=== PATIENT | female | born 1960 | race Caucasian/White ===

== ENCOUNTER 2021-08-23 08:47 | Outpatient (CLI) | payer MEDICARE, MEDICAID, SELFPAY | END 2021-08-23 08:48 | disposition home or self-care (01) | LOC: INJ CL 08:49 | PROVIDERS: PCP Physician Assistant Medical; Visit Provider Family Medicine | DX: M54.16 Radiculopathy, lumbar region (principal); M51.36 Other intervertebral disc degeneration, lumbar region | CPT/HCPCS: 64483; J1100; Q9966 ==

== ENCOUNTER 2021-09-23 10:53 | Emergency (ER) | payer MEDICARE, MEDICAID, SELFPAY ==
[2021-09-23 11:16] VITALS: BP 150/84; PULSE 85; RESP 16; TEMP 35.8; O2SAT 97; BMI 33.7
--- NOTE | 2021-09-23 11:55 | ED_ITS ---
HPI - General Adult General Date Seen: 09/23/21 Chief complaint: Back Injury/Pain Stated complaint: Back pain Time Seen by Provider: 09/23/21 11:55 Source: patient and RN notes reviewed Mode of arrival: ambulatory Limitations: no limitations History of Present Illness HPI narrative: Patient is a 61-year-old female coming in with left abdominal pain that probably started about 2 days ago. Yesterday it started to get worse. She has only noticed diminished appetite but isn't hungry. No nausea or vomiting. Has not had a bowel movement for a couple days but that is not necessarily abnormal, denies diarrhea or constipation. Has had no fevers chills. It is in the left upper lateral side and radiates around the abdomen radiates into the back does seem to go down the left side as well. She has a history of chronic back pain but this is different. Denies any urinary symptoms. She has had a prior tubal ligation bed it is not endorse any other surgeries. She had a Vicodin that she takes for chronic back pain at home earlier. Press seen on her abdomen really bothers her. She states she did not sleep well because of it last night. 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 No cough or cold symptoms. She can feel deep breathing into this left side. Related Data Home Medications Medication Instructions Recorded Confirmed acetaminophen 325 mg tablet 650 mg PO Q6H PRN pain 09/23/21 09/23/21 albuterol sulfate 90 mcg/actuation 1 puff inhalation Q8H PRN 09/23/21 09/23/21 aerosol inhaler amlodipine 5 mg tablet 5 mg PO DAILY 09/23/21 09/23/21 ammonium lactate 12 % lotion 1 applic topical BID 09/23/21 09/23/21 aspirin 81 mg tablet,delayed 81 mg PO DAILY 09/23/21 09/23/21 release atorvastatin 20 mg tablet 20 mg PO .bedtime 09/23/21 09/23/21 benzonatate 100 mg capsule 100 mg PO Q6H PRN 09/23/21 09/23/21 blood sugar diagnostic (Accu-Chek 09/23/21 09/23/21 Guide test strips) blood-glucose meter (Accu-Chek 09/23/21 09/23/21 Guide Me Glucose Meter) brexpiprazole 0.5 mg tablet mg 09/23/21 (Rexulti) brexpiprazole 1 mg tablet (Rexulti) mg 09/23/21 bupropion HCl 300 mg 24 hr tablet, 300 mg PO DAILY 09/23/21 09/23/21 extended release cholecalciferol (vitamin D3) 125 09/23/21 mcg (5,000 unit) capsule cyclobenzaprine 5 mg tablet mg 09/23/21 diclofenac sodium 1 % topical gel topical 09/23/21 docusate sodium 100 mg capsule mg PO 09/23/21 dulaglutide 0.75 mg/0.5 mL mg subcut 09/23/21 subcutaneous pen injector (Trulicity) dulaglutide 1.5 mg/0.5 mL mg subcut 09/23/21 subcutaneous pen injector (Trulicity) dulaglutide 3 mg/0.5 mL mg subcut 09/23/21 subcutaneous pen injector (Trulicity) empagliflozin 10 mg tablet mg 09/23/21 (Jardiance) fluocinolone 0.01 % topical topical 09/23/21 solution gabapentin 100 mg capsule 100 mg PO Q8H 09/23/21 09/23/21 hydrocodone 5 mg-acetaminophen 325 tab 09/23/21 mg tablet hydrocortisone 1 % topical cream applic 09/23/21 hydroxyzine HCl 25 mg tablet mg 09/23/21 hydroxyzine pamoate 25 mg capsule mg 09/23/21 ibuprofen 600 mg tablet mg 09/23/21 incontinence pad, liner, disp 09/23/21 09/23/21 (Poise Pads) lancets (Accu-Chek Softclix 09/23/21 09/23/21 Lancets) lorazepam 1 mg tablet mg 09/23/21 metformin 1,000 mg tablet 1,000 mg PO .q12 09/23/21 09/23/21 metformin 500 mg tablet mg 09/23/21 methylprednisolone 4 mg tablets in mg 09/23/21 a dose pack multivitamin with folic acid 400 tab PO 09/23/21 mcg tablet (Tab-A-Mars) nicotine (polacrilex) 2 mg buccal mg 09/23/21 mini lozenge nicotine 21 mg/24 hr daily 09/23/21 transdermal patch omeprazole 40 mg capsule,delayed 40 mg PO DAILY 09/23/21 09/23/21 release propranolol 60 mg capsule,24 60 mg PO Q24H 09/23/21 09/23/21 hr,extended release risankizumab-rzaa 150 mg/mL mg subcut 09/23/21 subcutaneous pen injector (Skyrizi) ropinirole 0.25 mg tablet 0.5 mg PO .bedtime 09/23/21 09/23/21 ropinirole 0.5 mg tablet mg 09/23/21 sertraline 100 mg tablet 100 mg PO Q24H 09/23/21 09/23/21 trazodone 50 mg tablet 50 mg PO .bedtime PRN 09/23/21 09/23/21 triamcinolone acetonide 0.1 % topical 09/23/21 lotion varenicline 0.5 mg tablet 1 mg PO BID 09/23/21 09/23/21 Allergies Allergy/AdvReac Type Severity Reaction Status Date / Time lithium Allergy Mild Unknown Verified 09/23/21 14:35 Review of Systems Status of ROS: Reports: 10 or more systems reviewed and unremarkable except as noted in History and below [facility] Social History Smoking Status: Current every day smoker What tobacco products do you use: cigarettes Do you use any of these nicotine containing products: None Second hand tobacco smoke exposure: No How often do you have a drink containing alcohol: monthly or less AUDIT-C Alcohol total score: 1 Non-prescribed substance use: denies use Exam Const: Vital Signs, click to edit/add: Vital Signs - 24 hr 09/23/21 11:16 09/23/21 13:50 09/23/21 14:00 Temperature 96.5 F L Pulse Rate [Right Pulse Oximeter] 85 82 85 Respiratory Rate 16 18 18 Blood Pressure [Ri ght Upper Arm] 150/84 H 120/104 H 143/93 H Pulse Oximetry 97 95 94 Oxygen Delivery Me thod Room Air Room Air Room Air 09/23/21 14:30 09/23/21 15:00 Temperature Pulse Rate [Right Pulse Oximeter] 87 86 Respiratory Rate 18 18 Blood Pressure [Ri ght Upper Arm] 149/95 H 154/85 H Pulse Oximetry 95 95 Oxygen Delivery Me thod Room Air Room Air Documenting provider has reviewed patient's vital signs: yes Common normals: no apparent distress, oriented x3, no limitations, healthy appearing, alert and well nourished Nutritional appearance: obese HENMT: Common normals: normocephalic, head/scalp atraumatic, hearing grossly normal bilaterally and EAC's normal Head and scalp: normocephalic and atraumatic External auditory canal: EAC's normal Eye: Common normals: PERRL, EOMs intact bilaterally, conjunctivae normal and no scleral icterus Conjunctiva: conjunctiva(e) normal Pupil: PERRL Neck & C-Spine: Common normals: full ROM, no lymphadenopathy, supple, no meningeal signs, no JVD and thyroid normal Thyroid: thyroid normal Chest: Common normals: inspection of chest normal and palpation of chest normal Resp: Common normals: normal respiratory effort, no retractions, no use of accessory muscles and clear to auscultation bilaterally Auscultation: clear to auscultation bilaterally Cardio: Common normals: no JVD, regular rate, regular rhythm, S1 normal heart sound, S2 normal heart sound, no gallops, no clicks and no murmurs Rate: regular rate Rhythm: regular rhythm Heart sounds: S1 normal and S2 normal GI: Common normals: Normal to inspection, nondistended, normoactive bowel sounds present, soft to palpation, no hepatosplenomegaly and no masses Palpation: soft, tender Details: LLQ and LUQ and no hepatosplenomegaly Neuro: Common normals: oriented x3 Sensorium/orientation: alert Meningeal signs: no meningeal signs Course Course Hospital Course: Have reviewed with patient that we will start with labs and guide imaging based on that. She may certainly need a abdomen pelvis CT but would like to have a D- dimer back before I decide on what type of imaging I will be ordering. She is currently hemodynamically stable. She did get Toradol for pain management. Reevaluation(s) Reevaluation #1: Have reviewed with patient her CT result findings and given her copy. It does appear that this could be consistent with constipation. We otherwise do not see any concerning laboratory abnormalities. Patient is going to be discharged to home for outpatient management of constipation. Time: 16:09 Vital Signs Vital signs: Initial Vital Signs Temperature 96.5 F L 09/23/21 11:16 Temperature Source Temporal Artery Scan 09/23/21 11:16 Pulse Rate 85 08//22 11:16 Pulse Rhythm 09/23/21 11:16 Respiratory Rate 16 09/23/21 11:16 Blood Pressure 150/84 H 09/23/21 11:16 Blood Pressure Mean 106 09/23/21 11:16 Blood Pressure Position Sitting 09/23/21 11:16 Pulse Oximetry 97 09/23/21 11:16 Oxygen Delivery Method 09/23/21 11:16 Vital Signs Temperature 96.5 F L 09/23/21 11:16 Pulse Rate 85 09/23/21 11:16 Respiratory Rate 16 09/23/21 11:16 Blood Pressure 150/84 H 09/23/21 11:16 Pulse Oximetry 97 09/23/21 11:16 Oxygen Delivery Method 09/23/21 11:16 Temperature 96.5 F L 09/23/21 11:16 Pulse Rate 86 09/23/21 15:00 Respiratory Rate 18 09/23/21 15:00 Blood Pressure 154/85 H 09/23/21 15:00 Pulse Oximetry 95 09/23/21 15:00 Oxygen Delivery Method 09/23/21 15:00 Medical Decision Making Lab Data Lab results reviewed: Yes I reviewed the patient's lab results Labs: Lab Results 09/23/21 09/23/21 09/23/21 Range/Units 12:15 13:30 13:30 WBC 10.07 (4.50-11.00) K/uL RBC 3.73 L (4.00-5.20) m/uL Hgb 12.2 (12.0-16.0) gm/dL Hct 36.9 (33.0-51.0) % MCV 99 (80-100) fL MCH 33 (26-34) pg MCHC 33 (32-36) gm/dL RDW Coeff of Sylvester 12.7 (11.5-15.5) % Plt Count 256 (140-440) K/uL Neut % (Auto) 66.5 (42.0-72.0) % Lymph % (Auto) 22.7 (20-44) % Parker % (Auto) 6.2 (0.0-11.0) % Eos % (Auto) 3.8 (0.0-7.0) % Baso % (Auto) 0.5 (0.0-3.0) % Neut # (Auto) 6.70 (1.7-7.0) K/uL Lymph # (Auto) 2.29 (0.90-2.90) K/uL Parker # (Auto) 0.60 (0.00-0.90) K/UL Eos # (Auto) 0.38 (0.00-0.50) K/uL Baso # (Auto) 0.05 (0.00-0.30) K/uL Abs Immat Gran (auto) 0.03 (0.00-0.30) K/uL D-Dimer Quant (PE/DVT) 0.81 H (0.00-0.50) ug/ml Sodium (135-149) mmol/L Potassium (3.6-5.1) mmol/L Chloride (96-114) mmol/L Carbon Dioxide (20-32) mmol/L BUN (7-30) mg/dL Creatinine (0.5-1.5) mg/dL Estimated Creat Clear Estimated GFR ml/min Glucose (60-115) mg/dL Lactate (0.5-1.9) mmol/L Calcium (8.4-10.6) mg/dL Total Bilirubin (0.1-1.5) mg/dL AST (12-35) U/L ALT (4-35) U/L Alkaline Phosphatase (40-150) U/L Troponin I (0.01-0.04) ng/mL C-Reactive Protein (0.5-1.0) mg/dL Total Protein (6.0-8.3) g/dL Albumin (3.3-5.0) g/dL Lipase (23-300) U/L Urine Color Yellow (Yellow) Urine Appearance Clear (Clear) Urine pH 7.0 (5.0-8.5) Ur Specific [place] 1.010 (1.000-1.030) Urine Protein Negative (Negative) Urine Glucose (UA) Negative (Negative) Urine Ketones Negative (Negative) Urine Blood Negative (Negative) Urine Nitrite Negative (Negative) Urine Bilirubin Negative (Negative) Urine Urobilinogen 0.2 (0.2-1.0) Ur Leukocyte Esterase Negative (Negative) Urine RBC 0-2 (0-2) Urine WBC 0-2 (0-5) Ur Squamous Epith Cells Few (None-Few) Urine Bacteria Moderate A (None) 09/23/21 09/23/21 Range/Units 13:30 13:30 WBC (4.50-11.00) K/uL RBC (4.00-5.20) m/uL Hgb (12.0-16.0) gm/dL Hct (33.0-51.0) % MCV (80-100) fL MCH (26-34) pg MCHC (32-36) gm/dL RDW Coeff of Sylvester (11.5-15.5) % Plt Count (140-440) K/uL Neut % (Auto) (42.0-72.0) % Lymph % (Auto) (20-44) % Parker % (Auto) (0.0-11.0) % Eos % (Auto) (0.0-7.0) % Baso % (Auto) (0.0-3.0) % Neut # (Auto) (1.7-7.0) K/uL Lymph # (Auto) (0.90-2.90) K/uL Parker # (Auto) (0.00-0.90) K/UL Eos # (Auto) (0.00-0.50) K/uL Baso # (Auto) (0.00-0.30) K/uL Abs Immat Gran (auto) (0.00-0.30) K/uL D-Dimer Quant (PE/DVT) (0.00-0.50) ug/ml Sodium 136 (135-149) mmol/L Potassium 4.2 (3.6-5.1) mmol/L Chloride 105 (96-114) mmol/L Carbon Dioxide 23 (20-32) mmol/L BUN 14 (7-30) mg/dL Creatinine 0.9 (0.5-1.5) mg/dL Estimated Creat Clear 47.63 Estimated GFR 72 ml/min Glucose 120 H (60-115) mg/dL Lactate 1.1 (0.5-1.9) mmol/L Calcium 9.2 (8.4-10.6) mg/dL Total Bilirubin 0.2 (0.1-1.5) mg/dL AST 27 (12-35) U/L ALT 23 (4-35) U/L Alkaline Phosphatase 127 (40-150) U/L Troponin I < 0.01 L (0.01-0.04) ng/mL C-Reactive Protein < 0.5 L (0.5-1.0) mg/dL Total Protein 7.2 (6.0-8.3) g/dL Albumin 4.1 (3.3-5.0) g/dL Lipase 86 (23-300) U/L Urine Color (Yellow) Urine Appearance (Clear) Urine pH (5.0-8.5) Ur Specific [place] (1.000-1.030) Urine Protein (Negative) Urine Glucose (UA) (Negative) Urine Ketones (Negative) Urine Blood (Negative) Urine Nitrite (Negative) Urine Bilirubin (Negative) Urine Urobilinogen (0.2-1.0) Ur Leukocyte Esterase (Negative) Urine RBC (0-2) Urine WBC (0-5) Ur Squamous Epith Cells (None-Few) Urine Bacteria (None) Imaging Data CT Chest/Ab/Pelvis: Attestation: I have reviewed the pertinent imaging results. Radiologist's impression: Patient: FRANSISCO LUIS Facility:?[facility] Patient ID:?[id number] Site Patient ID:?[id number]. Site :?[id number] Study:?CT Chest/Abd/Pelvis W/ 95CC ISOVUE-370 PE PROTOCOL-09/23/2021 2:48:28 PM Ordering Physician:Shoshana Haines Final Report: INDICATION: Abdominal pain, left upper quadrant pain, left-sided chest pain, elevated D- dimer TECHNIQUE: CT chest, abdomen and pelvis acquired with IV contrast. 95 cc Isovue 370 COMPARISON: None FINDINGS: Chest: Cardiovascular structures: Heart size is normal. Thoracic aorta and main pulmonary artery are normal in caliber. Mediastinum and patrica: No mass or adenopathy. Lungs: Clear. Pleura and pericardium: No effusions. Chest wall and axilla: No mass or adenopathy. Bones: Degenerative changes thoracic spine. Abdomen and Pelvis: Liver: Unremarkable. Spleen: Unremarkable. Pancreas: Unremarkable. Gallbladder and bile ducts: Unremarkable. Kidneys: Bilateral renal cysts. Adrenal glands: Unremarkable. GI tract: The stomach retention appear appendix Vascular structures: Unremarkable. Lymph nodes: Unremarkable. Miscellaneous: Unremarkable. No free air or significant free fluid. Pelvic Organs: Unremarkable. Bones: Unremarkable for age. IMPRESSION: No evidence for pulmonary embolus. Normal appearance of the thoracic aorta. Diffuse colonic fecal retention. Dictated by Chavo Clements MD @ 09/23/2021 3:31:43 PM Please note that all CT scans at this facility use dose modulation, iterative reconstruction, and/or weight-based dosing when appropriate to reduce radiation dose to as low as reasonably achievable. Dictated by: Chavo Clements MD @ 09/23/2021 15:31:54 (Electronic Signature) Critical Care Time Critical Care Time Critical Care Time: No Discharge Plan Discharge Clinical Impression: Constipation Condition: Stable Instructions: Constipation (DC), High Fiber Diet (ED) Additional Instructions: Drink adequate fluid, try to increase fiber in your diet. Can take senna 1-2 pills once or twice a day for the next 2-3 days to try to help clean out your bowels. Daily can take MiraLax 17 g, this can be used as a daily additive 2 year regimen to help keep bowels from developing constipation. That any time he start developing diarrhea, can back off the dosing of the MiraLax. Activity Level: Activity as Tolerated Prescriptions: No Action acetaminophen 325 mg tablet 650 mg PO Q6H PRN (Reason: pain) metformin 500 mg tablet atorvastatin 20 mg tablet 20 mg PO .bedtime ammonium lactate 12 % lotion 1 applic TOPICAL BID (DME) blood-glucose meter [Accu-Chek Guide Me Glucose Mtr] [facility] [place] Label Comments: TEST THREE TIMES DAILY trazodone 50 mg tablet 50 mg PO .bedtime PRN hydrocodone-acetaminophen 5-325 mg tablet propranolol 60 mg capsule,extended release 24 hr 60 mg PO Q24H sertraline 100 mg tablet 100 mg PO Q24H (DME) Accu-Chek Guide test strips Strip MISCELLANEOUS Label Comments: TEST THREE TIMES DAILY amlodipine 5 mg tablet 5 mg PO DAILY omeprazole 40 mg capsule,delayed release(DR/EC) 40 mg PO DAILY aspirin 81 mg tablet,delayed release (DR/EC) 81 mg PO DAILY (DME) lancets [Accu-Chek Softclix Lancets] [facility] [place] Label Comments: TEST THREE TIMES DAILY ropinirole 0.25 mg tablet 0.5 mg PO .bedtime benzonatate 100 mg capsule 100 mg PO Q6H PRN hydrocortisone 1 % cream metformin 1,000 mg tablet 1,000 mg PO .q12 ropinirole 0.5 mg tablet nicotine 21 mg/24 hr patch 24 hour docusate sodium 100 mg capsule PO hydroxyzine HCl 25 mg tablet gabapentin 100 mg capsule 100 mg PO Q8H fluocinolone 0.01 % solution TOPICAL lorazepam 1 mg tablet triamcinolone acetonide 0.1 % lotion TOPICAL ibuprofen 600 mg tablet methylprednisolone 4 mg tablets,dose pack albuterol sulfate 90 mcg/actuation HFA aerosol inhaler 1 puff INHALATION Q8H PRN cholecalciferol (vitamin D3) 125 mcg (5,000 unit) capsule hydroxyzine pamoate 25 mg capsule cyclobenzaprine 5 mg tablet bupropion HCl 300 mg tablet extended release 24 hr 300 mg PO DAILY (DME) Poise Pads Pad MISCELLANEOUS varenicline 0.5 mg tablet 1 mg PO BID diclofenac sodium 1 % gel TOPICAL multivitamin with folic acid [Tab-A-Mars] 400 mcg tablet PO Jardiance 10 mg tablet Trulicity 0.75 mg/0.5 mL pen injector SUBCUT Trulicity 1.5 mg/0.5 mL pen injector SUBCUT Rexulti 0.5 mg tablet Rexulti 1 mg tablet nicotine (polacrilex) 2 mg mini lozenge Trulicity 3 mg/0.5 mL pen injector SUBCUT Skyrizi 150 mg/mL pen injector SUBCUT Follow Up/Referrals: Adriane Woods PA-C [Referring] - Stand Alone Forms: [facility] Info Instructions
[2021-09-23 12:37] LABS: Appearance Urine Clear (Clear); Bilirubin Urine Negative (Negative); Blood Urine Negative (Negative); Color Urine Yellow (Yellow); Glucose Urine Negative (Negative); Ketones Urine Negative (Negative); Leukocyte Esterase Urine Negative (Negative); Nitrite Urine Negative (Negative); Protein Urine Negative (Negative); Urobilinogen Urine 0.2 (0.2-1.0)
[2021-09-23 12:48] LABS: RBC Urine 0-2 (0-2); WBC Urine 0-2 (0-5)
[2021-09-23 12:49] LABS: Bacteria Urine Moderate; Squamous Epithelial Cell Urine Few (None-Few)
--- NOTE | 2021-09-23 13:10 | ED.NURSE ---
Multiple attempts for IV access by April gallardo, RN, and CHELY Watts. AGRISCIENCE TEACHER in room attempting IV.
[2021-09-23 13:38] LABS: Lactate* 1.1 mmol/L (0.5-1.9)
[2021-09-23 13:40] LABS: Basophils Absolute Auto 0.05 K/uL (0.00-0.30); Basophils Percent Auto 0.5 % (0.0-3.0); Eosinophils Absolute Auto 0.38 K/uL (0.00-0.50); Eosinophils Percent Auto 3.8 % (0.0-7.0); Hematocrit 36.9 % (33.0-51.0); Hemoglobin* 12.2 gm/dL (12.0-16.0); Immature Granulocytes Abs Auto 0.03 K/uL (0.00-0.30); Lymphocytes Absolute Auto 2.29 K/uL (0.90-2.90); Lymphocytes Percent Auto 22.7 % (20-44); Mean Corpuscular HGB Conc 33 gm/dL (32-36); Mean Corpuscular Hemoglobin 33 pg (26-34); Mean Corpuscular Volume 99 fL (80-100); Monocytes Percent Auto 6.2 % (0.0-11.0); Neutrophils Percent Auto 66.5 % (42.0-72.0); Platelet Count* 256 K/uL (140-440); RDW Coefficient of Variation % 12.7 % (11.5-15.5); Red Blood Count 3.73 m/uL (4.00-5.20); White Blood Count* 10.07 K/uL (4.50-11.00)
[2021-09-23 13:41] LABS: Slide Review Reflex No
[2021-09-23] MEDS: KETOROLAC 15 MG/ML inj IVP (13:45)
[2021-09-23 13:50] VITALS: BP 120/104; PULSE 82; RESP 18; O2SAT 95
[2021-09-23 14:00] VITALS: BP 143/93; PULSE 85; RESP 18; O2SAT 94
[2021-09-23 14:04] LABS: Albumin* 4.1 g/dL (3.3-5.0); Chloride* 105 mmol/L (96-114); Sodium* 136 mmol/L (135-149)
[2021-09-23 14:05] LABS: Potassium* 4.2 mmol/L (3.6-5.1)
[2021-09-23 14:06] LABS: Creatinine* 0.9 mg/dL (0.5-1.5); Est. Creatinine Clearance* 47.63; Estimated Glomerular Filt Rate 72 ml/min
[2021-09-23 14:07] LABS: Alanine Aminotransferase* 23 U/L (4-35); Alkaline Phosphatase* 127 U/L (40-150); Aspartate Amino Transferase* 27 U/L (12-35); Bilirubin Total* 0.2 mg/dL (0.1-1.5); Blood Urea Nitrogen* 14 mg/dL (7-30); Carbon Dioxide* 23 mmol/L (20-32); Glucose* 120 mg/dL (60-115); Lipase* 86 U/L (23-300); Total Protein* 7.2 g/dL (6.0-8.3)
[2021-09-23 14:08] LABS: Calcium* 9.2 mg/dL (8.4-10.6)
[2021-09-23 14:09] LABS: D Dimer Quantitative* 0.81 ug/ml (0.00-0.50)
[2021-09-23 14:19] LABS: C Reactive Protein* < 0.5 mg/dL (0.5-1.0); Troponin I* < 0.01 ng/mL (0.01-0.04)
--- NOTE | 2021-09-23 14:21 | CRLHL7_ITS ---
For Patients: As a result of the Century Cures Act, medical imaging exams and procedure reports are released immediately into your electronic medical record. You may view this report before your referring provider. If you have questions, please contact your health care provider. INDICATION: Abdominal pain, left upper quadrant pain, left-sided chest pain, elevated D-dimer TECHNIQUE: CT chest, abdomen and pelvis acquired with IV contrast. 95 cc Isovue 370 COMPARISON: None FINDINGS: Chest: Cardiovascular structures: Heart size is normal. Thoracic aorta and main pulmonary artery are normal in caliber. Mediastinum and patrica: No mass or adenopathy. Lungs: Clear. Pleura and pericardium: No effusions. Chest wall and axilla: No mass or adenopathy. Bones: Degenerative changes thoracic spine. Abdomen and Pelvis: Liver: Unremarkable. Spleen: Unremarkable. Pancreas: Unremarkable. Gallbladder and bile ducts: Unremarkable. Kidneys: Bilateral renal cysts. Adrenal glands: Unremarkable. GI tract: The stomach retention appear appendix Vascular structures: Unremarkable. Lymph nodes: Unremarkable. Miscellaneous: Unremarkable. No free air or significant free fluid. Pelvic Organs: Unremarkable. Bones: Unremarkable for age. IMPRESSION: No evidence for pulmonary embolus. Normal appearance of the thoracic aorta. Diffuse colonic fecal retention. Dictated by Chavo Clements MD @ 09/23/2021 3:31:43 PM Please note that all CT scans at this facility use dose modulation, iterative reconstruction, and/or weight-based dosing when appropriate to reduce radiation dose to as low as reasonably achievable. Dictated by: Chavo Clements MD @ 09/23/2021 15:31:54 (Electronically Signed)
[2021-09-23 14:30] VITALS: BP 149/95; PULSE 87; RESP 18; O2SAT 95
[2021-09-23 15:00] VITALS: BP 154/85; PULSE 86; RESP 18; O2SAT 95
--- NOTE | 2021-09-23 15:16 | ED.NURSE ---
notified of positive suicide screening.
--- NOTE | 2021-09-23 16:33 | ED.NURSE ---
Call to CHELY Roper at [facility]. Report given and pt sent with extra copies of d/c packet, written physician's orders form, and imaging results for facility RN. Per facility, shuttle will be here in five minutes to pharmacy picking tech patient.
== END 2021-09-23 16:30 | disposition home or self-care (01) ==
PROVIDERS: Emergency Provider Family Medicine; PCP Family Medicine
DX: K59.00 Constipation, unspecified (principal)
CPT/HCPCS: 36415; 71260; 74177; 80053; 81001; 83605; 83690; 84484; 85025; 85379; 86140; 87086; 87186; 96374; 99284; J1885; Q9967

== ENCOUNTER 2021-11-08 12:44 | Outpatient (CLI) | payer MEDICARE, MEDICAID, SELFPAY | END 2021-11-08 12:45 | disposition home or self-care (01) | LOC: INJ CL 12:46 | PROVIDERS: PCP Family Medicine; Visit Provider Family Medicine | DX: M54.16 Radiculopathy, lumbar region (principal); M51.36 Other intervertebral disc degeneration, lumbar region | CPT/HCPCS: 64483; J1100; Q9966 ==

== ENCOUNTER 2022-03-10 07:12 | Day surgery (SDC) | payer MEDICARE, MEDICAID, SELFPAY ==
[2022-03-10] VITALS (9 sets, daily range): BP systolic 120–158; BP diastolic 72–91; PULSE 79–87; RESP 16–18; TEMP 36.6; O2SAT 95–99; BMI 35.4
[2022-03-10] MEDS: SODIUM CHLORIDE 0.9 % (FLUSH) 10 ML SYRINGE IVF (08:11)
[2022-03-10] MEDS: CEFAZOLIN 2 GM INJ IVP (08:12)
[2022-03-10] MEDS: BUPIVACAINE 0.5% 30 ML 5 ML INJECTION (08:18)
[2022-03-10] MEDS: lidocaine HCL 2 % MULTIDOSE 20 ML VIAL 7 ML INJECTION (08:18)
--- NOTE | 2022-03-10 08:24 | SUR.OPER ---
PATIENT QUESTIONS ANSWERED SATISFACTORILY PREOPERATIVELY. PATIENT BROUGHT TO OR #3 PER WHEELCHAIR.? Patient positioned supine on OR #3 bed.? The perioperative?team supported left arm on arm boards. Final approval of positioning by surgeon.?P PRIOR TO LOCAL INJECTION, TIME OUT PREFORMED AT 08:18.
--- NOTE | 2022-03-10 08:39 | P.ORPRC_ITS ---
Procedure Note Date of procedure: 03/10/22 Procedure: Preop diagnosis: Right upper extremity carpal tunnel syndrome Postop diagnosis: Right upper extremity carpal tunnel syndrome Procedure: Right upper extremity carpal tunnel release Anesthesia: Local Surgeon: Elias Patel MD laboratory assistant: JUSTIN Avelar EBL: 5 mL Complications: None Specimens: None Drains: None Indications: The patient has a history of right upper extremity carpal tunnel syndrome symptoms. Despite appropriate nonoperative management consisting of nighttime bracing and occupational therapy they continue to have symptoms. Operative intervention was recommended. The risks, benefits alternatives and expected outcomes were discussed in detail. These included but were not limited to: Infection, bleeding, injury to blood vessel or nerve, venous thromboembolism. All questions were answered to their satisfaction. The patient was placed supine on the operating room table. Local anesthesia was established with 0.5% Marcaine without epinephrine and 2% lidocaine without epinephrine. The hand was prepped and draped in usual sterile fashion. The limb was elevated the forearm pneumatic tourniquet was inflated to 250 mm of mercury. A longitudinal incision was made centered over the radial border of the ring finger at the base of the palm. Subcutaneous dissection was sharply taken through the palmar fascia and the palmaris brevis to the transverse carpal ligament. The ligament was divided in line with the incision. Proximal and distal dissection was carried with tenotomy and Metzenbaum scissors for a wide decompression of the carpal tunnel. The tourniquet was released , bleeding was controlled with direct pressure. The wound was closed with a 3-0 nylon. A bulky dry dressing was applied, sponge and needle counts were correct x 2. The patient tolerated the procedure well, there were no apparent complications. They were sent to same day surgery in satisfactory condition. Plan: Use of the hand as tolerates. Discontinue the intraoperative dressing on postoperative day 3 and may get the wound wet as tolerates. Follow up in the office in 2 weeks for a wound check and suture removal.
[2022-03-10] MEDS: ETHYL CHLORIDE 1 APPLICATION 1 APPLIC TOPICAL (08:48)
== END 2022-03-10 09:21 | disposition home or self-care (01) ==
PROVIDERS: PCP Family Medicine; Visit Provider Orthopaedic Surgery
PROC: (CPT 64721; principal; 2022-03-10 08:15)
DX: G56.01 Carpal tunnel syndrome, right upper limb (principal)
CPT/HCPCS: 64721; J0690; J3490

== ENCOUNTER 2022-07-04 13:45 | Outpatient (RCR) | payer MEDICARE, MEDICAID, SELFPAY ==
--- NOTE | 2022-03-29 12:23 | OT.OPOE ---
OT Outpatient Ortho Eval OT Outpatient Ortho Eval Start: 03/29/22 11:39 Freq: Status: Active Protocol: Document 03/29/22 11:44 LCN (Rec: 03/29/22 12:16 LCN [id number]) E-signed By Christy Grewal, OTR/L, CLT OT OP Ortho Eval Details Type Type Eval Complexity Low Insurance Information Insurance Information [employer] Outpatient History/Precautions Current Condition/Medical Diagnosis Referring Provider Lalo Cole Treatment Diagnosis R wrist stiffness S/P R Carpal Tunnel release, L carpal tunnel syndrome Date of Onset 03/10/22 Other Precautions metformin for DM. Has had cardiac bypass per [place], HTN. Has rheumatoid arthritis. Medical Conditions DM,Depression,Heart Condition, HTN,Respiratory,Arthritis, Osteoporosis Other Conditions Carpal tunnel release with Dr. Patel 03/10/22 and 03/22/22 sutures out good incision healing, minimal edema. EMG 1228/22 with no median nn latency/severe CTS in R UE and L .10 in LUE, moderate to severe CTS. Medical/Functional History Medical History Reviewed Yes Prior Level of Function/Mobility Pt has lost her and son within the last year, 6 months apart. Attends grief support group. 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 Has been doing acupuncture, PT/[facility] at [facility] , massage to help. Has a TENS unit but not strong enough to feel it at highest intensity. 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 Hobbies enjoys beads, crafting, known for beautiful penmanship Fitness Has been trying walk more. Goal is 2 miles. Oriented Mental Status Comments Depression, grief group helpful. Ortho Subjective Subjective Subjective Angeles Guerrier is a disabled yet active 61 year old female with a complex medical history . She is healing well from her R carpal tunnel release w Dr. Patel 03/10/22 with goals to increase safe R hand use and could use strategies to support having ongoing L carpal tunnel syndrome ( waiting to see if she wants surgery on this side). Pain Assessment Pain Present Pain Present Pain Reported Location L carpal tunnel Description Pressure,Dull, Achy,Throbbing, Heaviness Intensity 3 R carpal tunnel Description Pressure,Dull, Achy,Throbbing, Heaviness Intensity 2 Goniometric Comments Goniometric Comments Goniometric Comments R WR EX to 80 pulling at incision, mild. WR FL to [address] and UD stiff at end range. TIght to close fist, make hook shape. per edema pocketing in digit shafts. Hard to hold a pen, fasten bra , open bottles. Incision is well healed full granulation and flat margins. Thicker with some fibrous changes at radial margin and radial wrist crease. Mild induration at incision site itself, softens with gentle scar massage, well tolerated. Loves the feeling a gentle compression glove, issued today. OT Objective Data Hand Hand Dominance Right Upper Extremity Special Tests Upper Extremity Special Tests Comments Comments Adis's test to be applied at next visit, limited per pt's schedule to 45 min today. OT Problems Problems Problems Decreased Strength,Decreased Range of Motion,Decreased Fine Motor Other Problems Writing,Opening Containers, Dressing Assessment Assessment Assessment Angeles Guerrier is recovering well from her CTR with Dr. Patel on 03/10/22. She will benefit from skilled OT to address residual stiffness/weakness and needing guide to support safe return to higher level activities and support post op healing. Will also benefit from trial of conservative approach to manage mod to severe CTS of L hand also. In 8 weeks, pt will demonstrate:? 1) Decreased pn to <2/10 80% of the time with sustained gripping, carrying groceries, reading books and weeding. 2) I HEP for stretching, gradual strengthening and self mgmt strategies. 3) improved L assembly room supervisor strength to 15# and pinch to 10# with L thumb pain < 1/10. 4)??Pt to be fit with functional bracing (for CMC, wrist,) and use adaptive strategies to protect joint integrity to support less pain with ADL. Occupational Therapy Treatment Plan - OP Potential Rehabilitation Potential Excellent Set Goals Goals Set with Patient Yes Goals Goals In 8 weeks, pt will demonstrate:? 1) Decreased pn to <2/10 80% of the time with sustained gripping, carrying groceries, cooking and beading. 2) I HEP for stretching, gradual strengthening and self mgmt strategies. 3) improved B assembly room supervisor strength to 40# and pinch to 12# with B hand/wrist pain < 1/10. 4)??Pt to use adaptive strategies to protect joint integrity to support less pain with ADL. Target Date 06/25/22 Progress set Treatment Plan Treatment Plan Evaluation,Edema Control, Iontophoresis,Joint Mobilization,Manual Therapy, Splinting,Ultrasound, Therapeutic Exercise,Self-Care /Home Management,Education Expected Frequency 1-2x Week Expected Duration 6-8 Weeks Expected Duration Comments Starting w 6-8 weeks, 90 day cert period stated to support extending therapy for L hand CTS if more intervention is needed. Certification Certification I Certify That: Therapy Services Provided, Therapy Plan Established, Therapy Plan Reviewed Recertification Information Recertification Information Initial Certification Date 03/29/22 Recertification Due Date 06/27/22 Provider Signature Shows Agreement With POC & Medical Necessity Physician Comment/Change Comment or Changes Physician NPI Number #
--- NOTE | 2022-06-27 12:41 | OT.OPODN ---
OT Outpatient Ortho Daily Note OT Outpatient Ortho Daily Note Start: 03/29/22 11:39 Freq: Status: Active Protocol: Document 06/27/22 12:11 LCN (Rec: 06/27/22 12:39 LCN [id number]) E-signed By Christy Grewal, OTR/L, CLT Type of Note Type of Note Type of Note Daily Note Visit Number 6 Insurance Information Insurance Information [employer] Insurance Information Comments Medicaid Outpatient History/Precautions Current Condition/Medical Diagnosis Referring Provider Lalo Cole Treatment Diagnosis R wrist stiffness S/P R Carpal Tunnel release, L carpal tunnel syndrome Date of Onset 03/10/22 Other Precautions metformin for DM. Has had cardiac bypass per [place], HTN. Has rheumatoid arthritis. Medical Conditions DM,Depression,Heart Condition, HTN,Respiratory,Arthritis, Osteoporosis Other Conditions Carpal tunnel release with Dr. Patel 03/10/22 and 03/22/22 sutures out good incision healing, minimal edema. EMG 1228/22 with no median nn latency/severe CTS in R UE and L .10 in LUE, moderate to severe CTS. Medical/Functional History Medical History Reviewed Yes Prior Level of Function/Mobility Pt has lost her and son within the last year, 6 months apart. Attends grief support group. 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 Has been doing acupuncture, PT[facility] at [facility], massage to help. Has a TENS unit but not strong enough to feel it at highest intensity. 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 Hobbies enjoys beads, crafting, known for beautiful penmanship Fitness Has been trying walk more. Goal is 2 miles. Oriented Mental Status Comments Depression, grief group helpful. Ortho Subjective Subjective Subjective Pt still having finger tip paresthesia for IF/MF tips, RF /SF fine. Having a hard time managing seed for her garden and fastening earrings/jewelry clasps. Hoping to get blood glucose sensor system going, feet are more numb. (waiting to see if she wants surgery on the L side). Pain Assessment Pain Present Pain Present Pain Reported Location L carpal tunnel Description Pressure,Dull, Achy,Heaviness Intensity 0 R carpal tunnel Description Pressure,Dull, Achy,Throbbing, Heaviness Intensity 3 OT OP Daily Ortho Note/Assessment Self-Care/Home Management Self-Care/Home Management Comments . Therapeutic Activity Therapeutic Activity Minutes (minutes) 35 Therapeutic Activity Comments Completed progress towards goals with objective data. Pt with continued paresthesia in finger tips, b dexterity is slower. Good strength return for spiral weaver and pinch for R hand. Pt instructed in home program using a tall small mouthed bottle and beans /beads/toothpicks) to work on in-hand transition from palm to finger tip, and objection rotation while ulnar digits stabilize. Also poking, platting beads/ pinching closed and retrieving from putty mass to build sensory awareness. Shown how to use towel and index finer raking to finger thumb tip w visual feedback to increase sensory input and FMC skills. Ultrasound Ultrasound Frequency & Mode 1 MHz Pulsed Goniometric Comments Goniometric Comments Goniometric Comments 06/27/22-- Improved spiral weaver to 50 # R and 45# L. Barrios p[inch to 19# R, 18# L. 3 pt is 10# R ( pulls up into R pec/levtor, uses shoulder hiking to generate her power). Protective sensation in tact for all fingers, palm R side, sensing 3.61 [place] Noemi fiber ( diminished light touch level at finger tips of IF/MF ). 9 hole peg is 26.6 R and 26.4 sec L ( WFL is < 25 sec; pt very used to having good FMC with beading, so she can notice this deficit). 04/17/22-- Gauge And Weigh Machine Operator is 38# R and 42# L. barrios pinch is 14 # R and 18# L. 3 pt is 7# ( pn at R MP, 04/21) and 15#L. 04/05/22-- Kepangi retropulsion to 3 of 4, tight at TH adductors. Mild pn with scrub test. 04/03/22-- Durkan's test x 60 sec (-) for both hands. Gauge And Weigh Machine Operator is 25# R ( w pt estimating gentle < 50% pressure), 45# L. Barrios pinch is 12# R and 17# L. 3 pt pinch is 3# ( limited by TH CMC OA changes and nail bed shapes, really long finger nails) . WR EX to 72 B and WR FL to 80 B. Kepangi 09/21 Opposition R. 03/29/22--R WR EX to 80 pulling at incision, mild. WR FL to [address] and UD stiff at end range. TIght to close fist, make hook shape. per edema pocketing in digit shafts. Hard to hold a pen, fasten bra, open bottles. Incision is well healed full granulation and flat margins. Thicker with some fibrous changes at radial margin and radial wrist crease. Mild induration at incision site itself, softens with gentle scar massage, well tolerated. Loves the feeling a gentle compression glove, issued today. OT Objective Data Hand Hand Dominance Right Upper Extremity Special Tests Wrist Durkan's Test Negative Left,Negative Right Upper Extremity Special Tests Comments Comments 06/26/22-- Carpal compression, Compression/Durkan's test x 60 sec (-) for both hands. Constant tingling in L hand, all finger tips. No dropping items, good strength OT Problems Problems Problems Decreased Strength,Decreased Range of Motion,Decreased Fine Motor Other Problems Writing,Opening Containers, Dressing Patient Potential Excellent Assessment Assessment Assessment Good return of spiral weaver and pinch strength for R aside. Still having some paresthesia in R and IF/MF finger tips ( also with more neuropathy sx in B feet). Working on progressing fine motor coordination and preparing pt for L side CTR surgery, should she choose to schedule. Angeles Guerrier is recovering well from her CTR with Dr. Patel on 03/10/22. She will benefit from skilled OT to address residual stiffness/weakness and needing guide to support safe return to higher level activities and support post op healing. Will also benefit from trial of conservative approach to manage mod to severe CTS of L hand also. Occupational Therapy Treatment Plan - OP Potential Rehabilitation Potential Excellent Set Goals Goals Set with Patient Yes Goals Goals In 8 weeks, pt will demonstrate:? 1) Decreased pn to <2/10 80% of the time with sustained gripping, carrying groceries, cooking and beading. 2) I HEP for stretching, gradual strengthening and self mgmt strategies. 3) improved B spiral weaver strength to 40# and pinch to 12# with B hand/wrist pain < 1/10. 4)??Pt to use adaptive strategies to protect joint integrity to support less pain with ADL. Target Date 06/25/22 Progress set Treatment Plan Treatment Plan Evaluation,Edema Control, Iontophoresis,Joint Mobilization,Manual Therapy, Splinting,Ultrasound, Therapeutic Exercise,Self-Care /Home Management,Education Expected Frequency 1-2x Week Expected Duration 6-8 Weeks Expected Duration Comments Starting w 6-8 weeks, 90 day cert period stated to support extending therapy for L hand CTS if more intervention is needed. Comment Summary Check Durkan's B, add HEP for L CTS. Issued foam/pens fo . Add getnle putty HEP. Check numbness R edema girth R hand. OT Treatment Minutes Treatment Minutes Untimed Treatment Minutes 0 Timed Treatment Minutes 35 Total Treatment Minutes 35 Occupational Therapy Billing Units Billing Units Self Care/Home Management 0 Therapeutic Activities 2 Therapeutic Exercise 0 Certification Certification I Certify That: Therapy Services Provided, Therapy Plan Established, Therapy Plan Reviewed Recertification Information Recertification Information Initial Certification Date 03/29/22 Recertification Start Date 06/27/22 Recertification Due Date 09/25/22 Reasons to Continue Skilled Therapy Angeles Guerrier is a disabled yet active 61 year old female with a complex medical history . She is healing well from her R carpal tunnel release w Dr. Patel 03/10/22 with goals to increase safe R hand use and could use strategies to support having ongoing L carpal tunnel syndrome Good return of spiral weaver and pinch strength for R aside. Still having some paresthesia in R and IF/MF finger tips ( also with more neuropathy sx in B feet). Working on progressing fine motor coordination and preparing pt for L side CTR surgery, should she choose to schedule. Rehabilitation Potential good for stated goals, needs some community support ( scheduling [facility] for keeping with therapy visits. Continued Plan of Care and Interventions Progression of fine motor/ sensation strategies for R hand and conservative vs post op care for L hand, add median nerve glides , ROM ex for L side. Provider Signature Shows Agreement With POC & Medical Necessity Physician Comment/Change Comment or Changes Physician NPI Number #
== END 2022-09-27 11:00 | disposition home or self-care (01) ==
PROVIDERS: PCP Physician Assistant Medical; Visit Provider Family Medicine
DX: G56.03 Carpal tunnel syndrome, bilateral upper limbs (principal); M51.26 Other intervertebral disc displacement, lumbar region; M50.20 Other cervical disc displacement, unspecified cervical region; M54.42 Lumbago with sciatica, left side; M25.551 Pain in right hip; M25.552 Pain in left hip; M25.511 Pain in right shoulder; R10.31 Right lower quadrant pain; G89.29 Other chronic pain; M16.11 Unilateral primary osteoarthritis, right hip; Z51.89 Encounter for other specified aftercare
CPT/HCPCS: 97035; 97110; 97112; 97140; 97165; 97530; 97535; X5282

== ENCOUNTER 2022-07-13 06:07 | Day surgery (SDC) | payer MEDICARE, MEDICAID, SELFPAY ==
[2022-07-13] VITALS (12 sets, daily range): BP systolic 116–175; BP diastolic 65–90; PULSE 87–99; RESP 16; TEMP 36.1–36.6; O2SAT 96–99; BMI 35.4
[2022-07-13] MEDS: SODIUM CHLORIDE 0.9 % (FLUSH) 10 ML SYRINGE IVF (06:30)
[2022-07-13] MEDS: LACTATED RINGERS 1000 ML 1,000 ML 35 ML IV (06:30)
[2022-07-13] MEDS: CEFAZOLIN 2 GM INJ IVP (06:30)
--- NOTE | 2022-07-13 07:31 | PM.ORPRC ---
Procedure Note Date of procedure: 07/13/22 Procedure: Preop diagnosis: Left upper extremity carpal tunnel syndrome Postop diagnosis: Left upper extremity carpal tunnel syndrome Procedure: Left upper extremity carpal tunnel release Anesthesia: Local Surgeon: Elias Patel MD historian research assistant: Dontae Marshall PA-C EBL: 5 mL Complications: None Specimens: None Drains: None Indications: The patient has a history of left upper extremity carpal tunnel syndrome symptoms. Despite appropriate nonoperative management consisting of nighttime bracing and occupational therapy they continue to have symptoms. Operative intervention was recommended. The risks, benefits alternatives and expected outcomes were discussed in detail. These included but were not limited to: Infection, bleeding, injury to blood vessel or nerve, venous thromboembolism. All questions were answered to their satisfaction. The patient was placed supine on the operating room table. Local anesthesia was established with 0.5% Marcaine with epinephrine and 2% lidocaine with epinephrine. The hand was prepped and draped in usual sterile fashion. A longitudinal incision was made centered over the radial border of the ring finger at the base of the palm. Subcutaneous dissection was sharply taken through the palmar fascia and the palmaris brevis to the transverse carpal ligament. The ligament was divided in line with the incision. Proximal and distal dissection was carried with tenotomy and Metzenbaum scissors for a wide decompression of the carpal tunnel. The tourniquet was released, bleeding was controlled with direct pressure. The wound was closed with a 3-0 nylon. A bulky dry dressing was applied, sponge and needle counts were correct x 2. The patient tolerated the procedure well, there were no apparent complications. They were sent to same day surgery in satisfactory condition. Plan: Use of the hand as tolerates. Discontinue the intraoperative dressing on postoperative day 3 and may get the wound wet as tolerates. Follow up in the office in 2 weeks for a wound check and suture removal.
[2022-07-13] MEDS: BUPIVACAINE 0.5% 30 ML 12 ML INJECTION (07:33)
== END 2022-07-13 08:36 | disposition home or self-care (01) ==
PROVIDERS: PCP Family Medicine; Visit Provider Orthopaedic Surgery
PROC: (CPT 64721; principal; 2022-07-13 07:15)
DX: G56.02 Carpal tunnel syndrome, left upper limb (principal)
CPT/HCPCS: 64721; 82962; J0690; J3490; J7120

== ENCOUNTER 2022-07-28 06:09 | Emergency (ER) | payer MEDICARE, MEDICAID, SELFPAY ==
[2022-07-28 06:28] VITALS: BP 103/71; PULSE 88; RESP 20; TEMP 36.1; O2SAT 98
[2022-07-28] MEDS: KETOROLAC 30 MG/ML inj IM (07:12)
[2022-07-28] MEDS: predniSONE 10 MG TABLET 50 MG PO (07:12)
[2022-07-28] MEDS: LORazepam 1 MG TABLET PO (07:13)
--- NOTE | 2022-07-28 07:36 | ED_ITS ---
HPI - General Adult General Chief complaint: Back Injury/Pain Stated complaint: Low back and hip pain Time Seen by Provider: 07/28/22 06:17 History of Present Illness HPI narrative: Patient is a 62-year-old female who lives in some type of assisted living facility but she does manage her own medication. Patient has chronic low back pain and sees Dr. Miller and Dr. Strong. In the past cortisone injections have not been beneficial. She has been through physical therapy and does not believe that that works either. She recently asked her PCP to help take her off some of her medication and gabapentin was stopped. I have no idea what dose she was on but she tells me she had no side effects from it. She has ibuprofen, Flexeril, [place] and has tried all three. Her last [place] dose was just over an hour ago. It looks like she gets 120 tablets per month. Did discuss with her t hat we do not manage chronic pain in the emergency department and she tells me that she has a phone call in to Dr. Miller but could not wait for him to respond. She tells me that the pain was too severe for her to sleep. She also tells me that her restless leg syndrome is getting worse. It is possible that gabapentin was helping that as well. She has had no fall or other injury. She did do some gardening yesterday which certainly could have strained the back. She is ambulatory without any difficulty. She did just complete a Medrol Dosepak and says that that usually helps. She thought it was working but now that she has done her pain seems to be getting worse. Related Data Home Medications Medication Instructions Recorded Confirmed albuterol sulfate 90 mcg/actuation 1 puff inhalation Q8H PRN 09/23/21 07/26/22 aerosol inhaler amlodipine 5 mg tablet 5 mg PO DAILY 09/23/21 07/26/22 aspirin 81 mg tablet,delayed 81 mg PO DAILY 09/23/21 07/26/22 release atorvastatin 20 mg tablet 20 mg PO .bedtime 09/23/21 07/26/22 benzonatate 100 mg capsule 100 mg PO Q6H PRN 09/23/21 07/26/22 blood sugar diagnostic (Accu-Chek 09/23/21 03/22/22 Guide test strips) blood-glucose meter (Accu-Chek 09/23/21 03/22/22 Guide Me Glucose Meter) bupropion HCl 300 mg 24 hr tablet, 300 mg PO DAILY 09/23/21 07/26/22 extended release cholecalciferol (vitamin D3) 125 09/23/21 07/26/22 mcg (5,000 unit) capsule diclofenac sodium 1 % topical gel topical 09/23/21 07/26/22 docusate sodium 100 mg capsule mg PO 09/23/21 07/26/22 dulaglutide 0.75 mg/0.5 mL mg subcut 09/23/21 07/26/22 subcutaneous pen injector (Trulicity) dulaglutide 1.5 mg/0.5 mL mg subcut 09/23/21 07/26/22 subcutaneous pen injector (Trulicity) dulaglutide 3 mg/0.5 mL mg subcut 09/23/21 07/26/22 subcutaneous pen injector (Trulicity) fluocinolone 0.01 % topical topical 09/23/21 07/26/22 solution hydrocodone 5 mg-acetaminophen 325 tab 09/23/21 07/26/22 mg tablet hydrocortisone 1 % topical cream applic 09/23/21 07/26/22 hydroxyzine pamoate 25 mg capsule mg 09/23/21 07/26/22 ibuprofen 600 mg tablet mg 09/23/21 07/26/22 incontinence pad, liner, disp 09/23/21 03/22/22 (Poise Pads) lancets (Accu-Chek Softclix 09/23/21 03/22/22 Lancets) metformin 1,000 mg tablet 1,000 mg PO .q12 09/23/21 07/26/22 multivitamin with folic acid 400 tab PO 09/23/21 07/26/22 mcg tablet (Tab-A-Mars) omeprazole 40 mg capsule,delayed 40 mg PO DAILY 09/23/21 07/26/22 release propranolol 60 mg capsule,24 60 mg PO Q24H 09/23/21 07/26/22 hr,extended release risankizumab-rzaa 150 mg/mL mg subcut 09/23/21 07/26/22 subcutaneous pen injector (Bessi) sertraline 100 mg tablet 100 mg PO Q24H 09/23/21 07/26/22 trazodone 50 mg tablet 50 mg PO .bedtime PRN 09/23/21 07/26/22 triamcinolone acetonide 0.1 % topical 09/23/21 07/26/22 lotion cyanocobalamin (vitamin B-12) 1,000 mcg PO DAILY 07/26/22 07/26/22 1,000 mcg tablet cyclobenzaprine 10 mg tablet 10 mg PO 3XD 07/26/22 07/26/22 diphenhydramine HCl 50 mg capsule mg PO 07/26/22 07/26/22 (Banophen) lisinopril 10 mg tablet 10 mg PO DAILY 07/26/22 07/26/22 melatonin 5 mg tablet 5 mg PO QPM 07/26/22 07/26/22 nitroglycerin 0.4 mg sublingual mg sublingual 07/26/22 07/26/22 tablet ropinirole 0.25 mg tablet 0.25 mg PO QPM 07/26/22 07/26/22 varenicline 1 mg tablet mg PO 07/26/22 07/26/22 Previous Rx's Medication Instructions Recorded prednisone 20 mg tablet See Rx Instructions .Route 07/28/22 .COMPLEX #14 tabs Allergies Allergy/AdvReac Type Severity Reaction Status Date / Time lactose Allergy Verified 07/26/22 09:54 Review of Systems Narrative: Review of systems is outlined above otherwise noted to be negative. [facility] Medical History (Updated 07/28/22 @ 06:55 by Chavo Mcqueen MD) RLS (restless legs syndrome) ?G25.81 - Restless legs syndrome (ICD-10) Chronic depression ?F32.A - Depression, unspecified (ICD-10) History of NV (myocardial infarction) ?I25.2 - Old myocardial infarction (ICD-10) Primary hypertension ?I10 - Essential (primary) hypertension (ICD-10) Hyperlipidemia ?E78.5 - Hyperlipidemia, unspecified (ICD-10) Type 2 diabetes mellitus, without long-term current use of insulin ?E11.9 - Type 2 diabetes mellitus without complications (ICD-10) Suicidal intent ?R45.851 - Suicidal ideations (ICD-10) Drug overdose ?T50.901A - Poisoning by unspecified drugs, medicaments and biological substances, accidental (unintentional), initial encounter (ICD-10) Hip pain ?M25.559 - Pain in unspecified hip (ICD-10) Chronic back pain ?M54.9 - Dorsalgia, unspecified (ICD-10) ?G89.29 - Other chronic pain (ICD-10) COPD (chronic obstructive pulmonary disease) ?J44.9 - Chronic obstructive pulmonary disease, unspecified (ICD-10) Osteoporosis ?M81.0 - Age-related osteoporosis without current pathological fracture (ICD- 10) GERD (gastroesophageal reflux disease) ?K21.9 - Gastro-esophageal reflux disease without esophagitis (ICD-10) Rheumatoid arthritis ?M06.9 - Rheumatoid arthritis, unspecified (ICD-10) Surgical History (Updated 07/28/22 @ 06:51 by Chavo Mcqueen MD) Status post carpal tunnel release ?Z98.890 - Other specified postprocedural states (ICD-10) History of carpal tunnel surgery of right wrist (03/10/22) ?Z98.890 - Other specified postprocedural states (ICD-10) Hx of heart bypass surgery ?Z95.1 - Presence of aortocoronary bypass graft (ICD-10) Hx of total knee arthroplasty ?Z96.659 - Presence of unspecified artificial knee joint (ICD-10) Social History (Updated 07/28/22 @ 06:52 by Chavo Mcqueen MD) Narrative: Single, assisted living, smoker, PCP [facility] Smoking Status: Current every day smoker What tobacco products do you use: cigarettes Do you use any of these nicotine containing products: None Second hand tobacco smoke exposure: No How often do you have a drink containing alcohol: monthly or less How often do you have six or more drinks on one occasion: Never AUDIT-C Alcohol total score: 1 Non-prescribed substance use: denies use service: No Exam Narrative: Exam Narrative: Vitals noted. She has muscular tightness and tenderness in the left low back. Straight leg raising is negative. She is very restless in constantly moving her legs but is able to hold still when I asked her two. Reflexes are symmetric at the knees and ankles. Normal sensory exam. Normal strength. Range of motion is limited by tightness. No palpable spasms. Const: Vital Signs, click to edit/add: Vital Signs - 24 hr 07/28/22 06:28 07/28/22 08:01 Temperature 97.0 F L Pulse Rate [Left P ulse Oximeter] 88 78 Respiratory Rate 20 18 Blood Pressure [Ri ght Upper Arm] 103/71 111/78 Pulse Oximetry 98 99 Oxygen Delivery Me thod Room Air Room Air Course Course Hospital Course: Patient was seen and examined. She is given Toradol 30 mg IM and prednisone 50 mg orally. She is also given lorazepam 1 mg orally. Vital Signs Vital signs: Initial Vital Signs Temperature 97.0 F L 07/28/22 06:28 Temperature Source Temporal Artery Scan 07/28/22 06:28 Pulse Rate 88 07/28/22 06:28 Pulse Rhythm Regular 07/28/22 06:28 Respiratory Rate 20 07/28/22 06:28 Blood Pressure 103/71 07/28/22 06:28 Blood Pressure Mean 81 07/28/22 06:28 Blood Pressure Position Sitting 07/28/22 06:28 Pulse Oximetry 98 07/28/22 06:28 Oxygen Delivery Method Room Air 07/28/22 06:28 Vital Signs Temperature 97.0 F L 07/28/22 06:28 Pulse Rate 88 07/28/22 06:28 Respiratory Rate 20 07/28/22 06:28 Blood Pressure 103/71 07/28/22 06:28 Pulse Oximetry 98 07/28/22 06:28 Oxygen Delivery Method Room Air 07/28/22 06:28 Temperature 97.0 F L 07/28/22 06:28 Pulse Rate 78 07/28/22 08:01 Respiratory Rate 18 07/28/22 08:01 Blood Pressure 111/78 07/28/22 08:01 Pulse Oximetry 99 07/28/22 08:01 Oxygen Delivery Method Room Air 07/28/22 08:01 Discharge Plan Discharge Clinical Impression: RLS (restless legs syndrome), Chronic back pain Patient Disposition: Home, Self-Care Condition: Improved Additional Instructions: Prednisone 40 mg daily for four days, 20 mg daily for four days, 10 mg daily for four days then stop. Continue your Tylenol and ibuprofen and Flexeril as always. Use your hydrocodone as prescribed. Refills need to come from Dr. Miller. Contact Dr. Hopson to discuss either restarting your gabapentin or trying Lyrica. These meds may also help your restless legs. Prescriptions: New prednisone 20 mg tablet See Rx Instructions .ROUTE .COMPLEX Qty: 14 0RF Rx Instructions: 40 mg daily for four days, 20 mg daily for four days, 10 mg daily for four days, then stop No Action ropinirole 0.25 mg tablet 0.25 mg PO QPM diphenhydramine HCl [Banophen] 50 mg capsule PO nitroglycerin 0.4 mg tablet, sublingual sublingual cyclobenzaprine 10 mg tablet 10 mg PO 3XD melatonin 5 mg tablet 5 mg PO QPM varenicline 1 mg tablet PO lisinopril 10 mg tablet 10 mg PO DAILY cyanocobalamin (vitamin B-12) 1,000 mcg tablet 1,000 mcg PO DAILY atorvastatin 20 mg tablet 20 mg PO .bedtime (DME) blood-glucose meter [Accu-Chek Guide Me Glucose Mtr] [facility] [place] MISCELLANEOUS Patient Comments: TEST THREE TIMES DAILY trazodone 50 mg tablet 50 mg PO .bedtime PRN hydrocodone-acetaminophen 5-325 mg tablet propranolol 60 mg capsule,extended release 24 hr 60 mg PO Q24H sertraline 100 mg tablet 100 mg PO Q24H (DME) Accu-Chek Guide test strips Strip MISCELLANEOUS Patient Comments: TEST THREE TIMES DAILY amlodipine 5 mg tablet 5 mg PO DAILY omeprazole 40 mg capsule,delayed release(DR/EC) 40 mg PO DAILY aspirin 81 mg tablet,delayed release (DR/EC) 81 mg PO DAILY (DME) lancets [Accu-Chek Softclix Lancets] [facility] [place] MISCELLANEOUS Patient Comments: TEST THREE TIMES DAILY benzonatate 100 mg capsule 100 mg PO Q6H PRN hydrocortisone 1 % cream metformin 1,000 mg tablet 1,000 mg PO .q12 docusate sodium 100 mg capsule PO fluocinolone 0.01 % solution TOPICAL triamcinolone acetonide 0.1 % lotion TOPICAL ibuprofen 600 mg tablet albuterol sulfate 90 mcg/actuation HFA aerosol inhaler 1 puff INHALATION Q8H PRN cholecalciferol (vitamin D3) 125 mcg (5,000 unit) capsule hydroxyzine pamoate 25 mg capsule bupropion HCl 300 mg tablet extended release 24 hr 300 mg PO DAILY (DME) Poise Pads Pad MISCELLANEOUS diclofenac sodium 1 % gel TOPICAL multivitamin with folic acid [Tab-A-Mars] 400 mcg tablet PO Trulicity 0.75 mg/0.5 mL pen injector SUBCUT Trulicity 1.5 mg/0.5 mL pen injector SUBCUT Trulicity 3 mg/0.5 mL pen injector SUBCUT Skyrizi 150 mg/mL pen injector SUBCUT Follow Up/Referrals: Becky Hopson DO [Primary Care Provider] - Stand Alone Forms: [facility] Inst[facility]
[2022-07-28 08:01] VITALS: BP 111/78; PULSE 78; RESP 18; O2SAT 99
== END 2022-07-28 08:04 | disposition home or self-care (01) ==
LOC: ED 07:02
PROVIDERS: Emergency Provider Family Medicine; PCP Family Medicine
DX: M45.9 Ankylosing spondylitis of unspecified sites in spine (principal); G89.29 Other chronic pain; G25.81 Restless legs syndrome
CPT/HCPCS: 96372; 99282; 99284; A9270; J1885; J7512

== ENCOUNTER 2022-11-21 08:50 | Outpatient (CLI) | payer MEDICAID, SELFPAY | END 2022-11-21 08:51 | disposition home or self-care (01) | LOC: NFLDREF 16:24 | PROVIDERS: PCP Family Medicine; Visit Provider Registered Nurse | DX: R30.0 Dysuria (principal); N39.0 Urinary tract infection, site not specified; N30.00 Acute cystitis without hematuria | CPT/HCPCS: 87086; 87186 ==

== ENCOUNTER 2022-12-06 12:09 | Outpatient (CLI) | payer MEDICAID, MEDICARE, SELFPAY | END 2022-12-06 12:10 | disposition home or self-care (01) | LOC: NFLDREF 12-09 20:29 | PROVIDERS: PCP Family Medicine; Referring Provider Family Medicine; Visit Provider Physician Assistant | DX: R10.9 Unspecified abdominal pain (principal); N39.0 Urinary tract infection, site not specified | CPT/HCPCS: 87086 ==

== ENCOUNTER 2023-02-13 23:01 | Outpatient (CLI) | payer MEDICAID, SELFPAY | END 2023-02-13 23:02 | disposition home or self-care (01) | LOC: AMB 02-18 07:11 | PROVIDERS: PCP Family Medicine; Visit Provider Family Medicine | DX: S19.9XXA Unspecified injury of neck, initial encounter (principal); W18.30XA Fall on same level, unspecified, initial encounter; Z91.81 History of falling; Y92.099 Unspecified place in other non-institutional residence as the place of occurrence of the external cause | CPT/HCPCS: A0425; A0429 ==

== ENCOUNTER 2023-02-13 23:20 | Emergency (ER) | payer MEDICAID, MEDICARE, SELFPAY ==
[2023-02-13 23:28] VITALS: BP 154/78; PULSE 89; RESP 18; TEMP 36.8; O2SAT 99; BMI 31.8
--- NOTE | 2023-02-14 00:34 | ED_ITS ---
HPI - Neck Pain/Injury General Time Seen by Provider: 00:35 Date Seen: 02/14/23 Chief Complaint: Neck Injury/Pain Stated Complaint: Neck Pain Time Seen by Provider: 02/14/23 00:19 Source: patient, RN notes reviewed and old records reviewed Mode of arrival: ambulatory Limitations: no limitations History of Present Illness HPI Narrative: 62-year-old female who presents today with concern for falls. She reports frequent falls it is been going on for over 2 years. She is unable to tell me why she falls. She denies tripping, weakness, preceding lightheadedness or dizziness. She denies any new acute injuries from her falls, she does note chronic back pain it is unchanged from usual. She denies head injury or headache. She denies new back pain or neck pain, denies numbness or tingling in the arms or legs, no bowel or bladder incontinence. She says she has been working with her primary care doctor regarding her frequent falls and they are trying to wean her med list. She reports that she came today because my nurse pressured me but is somewhat vague about this. Patient did go to the clinic for this today but had to wait too long and so left. Related Data Home Medications Medication Instructions Recorded Confirmed albuterol sulfate 90 mcg/actuation 1 puff inhalation Q8H PRN 09/23/21 01/08/23 aerosol inhaler amlodipine 5 mg tablet 5 mg PO DAILY 09/23/21 12/06/22 aspirin 81 mg tablet,delayed 81 mg PO DAILY 09/23/21 01/08/23 release atorvastatin 20 mg tablet 20 mg PO .bedtime 09/23/21 12/06/22 benzonatate 100 mg capsule 100 mg PO Q6H PRN 09/23/21 12/06/22 blood sugar diagnostic (Accu-Chek 09/23/21 12/06/22 Guide test strips) blood-glucose meter (Accu-Chek 09/23/21 12/06/22 Guide Me Glucose Meter) bupropion HCl 300 mg 24 hr tablet, 300 mg PO DAILY 09/23/21 01/08/23 extended release cholecalciferol (vitamin D3) 125 09/23/21 01/08/23 mcg (5,000 unit) capsule diclofenac sodium 1 % topical gel topical 09/23/21 01/08/23 docusate sodium 100 mg capsule mg PO 09/23/21 01/08/23 dulaglutide 0.75 mg/0.5 mL mg subcut 09/23/21 01/08/23 subcutaneous pen injector (Trulicity) dulaglutide 1.5 mg/0.5 mL mg subcut 09/23/21 01/08/23 subcutaneous pen injector (Trulicity) dulaglutide 3 mg/0.5 mL mg subcut 09/23/21 01/08/23 subcutaneous pen injector (Trulicity) fluocinolone 0.01 % topical topical 09/23/21 01/08/23 solution hydrocortisone 1 % topical cream applic 09/23/21 01/08/23 hydroxyzine pamoate 25 mg capsule mg 09/23/21 01/08/23 ibuprofen 600 mg tablet mg 09/23/21 01/08/23 incontinence pad, liner, disp 09/23/21 12/06/22 (Poise Pads) lancets (Accu-Chek Softclix 09/23/21 12/06/22 Lancets) metformin 1,000 mg tablet 1,000 mg PO .q12 09/23/21 01/08/23 multivitamin with folic acid 400 tab PO 09/23/21 01/08/23 mcg tablet (Tab-A-Mars) omeprazole 40 mg capsule,delayed 40 mg PO DAILY 09/23/21 01/08/23 release propranolol 60 mg capsule,24 60 mg PO Q24H 09/23/21 01/08/23 hr,extended release risankizumab-rzaa 150 mg/mL mg subcut 09/23/21 01/08/23 subcutaneous pen injector (Telly) sertraline 100 mg tablet 100 mg PO Q24H 09/23/21 01/08/23 trazodone 50 mg tablet 50 mg PO .bedtime PRN 09/23/21 01/08/23 cyanocobalamin (vitamin B-12) 1,000 mcg PO DAILY 07/26/22 01/08/23 1,000 mcg tablet cyclobenzaprine 10 mg tablet 10 mg PO 3XD 07/26/22 01/08/23 diphenhydramine HCl 50 mg capsule mg PO 07/26/22 01/08/23 (Banophen) lisinopril 10 mg tablet 10 mg PO DAILY 07/26/22 01/08/23 melatonin 5 mg tablet 5 mg PO QPM 07/26/22 01/08/23 nitroglycerin 0.4 mg sublingual mg sublingual 07/26/22 01/08/23 tablet ropinirole 0.25 mg tablet 0.25 mg PO QPM 07/26/22 01/08/23 varenicline 1 mg tablet mg PO 07/26/22 01/08/23 Previous Rx's Medication Instructions Recorded prednisone 20 mg tablet See Rx Instructions .Route 07/28/22 .COMPLEX #14 tabs Allergies Allergy/AdvReac Type Severity Reaction Status Date / Time lactose Allergy Verified 02/13/23 23:30 [facility] Medical History RLS (restless legs syndrome) ?G25.81 - Restless legs syndrome (ICD-10) Chronic depression ?F32.A - Depression, unspecified (ICD-10) History of AK (myocardial infarction) ?I25.2 - Old myocardial infarction (ICD-10) Primary hypertension ?I10 - Essential (primary) hypertension (ICD-10) Hyperlipidemia ?E78.5 - Hyperlipidemia, unspecified (ICD-10) Type 2 diabetes mellitus, without long-term current use of insulin ?E11.9 - Type 2 diabetes mellitus without complications (ICD-10) Suicidal intent ?R45.851 - Suicidal ideations (ICD-10) Drug overdose ?T50.901A - Poisoning by unspecified drugs, medicaments and biological substances, accidental (unintentional), initial encounter (ICD-10) Hip pain ?M25.559 - Pain in unspecified hip (ICD-10) Chronic back pain ?M54.9 - Dorsalgia, unspecified (ICD-10) ?G89.29 - Other chronic pain (ICD-10) COPD (chronic obstructive pulmonary disease) ?J44.9 - Chronic obstructive pulmonary disease, unspecified (ICD-10) Osteoporosis ?M81.0 - Age-related osteoporosis without current pathological fracture (ICD- 10) GERD (gastroesophageal reflux disease) ?K21.9 - Gastro-esophageal reflux disease without esophagitis (ICD-10) Rheumatoid arthritis ?M06.9 - Rheumatoid arthritis, unspecified (ICD-10) Surgical History Status post carpal tunnel release (07/13/22) ?Z98.890 - Other specified postprocedural states (ICD-10) History of carpal tunnel surgery of right wrist (03/10/22) ?Z98.890 - Other specified postprocedural states (ICD-10) Hx of heart bypass surgery ?Z95.1 - Presence of aortocoronary bypass graft (ICD-10) Hx of total knee arthroplasty ?Z96.659 - Presence of unspecified artificial knee joint (ICD-10) Social History (Updated 07/28/22 @ 06:52 by Chavo Mcqueen MD) Narrative: Single, assisted living, smoker, PCP [facility] Smoking Status: Current every day smoker What tobacco products do you use: cigarettes Do you use any of these nicotine containing products: None Second hand tobacco smoke exposure: No How often do you have a drink containing alcohol: monthly or less How often do you have six or more drinks on one occasion: Never AUDIT-C Alcohol total score: 1 Non-prescribed substance use: denies use service: No Exam Narrative: Exam Narrative: General: Well-developed and well-nourished, no acute distress Head: Atraumatic and normocephalic Eyes: Pupils are equal reactive, extraocular motions intact, conjunctiva clear ENT: External nose and ears are normal, posterior pharynx without erythema or exudate Neck: No midline cervical tenderness, full spontaneous range of motion the neck, trachea midline, no adenopathy Heart: Regular rate and rhythm no murmurs or thrills Lungs: Clear to auscultation bilaterally without wheezes or crackles Abdomen: Soft, nontender, nondistended with active bowel sounds Musculoskeletal: No tenderness, deformity, or edema Neurologic: Awake, alert, and oriented x3, no gross focal neurologic deficits, cranial nerves intact as tested . Occasionally dozes off during interview. Psych: Mood and affect are appropriate Skin: No rashes Const: Vital Signs, click to edit/add: Vital Signs - 24 hr 02/13/23 23:28 Temperature 98.2 F Pulse Rate [Right Pulse Oximeter] 89 Respiratory Rate 18 Blood Pressure [Le ft Upper Arm] 154/78 H Pulse Oximetry 99 Oxygen Delivery Me thod Room Air Course Course ED Course: Patient seen and examined, prior records are reviewed. Patient presents today with falls, this is been a longstanding problem and she has no new concerns. She denies any recent injury although triage note notes 3-4 weeks neck pain. On my exam, full spontaneous range of motion the neck and no midline tenderness. Patient denies lightheadedness or dizziness, no chest pain or palpitations, no urinary symptoms. She denies lightheadedness or syncope with these episodes. Labs are ordered and anticipate discharge with continued outpatient follow-up. Patient up and walking in the emergency department to the bathroom without difficulty, appears study. Reevaluation(s) Time of Reevaluation #1: 01:46 Reevaluation #1: Labs ordered in individual interpreted by me with negative troponin, urinalysis not consistent with infection, negative urine drug screen, normal venous blood gas, basic panel is reassuring. Vital Signs Vital signs: Initial Vital Signs Temperature 98.2 F 02/13/23 23:28 Temperature Source Temporal Artery Scan 02/13/23 23:28 Pulse Rate 89 02/13/23 23:28 Respiratory Rate 18 02/13/23 23:28 Blood Pressure 154/78 H 02/13/23 23:28 Blood Pressure Mean 103 02/13/23 23:28 Blood Pressure Position Sitting 02/13/23 23:28 Pulse Oximetry 99 02/13/23 23:28 Oxygen Delivery Method Room Air 02/13/23 23:28 Vital Signs Temperature 98.2 F 02/13/23 23:28 Pulse Rate 89 02/13/23 23:28 Respiratory Rate 18 02/13/23 23:28 Blood Pressure 154/78 H 02/13/23 23:28 Pulse Oximetry 99 02/13/23 23:28 Oxygen Delivery Method Room Air 02/13/23 23:28 Temperature 98.2 F 02/13/23 23:28 Pulse Rate 89 02/13/23 23:28 Respiratory Rate 18 02/13/23 23:28 Blood Pressure 154/78 H 02/13/23 23:28 Pulse Oximetry 99 02/13/23 23:28 Oxygen Delivery Method Room Air 02/13/23 23:28 Medications Administered Medications: Generic Name Dose Route Start Last Admin Trade Name Freq PRN Reason Stop Dose Admin Oxycodone HCl 5 mg 02/14/23 01:03 02/14/23 01:11 Oxycodone 5 Mg Tablet PO 02/14/23 01:04 5 mg ONCE ONE Administration MDM - Neck Pain/Injury Lab Data Labs: Lab Results 02/14/23 02/14/23 02/14/23 Range/Units 01:05 01:18 01:20 VBG pH 7.338 (7.32-7.43) VBG pCO2 46 (40-50) mmHG VBG pO2 44.8 (25-47) mmHG VBG HCO3 25 (21-28) mmol/L Sodium 141 (135-149) mmol/L Potassium 3.9 (3.6-5.1) mmol/L Chloride 110 (96-114) mmol/L Carbon Dioxide 22 (20-32) mmol/L Anion Gap 9 (7-15) mEq/L BUN 14 (7-30) mg/dL Creatinine 1.0 (0.5-1.5) mg/dL Estimated Creat Clear 49.08 Estimated GFR 63 ml/min Glucose 133 H (60-115) mg/dL Calcium 9.3 (8.4-10.6) mg/dL Magnesium 1.9 (1.5-2.6) mg/dL Urine Color Yellow (Yellow) Urine Appearance Clear (Clear) Urine pH 6.0 (5.0-8.5) Ur Specific [place] <= 1.005 (1.000-1.030) Urine Protein Negative (Negative) Urine Glucose (UA) Negative (Negative) Urine Ketones Negative (Negative) Urine Blood Negative (Negative) Urine Nitrite Negative (Negative) Urine Bilirubin Negative (Negative) Urine Urobilinogen 0.2 (0.2-1.0) Ur Leukocyte Esterase Negative (Negative) Urine RBC 0-2 (0-2) Urine WBC 0-2 (0-5) Ur Squamous Epith Cells Few (None-Few) Urine Bacteria None (None) Urine Opiates Screen Negative (Negative) Ur Oxycodone Screen Negative (Negative) Urine Methadone Screen Negative (Negative) Ur Propoxyphene Screen Negative (Negative) Ur Barbiturates Screen Negative (Negative) U Tricyclic Antidepress Negative (Negative) Ur Phencyclidine Scrn Negative (Negative) Ur Amphetamines Screen Negative (Negative) U Methamphetamines Scrn Negative (Negative) U Benzodiazepines Scrn Negative (Negative) Urine Cocaine Screen Negative (Negative) U Marijuana (THC) Screen Negative (Negative) Ur Drug Screen Comment See Note POC Troponin I 0.01 (0.01-0.04) ng/ml Discharge Plan Discharge Clinical Impression: Falls frequently, Chronic back pain Patient Disposition: Home, Self-Care Condition: Stable Instructions: Fall Prevention for Older Adults (ED), Chronic Back Pain (DC) Additional Instructions: Follow-up with your primary care provider to further discuss medication adjustments Activity Level: No Restrictions Discharge Diet: Regular Prescriptions: No Action ropinirole 0.25 mg tablet 0.25 mg PO QPM diphenhydramine HCl [Banophen] 50 mg capsule PO nitroglycerin 0.4 mg tablet, sublingual sublingual cyclobenzaprine 10 mg tablet 10 mg PO 3XD melatonin 5 mg tablet 5 mg PO QPM varenicline 1 mg tablet PO lisinopril 10 mg tablet 10 mg PO DAILY cyanocobalamin (vitamin B-12) 1,000 mcg tablet 1,000 mcg PO DAILY prednisone 20 mg tablet See Rx Instructions .ROUTE .COMPLEX Qty: 14 0RF Rx Instructions: 40 mg daily for four days, 20 mg daily for four days, 10 mg daily for four days, then stop atorvastatin 20 mg tablet 20 mg PO .bedtime (DME) blood-glucose meter [Accu-Chek Guide Me Glucose Mtr] [facility] [place] MISCELLANEOUS Patient Comments: TEST THREE TIMES DAILY trazodone 50 mg tablet 50 mg PO .bedtime PRN propranolol 60 mg capsule,extended release 24 hr 60 mg PO Q24H sertraline 100 mg tablet 100 mg PO Q24H (DME) Accu-Chek Guide test strips Strip MISCELLANEOUS Patient Comments: TEST THREE TIMES DAILY amlodipine 5 mg tablet 5 mg PO DAILY omeprazole 40 mg capsule,delayed release(DR/EC) 40 mg PO DAILY aspirin 81 mg tablet,delayed release (DR/EC) 81 mg PO DAILY (DME) lancets [Accu-Chek Softclix Lancets] Mis MISCELLANEOUS Patient Comments: TEST THREE TIMES DAILY benzonatate 100 mg capsule 100 mg PO Q6H PRN hydrocortisone 1 % cream metformin 1,000 mg tablet 1,000 mg PO .q12 docusate sodium 100 mg capsule PO fluocinolone 0.01 % solution TOPICAL ibuprofen 600 mg tablet albuterol sulfate 90 mcg/actuation HFA aerosol inhaler 1 puff INHALATION Q8H PRN cholecalciferol (vitamin D3) 125 mcg (5,000 unit) capsule hydroxyzine pamoate 25 mg capsule bupropion HCl 300 mg tablet extended release 24 hr 300 mg PO DAILY (DME) Poise Pads Pad MISCELLANEOUS diclofenac sodium 1 % gel TOPICAL multivitamin with folic acid [Tab-A-Mars] 400 mcg tablet PO Trulicity 0.75 mg/0.5 mL pen injector SUBCUT Trulicity 1.5 mg/0.5 mL pen injector SUBCUT Trulicity 3 mg/0.5 mL pen injector SUBCUT Skyrizi 150 mg/mL pen injector SUBCUT Follow Up/Referrals: Becky Hopson DO [Primary Care Provider] - Stand Alone Forms: [facility] Info Instructions
[2023-02-14 01:00] VITALS: O2SAT 99
[2023-02-14 01:11] LABS: Appearance Urine Clear (Clear); Bilirubin Urine Negative (Negative); Blood Urine Negative (Negative); Color Urine Yellow (Yellow); Glucose Urine Negative (Negative); Ketones Urine Negative (Negative); Leukocyte Esterase Urine Negative (Negative); Nitrite Urine Negative (Negative); Protein Urine Negative (Negative); Specific Gravity Urine <= 1.005 (1.000-1.030); Urobilinogen Urine 0.2 (0.2-1.0)
[2023-02-14] MEDS: OXYCODONE 5 MG TABLET PO (01:11)
[2023-02-14 01:19] LABS: Amphetamine Screen Urine Negative (Negative); Barbiturate Screen Urine Negative (Negative); Benzodiazepines Screen Urine Negative (Negative); Cannabinoid Screen Urine Negative (Negative); Cocaine Screen Urine Negative (Negative); Methadone Screen Urine Negative (Negative); Methamphetamines Screen Urine Negative (Negative); Opiate Screen Urine Negative (Negative); Oxycodone Screen Urine Negative (Negative); Phencyclidine Screen Urine Negative (Negative); Tricyclic Antidepressant Urine Negative (Negative)
[2023-02-14 01:26] LABS: HCO3 VBG 25 mmol/L (21-28); PCO2 VBG 46 mmHG (40-50); PO2 VBG 44.8 mmHG (25-47); pH VBG 7.338 (7.32-7.43)
[2023-02-14 01:28] LABS: RBC Urine 0-2 (0-2); Squamous Epithelial Cell Urine Few (None-Few); WBC Urine 0-2 (0-5)
[2023-02-14 01:41] LABS: Troponin, Point-of-Care* 0.01 ng/ml (0.01-0.04)
[2023-02-14 01:41] LABS: Chloride* 110 mmol/L (96-114); Potassium* 3.9 mmol/L (3.6-5.1); Sodium* 141 mmol/L (135-149)
[2023-02-14 01:43] LABS: Est. Creatinine Clearance* 49.08; Estimated Glomerular Filt Rate 63 ml/min
[2023-02-14 01:44] LABS: Anion Gap 9 mEq/L (7-15); Blood Urea Nitrogen* 14 mg/dL (7-30); Calcium* 9.3 mg/dL (8.4-10.6); Carbon Dioxide* 22 mmol/L (20-32); Glucose* 133 mg/dL (60-115); Magnesium* 1.9 mg/dL (1.5-2.6)
[2023-02-14 01:56] VITALS: BP 132/70; PULSE 84; RESP 18; TEMP 36.9; O2SAT 99
[2023-02-14 02:15] VITALS: BP 132/70; PULSE 84; RESP 18; TEMP 36.9
== END 2023-02-14 02:15 | disposition home or self-care (01) ==
PROVIDERS: Emergency Provider Family Medicine; PCP Family Medicine
DX: M54.9 Dorsalgia, unspecified (principal)
CPT/HCPCS: 36415; 80048; 80306; 81001; 82803; 83735; 84484; 93005; 94761; 99283; 99284; A9270

== ENCOUNTER 2023-02-18 15:08 | Emergency (ER) | payer MEDICAID, MEDICARE, SELFPAY ==
[2023-02-18 15:18] VITALS: BP 104/62; PULSE 87; RESP 18; TEMP 36.4; O2SAT 98; BMI 31.9
--- NOTE | 2023-02-18 15:42 | CRLHL7_ITS ---
For Patients: As a result of the Century Cures Act, medical imaging exams and procedure reports are released immediately into your electronic medical record. You may view this report before your referring provider. If you have questions, please contact your health care provider. INDICATION: Fall COMPARISON: None. TECHNIQUE: CT of the brain/head without the use of IV contrast. Multiplanar axial, coronal, and sagittal reformats were reconstructed. FINDINGS: Normal marin-white matter differentiation throughout. No intracranial hemorrhage. No mass, mass effect, or midline shift. The ventricles are normal in size and shape. No fracture or focal osseous lesion. The mastoid and middle ears are clear. The paranasal sinuses are clear. Included orbit and globe are normal. IMPRESSION: Normal head CT. Please note that all CT scans at this facility use dose modulation, iterative reconstruction, and/or weight-based dosing when appropriate to reduce radiation dose to as low as reasonably achievable. Dictated by Samantha Hernandez MD @ 02/18/2023 4:45:34 PM (Electronically Signed)
[2023-02-18] MEDS: LORazepam 0.5 MG TABLET PO (16:07)
[2023-02-18 16:10] LABS: Basophils Absolute Auto 0.07 K/uL (0.00-0.30); Basophils Percent Auto 0.7 % (0.0-3.0); Eosinophils Absolute Auto 0.41 K/uL (0.00-0.50); Eosinophils Percent Auto 4.2 % (0.0-7.0); Hematocrit 30.2 % (33.0-51.0); Hemoglobin* 9.9 gm/dL (12.0-16.0); Immature Granulocytes Abs Auto 0.05 K/uL (0.00-0.30); Immature Granulocytes Pct Auto 0.5 %; Lymphocytes Absolute Auto 3.08 K/uL (0.90-2.90); Lymphocytes Percent Auto 31.9 % (20-44); Mean Corpuscular HGB Conc 33 gm/dL (32-36); Mean Corpuscular Hemoglobin 32 pg (26-34); Mean Corpuscular Volume 96 fL (80-100); Monocytes Percent Auto 7.8 % (0.0-11.0); Neutrophils Percent Auto 54.9 % (42.0-72.0); Platelet Count* 310 K/uL (140-440); RDW Coefficient of Variation % 13.3 % (11.5-15.5); Red Blood Count 3.14 m/uL (4.00-5.20); White Blood Count* 9.66 K/uL (4.50-11.00)
[2023-02-18 16:13] LABS: Slide Review Reflex No
[2023-02-18 16:23] LABS: Chloride* 105 mmol/L (96-114); Potassium* 5.1 mmol/L (3.6-5.1); Sodium* 133 mmol/L (135-149)
[2023-02-18 16:26] LABS: Anion Gap 6 mEq/L (7-15); Blood Urea Nitrogen* 21 mg/dL (7-30); Carbon Dioxide* 22 mmol/L (20-32); Creatinine* 1.3 mg/dL (0.5-1.5); Est. Creatinine Clearance* 37.75; Estimated Glomerular Filt Rate 46 ml/min
[2023-02-18 16:27] LABS: Calcium* 8.8 mg/dL (8.4-10.6); Ethanol* < 0.01 % (0.01-0.03); Glucose* 82 mg/dL (60-115)
[2023-02-18 16:29] LABS: Acetaminophen* < 10.0 ug/mL (10.0-30.0); C Reactive Protein* 0.9 mg/dL (0.5-1.0); Salicylate* < 1.0 mg/dL (1.0-10)
[2023-02-18 16:45] VITALS: BP 108/84; BP 113/63; BP 115/64; PULSE 82; PULSE 83; PULSE 87
--- NOTE | 2023-02-18 16:55 | ED.GENADULT ---
HPI - General Adult General Chief complaint: Weakness Stated complaint: Numerous falls in last few days-collapsed Time Seen by Provider: 02/18/23 15:21 Source: patient and RN notes reviewed Mode of arrival: ambulatory Limitations: no limitations History of Present Illness HPI narrative: 62-year-old female, resident of [facility], presents today at the request of the staff work frequent falls. Per staff inpatient, she has been falling daily for about a week. She has not had any serious injuries from these falls. Denies any head injury, new neck pain or altered mental status. Patient was seen for the same concerns on 02/14. Workup at that time included lab work, UA and urine drug screen. Everything was unremarkable. Per patient she has been having frequent falls for years, however have become certainly more frequent in the last couple of weeks. She states that she can not explain why she falls she just feels unsteady on her feet. She states that she has has not been sleeping well secondary to restless leg syndrome that has been poorly managed. She states that she is still waiting for her medications. Past medical history is quite complex and noted in the chart. Med list is quite extensive. She denies fevers or chills. No nausea or vomiting. No focal neurologic deficits. She denies 1 side of the body being weaker than the other: she states that she feels that her right arm is perhaps more painful than the left, but that her left leg bothers her more than the right. She also has chronic neck and shoulder pain that has been bothering her. She states that after her falls became more frequent, her gabapentin was switched to Lyrica. Denies any other new medications which she is aware of, however in sure how much inside she has a 1 she is actually taking. Related Data Home Medications Medication Instructions Recorded Confirmed albuterol sulfate 90 mcg/actuation 1 puff inhalation Q8H PRN 09/23/21 01/08/23 aerosol inhaler amlodipine 5 mg tablet 5 mg PO DAILY 09/23/21 12/06/22 aspirin 81 mg tablet,delayed 81 mg PO DAILY 09/23/21 01/08/23 release atorvastatin 20 mg tablet 20 mg PO .bedtime 09/23/21 12/06/22 benzonatate 100 mg capsule 100 mg PO Q6H PRN 09/23/21 12/06/22 blood sugar diagnostic (Accu-Chek 09/23/21 12/06/22 Guide test strips) blood-glucose meter (Accu-Chek 09/23/21 12/06/22 Guide Me Glucose Meter) bupropion HCl 300 mg 24 hr tablet, 300 mg PO DAILY 09/23/21 01/08/23 extended release cholecalciferol (vitamin D3) 125 09/23/21 01/08/23 mcg (5,000 unit) capsule diclofenac sodium 1 % topical gel topical 09/23/21 01/08/23 docusate sodium 100 mg capsule mg PO 09/23/21 01/08/23 dulaglutide 0.75 mg/0.5 mL mg subcut 09/23/21 01/08/23 subcutaneous pen injector (Trulicity) dulaglutide 1.5 mg/0.5 mL mg subcut 09/23/21 01/08/23 subcutaneous pen injector (Trulicity) dulaglutide 3 mg/0.5 mL mg subcut 09/23/21 01/08/23 subcutaneous pen injector (Trulicity) fluocinolone 0.01 % topical topical 09/23/21 01/08/23 solution hydrocortisone 1 % topical cream applic 09/23/21 01/08/23 hydroxyzine pamoate 25 mg capsule mg 09/23/21 01/08/23 ibuprofen 600 mg tablet mg 09/23/21 01/08/23 incontinence pad, liner, disp 09/23/21 12/06/22 (Poise Pads) lancets (Accu-Chek Softclix 09/23/21 12/06/22 Lancets) metformin 1,000 mg tablet 1,000 mg PO .q12 09/23/21 01/08/23 multivitamin with folic acid 400 tab PO 09/23/21 01/08/23 mcg tablet (Tab-A-Mars) omeprazole 40 mg capsule,delayed 40 mg PO DAILY 09/23/21 01/08/23 release propranolol 60 mg capsule,24 60 mg PO Q24H 09/23/21 01/08/23 hr,extended release risankizumab-rzaa 150 mg/mL mg subcut 09/23/21 01/08/23 subcutaneous pen injector (Telly) sertraline 100 mg tablet 100 mg PO Q24H 09/23/21 01/08/23 trazodone 50 mg tablet 50 mg PO .bedtime PRN 09/23/21 01/08/23 cyanocobalamin (vitamin B-12) 1,000 mcg PO DAILY 07/26/22 01/08/23 1,000 mcg tablet cyclobenzaprine 10 mg tablet 10 mg PO 3XD 07/26/22 01/08/23 diphenhydramine HCl 50 mg capsule mg PO 07/26/22 01/08/23 (Banophen) lisinopril 10 mg tablet 10 mg PO DAILY 07/26/22 01/08/23 melatonin 5 mg tablet 5 mg PO QPM 07/26/22 01/08/23 nitroglycerin 0.4 mg sublingual mg sublingual 07/26/22 01/08/23 tablet ropinirole 0.25 mg tablet 0.25 mg PO QPM 07/26/22 01/08/23 varenicline 1 mg tablet mg PO 07/26/22 01/08/23 Previous Rx's Medication Instructions Recorded prednisone 20 mg tablet See Rx Instructions .Route 07/28/22 .COMPLEX #14 tabs Allergies Allergy/AdvReac Type Severity Reaction Status Date / Time lactose Allergy Verified 02/13/23 23:30 Review of Systems Status of ROS: Reports: 10 or more systems reviewed and unremarkable except as noted in History and below [facility] Medical History RLS (restless legs syndrome) ?G25.81 - Restless legs syndrome (ICD-10) Chronic depression ?F32.A - Depression, unspecified (ICD-10) History of SD (myocardial infarction) ?I25.2 - Old myocardial infarction (ICD-10) Primary hypertension ?I10 - Essential (primary) hypertension (ICD-10) Hyperlipidemia ?E78.5 - Hyperlipidemia, unspecified (ICD-10) Type 2 diabetes mellitus, without long-term current use of insulin ?E11.9 - Type 2 diabetes mellitus without complications (ICD-10) Suicidal intent ?R45.851 - Suicidal ideations (ICD-10) Drug overdose ?T50.901A - Poisoning by unspecified drugs, medicaments and biological substances, accidental (unintentional), initial encounter (ICD-10) Hip pain ?M25.559 - Pain in unspecified hip (ICD-10) Chronic back pain ?M54.9 - Dorsalgia, unspecified (ICD-10) ?G89.29 - Other chronic pain (ICD-10) COPD (chronic obstructive pulmonary disease) ?J44.9 - Chronic obstructive pulmonary disease, unspecified (ICD-10) Osteoporosis ?M81.0 - Age-related osteoporosis without current pathological fracture (ICD-10) GERD (gastroesophageal reflux disease) ?K21.9 - Gastro-esophageal reflux disease without esophagitis (ICD-10) Rheumatoid arthritis ?M06.9 - Rheumatoid arthritis, unspecified (ICD-10) Surgical History Status post carpal tunnel release (07/13/22) ?Z98.890 - Other specified postprocedural states (ICD-10) History of carpal tunnel surgery of right wrist (03/10/22) ?Z98.890 - Other specified postprocedural states (ICD-10) Hx of heart bypass surgery ?Z95.1 - Presence of aortocoronary bypass graft (ICD-10) Hx of total knee arthroplasty ?Z96.659 - Presence of unspecified artificial knee joint (ICD-10) Social History Narrative: Single, assisted living, smoker, PCP Mark [facility] Smoking Status: Current every day smoker What tobacco products do you use: cigarettes Do you use any of these nicotine containing products: None Second hand tobacco smoke exposure: No How often do you have a drink containing alcohol: monthly or less How often do you have six or more drinks on one occasion: Never AUDIT-C Alcohol total score: 1 Non-prescribed substance use: marijuana (any form) service: No Exam Narrative: Exam Narrative: Well-nourished well-developed patient in no acute distress. She is jittery and can not sit still. Tells me that her restless legs are bothering her. Alert and oriented. Answers questions appropriately. Mood and affect are appropriate. Thoughts are goal oriented and rational. No tangential or magical thinking noted. Patient speaks in full sentences without needing to catch her breath. Speech is not slurred or pressured. Voice sounds normal. HEENT: Normocephalic atraumatic. Pupils are equally round reactive to light. Extraocular muscles are intact. Conjunctivae are moist without any icterus noted. Moist mucous membranes. Posterior pharynx is normal. Neck is soft without any lymphadenopathy or thyromegaly. No masses are appreciated. Cardiovascular: Heart is regular rate and rhythm . Lungs: Clear to auscultation bilaterally no wheezes rhonchi or rales are appreciated. Patient takes deep breaths without any discomfort. Abdomen: Soft and nontender nondistended with normal bowel sounds. Extremities: Bilateral lower extremities are without edema. Skin: Well perfused without any obvious rashes. Neurological exam is difficult as patient has multiple joint pains that prevent her from using both upper and lower extremities to their full strength. If she focuses on 1 extremity at a time she does appear to have 5/5 strength. Reflexes are 2+ and symmetric at the knees. Romberg sign is negative. Cranial nerves 3-12 are normal. Uqnpna-[id number]-gvyy is normal. There is no nystagmus either horizontally or vertically. Gait is normal. Patient walks around the room because of her restless legs, she does not like to sit down. She does not appear off balance or weak. She walks back and forth during our entire history and physical and does not need help. Const: Vital Signs, click to edit/add: Vital Signs - 24 hr 02/18/23 15:18 02/18/23 16:45 Temperature 97.6 F Pulse Rate [Pulse Oximeter] 87 Pulse Rate [orthos tatic lying] 83 Pulse Rate [orthos tatic sitting] 87 Pulse Rate [orthos tatic standing] 82 Respiratory Rate 18 Blood Pressure [Ri ght Upper Arm] 104/62 Blood Pressure [or thostatic lying] 113/63 Blood Pressure [or thostatic sitting] 115/64 Blood Pressure [or thostatic standing ] 108/84 Pulse Oximetry 98 Oxygen Delivery Me thod Room Air Course Course ED Course: Because of her chronic neck shoulder pain, we did do an EKG which did not show any acute pathology. Troponin was 0. Head CT was done, this was unremarkable. Lab work showed anemia with a hemoglobin of 9.9. Last hemoglobin I have on file is from 2021, hemoglobin was normal then. Mild hyponatremia. Urine drug screen negative. Did not repeat a UA since that was recently done. Vital Signs Vital signs: Initial Vital Signs Temperature 97.6 F 02/18/23 15:18 Temperature Source Temporal Artery Scan 02/18/23 15:18 Pulse Rate 87 02/18/23 15:18 Pulse Rhythm Regular 02/18/23 15:18 Respiratory Rate 18 02/18/23 15:18 Blood Pressure 104/62 02/18/23 15:18 Blood Pressure Mean 76 02/18/23 15:18 Blood Pressure Position Sitting 02/18/23 15:18 Pulse Oximetry 98 02/18/23 15:18 Oxygen Delivery Method Room Air 02/18/23 15:18 Vital Signs Temperature 97.6 F 02/18/23 15:18 Pulse Rate 87 02/18/23 15:18 Respiratory Rate 18 02/18/23 15:18 Blood Pressure 104/62 02/18/23 15:18 Pulse Oximetry 98 02/18/23 15:18 Oxygen Delivery Method Room Air 02/18/23 15:18 Temperature 97.6 F 02/18/23 15:18 Pulse Rate 83 02/18/23 16:45 Respiratory Rate 18 02/18/23 15:18 Blood Pressure 113/63 02/18/23 16:45 Pulse Oximetry 98 02/18/23 15:18 Oxygen Delivery Method Room Air 02/18/23 15:18 Medications Administered Medications: Discontinued Medications Generic Name Dose Route Start Last Admin Trade Name Freq PRN Reason Stop Dose Admin Lorazepam 0.5 mg 02/18/23 15:49 02/18/23 16:07 Lorazepam 0.5 Mg Tablet PO 02/18/23 15:50 0.5 mg ONCE ONE Administration Medical Decision Making MDM Narrative Medical decision making narrative: 62-year-old female with frequent falls. Etiology unclear at this time. I did speak with staff about her living situation and that perhaps assisted living is no longer adequate for her. Patient at this time does not wish to change her living situation. She is of sound mind to make this decision on her own. Recommend she follow up with primary care for further management. As far as her anemia, she should follow up with her doctor for further management as she did have a drop in her hemoglobin over the last year and half. Medical Records Medical records reviewed: Yes I reviewed the patient's medical records Lab Data Lab results reviewed: Yes I reviewed the patient's lab results Labs: Lab Results 02/18/23 02/18/23 Range/Units 16:00 16:53 WBC 9.66 (4.50-11.00) K/uL RBC 3.14 L (4.00-5.20) m/uL Hgb 9.9 L (12.0-16.0) gm/dL Hct 30.2 L (33.0-51.0) % MCV 96 (80-100) fL MCH 32 (26-34) pg MCHC 33 (32-36) gm/dL RDW Coeff of Sylvester 13.3 (11.5-15.5) % Plt Count 310 (140-440) K/uL Neut % (Auto) 54.9 (42.0-72.0) % Lymph % (Auto) 31.9 (20-44) % Jerome % (Auto) 7.8 (0.0-11.0) % Eos % (Auto) 4.2 (0.0-7.0) % Baso % (Auto) 0.7 (0.0-3.0) % Neut # (Auto) 5.30 (1.7-7.0) K/uL Lymph # (Auto) 3.08 H (0.90-2.90) K/uL Jerome # (Auto) 0.80 (0.00-0.90) K/UL Eos # (Auto) 0.41 (0.00-0.50) K/uL Baso # (Auto) 0.07 (0.00-0.30) K/uL Abs Immat Gran (auto) 0.05 (0.00-0.30) K/uL Imm/Tot Granulo (auto) 0.5 % Sodium 133 L (135-149) mmol/L Potassium 5.1 (3.6-5.1) mmol/L Chloride 105 (96-114) mmol/L Carbon Dioxide 22 (20-32) mmol/L Anion Gap 6 L (7-15) mEq/L BUN 21 (7-30) mg/dL Creatinine 1.3 (0.5-1.5) mg/dL Estimated Creat Clear 37.75 Estimated GFR 46 ml/min Glucose 82 (60-115) mg/dL Calcium 8.8 (8.4-10.6) mg/dL C-Reactive Protein 0.9 (0.5-1.0) mg/dL Salicylates < 1.0 L (1.0-10) mg/dL Urine Opiates Screen Negative (Negative) Ur Oxycodone Screen Negative (Negative) Urine Methadone Screen Negative (Negative) Ur Propoxyphene Screen Negative (Negative) Acetaminophen < 10.0 L (10.0-30.0) ug/mL Ur Barbiturates Screen Negative (Negative) U Tricyclic Antidepress Negative (Negative) Ur Phencyclidine Scrn Negative (Negative) Ur Amphetamines Screen Negative (Negative) U Methamphetamines Scrn Negative (Negative) U Benzodiazepines Scrn Negative (Negative) Urine Cocaine Screen Negative (Negative) U Marijuana (THC) Screen Negative (Negative) Ur Drug Screen Comment See Note Ethyl Alcohol < 0.01 L (0.01-0.03) % Imaging Data CT scan - head: Attestation: I have reviewed the pertinent imaging results. Radiologist's impression: CT of the brain/head without the use of IV contrast. Multiplanar axial, coronal, and sagittal reformats were reconstructed. FINDINGS: Normal marin-white matter differentiation throughout. No intracranial hemorrhage. No mass, mass effect, or midline shift. The ventricles are normal in size and shape. No fracture or focal osseous lesion. The mastoid and middle ears are clear. The paranasal sinuses are clear. Included orbit and globe are normal. IMPRESSION: Normal head CT. ECG Data Attestation: I personally reviewed and interpreted this ECG as follows: Discharge Plan Discharge Clinical Impression: Anemia, Frequent falls Patient Disposition: Home, Self-Care Condition: Stable Additional Instructions: Recommend that you inquire about getting increased assistance in your home. At this time, there is no medical reason for admission to the hospital. I do recommend that you move slowly and that you ask for help when needed. Your hemoglobin was down to 9.9 today. You should follow-up with your primary care provider to discuss reasons for your anemia and if any further management as necessary. Prescriptions: No Action ropinirole 0.25 mg tablet 0.25 mg PO QPM diphenhydramine HCl [Banophen] 50 mg capsule PO nitroglycerin 0.4 mg tablet, sublingual sublingual cyclobenzaprine 10 mg tablet 10 mg PO 3XD melatonin 5 mg tablet 5 mg PO QPM varenicline 1 mg tablet PO lisinopril 10 mg tablet 10 mg PO DAILY cyanocobalamin (vitamin B-12) 1,000 mcg tablet 1,000 mcg PO DAILY prednisone 20 mg tablet See Rx Instructions .ROUTE .COMPLEX Qty: 14 0RF Rx Instructions: 40 mg daily for four days, 20 mg daily for four days, 10 mg daily for four days, then stop atorvastatin 20 mg tablet 20 mg PO .bedtime (DME) blood-glucose meter [Accu-Chek Guide [place] Glucose Mtr[place] [facility] [place] Patient Comments: TEST THREE TIMES DAILY trazodone 50 mg tablet 50 mg PO .bedtime PRN propranolol 60 mg capsule,extended release 24 hr 60 mg PO Q24H sertraline 100 mg tablet 100 mg PO Q24H (DME) Accu-Chek Guide test strips Strip MISCELLANEOUS Patient Comments: TEST THREE TIMES DAILY amlodipine 5 mg tablet 5 mg PO DAILY omeprazole 40 mg capsule,delayed release(DR/EC) 40 mg PO DAILY aspirin 81 mg tablet,delayed release (DR/EC) 81 mg PO DAILY (DME) lancets [Accu-Chek Softclix Lancets[place] [facility] [place] Patient Comments: TEST THREE TIMES DAILY benzonatate 100 mg capsule 100 mg PO Q6H PRN hydrocortisone 1 % cream metformin 1,000 mg tablet 1,000 mg PO .q12 docusate sodium 100 mg capsule PO fluocinolone 0.01 % solution TOPICAL ibuprofen 600 mg tablet albuterol sulfate 90 mcg/actuation HFA aerosol inhaler 1 puff INHALATION Q8H PRN cholecalciferol (vitamin D3) 125 mcg (5,000 unit) capsule hydroxyzine pamoate 25 mg capsule bupropion HCl 300 mg tablet extended release 24 hr 300 mg PO DAILY (DME) Poise Pads Pad MISCELLANEOUS diclofenac sodium 1 % gel TOPICAL multivitamin with folic acid [Tab-A-Mars] 400 mcg tablet PO Trulicity 0.75 mg/0.5 mL pen injector SUBCUT Trulicity 1.5 mg/0.5 mL pen injector SUBCUT Trulicity 3 mg/0.5 mL pen injector SUBCUT Skyrizi 150 mg/mL pen injector SUBCUT Follow Up/Referrals: Becky Hopson DO [Primary Care Provider] - Stand Alone Forms: [facility] Info Instructions
[2023-02-18 17:07] LABS: Cannabinoid Screen Urine Negative (Negative)
[2023-02-18 17:08] LABS: Amphetamine Screen Urine Negative (Negative); Barbiturate Screen Urine Negative (Negative); Benzodiazepines Screen Urine Negative (Negative); Cocaine Screen Urine Negative (Negative); Methadone Screen Urine Negative (Negative); Methamphetamines Screen Urine Negative (Negative); Opiate Screen Urine Negative (Negative); Oxycodone Screen Urine Negative (Negative); Phencyclidine Screen Urine Negative (Negative); Tricyclic Antidepressant Urine Negative (Negative)
--- NOTE | 2023-02-18 17:40 | ED.NURSE ---
Spoke with CHELY Gonsalves. ED findings/discharge instructions provided. Brina verbalizes frustration that there are no findings, notes they can not figure out why patient is falling. Patient is scheduled in clinic next Sunday for a discussion on falls. Brina will send a staff member to provide a ride home for [place].
== END 2023-02-18 18:04 | disposition home or self-care (01) ==
PROVIDERS: Emergency Provider Family Medicine; PCP Family Medicine
DX: D64.9 Anemia, unspecified (principal); Z91.81 History of falling
CPT/HCPCS: 36415; 70450; 80048; 80143; 80179; 80306; 82077; 84484; 85025; 86140; 99283; 99284; A9270

== ENCOUNTER 2023-02-22 20:13 | Outpatient (CLI) | payer MEDICAID, SELFPAY ==
--- NOTE | 2023-04-09 13:25 | ONC.NURNOTE ---
Dx: Obstructive sleep apnea, restless leg syndrome, low iron stores
== END 2023-02-22 20:14 | disposition home or self-care (01) ==
PROVIDERS: PCP Family Medicine; Visit Provider Internal Medicine
DX: G47.33 Obstructive sleep apnea (adult) (pediatric) (principal)
CPT/HCPCS: 95811; A9270

== ENCOUNTER 2023-04-24 09:30 | Outpatient (RCR) | payer MEDICAID, SELFPAY ==
--- NOTE | 2023-04-12 11:05 | URNOTE ---
Request received for authorization for Ferric Carboxymaltose (Injectafter) ([id number]). Prior authorization is not required per [facility] . Joann Gilmore (Ref#[id number]), also no CJ brennan. per [facility] Medical Injectable Drug Authorization List.
[2023-04-17] MEDS: FERRIC CARBOXYMALTOSE 750 MG in 0.9 % SODIUM CHLORIDE 250 ml 250 ML 648 MG IVPB (10:42)
[2023-04-17 11:51] VITALS: BP 101/68; PULSE 68; RESP 16; O2SAT 95
[2023-04-17] MEDS: 0.9 % SODIUM CHLORIDE 250 ml IV (11:51)
[2023-04-17 12:25] VITALS: BP 105/70; PULSE 69; RESP 18; O2SAT 95
--- NOTE | 2023-04-17 12:35 | PC.NURSE ---
Pt's IV infiltrated in right hand while Injectafer was infusing. Infusion was stopped. Area appeared swollen but no discoloration noted. Pt was instructed to monitor IV site and notify if any changes. New IV site was obtained and iron was infused with no other issues. Pt tolerated well.
--- NOTE | 2023-04-18 11:32 | ONC.NURNOTE ---
Patient had infiltration yesterday with her iron infusion. LMOM for patient to call back if any questions or concerns have come up in regard to the area.
[2023-04-24 09:34] VITALS: BP 103/64; PULSE 80; RESP 16; TEMP 35.8; O2SAT 100
[2023-04-24] MEDS: FERRIC CARBOXYMALTOSE 750 MG in 0.9 % SODIUM CHLORIDE 250 ml 250 ML 800 MG IVPB (10:15)
[2023-04-24] MEDS: 0.9 % SODIUM CHLORIDE 250 ml IV (10:17)
[2023-04-24 10:40] VITALS: BP 98/66; PULSE 73; RESP 18; TEMP 35.8; O2SAT 94
[2023-04-24 11:16] VITALS: BP 97/60; PULSE 74; RESP 16; TEMP 36.6; O2SAT 94
== END 2023-10-14 23:59 | disposition home or self-care (01) ==
LOC: CCIC 09:30
PROVIDERS: PCP Family Medicine; Referring Provider Family Medicine; Visit Provider Internal Medicine Hematology & Oncology
DX: G25.81 Restless legs syndrome (principal); R79.0 Abnormal level of blood mineral
CPT/HCPCS: 96365; J1439; J7050

== ENCOUNTER 2023-06-20 22:12 | Outpatient (CLI) | payer OTHER, SELFPAY | END 2023-06-20 22:13 | disposition home or self-care (01) | LOC: AMB 06-21 09:50 | PROVIDERS: PCP Family Medicine; Visit Provider Family Medicine | DX: S19.9XXA Unspecified injury of neck, initial encounter (principal); W01.0XXA Fall on same level from slipping, tripping and stumbling without subsequent striking against object, initial encounter; Y92.007 Garden or yard of unspecified non-institutional (private) residence as the place of occurrence of the external cause | CPT/HCPCS: A0425; A0427 ==

== ENCOUNTER 2023-06-20 22:46 | Emergency (ER) | payer OTHER, SELFPAY ==
[2023-06-20] VITALS (8 sets, daily range): BP systolic 92–94; BP diastolic 55–61; PULSE 76–81; RESP 20; TEMP 36.4; O2SAT 89–98; BMI 32.6
--- NOTE | 2023-06-20 23:08 | ED_ITS ---
HPI - General Adult General Chief complaint: Fall/Minor Trauma Stated complaint: fall Time Seen by Provider: 06/20/23 22:57 History of Present Illness HPI narrative: C/o neck pain, left hip pain, and low back pain. Severe neck pain is the worst. Fell outside and hit head on grass. No LOC. Down at least 20 minutes per patient report. Was able to walk herself back to her apartment. Refused C Collar in ambulance. From [place]. Took her home oxycodone approximately 2200. Neck pain 11/21 w/ movement. 63-year-old woman presenting to the emergency department with complaint of numerous areas of pain following a fall outside in the grass. Does have a history of some chronic pain. Resident of [place]. Was able to walk back to part min after this fall. It seems as though neck pain is the primary complaint of pain. Initially it is a little unclear during my interview whether or not hit her head. She is having some neck pain in particular though. Does have neck pain historically. Clarified than that did seem to strike back left side of her head during this fall in the grass. No loss of consciousness. Underlying history of rheumatoid arthritis and chronic back pains. Did take an oxycodone about an hour prior to this interview. No radicular symptoms. This is described as a trip and fall event. Shortness of breath. No precipitating chest pain. Related Data Home Medications ?Medication ?Instructions ?Recorded ?Confirmed albuterol sulfate 90 mcg/actuation 1 puff inhalation Q8H PRN 09/23/21 04/17/23 aerosol inhaler amlodipine 5 mg tablet 5 mg PO DAILY 09/23/21 04/17/23 aspirin 81 mg tablet,delayed 81 mg PO DAILY 09/23/21 06/20/23 release atorvastatin 20 mg tablet 40 mg PO .bedtime 09/23/21 06/20/23 benzonatate 100 mg capsule 100 mg PO Q6H PRN 09/23/21 04/17/23 blood sugar diagnostic (Accu-Chek 09/23/21 12/06/22 Guide test strips) blood-glucose meter (Accu-Chek 09/23/21 12/06/22 Guide Me Glucose Meter) bupropion HCl 300 mg 24 hr tablet, 300 mg PO DAILY 09/23/21 06/20/23 extended release cholecalciferol (vitamin D3) 125 125 mcg PO DAILY 09/23/21 06/20/23 mcg (5,000 unit) capsule diclofenac sodium 1 % topical gel topical 09/23/21 01/08/23 docusate sodium 100 mg capsule 100 mg PO DAILY 09/23/21 06/20/23 dulaglutide 3 mg/0.5 mL 3 mg subcut .weekly 09/23/21 06/20/23 subcutaneous pen injector (Daniel) fluocinolone 0.01 % topical topical 09/23/21 01/08/23 solution hydrocortisone 1 % topical cream applic 09/23/21 01/08/23 hydroxyzine pamoate 25 mg capsule mg 09/23/21 01/08/23 ibuprofen 600 mg tablet 600 mg 09/23/21 01/08/23 incontinence pad, liner, disp 09/23/21 12/06/22 (Poise Pads) lancets (Accu-Chek Softclix 09/23/21 12/06/22 Lancets) metformin 1,000 mg tablet 1,000 mg PO .q12 09/23/21 06/20/23 multivitamin with folic acid 400 1 tab PO DAILY 09/23/21 06/20/23 mcg tablet (Tab-A-Mars) omeprazole 40 mg capsule,delayed 40 mg PO DAILY 09/23/21 06/20/23 release propranolol 60 mg capsule,24 60 mg PO Q24H 09/23/21 06/20/23 hr,extended release risankizumab-rzaa 150 mg/mL 150 mg subcut .Q 12 weeks 09/23/21 06/20/23 subcutaneous pen injector (Telly) sertraline 100 mg tablet 100 mg PO Q24H 09/23/21 06/20/23 trazodone 50 mg tablet 50 mg PO .bedtime PRN 09/23/21 06/20/23 cyanocobalamin (vitamin B-12) 1,000 mcg PO DAILY 07/26/22 06/20/23 1,000 mcg tablet cyclobenzaprine 10 mg tablet 10 mg PO 3XD 07/26/22 06/20/23 diphenhydramine HCl 50 mg capsule mg PO 07/26/22 01/08/23 (Banophen) lisinopril 10 mg tablet 10 mg PO DAILY 07/26/22 06/20/23 melatonin 5 mg tablet 5 mg PO QPM 07/26/22 06/20/23 nitroglycerin 0.4 mg sublingual mg sublingual 07/26/22 01/08/23 tablet varenicline 1 mg tablet 1 mg PO 07/26/22 01/08/23 fluticasone fur. 100 mcg-umeclid 1 inh inhalation Q24H 06/20/23 06/20/23 62.5 mcg-vilant 25 mcg inhalat.powder (Trelegy Ellipta) lidocaine 4 % topical patch 1 patch topical DAILY 06/20/23 06/20/23 (Aspercreme (lidocaine)) oxycodone 5 mg tablet 5 mg PO 3XD PRN 06/20/23 06/20/23 polyethylene glycol 3350 17 17 g PO DAILY 06/20/23 06/20/23 gram/dose oral powder pregabalin 150 mg capsule 150 mg PO BID 06/20/23 06/20/23 ropinirole 4 mg tablet 4 mg PO QPM 06/20/23 06/20/23 Allergies Allergy/AdvReac Type Severity Reaction Status Date / Time lactose Allergy Verified 06/20/23 22:57 Review of Systems Status of ROS: Reports: 6 or more systems reviewed and unremarkable except as noted in History and below [facility] Medical History RLS (restless legs syndrome) ?G25.81 - Restless legs syndrome (ICD-10) Chronic depression ?F32.A - Depression, unspecified (ICD-10) History of [place] (myocardial infarction) ?I25.2 - Old myocardial infarction (ICD-10) Primary hypertension ?I10 - Essential (primary) hypertension (ICD-10) Hyperlipidemia ?E78.5 - Hyperlipidemia, unspecified (ICD-10) Type 2 diabetes mellitus, without long-term current use of insulin ?E11.9 - Type 2 diabetes mellitus without complications (ICD-10) Suicidal intent ?R45.851 - Suicidal ideations (ICD-10) Drug overdose ?T50.901A - Poisoning by unspecified drugs, medicaments and biological substances, accidental (unintentional), initial encounter (ICD-10) Hip pain ?M25.559 - Pain in unspecified hip (ICD-10) Chronic back pain ?M54.9 - Dorsalgia, unspecified (ICD-10) ?G89.29 - Other chronic pain (ICD-10) COPD (chronic obstructive pulmonary disease) ?J44.9 - Chronic obstructive pulmonary disease, unspecified (ICD-10) Osteoporosis ?M81.0 - Age-related osteoporosis without current pathological fracture (ICD- 10) GERD (gastroesophageal reflux disease) ?K21.9 - Gastro-esophageal reflux disease without esophagitis (ICD-10) Rheumatoid arthritis ?M06.9 - Rheumatoid arthritis, unspecified (ICD-10) Surgical History Status post carpal tunnel release (07/13/22) ?Z98.890 - Other specified postprocedural states (ICD-10) History of carpal tunnel surgery of right wrist (03/10/22) ?Z98.890 - Other specified postprocedural states (ICD-10) Hx of heart bypass surgery ?Z95.1 - Presence of aortocoronary bypass graft (ICD-10) Hx of total knee arthroplasty ?Z96.659 - Presence of unspecified artificial knee joint (ICD-10) Social History Narrative: Single, assisted living, smoker, PCP [facility] Smoking Status: Current every day smoker What tobacco products do you use: cigarettes Do you use any of these nicotine containing products: None Second hand tobacco smoke exposure: No How often do you have a drink containing alcohol: monthly or less How often do you have six or more drinks on one occasion: Never AUDIT-C Alcohol total score: 1 Non-prescribed substance use: marijuana (any form) service: No Exam Narrative: Exam Narrative: Resting comfortably when I enter the room. More animated during interview. Cranial nerves 2-12 are intact. Moving all extremities now without difficulty. Well-perfused peripherally. Extremities without if notable injury mid. No lower extremity edema. Has full strength throughout. No acute abnormality in dentition. Ear canals without fluid. No [place] sign. She is sore with some fullness to palpation in the posterior head. More left-sided. Neck actually relatively supple without midline tenderness. Sore in the bilateral trapezial musculature left more than the right and some in the periscapular musculature. No pain to palpation about the shoulders or clavicles otherwise. No chest wall pain. Back is nontender midline. Flexes and extends hips now without significant difficulty. Const: Vital Signs, click to edit/add: Vital Signs - 24 hr 06/20/23 22:49 Temperature 97.5 F L Pulse Rate [Pulse Oximeter] 78 Respiratory Rate 20 Blood Pressure [Ri ght Upper Arm] 94/61 Pulse Oximetry 98 Oxygen Delivery Me thod Room Air Documenting provider has reviewed patient's vital signs: yes Course Vital Signs Vital signs: Initial Vital Signs Temperature 97.5 F L 06/20/23 22:49 Temperature Source Temporal Artery Scan 06/20/23 22:49 Pulse Rate 78 06/20/23 22:49 Pulse Rhythm Regular 06/20/23 22:49 Pulse Strength 3+ Normal 06/20/23 22:49 Respiratory Rate 20 06/20/23 22:49 Blood Pressure 94/61 06/20/23 22:49 Blood Pressure Mean 72 06/20/23 22:49 Blood Pressure Position Semi-Fowlers 06/20/23 22:49 Pulse Oximetry 98 06/20/23 22:49 Oxygen Delivery Method Room Air 06/20/23 22:49 Vital Signs Temperature 97.5 F L 06/20/23 22:49 Pulse Rate 78 06/20/23 22:49 Respiratory Rate 20 06/20/23 22:49 Blood Pressure 94/61 06/20/23 22:49 Pulse Oximetry 98 06/20/23 22:49 Oxygen Delivery Method Room Air 06/20/23 22:49 Temperature 97.5 F L 06/20/23 22:49 Pulse Rate 77 06/21/23 00:47 Respiratory Rate 16 06/21/23 00:47 Blood Pressure 108/54 L 06/21/23 01:02 Pulse Oximetry 96 06/21/23 00:47 Oxygen Delivery Method Room Air 06/20/23 22:49 Medical Decision Making MDM Narrative Medical decision making narrative: Trip and fall event with history of rheumatoid disease and chronic pain. Primary pain complaint during physical exam and as expressed later is potential head injury. I do not think there is anything that requires imaging elsewhere. Pain complaints are somewhat inconsistent. Does not demonstrate significant areas of discomfort or disability during physical exam. Considering inconsistency than apparent head injury I do not think it unreasonable to scan her head. Does not appear to need further pain medication. She does not feel she wants her neck scanned. Head CT is ordered. Reviewed by me does not appear to show any acute abnormality. Study:?CT-Head w/o-06/20/2023 11:33:10 PM Ordering Physician:?Chavo Umaña Final Report: INDICATION: Fall and hit back of head. COMPARISON: CT head 02/18/2023. TECHNIQUE: CT of the head without IV contrast. Coronal and sagittal reconstructions. FINDINGS: No intracranial hemorrhage, mass effect, or evidence of acute infarct. No midline shift. No abnormal extra-axial fluid collections. Normal caliber ventricular system. Orbits and extraocular muscles are symmetric. Small polyp or mucous retention cyst along the anterior aspect of the left maxillary sinus. The visualized paranasal sinuses and mastoid air cells are otherwise clear. Soft tissues are unremarkable. No acute fracture identified. IMPRESSION: No acute intracranial findings Has been resting, sleeping, during time in the emergency department. Feels well for discharge. See patient discharge plan for further discussion Medical Records Medical records reviewed: Yes I reviewed the patient's medical records Discharge Plan Discharge Clinical Impression: Closed head injury, Neck strain Patient Disposition: Home w/ Parent or Adult Condition: Stable Additional Instructions: Gentle stretching of your neck and upper back over the next few days. See handout for some upper back stretches. I would consider placing an ice pack a couple of times daily over the next few days to the areas that are sore. Prescriptions: No Action diphenhydramine HCl [Banophen] 50 mg capsule PO nitroglycerin 0.4 mg tablet, sublingual sublingual cyclobenzaprine 10 mg tablet 10 mg PO 3XD melatonin 5 mg tablet 5 mg PO QPM varenicline 1 mg tablet 1 mg PO lisinopril 10 mg tablet 10 mg PO DAILY cyanocobalamin (vitamin B-12) 1,000 mcg tablet 1,000 mcg PO DAILY atorvastatin 20 mg tablet 40 mg PO .bedtime (DME) blood-glucose meter [Accu-Chek Guide Me Glucose Mtr] Misc MISCELLANEOUS Patient Comments: TEST THREE TIMES DAILY trazodone 50 mg tablet 50 mg PO .bedtime PRN propranolol 60 mg capsule,extended release 24 hr 60 mg PO Q24H sertraline 100 mg tablet 100 mg PO Q24H (DME) Accu-Chek Guide test strips Strip MISCELLANEOUS Patient Comments: TEST THREE TIMES DAILY amlodipine 5 mg tablet 5 mg PO DAILY omeprazole 40 mg capsule,delayed release(DR/EC) 40 mg PO DAILY aspirin 81 mg tablet,delayed release (DR/EC) 81 mg PO DAILY (DME) lancets [Accu-Chek Softclix Lancets] Misc MISCELLANEOUS Patient Comments: TEST THREE TIMES DAILY benzonatate 100 mg capsule 100 mg PO Q6H PRN hydrocortisone 1 % cream metformin 1,000 mg tablet 1,000 mg PO .q12 docusate sodium 100 mg capsule 100 mg PO DAILY fluocinolone 0.01 % solution TOPICAL ibuprofen 600 mg tablet 600 mg albuterol sulfate 90 mcg/actuation HFA aerosol inhaler 1 puff INHALATION Q8H PRN cholecalciferol (vitamin D3) 125 mcg (5,000 unit) capsule 125 mcg PO DAILY hydroxyzine pamoate 25 mg capsule bupropion HCl 300 mg tablet extended release 24 hr 300 mg PO DAILY (DME) Poise Pads Pad MISCELLANEOUS diclofenac sodium 1 % gel TOPICAL multivitamin with folic acid [Tab-A-Mars] 400 mcg tablet 1 tab PO DAILY Trulicity 3 mg/0.5 mL pen injector 3 mg SUBCUT .weekly Skyrizi 150 mg/mL pen injector 150 mg SUBCUT .Q 12 weeks lidocaine [Aspercreme (lidocaine)] 4 % adhesive patch,medicated 1 patch topical DAILY Rx Instructions: may leave on for up to 12 hrs polyethylene glycol 3350 17 gram/dose powder 17 g PO DAILY ropinirole 4 mg tablet 4 mg PO QPM pregabalin 150 mg capsule 150 mg PO BID Trelegy Ellipta 100-62.5-25 mcg blister with device 1 inh inhalation Q24H oxycodone 5 mg tablet 5 mg PO 3XD PRN Follow Up/Referrals: Becky Hopson DO [Primary Care Provider] - Stand Alone Forms: [facility] Info Instructions
--- NOTE | 2023-06-20 23:18 | CT_ITS ---
Patient: FRANSISCO LUIS Facility:?[facility] Patient ID:?[id number] Site Patient ID:?[id number]. Site :?1960 Study:?CT-Spine Cervical w/o-06/20/2023 11:33:28 PM Ordering Physician:?Chavo Umaña Final Report: INDICATION: Fall and hit back of head. COMPARISON: None. TECHNIQUE: CT of the cervical spine without IV contrast. Coronal and sagittal reconstructions. FINDINGS: No acute fracture or traumatic malalignment of the cervical spine. Mild anterolisthesis of C4 on C5. Mild retrolisthesis of C5 on C6. Reversal of the normal cervical lordosis. Spondylotic changes including endplate spurring, facet arthropathy, and disc space narrowing. Multilevel varying degrees of neural foraminal narrowing and spinal canal stenosis. No prevertebral soft tissue swelling. Visualized intracranial contents are unremarkable. The thyroid gland is normal in appearance. The mastoid air cells are clear. The included lung apices are clear. IMPRESSION: 1. No acute fracture or traumatic malalignment of the cervical spine. 2. Spondylotic changes of the cervical spine as described above. Please note that all CT scans at this facility use dose modulation, iterative reconstruction, and/or weight-based dosing when appropriate to reduce radiation dose to as low as reasonably achievable. Dictated by Anny Lopez MD @ 06/21/2023 12:39:31 AM Signed by:?Anny Lopez MD @06/21/2023 12:39:31 AM (Electronic Signature)
--- NOTE | 2023-06-20 23:18 | CT_ITS ---
Patient: FRANSISCO LUIS Facility:?[facility] Patient ID:?[id number] Site Patient ID:?[id number]. Site :?1960 Study:?CT-Head w/o-06/20/2023 11:33:10 PM Ordering Physician:Zev Umaña Final Report: INDICATION: Fall and hit back of head. COMPARISON: CT head 02/18/2023. TECHNIQUE: CT of the head without IV contrast. Coronal and sagittal reconstructions. FINDINGS: No intracranial hemorrhage, mass effect, or evidence of acute infarct. No midline shift. No abnormal extra-axial fluid collections. Normal caliber ventricular system. Orbits and extraocular muscles are symmetric. Small polyp or mucous retention cyst along the anterior aspect of the left maxillary sinus. The visualized paranasal sinuses and mastoid air cells are otherwise clear. Soft tissues are unremarkable. No acute fracture identified. IMPRESSION: No acute intracranial findings. Please note that all CT scans at this facility use dose modulation, iterative reconstruction, and/or weight-based dosing when appropriate to reduce radiation dose to as low as reasonably achievable. Dictated by Anny Lopez MD @ 06/21/2023 12:32:32 AM Signed by:?Anny Lopez MD @06/21/2023 12:32:32 AM (Electronic Signature)
[2023-06-21] VITALS (9 sets, daily range): BP systolic 102–116; BP diastolic 54–79; PULSE 77–79; RESP 16; O2SAT 82–96
== END 2023-06-21 01:34 | disposition home or self-care (01) ==
PROVIDERS: Emergency Provider Family Medicine; PCP Family Medicine
DX: S16.1XXA Strain of muscle, fascia and tendon at neck level, initial encounter (principal); W19.XXXA Unspecified fall, initial encounter
CPT/HCPCS: 70450; 72125; 99283; 99284

== ENCOUNTER 2023-08-06 20:08 | Outpatient (CLI) | payer OTHER, SELFPAY | END 2023-08-06 20:09 | disposition home or self-care (01) | PROVIDERS: PCP Family Medicine; Visit Provider Internal Medicine | DX: G47.33 Obstructive sleep apnea (adult) (pediatric) (principal) | CPT/HCPCS: 95811; A9270 ==

== ENCOUNTER 2024-01-23 16:25 | Outpatient (CLI) | payer MEDICARE, MEDICAID, SELFPAY ==
[2024-01-23 18:43] LABS: Basophils Percent Auto 0.5 % (0.0-3.0); Eosinophils Percent Auto 2.9 % (0.0-7.0); Hematocrit 39.6 % (33.0-51.0); Immature Granulocytes Pct Auto 0.4 %; Lymphocytes Percent Auto 26.2 % (20-44); Mean Corpuscular HGB Conc 33 gm/dL (32-36); Mean Corpuscular Hemoglobin 33 pg (26-34); Mean Corpuscular Volume 101 fL (80-100); Monocytes Percent Auto 5.3 % (0.0-11.0); Neutrophils Percent Auto 64.7 % (42.0-72.0); Platelet Count* 280 K/uL (140-440); RDW Coefficient of Variation % 13.4 % (11.5-15.5); Red Blood Count 3.93 m/uL (4.00-5.20); Reticulocyte Hemoglobin Equivi 34.1 pg (29.0-35.0); Reticulocyte Percent 2.2 % (0.5-2.0); Reticulocytes Absolute 0.09 # (0.03-0.08)
[2024-01-23 18:44] LABS: Slide Review Reflex No
[2024-01-23 19:06] LABS: Iron* 66 ug/dL (37-170)
[2024-01-23 19:15] LABS: Percent Iron Saturation 24 % (20-50); Total Iron Binding Capacity 276 ug/dL (265-497)
[2024-01-23 20:53] LABS: Vitamin B12* 871 pg/mL (243-894)
[2024-01-25 18:47] LABS: Folate, Serum >22.3 ng/mL (>=5.9)
== END 2024-01-23 16:26 | disposition home or self-care (01) ==
PROVIDERS: PCP Family Medicine; Visit Provider Internal Medicine Hematology & Oncology
DX: D64.9 Anemia, unspecified (principal)
CPT/HCPCS: 82607; 82728; 82746; 83540; 83550; 85025; 85045

== ENCOUNTER 2024-04-07 13:45 | Outpatient (RCR) | payer MEDICARE, SELFPAY | END 2024-07-21 11:52 | disposition home or self-care (01) | PROVIDERS: PCP Family Medicine; Visit Provider Podiatrist | DX: M65.28 Calcific tendinitis, other site (principal); Z51.89 Encounter for other specified aftercare | CPT/HCPCS: 97110; 97140; 97161 ==

== ENCOUNTER 2024-06-16 20:06 | Outpatient (CLI) | payer MEDICARE, SELFPAY | END 2024-06-16 20:07 | disposition home or self-care (01) | LOC: OP CLINIC 20:07 | PROVIDERS: PCP Family Medicine; Visit Provider Internal Medicine Gastroenterology | DX: Z53.9 Procedure and treatment not carried out, unspecified reason (principal) ==

== ENCOUNTER 2024-06-16 20:15 | Outpatient (CLI) | payer MEDICARE, MEDICAID, SELFPAY | END 2024-06-16 20:16 | disposition home or self-care (01) | LOC: SLEEP 06-20 13:09 | PROVIDERS: PCP Family Medicine; Visit Provider Internal Medicine | DX: G47.33 Obstructive sleep apnea (adult) (pediatric) (principal) | CPT/HCPCS: 95811 ==

== ENCOUNTER 2024-07-04 12:23 | Outpatient (CLI) | payer MEDICARE, MEDICAID, SELFPAY ==
--- NOTE | 2024-07-04 13:37 | P.ANES_ITS ---
Anesthesia Charges Start Date/Time Anesthesia Start Date: 07/04/24 Anesthesia Start Time: 13:37 Stop Date/Time Anesthesia Stop Date: 07/04/24 Anesthesia Stop Time: 13:56 Coding CPT Codes CPT Codes: ANES UPR GI NDSC PX NOS - 39308 ([id number]) P4 - PT W/SEV SYS DIS THREAT LIFE, QK - BLANKET CUTTING MACHINE OPERATOR 2-4 CNCRNT ANES PROC, QX - COAL PULVERIZER OPERATOR SVC W/ MD MED DIRECTION
--- NOTE | 2024-07-04 13:37 | W.ANESCHARGE ---
Anesthesia Charges Start Date/Time Anesthesia Start Date: 07/04/24 Anesthesia Start Time: 13:37 Stop Date/Time Anesthesia Stop Date: 07/04/24 Anesthesia Stop Time: 13:56 Coding CPT Codes CPT Codes: ANES UPR GI NDSC PX NOS - 17752 ([id number]) P4 - PT W/SEV SYS DIS THREAT LIFE, QK - DEPUTY CLERK 2-4 CNCRNT ANES PROC, QX - AIRPLANE PATROLLER SVC W/ MD MED DIRECTION
--- NOTE | 2024-07-04 13:59 | P.ANES_ITS ---
Anesthesia Charges Start Date/Time Anesthesia Start Date: 07/04/24 Anesthesia Start Time: 13:37 Stop Date/Time Anesthesia Stop Date: 07/04/24 Anesthesia Stop Time: 13:56 Coding CPT Codes CPT Codes: ANES UPR GI NDSC PX NOS - 66405 ([id number]) P4 - PT W/SEV SYS DIS THREAT LIFE, QK - TRADEMARK ATTORNEY 2-4 CNCRNT ANES PROC, QX - INGOT STRIPPER SVC W/ MD MED DIRECTION
--- NOTE | 2024-07-04 13:59 | W.ANESCHARGE ---
Anesthesia Charges Start Date/Time Anesthesia Start Date: 07/04/24 Anesthesia Start Time: 13:37 Stop Date/Time Anesthesia Stop Date: 07/04/24 Anesthesia Stop Time: 13:56 Coding CPT Codes CPT Codes: ANES UPR GI NDSC PX NOS - 99687 ([id number]) P4 - PT W/SEV SYS DIS THREAT LIFE, QK - TERRITORY SALES MANAGER 2-4 CNCRNT ANES PROC, QX - TOP PRECIPITATOR OPERATOR HELPER SVC W/ MD MED DIRECTION
== END 2024-07-04 12:24 | disposition home or self-care (01) ==
LOC: OP CLINIC 12:24
PROVIDERS: PCP Family Medicine; Visit Provider Internal Medicine Gastroenterology
DX: R13.10 Dysphagia, unspecified (principal)
CPT/HCPCS: 00731; 43239; 88305; J3490

== ENCOUNTER 2024-08-18 07:44 | Day surgery (SDC) | payer MEDICARE, MEDICAID, SELFPAY ==
[2024-08-18] VITALS (17 sets, daily range): BP systolic 103–169; BP diastolic 62–93; PULSE 74–86; RESP 12–18; TEMP 36.1–36.7; O2SAT 92–100; BMI 34.2
[2024-08-18] MEDS: SODIUM CHLORIDE 0.9 % (FLUSH) 10 ML SYRINGE IVF (08:45)
[2024-08-18] MEDS: LACTATED RINGERS 1000 ML 1,000 ML 100 ML IV ×2 (08:45→11:25)
--- NOTE | 2024-08-18 09:10 | SUR.PREOP ---
TIME?OUT:?911 PT/RN/MDA?VERIFICATION?OF?SURGICAL?SITE,?PROCEDURE,?AND?CONSENT OBTAINED?PRIOR?TO?INVASIVE?PROCEDURE.
[2024-08-18] MEDS: MIDAZOLAM HCL 1 MG/ML inj IVP (09:13)
--- NOTE | 2024-08-18 09:27 | P.NB_ITS ---
Nerve Block Nerve Block Time Seen by Provider: 09:15 Date Seen: 08/18/24 Type of block requested by surgeon for post-operative analgesia: popliteal Side: left Time out performed: Yes Verification of patient name: Yes Verification of date of : Yes Site marking: site marked Name of person performing procedure: Surya Continuous monitoring Was continuous monitoring of O2 sat, B/P, awake overnight monitor, recorded every 15 minutes?: Yes Procedure Checklist: sterile prep, needles and gloves Ultrasound guided. Images saved: Yes Medications given in 5ml increments after negative aspiration: Marcaine %: 0.25 mL: 10 Needle gauge: 20 and Exparel mL: 10 Patient tolerated procedure well: Yes Additional comments: Needle noted adjacent to nerve Block Charges Block Charge (with Pro Fee): Sciatic Nerve Use of Ultrasound Machine for Block: Yes- US Guidance/pain block
--- NOTE | 2024-08-18 09:33 | P.ANES_ITS ---
Anesthesia Charges Start Date/Time Anesthesia Start Date: 08/18/24 Anesthesia Start Time: 10:57 Stop Date/Time Anesthesia Stop Date: 08/18/24 Anesthesia Stop Time: 14:50 Coding CPT Codes CPT Codes: ANESTH ACHILLES TENDON SURG - 34562 ([id number]) P3 - PATIENT W/SEVERE SYS DISEASE, QK - SPRING COILER 2-4 CNCRNT ANES PROC, QX - CORDWOOD CUTTER HELPER SVC W/ MD MED DIRECTION
--- NOTE | 2024-08-18 09:33 | W.ANESCHARGE ---
Anesthesia Charges Start Date/Time Anesthesia Start Date: 08/18/24 Anesthesia Start Time: 10:57 Stop Date/Time Anesthesia Stop Date: 08/18/24 Anesthesia Stop Time: 14:50 Coding CPT Codes CPT Codes: ANESTH ACHILLES TENDON SURG - 08516 ([id number]) P3 - PATIENT W/SEVERE SYS DISEASE, QK - DYE HOUSE SUPERVISOR 2-4 CNCRNT ANES PROC, QX - TEXTURING MACHINE FIXER SVC W/ MD MED DIRECTION
--- NOTE | 2024-08-18 14:52 | P.ANES_ITS ---
Anesthesia Charges Start Date/Time Anesthesia Start Date: 08/18/24 Anesthesia Start Time: 10:57 Stop Date/Time Anesthesia Stop Date: 08/18/24 Anesthesia Stop Time: 14:50 Coding CPT Codes CPT Codes: ANESTH ACHILLES TENDON SURG - 96293 ([id number]) P3 - PATIENT W/SEVERE SYS DISEASE, QK - LEGAL SECRETARY 2-4 CNCRNT ANES PROC, QX - TERRAZZO POLISHER SVC W/ MD MED DIRECTION
--- NOTE | 2024-08-18 14:52 | W.ANESCHARGE ---
Anesthesia Charges Start Date/Time Anesthesia Start Date: 08/18/24 Anesthesia Start Time: 10:57 Stop Date/Time Anesthesia Stop Date: 08/18/24 Anesthesia Stop Time: 14:50 Coding CPT Codes CPT Codes: ANESTH ACHILLES TENDON SURG - 89550 ([id number]) P3 - PATIENT W/SEVERE SYS DISEASE, QK - VAULT CASHIER 2-4 CNCRNT ANES PROC, QX - PYTHON ENGINEER SVC W/ MD MED DIRECTION
--- NOTE | 2024-08-18 14:59 | W.PM.PODPROC ---
Date of Procedure: 08/18/24 Surgeon: Joe Jerez DPM Pre-op Diagnosis: 1. Chronic Achilles tendinosis left 2. Achilles tendon tear left Post-op Diagnosis: 1. Chronic Achilles tendinosis left 2. Achilles tendon tear left Type of Procedure: 1. Secondary repair Achilles tendon tear with allograft left 2. FHL transfer left Indications: Patient has had a longstanding Achilles tendinosis and newly diagnosed Achilles tendon rupture left. She is in need of surgical intervention. I reviewed the procedure, recovery expectations and potential complications. These include but are not limited to: Poor wound healing, infection, potentially future surgery, deep venous thrombosis, pulmonary embolism, complex regional pain syndrome and possible . She understands risks written consent was obtained. Site marked. Procedure Description: Patient brought the operating room and placed under general anesthesia while on the operating room cart. She was in rolled into a prone position and padded appropriately. She had a preoperative popliteal block by Anesthesia. She has and prepped and draped in sterile fashion. standard time-out protocol followed. Left limb was exsanguinated and the thigh tourniquet inflated to 250 mm Hg. Linear incisions made over the Achilles tendon starting at the gastroc aponeurosis and extending distally beyond the insertion. Incision was carried down through skin subcutaneous tissues. Paratenon was incised and reflected. The Achilles tendon was significantly thickened and abnormal proximal to its insertion. At the insertion the tendon was incised centrally. Large amount of serous fluid noted. Central portion of the Achilles tendon had completely ruptured and the residual stump was unhealthy. The distal portion of the Achilles tendon was excised and the medial and lateral slips of the tendon were significantly debrided. Healthy tendon was noted 2 cm proximal to the insertion. Following debridement of the tendon blunt dissection was carried down to the flexor hallucis longus muscle belly. The fascia was released and the muscle followed down to the tendon. With the foot plantar flexed and great toe plantar flexed the tendon was caught cut as far distal as possible. Whipstitch with FiberWire was then placed through the tendon. Guide pin was placed from dorsal posterior to plantar anterior through the calcaneus exiting just anterior to the bony spurring plantarly. 5 mm Reamer was then placed over the guide pin and reamed to 30 mm. FiberWire from the FHL tendon was passed through the button. Bone was then passed down the osseous tunnel and flipped so it caught the plantar calcaneus. Then using the suture the FHL tendon was advanced down the osseous tunnel until appropriate tension was noted with the foot in plantar flexion. 4.75 bio tenodesis screw was then inserted. The fiber wire was then sutured into the FHL tendon to reinforce the repair. Using a osteotome a 1 cm by 2.5 cm channel was cut into the posterior calcaneus. It was cut to a depth of approximately 8 mm. The Achilles tendon graft was then tamped into this channel until flush. A small proximal overhang of the calcaneus was left intact so that the graft abutted against it. Two 18 mm x 18 mm desiree were then placed across the graft posterior to anterior. C-arm confirmed excellent position. The Achilles tendon was then further debrided. Small tunnel was made anterior to the Achilles tendon and a small incision made in the proximal Achilles. The graft was passed through this tunnel and out from anterior to posterior. With the foot in plantar flexion the Achilles graft was then sutured proximally into the gastroc aponeurosis with FiberTape. This the medial and lateral slips of healthy Achilles tendon then sutured to the graft with a running locking FiberTape. The central split of the Achilles was repaired with 2-0 Vicryl. Once complete there was appropriate tension on the Achilles tendon complex. When relaxed there was approximately 8? plantar flexion against gravity. Tourniquet was released. Wound was thoroughly irrigated normal sterile saline. All bleeding vessels cauterized. Paratenon and deep fascia repaired with 2-0 Vicryl. Subcutaneous tissues reapproximated with 2-0 Vicryl and 4-0 Monocryl. After at 30 minutes the tourniquet was reinflated and the Skin closed with 3-0 Prolene. Sterile dressing was applied. Tourniquet released. Normal capillary fill time returned all digits. She was placed in a well-padded below-knee plaster splint. She was transferred from OR to PACU vital signs stable and vascular status intact. She will be discharged per same-day surgery protocol. She is given both written and verbal postop instructions. She is nonweightbearing. She is given oxycodone for pain. She will follow up in clinic in 2 days. Anesthesia: GETA and regional Hemostasis: thigh Estimated blood loss (mL): 300 Provider Operated C-arm: C-arm fluoroscopy operated by Joe Jerez DPM for Achilles tendon repair surgery. Fifty-six C-arm spine images were obtained. Fluoroscopy time was00:00:48. 0.553 mGy was total dose. Implants: Arthrex desiree 18 x 18 mm x 2 Specimens: none sent Disposition: PACU
== END 2024-08-18 17:10 | disposition home or self-care (01) ==
PROVIDERS: PCP Family Medicine; Visit Provider Podiatrist
PROC: (CPT 27650; principal; 2024-08-18 10:15)
DX: S86.012A Strain of left Achilles tendon, initial encounter (principal); M76.62 Achilles tendinitis, left leg; G89.18 Other acute postprocedural pain; E11.42 Type 2 diabetes mellitus with diabetic polyneuropathy; I11.0 Hypertensive heart disease with heart failure; I50.9 Heart failure, unspecified; Z79.85 Long-term (current) use of injectable non-insulin antidiabetic drugs; Z79.84 Long term (current) use of oral hypoglycemic drugs; Z79.82 Long term (current) use of aspirin
CPT/HCPCS: 27654; 27691; 01472; 64445; 73650; 76942; 82962; A6206; C1713; J0665; J0666; J0690; J1100; J1885; J2250; J2405; J2704; J3010; J7120; Q4125

== ENCOUNTER 2024-10-03 12:16 | Outpatient (CLI) | payer MEDICARE, MEDICAID, SELFPAY | END 2024-10-03 12:17 | disposition home or self-care (01) | PROVIDERS: PCP Family Medicine; Referring Provider Podiatrist; Visit Provider Nurse Practitioner Family | DX: T81.328A Disruption or dehiscence of closure of other specified internal operation (surgical) wound, initial encounter (principal); E11.42 Type 2 diabetes mellitus with diabetic polyneuropathy; I25.118 Atherosclerotic heart disease of native coronary artery with other forms of angina pectoris; G47.33 Obstructive sleep apnea (adult) (pediatric); Z79.84 Long term (current) use of oral hypoglycemic drugs | CPT/HCPCS: 11042; G0463 ==

== ENCOUNTER 2024-10-16 20:43 | Inpatient (IN) | payer MEDICARE, MEDICAID, SELFPAY ==
--- OUTSIDE RECORDS SUMMARY | 2024-10-16 20:45 | XMS_ITS | Clinical Summary ---
Author Organization [facility] Address [address] , [address] [place] [address] Phone Care Team Providers Care Front Office Administrator Name Role Phone Shani Guzman Conditions or Problems Problem Name Problem Code Onset Date Status Entry Date Provider Comment Standard Description Annotate Peripheral neuropathy [id number] (SNOMED CT) 04/11 Active 04/11 Wilber Browning MD Peripheral nerve disease Carpal tunnel syndrome, bilateral upper limbs [id number] 1 (SNOMED CT) 04/11 Active 04/11 Wilber Browning MD Bilateral carpal tunnel syndrome Medications No information available. Medications Administered No information available. Allergies, Adverse Reactions, Alerts No information available. Results Date Name Value Unit Range Flag Description Internal Other: Authorizatio n - OBS [email or web address] Yes Authoriza tion: Release of Information - Authorize [facility] - Payment and Healthcare Operations ROIAUTHOTHER Yes Authoriz ation: Release of Information - Authorize Others/Insurance - Payment and Healthcare Operations HIECONSENT Yes Consent To Release information to the Health Information Exchange (HIE) [email or web address] Yes Authorizat ion: Authorization for [facility] to leave messages, voicemail, send text messages, send emails AUTHRELHCARE Yes Authoriz ation: Release/Retrieval of Information to/from Healthcare Facilities, Pharmacy Benefit Payers and Providers AUTHPRIVPRAC Yes Authoriz ation: Notice of privacy practices AUTHBENEFIT Yes Authoriza tion: Assignment of Benefits and Payment Agreement Plan of Care No information available. Procedures Code Procedure Name Date Entry Date CPT-02405 Nerve Conduction 13 or more studies 02/08 CPT-99610 EMG with NCS (5+ muscles) - 2 limbs 02/08 Vital Signs No information available. Immunizations No information available. Advance Directives No information available.
--- OUTSIDE RECORDS SUMMARY | 2024-10-16 20:46 | XMS_ITS | Clinical Summary ---
Author Organization [email or web address] [facility] Address [address] [place] [id number] Care Team Providers Care Assistant Corporate Secretary Name Role Phone AltonascencionSir spannairam Joseph DO Primary Care Provider Damaris Summers PharmD Unavailable [phone] Epifanio Tanner Unavailable [facility] Care[facility]adege Unavailable Allergies Active Allergy Reactions Criticality Noted Date Comments Lactose GI Upset Unknown 09/25/2018 Medications blood-glucose meterIndications: Controlled type 2 diabetes mellitus with diabetic polyneuropathy, without long-term current use of insulin (HC) As directed. Dispense meter, test strips, lancets covered by pt ins. E11.65 NIDDM type II, uncontrolled - Test 3 times/day, Reason: High A1C 1 Each 03/13/19 24 Active Incontinence Pad, Liner, Disp padsIndications:M ixed stress and urge urinary incontinence Use the pads 3 times a day as needed. 96 Each 07/24/19 24 Active nitroglycerin (NITROSTAT) 0.4 mg sublingual tabletIndications :Coronary artery disease, unspecified vessel or lesion type, unspecified whether angina present, unspecified whether [place] or transplanted heart Place 1 Tablet (0.4 mg) under the tongue every 5 minutes if needed for Chest Pain. 25 Tablet 6 07/31/19 24 Active melatonin 5 mg tab tabletIndications :Insomnia, idiopathic Take 1 Tablet (5 mg) by mouth at bedtime. 90 Tablet 1 09/21/19 24 Active naloxone (NARCAN) 4 mg/actuation nasal sprayIndications: Musculoskeletal back pain Inhale 1 [place] into affected nostril(s) each time if needed for Patient Diff To Arouse or Resp Rate < 8 / min. Additional doses may be given every 2 to 3 minutes until emergency medical assistance arrives. 2 Each 09/26/19 24 Active durable medical equipment (DME)Indications: Calcific Achilles tendonitis AIR SELECT, STANDARD, SMALL, REF: 01EF-S 1 Each 12/19/19 24 Active blood sugar diagnostic (CREATIV.COMTouch Verio test strips) stripIndications: Type 2 diabetes mellitus, without long-term current use of insulin (HC) USE TO TEST THREE TIMES DAILY 300 Each 3 12/21/19 24 Active lancetsIndication s:Type 2 diabetes mellitus, without long-term current use of insulin (HC) As directed. Test 3 times per day. 100 Each 12 12/21/19 24 Active furosemide 20 mg tabletIndications :Bilateral lower extremity edema,Severe tricuspid regurgitation Take 1 Tablet (20 mg) by mouth two times daily. 180 Tablet 3 04/30/19 25 Active tirzepatide (Mounjaro) 15 mg/0.5 mL penIndications:Ty pe 2 diabetes mellitus with polyneuropathy (HC) Inject 15 mg subcutaneous once weekly. 6 mL 3 09/17/19 25 Active benzonatate 100 mg capsuleIndication s:Acute cough,Viral URI,COPD exacerbation (HC),COPD with chronic bronchitis (HC) Take 1 Capsule (100 mg) by mouth 3 times daily if needed for Cough. 60 Capsule 2 05/22/19 25 Active hydrOXYzine pamoate (VistariL) 25 mg capsuleIndication s:Lumbar disc herniation with radiculopathy Take 1 Capsule (25 mg) by mouth every 8 hours if needed (for possible withdrawal symptoms). 30 Capsule 1 06/12/19 25 Active aspirin 81 mg enteric coated tabletIndications :Coronary artery disease, unspecified vessel or lesion type, unspecified whether angina present, unspecified whether [place] or transplanted heart TAKE ONE TABLET BY MOUTH DAILY 90 Tablet 3 06/17/19 25 Active albuterol HFA 90 mcg/actuation inhalerIndication s:COPD mixed type (HC) Inhale 1-2 Puffs by mouth 4 times daily if needed for Shortness of Breath 1st choice or Wheezing 1st choice. 1 Each 06/18/19 25 Active CPAPIndications:O SA (obstructive sleep apnea) RESMED CPAP (E0601) machine for home use at pressure: 9 cmw, Choice of mask (A7030 or A7034) w/full face cushion (A7031) x1/mo, nasal cushion (A7032) x2/mo, or nasal pillows (A7033) x 2/mo; Length of Need: 99 months; Frequency of use: Daily 1 Each 07/01/19 25 Active rOPINIRole 4 mg tabletIndications :Restless leg syndrome TAKE ONE TABLET BY MOUTH 2-3 HOURS BEFORE BEDTIME 90 Tablet 2 07/17/19 25 Active metFORMIN 1,000 mg tabletIndications :Type 2 diabetes mellitus with hyperglycemia, without long-term current use of insulin (HC) TAKE ONE TABLET BY MOUTH TWICE A DAY WITH MEALS 180 Tablet 2 07/17/19 25 Active pregabalin 150 mg capsuleIndication s:Restless legs syndrome (RLS) Take 1 pill orally at supper time and again before bed 60 Capsule 4 07/16/19 25 Active diclofenac topical 1 % gelIndications:Ac liang pain of right knee Apply 2 g topically to affected area(s) four times daily. 100 g 1 07/24/19 25 Active WalkerIndications :Follow-up examination after orthopedic surgery,Rupture of Achilles tendon, unspecified laterality, initial encounter Walker with no wheels for home use. Length of use 3 months. 1 Each 08/21/19 25 Active sennosides (SENNA) 8.6 mg tabletIndications :constipation Take 8.6 mg by mouth once daily if needed for Constipation. take 2 tabs by mouth daily as needed for constipation Indications: constipation Active TURMERIC ORAL Take 500 mg by mouth once daily. Active traZODone (DESYREL) 50 mg tablet Take 50 mg by mouth at bedtime if needed for Sleep. Take 1-2 tabs by mouth at bedtime as needed for sleep Active pyridoxine HCl (vitamin B6) (VITAMIN B-6 ORAL) Take 1 Tablet by mouth once daily. Take 1 tablet by mouth daily. Active acetaminophen (TYLENOL EXTRA STRGTH) 500 mg tabletIndications :pain Take 500 mg by mouth every 6 hours if needed for Pain. Take 1-2 tabs by mouth every 6 hours as needed for pain Indications: pain 08/13/19 25 Active cyclobenzaprine (FLEXERIL) 10 mg tablet Take 10 mg by mouth once daily. Take 1 tab by mouth daily; may take 1-2 tablets as needed for muscle spasms Active mirtazapine (REMERON) 7.5 mg tabletIndications :Chronic insomnia Take 1 Tablet (7.5 mg) by mouth at bedtime. Take 10 hours before planning on waking up 30 Tablet 3 09/02/19 25 Active oxyCODONE (ROXICODONE) 5 mg immediate release tabletIndications :Lumbar disc herniation with radiculopathy One po bid prn Use dates 09/04-10/03/24 LAST REFILL, CLINIC CLOSING. PLEASE FIND ANOTHER PAIN CLINIC [facility] .Please [place] [facility] [phone] for any further needs (prescriptions/ or other problems) during transitioning to another pain clinic even after [facility] closure 60 Tablet 09/06/19 Active durable medical equipment (DME)Indications: Follow-up examination after orthopedic surgery,Rupture of Achilles tendon, unspecified laterality, initial encounter AIR SELECT STANDARD, MEDIUM, REF: 01EF-M 1 Each 09/10/19 25 Active durable medical equipment (DME)Indications: Follow-up examination after orthopedic surgery,Rupture of Achilles tendon, unspecified laterality, initial encounter ACHILLES WEDGE, REF: [id number] 1 Each 09/10/19 Active WalkerIndications :Follow-up examination after orthopedic surgery,Rupture of Achilles tendon, unspecified laterality, initial encounter Walker with wheels,seat,valderrama d brakes,and basket for home use. 1 Each 09/10/19 25 Active vitamin D3-vitamin K2 (MK4) (K2 + D3) 1,000-100 unit-mcg tab tablet Take 1 Tablet by mouth once daily. Take 1 daily by mouth Active buPROPion (WELLBUTRIN XL) 300 mg Extended-Release tabletIndications :Severe major depression without psychotic features (HC) Take 1 Tablet (300 mg) by mouth once daily. 90 Tablet 2 09/18/19 25 Active atorvastatin (LIPITOR) 40 mg tabletIndications :Hyperlipidemia, unspecified hyperlipidemia type Take 1 Tablet (40 mg) by mouth at bedtime. 90 Tablet 3 09/18/19 25 Active sertraline (ZOLOFT) 100 mg tabletIndications :Severe major depression without psychotic features (HC),Mood disorder Take 2 Tablets (200 mg) by mouth once daily. 180 Tablet 2 09/18/19 25 Active fluticasone fur-umeclidinium- vilanterol (Trelegy Ellipta) 100-62.5-25 mcg inhalerIndication s:COPD with chronic bronchitis (HC) Inhale 1 Puff by mouth once daily. 180 Each 3 09/18/19 25 Active empagliflozin (Jardiance) 10 mg tabletIndications :Type 2 diabetes mellitus with polyneuropathy (HC),Coronary artery disease, unspecified vessel or lesion type, unspecified whether angina present, unspecified whether [place] or transplanted heart Take 1 Tablet (10 mg) by mouth once daily. 90 Tablet 3 09/18/19 25 Active oxyCODONE (ROXICODONE) 5 mg immediate release tabletIndications :Chronic bilateral low back pain with left-sided sciatica Take 1 Tablet (5 mg) by mouth 2 times daily if needed for Pain. 60 Tablet 10/04/19 25 Active Walker - 4 wheelsIndications :Chronic bilateral low back pain with left-sided sciatica,Chronic pain of right hip For home use. Length of need: 99 months 1 Each 10/02/19 25 Active medication order composerIndicatio ns:Follow-up examination after orthopedic surgery,Rupture of Achilles tendon, unspecified laterality, initial encounter,Wound dehiscence, surgical, initial encounter Even up shoe baker pie. Shoe size 9 1 Each 10/02/19 25 Active doxycycline monohydrate 100 mg tabletIndications :skin and skin structure infection Take 1 Tablet (100 mg) by mouth two times daily for 14 days. 28 Tablet 10/16/19 25 025 Active durable medical equipment (DME)Indications: Wound dehiscence, surgical, initial encounter PODOUS BOOT, REGULAR, UNIVERSAL, REF: [id number] 1 Each 10/16/19 25 Active durable medical equipment (DME)Indications: S/P Achilles tendon repair Multipodus boot with a tread for her left foot for pressure relief and improved healing. Size 9. 1 Each 10/16/19 25 Active miscellaneous medical supply miscIndications:S /P Achilles tendon repair,Chronic bilateral low back pain, unspecified whether sciatica present Electric lift chair/recliner 1 Each 10/17/19 25 Active atorvastatin (LIPITOR) 40 mg tabletIndications :Hyperlipidemia, unspecified hyperlipidemia type TAKE ONE TABLET BY MOUTH EVERY EVENING AT BEDTIME 90 Tablet 3 01/21/20 24 025 Discontinu ed(Reorder (E-cancel not sent)) tirzepatide (Mounjaro) 12.5 mg/0.5 mL penIndications:Ty pe 2 diabetes mellitus with polyneuropathy (HC) Inject 12.5 mg subcutaneous once weekly for 28 days. 2 mL 08/20/19 25 025 fluticasone fur-umeclidinium- vilanterol (Trelegy Ellipta) 100-62.5-25 mcg inhalerIndication s:COPD with chronic bronchitis (HC) Inhale 1 Puff by mouth once daily. 180 Each 05/14/19 25 025 Discontinu ed(Reorder (E-cancel not sent)) buPROPion (WELLBUTRIN XL) 300 mg Extended-Release tabletIndications :Severe major depression without psychotic features (HC) TAKE ONE TABLET BY MOUTH DAILY 90 Tablet 09/16/19 25 025 Discontinu ed(Reorder (E-cancel not sent)) sertraline (ZOLOFT) 100 mg tabletIndications :Severe major depression without psychotic features (HC),Mood disorder TAKE TWO TABLETS BY MOUTH DAILY 180 Tablet 09/16/19 25 025 Discontinu ed(Reorder (E-cancel not sent)) Jardiance 10 mg tabletIndications :Type 2 diabetes mellitus with polyneuropathy (HC),Coronary artery disease, unspecified vessel or lesion type, unspecified whether angina present, unspecified whether [place] or transplanted heart TAKE 1 TABLET (10 MG) BY MOUTH ONCE DAILY. 30 Tablet 1 09/16/19 25 025 Discontinu ed(*Medica tion adjustment ) Hospital, Clinic, or Other Facility Administered Medication Ordered Dose Route Frequency Start Date End Date Status cefTRIAXone (ROCEPHIN) Intramuscular injection 1 gIndications:skin and skin structure infection 1 g IM ONE TIME 10/15/2024 10/15/2024 Ended Active Problems Problem Noted Date Diagnosed Date S/P Achilles tendon repair 10/16/2024 Paroxysmal tachycardia 09/17/2024 Severe tricuspid regurgitation 01/14/2024 Neurocognitive deficits 09/24/2023 Restless leg syndrome 07/23/2023 Controlled substance agreement signed 07/05/2023 Overview (07/05/2023): [facility] Marta Bateman CMA 9:12 AM 07/05/23 Paroxysmal SVT (supraventricular tachycardia) Chronic obstructive pulmonar y disease, unspecified COPD type 03/13/2023 JESUSITA 02/22/2023 AHI- 27 03/13/2023 Atherosclerotic heart diseas e of [place] coronary artery with other forms of angina pectoris 01/18/2023 Type 2 diabetes mellitus with polyneuropathy 01/2023 Controlled substance agreement signed 07/03/2022 Overview (07/03/2022): [facility] Marta Bateman CMA 8:37 AM 07/03/22 COPD with chronic bronchitis 04/19/2022 Alcohol use disorder, severe, in sustained remis owen 04/19/2022 Heart failure, unspecified H F chronicity, unspecified heart failure type 03/27/2021 Exertional angina 12/14/2020 Mood disorder 09/25/2018 History of depression 09/25/2018 History of bipolar disorder 09/25/2018 Social anxiety disorder 09/25/2018 History of alcohol abuse 09/25/2018 Hypoglycemia 09/25/2018 Suicidal ideation 09/24/2018 Abnormal kidney function 06/08/2016 Vitamin D deficiency 06/08/2016 Hyperlipidemia 06/08/2016 Chronic GERD 06/08/2016 Overview (08/18/2024): EGD 08/2024 h. pylori Chronic back pain 06/05/2016 Overview (06/05/2016): spinal stenosis Psoriasis 06/05/2016 Hyperlipidemia, unspecified 05/24/2016 Patient nonadherence 02/14/2016 Overview (02/14/2016): She admits to about 5 months of not taking medications after from her . Severe major depression without psychotic featur es 02/03/2016 Overview (03/27/2021): [facility] [place] overdose on tylenol [employer] 01/2016 [facility] 2008-ECT, last ECT was 2011 [facility] Hospitalized 8-9 times Coronary artery disease 02/03/2016 Overview (12/14/2020): - [place] 1993 - CAB x 15 Jan 2014 at [place]: IRVIN - LAD, sequential SVG - PDA - PL; SVG - Intermediate - 11/17/2020 NM Stress Test 1. There is a small area of mild ischemia in the base and mid anterolateral wall. 2. Normal left ventricular ejection fraction of 59 percent. - 12/14/2020 angiogram Hypertension 02/03/2016 Nicotine use disorder 02/03/2016 Alcohol use disorder, mild, in early remission, in controlled environment 02/03/2016 Overview (06/05/2016): In remission Treatment 1998 Bipolar affective disorder, depressed, severe Overview (03/27/2021): [facility] Resolved Problems Problem Noted Date Diagnosed Date Resolved Date Rheumatoid arthritis, involv ing unspecified site, unspecified whether rheumatoid factor present 09/23/2022 10/10/2023 Controlled type 2 diabetes m ellitus without complication, without long-term current use of insulin 06/08/2016 01/18/2023 Uncontrolled type 2 diabetes mellitus without complication, without long-term current use of insulin 06/05/2016 01/18/2023 Overview (06/06/2016): metformin and glimiperide Acute cystitis without hematuria 02/12/2016 05/25/2016 Encounters Date Type Department Care Team Description 10/16/2024 3:30 PM CDT Home Care Visit [facility] [address] [place] [phone] Alka Ross, RN SN - OASIS RECERTIFICATION 10/16/2024 Home Care Visit [facility] [address] [place] [phone] Chavo Roa, PT CARE TRANSITION NOTE 10/16/2024 Home Care Visit [facility] [address] [place] [address] Romana Joel, RN CARE COORDINATION 10/16/2024 Telephone [facility] [address] [place] [address] Becky Hopson Opal, DO Outside Order (Lift chair) 10/16/2024 Telephone [facility] [address] [place] [address] Joe Jerez DPM Questions (Wound Care Concerns) 10/16/2024 Nurse Triage [facility] [address] [place] [phone] Becky Hopson Opal, Concerns 10/15/2024 2:15 PM CDT Office Visit [facility] [address] [place] [address] Joe Jerez DPM Follow Up (Surgical wound dehiscence) 10/15/2024 1:40 PM CDT Ancillary Procedure [facility] [address] [place] [address] Arrived 10/15/2024 9:00 AM CDT Home Care Visit [facility] [address] [place] [address] Rosalva Gu, OT OT - REASSESSMENT 10/15/2024 Home Care Visit [facility] [address] [place] [address] Kristen Olson LISW CONTINUOUS MINER - TELEHEALTH VISIT 10/15/2024 Home Care Visit [facility] [address] [place] [address] Romana Joel, RN CARE COORDINATION 10/15/2024 Home Care Visit [facility] [address] [place] [address] Romana Joel, RN CARE COORDINATION 10/15/2024 Telephone [facility] [address] [place] [address] Kristen Olson LISW Home Care 10/15/2024 Telephone [facility] [address] [place] [address] Alejandro Delatorre MD Appointment Request 10/15/2024 Travel 10/15/2024 Telephone [facility] [address] [place] [address] Becky Hopson, DO Home Care 10/14/2024 Home Care Visit [facility] [address] [place] [phone] Lambert Fabian, SURENDRA PRODUCTION DISPATCHER - HOME VISIT 10/13/2024 10:00 AM CDT Home Care Visit [facility] [address] [place] [phone] Mandy Hills, RN SN - HOME VISIT 10/12/2024 10:30 AM CDT Home Care Visit [facility] [address] [place] [phone] Jessica Vazquez, CHELY SN - PRN HOME VISIT 10/11/2024 Nurse Triage [facility] [address] [place] [address] Becky Hopson, DO Dressing Change (Patient wound on left foot on her heal/Ankle is completely saturated with blood ) 10/10/2024 4:00 PM CDT Home Care Visit [facility] [address] [place] [phone] Chavo Roa, PT PT - HOME VISIT 10/10/2024 1:00 PM CDT Home Care Visit [facility] [address] [place] [phone] Trixie Sommers LPN SENIOR TECHNICAL PROGRAM MANAGER - HOME VISIT 10/10/2024 Home Care Visit [facility] [address] [place] [phone] Kristen Olson LISW CONTINUOUS MINER - TELEHEALTH VISIT 10/09/2024 10:15 AM CDT Home Care Visit [facility] [address] [place] [phone] Lambert Fabian, SURENDRA PRODUCTION DISPATCHER - HOME VISIT 10/09/2024 5:30 AM CDT Home Care Visit [facility] [address] [place] [phone] Chavo Tsang, RN SN - WOUND/OSTOMY CHART CONSULT 10/09/[address] [address] Chavo Tsang, machine operator slitter technician 10/09/2024 Home Care Visit [address] [phone] Loli Gomez RN SN - AFTER HOURS HOME VISIT 10/09/2024 Nurse Triage [address] [address] Becky Hopson Opal, DO Home Care (wound care/dressing change) 10/08/2024 12:00 PM CDT Home Care Visit [facility] [phone] [place] [phone] Lydia Duran COTA OT - HOME VISIT 10/08/2024 10:00 AM CDT Home Care Visit [facility] [id number] [place] [phone] Trixie Sommers LPN LPN - HOME VISIT 10/06/2024 12:00 PM CDT Home Care Visit [address] [phone] Trixie Sommers LPN LPN - HOME VISIT 10/06/2024 Telephone [facility] [address] [place] [address] Alejandro Delatorre MD Concerns (appointment concern) 10/06/2024 Nurse Triage [address] [address] Becky Hopson Opal, DO Dressing Change; Home Care 10/03/2024 3:45 PM CDT Home Care Visit [facility] [address] [place] [address] Chavo Roa, PT PT - HOME VISIT 10/03/2024 Home Care Visit [facility] [address] [place] [address] Kristen Olson LISW CONTINUOUS MINER - CASE COMMUNICATION 10/02/2024 4:00 PM CDT Home Care Visit [facility] [address] [place] [phone] Lydia Duran, CAMPOS OT - HOME VISIT 10/02/2024 11:15 AM CDT Home Care Visit [facility] [address] [place] [phone] Lambert Fabian, PRODUCTION DISPATCHER PRODUCTION DISPATCHER - HOME VISIT 10/02/2024 10:15 AM CDT Home Care Visit [facility] [address] [place] [phone] Kylah Stockton PASTORAL MINISTRIES PROFESSOR - HOME VISIT 10/02/2024 Home Care Visit [facility] [address] [place] [phone] Kristen Olson LISW CONTINUOUS MINER - CASE COMMUNICATION 10/01/2024 2:30 PM CDT Ancillary Procedure [facility] [address] [place] [address] 10/01/2024 2:15 PM CDT Office Visit [facility] [address] [place] [address] Joe Jerez, DPM Post-op (Left achilles, DOS 08/18/24, 6 week post op) 10/01/2024 Travel 09/29/2024 11:15 AM CDT Home Care Visit [facility] [address] [place] [phone] Kylah Stockton PASTORAL MINISTRIES PROFESSOR - HOME VISIT 09/29/2024 10:00 AM CDT Home Care Visit [facility] [address] [place] [phone] Alka Ross, CHELY SN - HOME VISIT 09/29/2024 Home Care Visit [address] [phone] Kristen Olson LISW CARE COORDINATION 09/26/2024 11:00 AM CDT Home Care Visit [address] [phone] Jessica Vazquez RN SN - HOME VISIT 09/25/2024 11:15 AM CDT Home Care Visit [address] [phone] Lambert Fabian, PRODUCTION DISPATCHER PRODUCTION DISPATCHER - INITIAL ASSESSMENT 09/25/2024 10:15 AM CDT Home Care Visit [address] [phone] Kylah Stockton PASTORAL MINISTRIES PROFESSOR - HOME VISIT 09/25/2024 Telephone [facility] [address] [place] [address] eBcky Hopson, DO Questions (F/u walker orders) 09/24/2024 9:00 AM CDT Home Care Visit [address] [phone] Alka Ross, CHELY SN - HOME VISIT 09/23/2024 1:15 PM CDT Office Visit [facility] [address] [place] [address] Joe Jerez, DPM Post-op (Left achilles, DOS 08/18/24, 5 weeks post op, wound dehiscence ) 09/23/2024 Travel 09/22/2024 11:15 AM CDT Home Care Visit [address] [phone] Kylah Stockton PASTORAL MINISTRIES PROFESSOR - HOME VISIT 09/22/2024 10:30 AM CDT Home Care Visit [address] [phone] Alka oRss, CHELY SN - HOME VISIT 09/19/2024 11:00 AM CDT Home Care Visit [facility] [address] [place] [phone] Alka Ross, CHELY SN - HOME VISIT 09/19/2024 Nurse Triage [facility] [address] [place] [address] Becky Hopson DO Post-op Infection 09/19/2024 Nurse Triage [facility] [address] [place] [address] Joe Jerez, DPM Error-please disregard 09/18/2024 2:45 PM CDT Home Care Visit [facility] [phone] [place] [phone] Deirdre Mcmullen, PT PT - HOME VISIT 09/18/2024 11:15 AM CDT Home Care Visit [facility] [phone] [place] [phone] Rosalva Gu, OT OT - REASSESSMENT 09/18/2024 10:15 AM CDT Home Care Visit [address] [phone] Kylah Stockton PASTORAL MINISTRIES PROFESSOR - HOME VISIT 09/17/2024 1:45 PM CDT Office Visit [facility] [address] [place] [address] Becky Hopson, Medicare ANNUAL (subsequent) Visit (64 year old female); Diabetes (3 month check); Pain (Pain management) 09/17/2024 9:00 AM CDT Home Care Visit [facility] [phone] [place] [phone] Alka Ross, CHELY SN - HOME VISIT 09/17/2024 Travel 09/15/2024 12:15 PM CDT Home Care Visit [address] [phone] Yesy Torres CHELY SN - HOME VISIT 09/15/2024 11:15 AM CDT Home Care Visit [facility] [address] [place] [address] Kylah Stockton PASTORAL MINISTRIES PROFESSOR - HOME VISIT 09/15/2024 7:00 AM CDT Home Care Visit [facility] [address] [place] [phone] Beryl Alcantara RN SN - WOUND/OSTOMY CHART CONSULT 09/15/2024 Telephone [facility] [address] [place] [address] Joe Jerez DPM Home Care (Wound Orders) 09/14/2024 Nurse Triage [facility] [address] [place] [address] Shaqra Becky Opal, DO Home Care (Supplies need) 09/13/2024 Nurse Triage [address] [address] Shaqra, Becky Opal, DO Post-op Infection 09/12/2024 10:30 AM CDT Home Care Visit [facility] [address] [place] [phone] Jessica Vazquez RN SN - LONG VISIT (>90 MINUTES) 09/12/2024 Telephone [facility] [address] [place] [address] Joe Jerez DPM Prior Authorization (NURSING SERVICES) 09/12/2024 Refill [facility] [address] [place] [address] Mark Anthony Becky Opal, DO Refill Request (Bupropion, Sertraline, Jardiance) 09/11/2024 3:15 PM CDT Home Care Visit [facility] [address] [place] [address] Lydia Duran COTA OT - HOME VISIT 09/11/2024 10:15 AM CDT Home Care Visit [facility] [address] [place] [phone] Kylah Stockton PASTORAL MINISTRIES PROFESSOR - HOME VISIT 09/11/2024 [facility]phone [facility] [place] [address] [place] [address] Joe Jerez DPM Questions 09/10/2024 3:30 PM CDT Home Care Visit [place] [id number] [place] [phone] Chavo Roa, PT PT - REASSESSMENT 09/10/2024 10:30 AM CDT Home Care Visit [address] [phone] Lambert Fabian, PRODUCTION DISPATCHER PRODUCTION DISPATCHER - [id number] ASSESSMENT 09/09/2024 1:45 PM CDT Office Visit [facility] [address] [place] [address] Joe Jerez DPM Post-op (Left achilles, DOS 08/18/24, 2 week post op) 09/09/2024 Travel 09/08/2024 1:00 PM CDT Home Care Visit [place] [id number] [place] [phone] Alka Ross, CHELY SN - LONG VISIT (>90 MINUTES) 09/08/2024 11:15 AM CDT Home Care Visit [address] [phone] Kylah Stockton PASTORAL MINISTRIES PROFESSOR - HOME VISIT 09/08/2024 Orders Only [facility] [address] [place] [address] Becky Hopson, DO <No scans attached> 09/05/2024 3:30 PM CDT Home Care Visit [place] [id number] [place] [phone] Chavo Roa, PT PT - HOME VISIT 09/05/2024 Travel 09/04/2024 4:00 PM CDT Home Care Visit [place] [address] [place] [phone] Lydia Duran COTA OT - HOME VISIT 09/04/2024 11:00 AM CDT Home Care Visit [facility] [address] [place] [phone] Trixie Sommers LPN SENIOR TECHNICAL PROGRAM MANAGER - HOME VISIT 09/04/2024 10:15 AM CDT Home Care Visit [facility] [address] [place] [phone] Kylah Stockton PASTORAL MINISTRIES PROFESSOR - HOME VISIT 09/03/2024 Refill [facility] [address] [place] [address] Becky Hopson, DO Refill Request (Oxycodone 5 mh) 09/03/2024 Telephone [facility] [address] [place] [address] Joe Jerez DPM Appointment 09/02/2024 12:00 PM CDT Home Care Visit [facility] [address] [place] [phone] Lydia Duran CAMPOS OT - HOME VISIT 09/02/2024 10:00 AM CDT Home Care Visit [facility] [address] [place] [phone] Kristen Olson LISW CONTINUOUS MINER - HOME VISIT 09/01/2024 10:15 AM CDT Home Care Visit [facility] [address] [place] [phone] Kylah Stockton PASTORAL MINISTRIES PROFESSOR - HOME VISIT 09/01/2024 Telephone [facility] [address] [place] [address] Joe Jerez DPM 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) 08/29/2024 3:45 PM CDT Home Care Visit [facility] [address] [place] [phone] Chavo Roa, PT PT - HOME VISIT 08/29/2024 10:30 AM CDT Home Care Visit [facility] [address] [place] [phone] Lydia Duran COTA OT - HOME VISIT 08/28/2024 10:15 AM CDT Home Care Visit [facility] [address] [place] [phone] Kylah Stockton PASTORAL MINISTRIES PROFESSOR - HOME VISIT 08/28/2024 Telephone [facility] [address] [place] [address] Alejandro Delatorre MD 08/26/2024 2:30 PM CDT Home Care Visit [facility] [address] [place] [phone] Kristen Olson LISW CONTINUOUS MINER - INITIAL ASSESSMENT 08/26/2024 1:00 PM CDT Home Care Visit [facility] [address] [place] [phone] Rosalva Gu, OT OT - INITIAL ASSESSMENT 08/26/2024 9:45 AM CDT Home Care Visit [facility] [address] [place] [phone] Chavo Roa, PT PT - HOME VISIT 08/26/2024 Home Care Visit [facility] [address] [place] [phone] Jamilah Prieto, PT CARE COORDINATION 08/26/2024 Orders Only [facility] [address] [place] [address] Mark Anthony Becky Opal, DO <No scans attached> 08/26/2024 Orders Only [facility] On license of [facility] [place] [address] Alka Ross, CHELY <No scans attached> 08/26/2024 Orders Only [facility] [address] [place] [address] Shaqra, Becky Opal, DO <No scans attached> 08/25/2024 9:15 AM CDT Home Care Visit [facility] [address] [place] [phone] Kylah Stockton PASTORAL MINISTRIES PROFESSOR - HOME VISIT 08/24/2024 Telephone [facility] [address] [place] [address] Yesy Torres, machine operator slitter technician (Home Care continuation orders and Med discrepancies) 08/23/2024 9:45 AM CDT Home Care Visit [facility] [address] [place] [phone] Yesy Torres, CHELY SN - INITIAL ASSESSMENT 08/22/2024 9:30 AM CDT Home Care Visit [facility] [address] [place] [phone] Chavo Roa, PT PT - HOME VISIT 08/22/2024 Home Care Visit [facility] [address] [place] [phone] Yesy Torres, CHELY CARE COORDINATION 08/20/2024 2:15 PM CDT Ancillary Procedure [facility] [address] [place] [address] 08/20/2024 2:00 PM CDT Office Visit [facility] [address] [place] [address] Joe Jerez, DPM Post-op (Left achilles, DOS 08/18/24, initial post op) 08/20/2024 9:30 AM CDT Home Care Visit [facility] [address] [place] [phone] Chavo Roa, PT PT - OASIS START OF CARE 08/20/2024 Telephone [facility] [address] [place] [phone] Chavo Roa, PT Home Care 08/20/2024 Plan of Care Documentation [facility] [address] [place] [phone] 08/20/2024 Travel 08/20/2024 Refill [facility] [address] [place] [address] Sir Hopsoni Opal, DO Refill Request (Tirzepatide ) 08/20/2024 Refill [facility] [address] [place] [address] Sir Hopsoni Opla, DO Refill Request (Tirzepatide (Mounjaro) 10 mg/0.5 mL pen) 08/19/[address] [address] Joe Jerez DPM Surgical Followup 08/19/[address] [address] Becky Hopson DO Referral 08/18/2024 8:30 AM CDT Office Visit [facility] at [address] [phone] Joe Jerez DPM Surgery Scheduled 08/18/2024 Orders Only [facility] Scanner 1 scan: (1-Ord) [facility], SECONDARY REPAIR ACHILLES TENDON TEAR W ALLOGRAFT LT, 08/18/2024 08/18/2024 Travel 08/12/2024 2:00 PM CDT Ancillary Procedure [address] [address] 08/12/2024 11:25 AM CDT Office Visit [address] [address] Becky Hopson OpalDO Pre-Op Exam (Achilles Tendon RepairSolitario 08/18/24 [facility] fax [phone].) 08/12/2024 Telephone [facility] [address] [place] [address] Becky Hopson OpalDO Questions (oxyCODONE 5 mg immediate release tablet) 08/12/2024 Travel 08/06/2024 1:30 PM CDT Office Visit [facility] [address] [place] [address] Joe Jerez DPM Follow Up (Follow up - MRI results ) 08/05/2024 4:15 PM CDT Ancillary Procedure [facility] [address] [place] [address] 08/05/2024 Travel 07/31/2024 Travel 07/30/2024 11:30 AM CDT Office Visit [facility] [address] [place] [address] Joe Jerez DPM Follow Up (Left achilles tendinitis ) 07/30/2024 Travel 07/30/2024 Telephone [facility] [address] [place] [address] Joe Jerez DPM Appointment (Left foot) 07/25/2024 Telephone [facility] [address] [place] [address] Becky Hopson, DO Questions (right knee pain) 07/25/2024 Telephone [facility] [address] [place] [address] [address] Epifanio Tanner PA Abstract 07/24/2024 Telephone [facility] [address] [place] [address] David Bianchi MD Questions 07/23/2024 4:00 PM CDT Ancillary Procedure [address] [address] 07/23/2024 3:20 PM CDT Office Visit [facility] [address] [place] [address] Ji Aguilar MD Musculoskeletal Problem (Rt knee pain, no injury, x 1 week) 07/23/2024 10:00 AM CDT Procedure Only [facility] [address] [place] [address] Janna Leonard L Ac Acupuncture (Initial treatment - 2024) 07/23/2024 Orders Only [facility] [address] [place] [address] Cheri Santoyo MD <No scans attached> 07/23/2024 Travel 07/21/2024 Telephone [facility] [address] [place] [address] Cheri Santoyo MD Medication Management (oxyCODONE 5 mg immediate release tablet); patient following up regarding oxy 07/19/2024 Telephone [facility] [address] [place] [address] Becky Hopson, DO Questions (PAIN CONTROL AND DRY MOUTH) 07/16/2024 10:10 AM CDT Office Visit [facility] [address] [place] [address] Becky Hopson, DO Referral (Ortho referral - hip?); Pain (Pain management - discuss medication) 07/16/2024 8:10 AM CDT Procedure Only [facility] [address] [place] [address] Louie Miller MD Procedure (USGI Left hip intra-articular i... 07/16/2024 Telephone [facility] [address] [place] [address] Becky Hopson, DO Medication Management (Pain management) from Last 3 Months Immunizations Immunization Administration Dates Next Due AMB INFLUENZA IIV3 (AGE 65+ YRS) PF (Flu Clinic Only) 11/19/2023 COVID-19 VACCINE SPIKEVAX (M ODERNA 50MCG/0.5ML) 12YO+ PFS 01/14/2024 Hepatitis B (Adult) 06/11/2017,02/26/2001 Hepatitis B, Unspecified 02/26/2001 Influenza Virus, Unspecified 05/27/2020, 11/17/2015,02/10/2014,02/11,11/14/2011,11/08/2010,01/27/2009 ,01/27/2009,01/27/2009,01/26/2009,11/13,01/12/2003,01/01/2002 Influenza, High-dose Inactivated 11/19/2023 Influenza, IIV3 (Age 6-35 mos) 01/27/2009 Influenza, IIV3 (Age >=3 years) 11/14/2011,01/27,01/27/2009 Influenza, IIV4 11/27/2022,,12/17/2020,12/07,12/05/2017,01/14/2014 Pneumococcal Conj 20-valent (Prevnar 20) 11/28/2021 Pneumococcal Poly,23-Valent (Pneumovax) 01/14/2014 RSV, Recombinant ADJ Reconst ituted (Arexvy 120MCG/0.5mL) 01/02/2023 Td (Age >=7 Years) 05/27/2020,06/03/2002 Td, Preservative Free (age >= 7 Years) 3 Tdap 08/12/2014 Tuberculin (PPD) 10/19/2017 Zoster (Shingrix-RZV, recombinant) 01/02/2023, Family History Medical History Relation Name Comments Alcoholism Father Cancer Father pancreatic Cirrhosis Father Liver Depression Father Hypertension Father Alcoholism Mother Cancer-colon Mother Colon polyps Mother Depression Mother Hypertension Mother Stroke Mother Seizures Son Anesthesia Malignant Hyperthermia No Family History Anesthesia Problem No Family History Cancer-breast No Family History Cancer-ovarian No Family History Relation Name Status Comments Brother 1 Brother 2 Alive Brother 3 Alive Brother 4 Alive Father (Age 77) Mother (Age 77) Sister 1 Sister 2 Alive Sister 3 Alive Sister 4 Alive Sister 5 Alive Son Social History Tobacco Use Types Packs/Day Years Used Date Smoking Tobacco: Every Day Cigarettes 0.3 32.6 Started: 05/18/1990; Last attempted to quit: 05/18/2020 Smokeless Tobacco: Never Tobacco Cessation:Ready to Q uit: No; Counseling Given: Yes Comments:3 cigarettes per day Alcohol Use Standard Drinks/Week Comments Yes 0 (1 standard drink = 0.6 oz pur e alcohol) once every 3 months PHQ-2 Answer Date Recorded PHQ-2 TOTAL SCORE 2 06/27/2023 Social Connections Answer Date Recorded Do you often feel lonely or isolated from those around you? 4 11/14/2023 Financial Resource Strain Answer Date R ecorded Difficulty of Paying Living Expenses 2 10/16/2023 Difficulty of Paying Living Expenses 1 10/16/2023 Food Insecurity Answer Date Recorded Do you worry your food will run out before you are able to buy more? 1 11/14/2023 Transportation Needs Answer Date Record ed Does lack of transportation keep you from medica l appointments? 1 11/14/2023 Does lack of transportation keep you from work, meetings or getting things that you need? 2 11/14/2023 Housing Stability Answer Date Recorded What is your housing situation today? 1 11/14/2023 Utilities Answer Date Recorded Do you have trouble paying f or utilities (for example, heat, electricity, water, phone)? 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 Not on file Not on file Obstetrics History Last Filed Vital Signs Vital Sign Reading Time Taken Comments Blood Pressure 108/72 10/16/2024 3:16 PM CDT Pulse 88 10/16/2024 3:16 PM CDT Temperature 37.1 C (98.8 F) 10/16/2024 3:16 PM CDT Respiratory Rate 18 10/16/2024 3:16 PM CDT Oxygen Saturation 95% 10/16/2024 3:16 PM CDT Inhaled Oxygen Concentration - - Weight 83.7 kg (184 lb 9.6 oz) 10/16/2024 3:16 P M CDT Height 157.5 cm (5' 2.01) 09/17/2024 2:04 PM CD T Body Mass Index 33.76 09/17/2024 2:04 PM CDT Plan of Treatment Upcoming Encounters Date Type Department Care Team (Late st Contact Info) Description 10/16/2024 Plan of Care Documentation [facility] [address] [facility] [place] [phone] 10/17/2024 2:30 PM CDT [facility] [facility] [phone] Chavo Roa, PT [address] [place] [address] 10/22/2024 1:30 PM CDT Office Visit [facility] [address] [place] [address] Joe Jerez, DPM [address] [place] [address] 10/23/2024 7:00 AM CDT Home Care Visit [facility] [address] [place] [phone] Chavo Tsang, RN [address] [place] [address] 10/30/2024 1:00 PM CDT Nurse/Clinic Staff Only [facility] [address] [place] [address] 12/01/2024 3:00 PM CDT Office Visit [facility] [address] [place] [address] Aeljandro Delatorre MD [address] [place] [address] 12/18/2024 1:15 PM SHROUDMAN Office Visit [facility] [address] [place] [address] Robert Wilkinson DO [address] [address] 12/19/2024 1:20 PM SHROUDMAN Office Visit [facility] [address] [place] [address] Becky Hopson DO [address] [place] [address] 01/14/2025 2:00 PM SHROUDMAN Ancillary Procedure [facility] [address] [place] [phone] 01/21/2025 2:00 PM SHROUDMAN Office Visit [facility] at [facility] [address] [place] [phone] Sathish Contreras MD [address] [facility] [address] [place], [place] [phone] Health Maintenance Due Date Last Done Comments Hepatitis B series for 19+ ( 3 of 3 - 19+ 3-dose series) 08/06/2017 06/11/2017, 02/26/2001, 02/26/2001 Depression screening for age 12+ 06/28/2024 06/29/2023, 06/28/2023, 06/27/2023, Additional history exists COVID-19 vaccine series ( season) 2024 01/14/2024, 07/21/2021, 01/19/2021, Additional history exists Influenza Vaccine (#1) 2024 , 11/19/2023, 11/27/2022, Additional history exists Low Dose CT (for lung CA) ag e 50-80 07/02/2025 07/02/2024, 04/17/2023, 04/12/2022 BMI (ht and wt on same day) for age 18+ 09/17/2025 09/17/2024, 07/23/2024, 06/30/2024, Additional history exists Medicare Wellness for age 65+ 09/18/2025, 06/27/2023, 09/22/2020 Mammogram for age 45-75 10/15/2025 10/16/19, 07/17/2023, 04/03/2022, Additional history exists Lipids for age 45-75 06/17/2029 06/17/2024, 06/27/2023, 09/21/2022, Additional history exists Tetanus booster 05/27/2030 05/27/2020, 07/0 02/2014, 06/03/2002, Additional history exists Colonoscopy through age 75 05/31/2031 05/30/2021 Hepatitis C screening for ag e 18-79 Completed 08/18/2020 Pneumococcal series for age 50+ Completed , 01/14/2014 RSV vaccine for adults or Completed 01/02/2023 Zoster (shingles) series for age 50+ Completed 01/02/2023, 10/08/2021 DEXA/DXA scan for age 65+ Completed 10/22/2023 Procedures Procedure Name Priority Date/Time Associated Diagnosis Comments AEROBIC BACTERIAL CULTURE, STAIN Routine 10/15/2024 3:00 PM CDT Wound dehiscence, surgical, initial encounter XR MAMMO CASSY BILAT SCREEN Routine 10/15/2024 1:54 PM CDT Visit for screening mammogram XR CALCANEUS 2 VIEWS LEFT Routine 10/01/2024 2:40 PM CDT Follow-up examination after orthopedic surgery Rupture of Achilles tendon, unspecified laterality, initial encounter COMPLIANCE DRUG ANALYSIS Routine 09/17/2024 2:44 PM CDT Controlled substance agreement signed URINE ALBUMIN TO CREATININE RATIO, RANDOM Routine 09/17/2024 2:44 PM CDT Type 2 diabetes mellitus with polyneuropathy (HC) HEMOGLOBIN A1C MONITORING (POCT) Routine 09/17/2024 1:35 PM CDT Type 2 diabetes mellitus with polyneuropathy (HC) XR CALCANEUS 2 VIEWS LEFT Routine 08/20/2024 2:44 PM CDT Follow-up examination after orthopedic surgery SCAN-OPERATIVE/PROC EDURE REPORT 08/18/2024 12:00 AM CDT H PYLORI ANTIGEN,STOOL Routine 08/13/2024 3:39 PM CDT H. pylori infection MR KNEE RIGHT WO Routine 08/12/2024 2:34 PM CDT Acute pain of right knee POTASSIUM Routine 08/12/2024 12:36 PM CDT Pre-op exam CREATININE Routine 08/12/2024 12:36 PM CDT Pre-op exam MR ANKLE LEFT WO Routine 08/05/2024 4:47 PM CDT Calcific Achilles tendonitis Retrocalcaneal bursitis, left XR KNEE 3 VIEWS RIGHT Routine 07/23/2024 4:16 PM CDT Acute pain of right knee BEDSIDE US STUDY ARCHIVE Routine 07/16/2024 10:16 AM CDT Bilateral groin pain Primary osteoarthritis of right hip Primary osteoarthritis of left hip CT CHEST SCREENING LOW DOSE WO CONTRAST Routine 07/02/2024 12:57 PM CDT COPD with chronic bronchitis (HC) Current nicotine use Personal history of nicotine dependence LIPID PANEL W REFLEX MEASURED LDL Routine 06/17/2024 4:13 PM CDT Coronary artery disease involving coronary bypass graft of [place] heart, unspecified whether angina present XR DXA BONE DENSITY 2 SITES AXIAL Routine 10/22/2023 1:51 PM CDT Postmenopausal TN COLONOSCOPY W/BIOPSY SINGLE/MULTIPLE Routine 05/30/2021 12:00 AM CDT Screen for colon cancer Polyp of colon, unspecified part of colon, unspecified type ANTI HCV Routine 08/18/2020 11:10 AM CDT Need for hepatitis C screening test from Last 3 Months or Most Recently Relevant to Health Maintenance Results * XR MAMMO CASSY BILAT SCREEN (10/15/2024 1:54 PM CDT) Anatomical Region Laterality Modality BREASTS, Breast Left, Breast Right Bilateral Mammography Impressions 10/15/2024 3:11 PM CDT There is no radiographic evidence for malignancy. Recommend annual mammograms. MAMMOGRAM ASSESSMENT: ACR 1 Negative PATIENTS: You will also receive a letter with your examination results in an easy to read format. If you have questions about your results, please contact your referring provider. Narrative 10/15/2024 3:11 PM CDT For Patients: As a result of the Cures Act, medical imaging exams and procedure reports are released immediately into your electronic medical record. You may view this report before your referring provider. If you have questions, please contact your health care provider. XR MAMMO CASSY BILAT SCREEN [[id number]] CLINICAL HISTORY: This is an asymptomatic 64 y.o. patient. INDICATION FOR EXAM: Mammogram Screening. TECHNIQUE: CC and MLO views were obtained. This study was evaluated with the assistance of Computer-Aided Detection. Breast Tomosynthesis was used in interpretation. COMPARISON FILM: Yes 07/17/23 [facility] 04/03/22 [facility] FINDINGS: There are scattered areas of fibroglandular density. There are no dominant masses, suspicious micro calcifications or areas of architectural distortion. us Becky Opal Shaqra DO MAMMO Final Result * XR CALCANEUS 2 VIEWS LEFT (10/01/2024 2:40 PM CDT) Only the most recent of2 resultswithin the time period is included. Anatomical Region Laterality Modality CALCANEI, CALCANEUS L Computed R adiography 10/02/2024 10:4 4 AM CDT Impressions 10/02/2024 10:44 AM CDT 1. There is an unremarkable postoperative appearance of the calcaneus. Dictated by Mumtaz Santos MD @ 10/02/2024 10:43:58 AM Dictated by: Mumtaz Santos MD @ 10/02/2024 10:44:18 (Electronically Signed) Narrative 10/02/2024 10:44 AM CDT For Patients: As a result of the Cures Act, medical imaging exams and procedure reports are released immediately into your electronic medical record. You may view this report before your referring provider. If you have questions, please contact your health care provider. INDICATION: Follow-up calcaneus examination after orthopedic surgery, Rupture of Achilles tendon TECHNIQUE: Calcaneus radiograph 2 views left COMPARISON: 08/20/2024 FINDINGS: Bone: There are 2 metallic desiree along the posterior calcaneus. A vertical ghost track is seen in the posterior calcaneus with a metallic suture button along the plantar surface which may be due to prior Achilles tendon translocation and repair. No acute fractures or aggressive bone lesions are identified. There is a small plantar calcaneal spur present. Joint: The ankle mortise and subtalar joints are unremarkable in appearance. No significant ankle effusion is seen. Soft tissue: The soft tissue gas in Kager`s fat pad and along the posterior heel have resolved. No radiopaque foreign bodies are seen. Procedure Note Mumtaz Santos MD - 10/02/2024 For Patients: As a result of the Cures Act, medical imagingexams and procedure reports are released immediately into your electronicmedical record. You may view this report before your referring provider.If you have questions, please contact your health care provider. INDICATION: Follow-up calcaneus examination after orthopedic surgery,Rupture of Achilles tendon TECHNIQUE: Calcaneus radiograph 2 views left COMPARISON: 08/20/2024 FINDINGS: Bone: There are 2 metallic desiree along the posterior calcaneus. Avertical ghost track is seen in the posterior calcaneus with a metallicsuture button along the plantar surface which may be due to prior Achillestendon translocation and repair. No acute fractures or aggressive bonelesions are identified. There is a small plantar calcaneal spur present. Joint: The ankle mortise and subtalar joints are unremarkable inappearance. No significant ankle effusion is seen. Soft tissue: The soft tissue gas in Kager`s fat pad and along theposterior heel have resolved. No radiopaque foreign bodies are seen. IMPRESSION: 1. There is an unremarkable postoperative appearance of the calcaneus. Dictated by Mumtaz Santos MD @ 10/02/2024 10:43:58 AM Dictated by: Mumtaz Santos MD @ 10/02/2024 10:44:18 (Electronically Signed) us Joe Jerez DPM GENERAL IMAGING Final Res ult * (ABNORMAL) COMPLIANCE DRUG ANALYSIS (09/17/2024 2:44 PM CDT) 6-MONOACETYL MORPHINE NEG NEG ng/mL 09/22/2024 12:42 PM CDT [facility] AMPHETAMINE URINE NEG <=500 ng/mL 09/22/2024 12:42 PM [facility] BARBITURATE URINE NEG <=200 ng/mL 09/22/2024 12:42 PM [facility] BENZODIAZEPINE URINE NEG <=100 ng/mL 09/22/2024 12:42 PM [facility] BUPRENORPHRINE URINE NEG <=5 ng/mL 09/12 12:42 PM [facility] COCAINE METAB URINE NEG <=300 ng/mL 09/22/2024 12:42 PM [facility] ETHYLGLUCURONIDE URINE NEG <=250 ng/mL 09/22/2024 12:42 PM [facility] FENTANYL URINE NEG <=5 ng/mL 09/22/2024 12:42 PM [facility] METHADONE URINE NEG <=300 ng/mL 09/22/2024 12:42 PM [facility] OPIATES URINE NEG <=300 ng/mL 09/22/2024 12:42 PM [facility] OXYCODONE URINE POS(A) <=100 ng/mL 09/22/2024 12:42 PM [facility] PROPOXYPHENE URINE NEG <=300 ng/mL 09/22/2024 12:42 PM [facility] THC 50 URINE NEG <=50 ng/mL 09/22/2024 12:42 PM [facility] TRAMADOL NEG <=200 ng/mL 09/22/2024 12:42 PM [facility] PH URINE 5.4 5.0 - 7.0 09/22/2024 12:42 PM [facility] CREAT UR 11(L) >=20 mg/dL 09/22/2024 12:42 PM [facility] MASS SPECTROMETRY URINE See Below 09/22/2024 12:42 PM [facility] Comment:Furosemide, Mirtazap ine, Oxycodone, and Oxycodone metabolite present. Urine URINE SPECIMEN / Unknown Non-Blood / Unknown 09/17/2024 2:44 PM CDT 09/17/2024 3:01 PM CDT [facility] - 09/22/2024 12:42 PM CDT Current Outpatient Medications: acetaminophen (TYLENOL EXTRA STRGTH) 500 mg tablet, Take 500 mg by mouth every 6 hours if needed for Pain. Take 1-2 tabs by mouth every 6 hours as needed for pain Indications: pain albuterol HFA 90 mcg/actuation inhaler, Inhale 1-2 Puffs by mouth 4 times daily if needed for Shortness of Breath 1st choice or Wheezing 1st choice. aspirin 81 mg enteric coated tablet, TAKE ONE TABLET BY MOUTH DAILY atorvastatin (LIPITOR) 40 mg tablet, Take 1 Tablet (40 mg) by mouth at bedtime. benzonatate 100 mg capsule, Take 1 Capsule (100 mg) by mouth 3 times daily if needed for Cough. blood sugar diagnostic (OneTouch Verio test strips) strip, USE TO TEST THREE TIMES DAILY blood-glucose meter, As directed. Dispense meter, test strips, lancets covered by pt ins. E11.65 NIDDM type II, uncontrolled - Test 3 times/day, Reason: High A1C buPROPion (WELLBUTRIN XL) 300 mg Extended-Release tablet, Take 1 Tablet (300 mg) by mouth once daily. CPAP, RESMED CPAP (E0601) machine for home use at pressure: 9 cmw, Choice of mask (A7030 or A7034) w/full face cushion (A7031) x1/mo, nasal cushion (A7032) x2/mo, or nasal pillows (A7033) x 2/mo; Length of Need: 99 months; Frequency of use: Daily cyclobenzaprine (FLEXERIL) 10 mg tablet, Take 10 mg by mouth once daily. Take 1 tab by mouth daily; may take 1-2 tablets as needed for muscle spasms diclofenac topical 1 % gel, Apply 2 g topically to affected area(s) four times daily. durable medical equipment (DME), [employer] SELECT STANDARD, MEDIUM, REF: EF-M durable medical equipment (DME), ACHILLES WEDGE, REF: [phone] durable medical equipment (DME), AIR SELECT, STANDARD, SMALL, REF: -S empagliflozin (Jardiance) 10 mg tablet, Take 1 Tablet (10 mg) by mouth once daily. fluticasone tjo-qqqtfhukisoc-lsebxeemga (Trelegy Ellipta) 100-62.5-25 mcg inhaler, Inhale 1 Puff by mouth once daily. furosemide 20 mg tablet, Take 1 Tablet (20 mg) by mouth two times daily. hydrOXYzine pamoate (VistariL) 25 mg capsule, Take 1 Capsule (25 mg) by mouth every 8 hours if needed (for possible withdrawal symptoms). Incontinence Pad, Liner, Disp pads, Use the pads 3 times a day as needed. lancets, As directed. Test 3 times per day. melatonin 5 mg tab tablet, Take 1 Tablet (5 mg) by mouth at bedtime. metFORMIN 1,000 mg tablet, TAKE ONE TABLET BY MOUTH TWICE A DAY WITH MEALS mirtazapine (REMERON) 7.5 mg tablet, Take 1 Tablet (7.5 mg) by mouth at bedtime. Take 10 hours before planning on waking up naloxone (NARCAN) 4 mg/actuation nasal spray, Inhale 1 [place] into affected nostril(s) each time if needed for Patient Diff To Arouse or Resp Rate < 8 / min. Additional doses may be given every 2 to 3 minutes until emergency medical assistance arrives. nitroglycerin (NITROSTAT) 0.4 mg sublingual tablet, Place 1 Tablet (0.4 mg) under the tongue every 5 minutes if needed for Chest Pain. [START ON 10/03/2024] oxyCODONE (ROXICODONE) 5 mg immediate release tablet, Take 1 Tablet (5 mg) by mouth 2 times daily if needed for Pain. oxyCODONE (ROXICODONE) 5 mg immediate release tablet, One po bid prn Use dates 09/04-10/03/24 LAST REFILL, CLINIC CLOSING. PLEASE FIND ANOTHER PAIN CLINIC [facility] .Please [place] [facility] [phone] for any further needs (prescriptions/ or other problems) during transitioning to another pain clinic even after [facility] [place] pregabalin 150 mg capsule, Take 1 pill orally at supper time and again before bed pyridoxine HCl (vitamin B6) (VITAMIN B-6 ORAL), Take 1 Tablet by mouth once daily. Take 1 tablet by mouth daily. rOPINIRole 4 mg tablet, TAKE ONE TABLET BY MOUTH 2-3 HOURS BEFORE BEDTIME sennosides (SENNA) 8.6 mg tablet, Take 8.6 mg by mouth once daily if needed for Constipation. take 2 tabs by mouth daily as needed for constipation Indications: constipation sertraline (ZOLOFT) 100 mg tablet, Take 2 Tablets (200 mg) by mouth once daily. tirzepatide (Mounjaro) 15 mg/0.5 mL pen, Inject 15 mg subcutaneous once weekly. traZODone (DESYREL) 50 mg tablet, Take 50 mg by mouth at bedtime if needed for Sleep. Take 1-2 tabs by mouth at bedtime as needed for sleep TURMERIC ORAL, Take 500 mg by mouth once daily. vitamin D3-vitamin K2 (MK4) (K2 + D3) 1,000-100 unit-mcg tab tablet, Take 1 Tablet by mouth once daily. Take 1 daily by mouth Walker, Walker with wheels,seat,hand brakes,and basket for home use. Walker, Walker with no wheels for home use. Length of use 3 months. No current facility-administered medications for this visit. As of 09/17/2024 Release to patient->Immediate us Becky Hopson DO URINE Final Result [facility] [address] [facility] [address] [place] [address], * URINE ALBUMIN TO CREATININE RATIO, RANDOM (09/17/2024 2:44 PM CDT) ALB RAND URINE <12.0 mg/L 09/17/2024 11:46 PM CDT [facility] CREATININE,URINE 0.22 g/L 09/18/19 25 11:46 PM CDT [facility] ALBUMIN TO CREATININE RATIO,RAND UR 09/17/2024 11:46 PM CDT [facility] Comment:Urine Albumin below measurement range, unable to calculate. Urine URINE SPECIMEN / Unknown Non-Blood / Unknown 09/17/2024 2:44 PM CDT 09/17/2024 3:01 PM CDT [facility] 09/17/2024 11:46 PM CDT If Albumin to Creatinine Ratio is elevated, consider the following: Elevations seen with incipient nephropathy associated with diabetes mellitus or hypertension. Stress, exercise,hematuria, and urinary tract infection may also produce elevated results. If clinically indicated, confirm with 24 Hour Albumin to Creatinine Ratio. us Becky Opal ShareThisqra DO URINE Final Result Performing Organization Address City/[facility]/ZIP Co de Phone Number [facility] [address] [place] [address], * (ABNORMAL) HEMOGLOBIN A1C MONITORING (POCT) (09/17/2024 1:35 PM CDT) POC HEMOGLOBIN A1C 6.7(H) <6.0 % OF TOTAL HGB [facility] Comment: Any point of care results exhibiting inconsistency with the patient's clinical status should be repeated using a different testing method. Blood BLOOD SPECIMEN / Unknown 09/17/2024 1:35 PM CDT 09/17/2024 1:36 PM CDT us Becky Opal ShareThisqra DO CHEMISTRY Final Result Performing Organization Address [facility] Co de Phone Number [facility] [address] [place] [address], [facility] [address] [place] [address] * SCAN-OPERATIVE/PROCEDURE REPORT (08/18/2024 12:00 AM CDT) us Scanner OTHER Final Result * H PYLORI ANTIGEN,STOOL (08/13/2024 3:39 PM CDT) HELICOBACTER PYLORI AG, EIA, STOOL SEE NOTE [employer] [facility] Comment: HELICOBACTER PYLORI AG, EIA, STOOL Micro Number: [id number] Test Status: Final Specimen Source: Stool/feces Specimen Quality: Adequate H.pylori Ag: Not Detected Antimicrobials, proton pump inhibitors, and bismuth preparations inhibit H. pylori and ingestion up to two weeks prior to testing may cause false negative results. If clinically indicated the test should be repeated on a new specimen obtained two weeks after discontinuing treatment. Reference Range: Not Detected Stool STOOL SPECIMEN / Unknown 08/13/2024 3:39 PM CDT 08/13/2024 3:40 PM CDT David Bianchi MD MICROBIOLOGY Final Res ult [employer] [facility] [address] [place] [address], [facility] [place] [address] [place] [address] * MR KNEE RIGHT WO (08/12/2024 2:34 PM CDT) Anatomical Region Laterality Modality KNEE R Magnetic Resonan ce 08/13/2024 10:5 4 AM CDT Impressions 08/13/2024 10:54 AM CDT 1. Abnormal distal iliotibial band with either traumatic injury with avulsion ossicle or potentially inflammatory arthritis/enthesopathy with related erosion at the anterior lateral tibial insertion. Correlate with history and laboratory findings. 2. Mild osteoarthritis medial and patellofemoral compartments. 3. No internal derangement of menisci or ligaments. Dictated by Louie Diaz MD @ 08/13/2024 10:54:38 AM (Electronically Signed) Narrative 08/13/2024 10:54 AM CDT For Patients: As a result of the Cures Act, medical imaging exams and procedure reports are released immediately into your electronic medical record. You may view this report before your referring provider. If you have questions, please contact your health care provider. EXAM: MRI OF THE RIGHT KNEE, WITHOUT CONTRAST CLINICAL INDICATION: Acute knee pain. Positive Brant`s sign. PRIOR SURGERY: None reported. COMPARISON PLAIN FILMS: 23 July 2024. COMPARISON CROSS-SECTIONAL IMAGING STUDIES: None available at time of interpretation. TECHNICAL: Axial, sagittal and coronal T1, PD, PD FS and T2 FS images. FINDINGS: OSSEOUS STRUCTURES: Dense marrow edema and shallow scalloped cortical defect ossicle at the anterior lateral plateau insertion of the iliotibial band. Patchy fibrillated intermediate signal and low signal thickening of the distal IT band with prominent surrounding subcutaneous edema. Roughly the final 2-1/2 centimeters of the IT band is thickened and broadened. JOINT SPACE AND CAPSULE: Effusion: No significant joint effusion or synovitis. Joint Bodies: None seen. CRUCIATE LIGAMENTS: Anterior Cruciate Ligament: Normal. Posterior Cruciate Ligament: Normal. EXTENSOR MECHANISM: Distal Quadriceps Tendon: Normal. Patellar Tendon: Normal. Medial Patellar Retinaculum and Medial Patellofemoral Ligament: Normal. Lateral Patellar Retinaculum: Intact. Surrounding edema. Normal patellar alignment. No patella argentina. Normal trochlear depth. Normal lateral trochlear inclination. MEDIAL COLLATERAL LIGAMENT AND POSTEROMEDIAL CORNER COMPLEX: Medial Collateral Ligament: Normal. Medial Head of the Gastrocnemius and Semimembranosus Tendons: Normal. LATERAL COLLATERAL LIGAMENT COMPLEX AND POSTEROLATERAL CORNER COMPLEX: Fibular Collateral Ligament: Normal. Distal Biceps Femoris Tendon Complex: Normal. Iliotibial Band: Markedly abnormal as described above. Popliteus Tendon: Normal. Posterolateral Corner Capsule: Normal. MEDIAL COMPARTMENT: Medial Meniscus: Normal size and morphology without tear. Articular Cartilage: Small concave area of grade 3 to grade 4 cartilage loss in the inner posterior condyle with undulating high-grade 2 thinning elsewhere through the compartment. Shallow small focus of cysts and sclerosis under the grade 3/4 defect posterior inner medial condyle. LATERAL COMPARTMENT: Lateral Meniscus: Normal size and morphology without tear. Articular Cartilage: Articular surfaces appear smooth without focal articular cartilage defect or subchondral marrow changes. PATELLOFEMORAL COMPARTMENT: Articular Cartilage: Irregular undulating grade 3 2 pinpoint grade 4 cartilage loss median ridge and medial facet with rare shallow subchondral sclerosis and edema. Mild uniform grade 2 thinning in the inferior trochlea. PERIARTICULAR SOFT TISSUES: Popliteal Cyst: Small mostly decompressed cyst. Periarticular Cysts or Ganglia: None. Bursae: No prepatellar, superficial infrapatellar, deep infrapatellar, pes anserinus or semimembranosus/MCL bursitis. Musculature: No muscle atrophy or muscle edema. Subcutaneous and Soft Tissues: No subcutaneous or soft tissue mass, edema or fluid collection. Neurovascular Structures: Normal. Procedure Note Louie Diaz MD - 08/13/2024 For Patients: As a result of the Century Cures Act, medical imagingexams and procedure reports are released immediately into your electronicmedical record. You may view this report before your referring provider.If you have questions, please contact your health care provider. EXAM: MRI OF THE RIGHT KNEE, WITHOUT CONTRAST CLINICAL INDICATION: Acute knee pain. Positive Brant`s sign. PRIOR SURGERY: None reported. COMPARISON PLAIN FILMS: 23 July 2024. COMPARISON CROSS-SECTIONAL IMAGING STUDIES: None available at time of interpretation. TECHNICAL: Axial, sagittal and coronal T1, PD, PD FS and T2 FS images. FINDINGS: OSSEOUS STRUCTURES: Dense marrow edema and shallow scalloped cortical defect ossicle at theanterior lateral plateau insertion of the iliotibial band. Patchyfibrillated intermediate signal and low signal thickening of the distal ITband with prominent surrounding subcutaneous edema. Roughly the final2-1/2 centimeters of the IT band is thickened and broadened. JOINT SPACE AND CAPSULE: Effusion: No significant joint effusion or synovitis. Joint Bodies: None seen. CRUCIATE LIGAMENTS: Anterior Cruciate Ligament: Normal. Posterior Cruciate Ligament: Normal. EXTENSOR MECHANISM: Distal Quadriceps Tendon: Normal. Patellar Tendon: Normal. Medial Patellar Retinaculum and Medial Patellofemoral Ligament: Normal. Lateral Patellar Retinaculum: Intact. Surrounding edema. Normal patellar alignment. No patella [place]ent[place]. Normal trochlear depth.Normal lateral trochlear inclination. MEDIAL COLLATERAL LIGAMENT AND POSTEROMEDIAL CORNER COMPLEX: Medial Collateral Ligament: Normal. Medial Head of the Gastrocnemius and Semimembranosus Tendons: Normal. LATERAL COLLATERAL LIGAMENT COMPLEX AND POSTEROLATERAL CORNER COMPLEX: Fibular Collateral Ligament: Normal. Distal Biceps Femoris Tendon Complex: Normal. Iliotibial Band: Markedly abnormal as described above. Popliteus Tendon: Normal. Posterolateral Corner Capsule: Normal. MEDIAL COMPARTMENT: Medial Meniscus: Normal size and morphology without tear. Articular Cartilage: Small concave area of grade 3 to grade 4 cartilageloss in the inner posterior condyle with undulating high-grade 2 thinningelsewhere through the compartment. Shallow small focus of cysts andsclerosis under the grade 3/4 defect posterior inner medial condyle. LATERAL COMPARTMENT: Lateral Meniscus: Normal size and morphology without tear. Articular Cartilage: Articular surfaces appear smooth without focalarticular cartilage defect or subchondral marrow changes. PATELLOFEMORAL COMPARTMENT: Articular Cartilage: Irregular undulating grade 3 2 pinpoint grade 4cartilage loss median ridge and medial facet with rare shallow subchondralsclerosis and edema. Mild uniform grade 2 thinning in the inferiortrochlea. PERIARTICULAR SOFT TISSUES: Popliteal Cyst: Small mostly decompressed cyst. Periarticular Cysts or Ganglia: None. Bursae: No prepatellar, superficial infrapatellar, deep infrapatellar, pesanserinus or semimembranosus/MCL bursitis. Musculature: No muscle atrophy or muscle edema. Subcutaneous and Soft Tissues: No subcutaneous or soft tissue mass, edemaor fluid collection. Neurovascular Structures: Normal. IMPRESSION: 1. Abnormal distal iliotibial band with either traumatic injury withavulsion ossicle or potentially inflammatory arthritis/enthesopathy withrelated erosion at the anterior lateral tibial insertion. Correlate withhistory and laboratory findings. 2. Mild osteoarthritis medial and patellofemoral compartments. 3. No internal derangement of menisci or ligaments. Dictated by Louie Diaz MD @ 08/13/2024 10:54:38 AM (Electronically Signed) Ji Aguilar MD MR Final Re sult * POTASSIUM (08/12/2024 12:36 PM CDT) POTASSIUM 4.2 3.5 - 5.3 mmol/L [facility] Blood BLOOD SPECIMEN / Unknown 08/12/2024 12:36 PM CDT 08/12/2024 12:37 PM CDT Becky Hopson DO CHEMISTRY Final Result [facility] [facility] [address] [place] [address], [facility] [place] [address] [place] [address] * (ABNORMAL) CREATININE (08/12/2024 12:36 PM CDT) CREATININE 1.35(H) 0.50 - 1.05 mg/dL [facility] EGFR 43(L) > OR = 60 mL/min/1.73 m2 [facility] Blood BLOOD SPECIMEN / Unknown 08/12/2024 12:36 PM CDT 08/12/2024 12:37 PM CDT Becky Hopson DO CHEMISTRY Final Result [facility] [address] [place] [address], [facility] [address] [place] [address] * MR ANKLE LEFT WO (08/05/2024 4:47 PM CDT) Anatomical Region Laterality Modality ANKLE L Magnetic Resonan ce 08/06/2024 1:16 PM CDT Impressions 08/06/2024 1:16 PM CDT 1. Advanced Achilles tendinopathy with high-grade partial-thickness oblique tear at the distal tendon margin. Reactive edema in the calcaneus. 2. Degenerative changes in the midfoot. 3. Diffuse subcutaneous edema. Dictated by Louie Henriquez MD @ 08/06/2024 1:16:57 PM (Electronically Signed) Narrative 08/06/2024 1:16 PM CDT For Patients: As a result of the Century Cures Act, medical imaging exams and procedure reports are released immediately into your electronic medical record. You may view this report before your referring provider. If you have questions, please contact your health care provider. EXAM: MRI OF THE LEFT ANKLE, WITHOUT CONTRAST CLINICAL INDICATION: Persistent Achilles tendon pain. COMPARISON PLAIN FILMS: 07/13/2021. COMPARISON CROSS-SECTIONAL IMAGING STUDIES: None. TECHNICAL: Axial, sagittal and coronal T1, PD, PD FS and STIR images. FINDINGS: OSSEOUS STRUCTURES: Reactive edema in the calcaneus. No fracture or contusion. JOINT SPACES: The ankle joint space is maintained without joint effusion. No talar dome osteochondral lesion. No joint bodies are identified. The subtalar joints are maintained. The talonavicular and calcaneocuboid joint spaces are maintained. Focal areas of chondromalacia with subchondral cystic change in the navicular medial cuneiform and 1st TMT joints. Full-thickness chondromalacia with subchondral edema, subchondral cystic change and hypertrophic change in the 2nd TMT joint. Full-thickness chondromalacia with subchondral cystic change and subchondral edema in the dorsal aspect of the 3rd TMT joint. LIGAMENTS: Syndesmotic Ligaments: The anterior and posterior syndesmotic ligaments are intact. Lateral Ligaments: The anterior talofibular ligament is intact. The calcaneofibular ligament is intact. The posterior talofibular ligament is intact. Medial Ligaments: The superficial and deep components of the deltoid ligament complex are maintained. Spring Ligaments: The calcaneonavicular spring ligament complex is intact. TENDONS: Flexor Tendons: The posterior tibial, flexor digitorum longus and flexor hallucis longus tendons are intact. Extensor Tendons: The anterior extensor tendons are intact. Achilles Tendon: Thickening and low-level increased signal in the Achilles tendon most prominent distally consistent with advanced tendinopathy. Oblique high- grade partial-thickness tear of the distal Achilles tendon at the Achilles tendon insertion with sparing of the few posterior and medial fibers. The tear measures up to 4.5 cm CC. The tear is lower grade as it extends proximally. Peroneal Tendons: The peroneus longus and brevis tendons are intact. No subluxation of the peroneal tendons. TARSAL TUNNEL: The soft tissues of the tarsal tunnel are normal without mass or fluid collection. No abnormality along the course of the medial or lateral plantar nerves. SINUS TARSI: The structures of the sinus tarsi appear normal. No disruption of the interosseous ligaments or significant effacement of fat. PLANTAR SOFT TISSUES: The plantar fascia is intact. No atrophy or edema of the abductor digiti minimi muscle belly. SOFT TISSUES: Prominent diffuse subcutaneous edema. No hematoma. Procedure Note Louie Henriquez MD - 08/06/2024 For Patients: As a result of the 21st Century Cures Act, medical imagingexams and procedure reports are released immediately into your electronicmedical record. You may view this report before your referring provider.If you have questions, please contact your health care provider. EXAM: MRI OF THE LEFT ANKLE, WITHOUT CONTRAST CLINICAL INDICATION: Persistent Achilles tendon pain. COMPARISON PLAIN FILMS: 07/13/2021. COMPARISON CROSS-SECTIONAL IMAGING STUDIES: None. TECHNICAL: Axial, sagittal and coronal T1, PD, PD FS and STIR images. FINDINGS: OSSEOUS STRUCTURES: Reactive edema in the calcaneus. No fracture or contusion. JOINT SPACES: The ankle joint space is maintained without joint effusion.No talar dome osteochondral lesion. No joint bodies are identified. Thesubtalar joints are maintained. The talonavicular and calcaneocuboid jointspaces are maintained. Focal areas of chondromalacia with subchondralcystic change in the navicular medial cuneiform and 1st TMT joints.Full-thickness chondromalacia with subchondral edema, subchondral cysticchange and hypertrophic change in the 2nd TMT joint. Full-thicknesschondromalacia with subchondral cystic change and subchondral edema in thedorsal aspect of the 3rd TMT joint. LIGAMENTS: Syndesmotic Ligaments: The anterior and posterior syndesmotic ligamentsare intact. Lateral Ligaments: The anterior talofibular ligament is intact. Thecalcaneofibular ligament is intact. The posterior talofibular ligament isintact. Medial Ligaments: The superficial and deep components of the deltoidligament complex are maintained. Spring Ligaments: The calcaneonavicular spring ligament complex is intact. TENDONS: Flexor Tendons: The posterior tibial, flexor digitorum longus and flexorhallucis longus tendons are intact. Extensor Tendons: The anterior extensor tendons are intact. Achilles Tendon: Thickening and low-level increased signal in the Achillestendon most prominent distally consistent with advanced tendinopathy.Oblique high-grade partial-thickness tear of the distal Achilles tendon atthe Achilles tendon insertion with sparing of the few posterior and medialfibers. The tear measures up to 4.5 cm CC. The tear is lower grade as itextends proximally. Peroneal Tendons: The peroneus longus and brevis tendons are intact. Nosubluxation of the peroneal tendons. TARSAL TUNNEL: The soft tissues of the tarsal tunnel are normal without mass or fluidcollection. No abnormality along the course of the medial or lateralplantar nerves. SINUS TARSI: The structures of the sinus tarsi appear normal. No disruption of theinterosseous ligaments or significant effacement of fat. PLANTAR SOFT TISSUES: The plantar fascia is intact. No atrophy or edema of the abductor digitiminimi muscle belly. SOFT TISSUES: Prominent diffuse subcutaneous edema. No hematoma. IMPRESSION: 1. Advanced Achilles tendinopathy with high-grade partial-thicknessoblique tear at the distal tendon margin. Reactive edema in the calcaneus. 2. Degenerative changes in the midfoot. 3. Diffuse subcutaneous edema. Dictated by Louie Henriquez MD @ 08/06/2024 1:16:57 PM (Electronically Signed) us Joe Jerez DPM MR Final Res ult * XR KNEE 3 VIEWS RIGHT (07/23/2024 4:16 PM CDT) Anatomical Region Laterality Modality KNEES, KNEE R Computed Radiogr aphy 07/25/2024 3:57 PM CDT Impressions 07/25/2024 3:57 PM CDT 1. No acute abnormality. 2. Mild patellofemoral joint osteoarthritis. Dictated by Wilber Merino MD @ 07/25/2024 3:57:20 PM (Electronically Signed) Narrative 07/25/2024 3:57 PM CDT For Patients: As a result of the Cures Act, medical imaging exams and procedure reports are released immediately into your electronic medical record. You may view this report before your referring provider. If you have questions, please contact your health care provider. INDICATION: Acute right knee pain TECHNIQUE: Three views of the right knee COMPARISON: None FINDINGS: No focal soft tissue swelling, joint effusion or fracture. Mild patellofemoral joint osteoarthritis. No chondrocalcinosis. Procedure Note Wilber Merino MD - 07/25/2024 For Patients: As a result of the Cures Act, medical imagingexams and procedure reports are released immediately into your electronicmedical record. You may view this report before your referring provider.If you have questions, please contact your health care provider. INDICATION: Acute right knee pain TECHNIQUE: Three views of the right knee COMPARISON: None FINDINGS: No focal soft tissue swelling, joint effusion or fracture. Mildpatellofemoral joint osteoarthritis. No chondrocalcinosis. IMPRESSION: 1. No acute abnormality. 2. Mild patellofemoral joint osteoarthritis. Dictated by Wilber Merino MD @ 07/25/2024 3:57:20 PM (Electronically Signed) us Ji Aguilar MD GENERAL IMAGING Final Re sult * BEDSIDE US STUDY ARCHIVE (07/16/2024 10:16 AM CDT) Narrative Lola Jean R.T. (ARRT) - 07/16/2024 10:16 AM CDT The patient was seen for ultrasound guided injection by Dr. Louie Miller. Ultrasound was not used for diagnostic purposes, but to guide the needle placement and document the position of the injection. See patient's EPIC encounter for the detail of the procedure; see REILLY for saved images of the injection. Louie Miller MD PROCEDURE ORD Final Resu lt * CT CHEST SCREENING LOW DOSE WO CONTRAST (07/02/2024 12:57 PM CDT) Anatomical Region Laterality Modality Computed Tomogra phy Impressions 07/02/2024 4:00 PM CDT Similar bilateral pulmonary nodules. LUNG-RADS CATEGORY: 2: Benign. RADIOLOGIST RECOMMENDATION: Continue annual screening with low-dose CT chest in 12 months. Please note that all CT scans at this facility use dose modulation, iterative reconstruction and/or weight-based dosing when appropriate to reduce radiation dose to as low as reasonably achievable. Dictated by: Chavo Hernández MD @07/02/2024 3:46:57 PM CRL/djw Narrative 07/02/2024 4:00 PM CDT For Patients: As a result of the Century Cures Act, medical imaging exams and procedure reports are released immediately into your electronic medical record. You may view this report before your referring provider. If you have questions, please contact your health care provider. CT CHEST SCREENING LOW-DOSE WITHOUT CONTRAST, 07/02/2024 INDICATION: Lung cancer screening. History of smoking. TECHNIQUE: Low-dose lung cancer screening non-contrast CT chest. Dose reduction techniques were used. COMPARISON: 10/22/2023, 04/17/2023. FINDINGS: NODULES: 5 millimeter nodule right lower lobe, 5/95. 6.5 millimeter nodule right lower lobe, 5/102. 3.5 millimeter nodule left lower lobe, 5/105. LUNGS AND PLEURA: Patchy areas of scarring noted bilaterally. MEDIASTINUM: No adenopathy. CORONARY ARTERY CALCIFICATION: Present. LIMITED UPPER ABDOMEN: Unremarkable. MUSCULOSKELETAL: No fracture. us Becky Opal Shaqra DO CT Final Result * (ABNORMAL) LIPID PANEL W REFLEX MEASURED LDL (06/17/2024 4:13 PM CDT) CHOLESTEROL,TOTAL 164 100 - 199 mg/dL 06/17/2024 10:55 PM CDT [facility] Comment: Cholesterol, Total Reference Ranges Desirable <200 mg/dL Borderline 200-239 mg/dL High >=240 mg/dL TRIGLYCERIDES 305(H) <150 mg/dL 06/17/2024 10:55 PM CDT [facility] HDL CHOLESTEROL 50 >40 mg/dL 10:55 PM CDT [facility] NON-HDL CHOLESTEROL 114 <145 mg/dl 06/17/2024 10:55 PM CDT [facility] CHOL/HDL RATIO 3.28 <4.50 06/17/2024 10:55 PM CDT [facility] LDL CHOLESTEROL 53 <=130 mg/dL 06/17/2024 10:55 PM CDT [facility] VLDL CHOLESTEROL 61(H) <=30 mg/dL 06/17/2024 10:55 PM CDT [facility] PROVIDER ORDERED STATUS RANDOM 06/17/2024 10:55 PM CDT [facility] Blood BLOOD SPECIMEN / Unknown [facility] / Unknown 06/17/2024 4:13 PM CDT 06/17/2024 4:13 PM CDT us Sathish Contreras MD CHEMISTRY Final R esult [facility] [address] [place] [address], * (ABNORMAL) XR DXA BONE DENSITY 2 SITES AXIAL [62919.1] (10/22/2023 1:51 PM CDT) Anatomical Region Laterality Modality Spine, HIPS, HIPL, HIPR Other Impressions 10/23/2023 12:40 PM CDT Osteopenia. RECOMMENDATIONS: The National Osteoporosis Foundation recommends pharmacologic treatment for patients with T-scores of -2.5 or less, patients with prior history of fragility fractures, or patients with 10-year probability of greater than 3% at hips or greater than 20% of suffering major osteoporotic fractures. Recommend continued optimization of calcium and vitamin D intake through dietary means and/or supplementation and regular exercise. Repeat scan recommended in 3-5 years. Khushboo Banks PA-C [facility] 10/23/2023 Narrative 10/23/2023 12:40 PM CDT For Patients: Results are automatically released to your [facility] ([employer]) account once available, in compliance with federal regulations. This means that you may see your results before your provider has had a chance to review them. Please allow 2-3 business days for your provider to comment on the results. XR DXA Bone Mineral Density (BMD) EXAM LOCATION: [address] [address] PATIENT NAME: Angeles Guerrier DATE OF : 1960 EXAM DATE: 10/22/2023 REQUESTING PROVIDER: Becky Hopson DO GENDER AT : female HEIGHT: 5' 4 (10/17/2023) WEIGHT: 196 lb 12.8 oz (10/17/2023) MENOPAUSAL STATUS: Postmenopausal RACE/ETHNICITY: White RISK FACTORS: Eating Disorder, Family History of Osteoporosis, Family History of Hip Fracture (parental), Smoking (current), Smoking (prior), and White Race CURRENT MEDICATION FOR BONE LOSS: NONE INDICATION: Post-Menopause COMPARISON DATE(S): None DXA scans are compared to prior studies for a patient only when the two (or more) studies were performed on the same scanner. It is not possible to compare data generated on one scanner to data from another because there are not standards in DXA equipment. This applies even if the two scanners are made by the same money laundering investigator. PROCEDURE: Dual-energy x-ray absorptiometry performed with routine technique. Reporting is completed in the form of a T-score. The T-score represents the standard deviation from peak bone mass based on young healthy adult. A Z-score is used for diagnosis in premenopausal women, and for men under the age of 50. FINDINGS: RESULT LUMBAR SPINE L1 - L4(w/o L2) BMD: 1.633 g/cm2 T-Score: + 3.6 Z-Score: + 4.4 Change from prior: None RESULTS FEMUR Left femoral neck BMD: 0.836 g/cm2 T-Score: - 1.4 Z-Score: - 0.5 Change from prior: None Right femoral neck BMD: 0.884 g/cm2 T-Score: - 1.1 Z-Score: - 0.2 Change from prior: None Left hip BMD: 0.845 g/cm2 T-Score: - 1.3 Z-Score: - 0.7 Change from prior: None Right hip BMD: 0.929 g/cm2 T-Score: - 0.6 Z-Score: + 0.0 Change from prior: None WHO criteria: Normal: T-score at or above -1 SD Osteopenia: T-score between -1.1 and -2.4 SD Osteoporosis: T-score at or below -2.5 SD FRAX RISK CALCULATION (USED FOR OSTEOPENIA ONLY): 10-year probability of major osteoporotic fracture: 15.5%. 10-year probability of hip fracture: 1.6%. Becky Hopson DO DEXA Final Result * TN COLONOSCOPY W/BIOPSY SINGLE/MULTIPLE (05/30/2021 12:00 AM CDT) David Bianchi MD PB - DIGESTIVE SYSTEM SER VICES Final Result * ANTI HCV (08/18/2020 11:10 AM CDT) HEPATITIS C ANTIBODY Non-React matias Non-React matias 08/18/2020 5:49 PM CDT [facility] [employer] [facility] Comment:Antibodies to HCV no t detected; does not exclude the possibility of exposure to HCV. Blood BLOOD SPECIMEN / Unknown Venipuncture / Unknown 08/18/2020 11:10 AM CDT 08/18/2020 11:10 AM CDT Adriane CORONA SEND OUTS Final Result [facility] 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 * Full Code Date Activated Date Inactivated Comments 12/12/2022 11:06 AM 12/12/2022 3:29 PM Question Answer Comments Code Status Discussion: Unable to Assess Preferences, Provider to review later * Full Code Date Activated Date Inactivated Comments 09/25/2018 1:59 AM 09/30/2018 3:07 PM Question Answer Comments Code Status Discussion: Not Discussed * Full Code Date Activated Date Inactivated Comments 02/02/2016 2:07 AM 02/21/2016 1:57 PM Question Answer Comments Code Status Discussion: Discussed Care Teams Assistant Corporate Secretary Relationship Specialty Start Date End Date Becky Hopson DO [address] [place] [id number] PCP - General Family Practice 09/28/21 Damaris Summers PharmD [address] [place] [address] Pharmacist Medication Management Pharmacology 11/06/23 11/05/26 Epifanio Tanner PA [address] [place] [address] Pain Management Physician Lead Simulation Modeling Engineer 11/28/23 [id number] [place] [address] 08/19/24
--- OUTSIDE RECORDS SUMMARY | 2024-10-16 20:46 | XMS_ITS | Clinical Summary ---
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 [facility] Allergies No known active allergies Medications ASPIRIN LOW DOSE 81 MG enteric coated tablet 11/15/2020 Activ e atorvastatin (LIPITOR) 20 MG tablet 11/15/2020 Active buPROPion (WELLBUTRIN XL) 300 MG 24 hour release tablet 11/15/2020 Acti ve docusate sodium (COLACE) 100 MG capsule 11/15/2020 Active HYDROcodone-acetam inophen (NORCO) 5-325 MG tablet 12/06/2020 Act matias hydrocortisone 1 % cream 11/22/2020 Active NICOTINE STEP 1 21 MG/24HR patch 12/04/2020 Activ e omeprazole (PRILOSEC) 40 MG capsule 11/15/2020 Active propranolol (INDERALLA) 60 MG 24 hour release capsule 11/15/2020 Active REXULTI 0.5 MG TABS 10/23/2020 Active REXULTI 1 MG TABS 12/11/2020 A ctive sertraline (ZOLOFT) 100 MG tablet 11/15/2020 Active cholecalciferol (VITAMIN D3) 125 MCG (5000 UT) 11/15/2020 Activ e cyclobenzaprine (FLEXERIL) 5 MG tablet 11/01/2020 Active fluocinolone (SYNALAR) 0.01 % external solution 11/30/2020 A ctive hydrOXYzine HCl (ATARAX) 25 MG tablet 11/18/2020 Active hydrOXYzine pamoate (VISTARIL) 25 MG capsule 10/19/2020 Activ e ibuprofen (MOTRIN) 600 MG tablet 11/22/2020 Activ e LORazepam (ATIVAN) 0.5 MG tablet 09/06/2020 Activ e LORazepam (ATIVAN) 1 MG tablet 11/12/2020 Active Multiple Vitamin (TAB-A-JOSEFA) 11/15/2020 Active methylPREDNISolone (MEDROL 21 TABLET DOSEPACK) 4 MG tablet 10/29/2020 Active GNP NICOTINE MINI 2 MG lozenge 11/16/2020 Active [id number] ARLENE (AKA GOLYTELY) 236 g SOLR 4 liter bottle 09/21/2020 Active QUEtiapine (SEROQUEL) 50 MG tablet 09/17/2020 Active traZODone (DESYREL) 50 MG tablet 11/18/2020 Active triamcinolone (KENALOG) 0.1 % lotion 12/08/2020 Active Active Problems No known active problems Social History Tobacco Use Types Packs/Day Years Used Date Smoking Tobacco: Every Day Cigarettes Smokeless Tobacco: Never Comments:quit and started ag ain a week ago Comments No Sex and Gender Information Value Date Recorded Sex Assigned at Not on file Legal Sex Female 11:50 AM CDT Gender Identity Not on file Sexual Orientation Not on file Last Filed Vital Signs Vital Sign Reading Time Taken Comments Blood Pressure 124/67 12/12/2020 12:39 PM CDT Pulse 73 12/12/2020 12:39 PM CDT Temperature 37.1 C (98.8 F) 12/12/2020 12:39 PM CDT Respiratory Rate 22 12/12/2020 12:39 PM CDT Oxygen Saturation 100% 12/12/2020 12:39 PM CDT Inhaled Oxygen Concentration - - Weight - - Height - - Body Mass Index - - Plan of Treatment Health Maintenance Due Date Last Done Comments Colon Cancer Screening Plan Due 1960 Hep C Screening (Preventive Services) 1960 Medicare Annual Wellness Visit 1960 Mammogram 1960 Cholesterol 05/22/2003 Zoster/Shingles Vaccine (1 of 2) 2008 Pneumococcal Vaccine 50+ Yrs (2 of 2 - PCV) 01/14/2015 01/14/2014 COVID-19 Vaccine (3 - season) 2023 07/15/2020, 06/17/2020 Influenza Vaccine (#1) 2024 , 12/07/2018, 12/05/2017, Additional history exists DTaP/Tdap/Td Vaccine (3 - Tdap) 05/27/2030 05/27/2020, 08/12/2014, 06/03/2002 RSV Vaccine (1 - 1-dose 75+ series) 2033 HepA Vaccine Aged Out No longer eligi ble based on patient's age to complete this topic HepB Vaccine Aged Out No longer eligi ble based on patient's age to complete this topic Hib Vaccine Aged Out No longer eligi ble based on patient's age to complete this topic IPV (Polio) Vaccine Aged Out No longe r eligible based on patient's age to complete this topic MCV4 Vaccine Aged Out No longer eligi ble based on patient's age to complete this topic Meningococcal B Vaccine Aged Out No l onger eligible based on patient's age to complete this topic Insurance MEDICARE
[2024-10-16 20:55] VITALS: BP 143/89; PULSE 105; RESP 18; TEMP 36.6; O2SAT 97; BMI 31.2
--- NOTE | 2024-10-16 20:55 | ED.GENADULT ---
HPI - General Adult General Chief complaint: Skin/Abscess/Foreign Body Stated complaint: L foot infection Time Seen by Provider: 10/16/24 20:51 Source: patient Mode of arrival: ambulatory Limitations: no limitations History of Present Illness HPI narrative: 64-year-old female coming in today concerned about infection of the left foot. Patient had a spur removed in August and she has been having problems with the incision healing since then she [facility]. She states she was recently seen by Dr. Cosby who gave her a dose of IM antibiotics and start her on oral antibiotics. She has taken 1 dose of the antibiotic. She states that she took a picture of her wound today and he told her to come to the ED. However, she states that the foot is actually much better. She states that her whole foot was red and hot before and now just the back of the foot is still red and hot with the erythema on the top of the foot resolved. She denies any systemic symptoms. She was supposed to be on day #2 of antibiotics, and unfortunately has only taken one dose of Doxycycline. Wound cultures were done yesterday. No results yet. Related Data Home Medications ?Medication ?Instructions ?Recorded ?Confirmed albuterol sulfate 90 mcg/actuation 1 puff inhalation Q8H PRN 09/23/21 08/18/24 aerosol inhaler aspirin 81 mg tablet,delayed 81 mg PO DAILY 09/23/21 08/18/24 release atorvastatin 20 mg tablet 40 mg PO .bedtime 09/23/21 08/18/24 blood sugar diagnostic (Accu-Chek 09/23/21 08/05/24 Guide test strips) blood-glucose meter (Accu-Chek 09/23/21 08/05/24 Guide Me Glucose Meter) bupropion HCl 300 mg 24 hr tablet, 300 mg PO DAILY 09/23/21 08/18/24 extended release cholecalciferol (vitamin D3) 125 125 mcg PO DAILY 09/23/21 08/18/24 mcg (5,000 unit) capsule diclofenac sodium 1 % topical gel topical 09/23/21 08/05/24 docusate sodium 100 mg capsule 100 mg PO DAILY 09/23/21 08/18/24 fluocinolone 0.01 % topical topical 09/23/21 08/05/24 solution hydrocortisone 1 % topical cream applic 09/23/21 08/05/24 hydroxyzine pamoate 25 mg capsule 25 mg PO Q8H PRN 09/23/21 08/13/24 incontinence pad, liner, disp 09/23/21 08/05/24 (Poise Pads) lancets (Accu-Chek Softclix 09/23/21 08/05/24 Lancets) metformin 1,000 mg tablet 1,000 mg PO .q12 09/23/21 08/18/24 multivitamin with folic acid 400 1 tab PO DAILY 09/23/21 08/18/24 mcg tablet (Tab-A-Mars) sertraline 100 mg tablet 100 mg PO Q24H 09/23/21 08/18/24 cyanocobalamin (vitamin B-12) 1,000 mcg PO DAILY 07/26/22 08/18/24 1,000 mcg tablet cyclobenzaprine 10 mg tablet 10 mg PO 3XD 07/26/22 08/18/24 melatonin 5 mg tablet 5 mg PO QPM 07/26/22 08/18/24 nitroglycerin 0.4 mg sublingual mg sublingual 07/26/22 08/05/24 tablet fluticasone fur. 100 mcg-umeclid 1 inh inhalation Q24H 06/20/23 08/18/24 62.5 mcg-vilant 25 mcg inhalat.powder (Trelegy Ellipta) oxycodone 5 mg tablet 5 mg PO 3XD PRN 06/20/23 08/18/24 pregabalin 150 mg capsule 150 mg PO BID 06/20/23 08/18/24 ropinirole 4 mg tablet 4 mg PO QPM 06/20/23 08/18/24 calcium citrate 500 mg PO DAILY 08/13/24 08/13/24 empagliflozin 10 mg tablet 10 mg PO DAILY 08/13/24 08/13/24 (Jardiance) fluticasone propionate 50 2 spray intranasal DAILY PRN 08/13/24 08/13/24 mcg/actuation nasal spray,suspension furosemide 20 mg tablet 20 mg PO BID 08/13/24 08/13/24 naloxone 4 mg/actuation nasal 1 spray intranasal Q2-3M PRN 08/13/24 08/13/24 spray (Narcan) tirzepatide 10 mg/0.5 mL 10 mg subcut QWEEK 08/13/24 08/13/24 subcutaneous pen injector (Mounjaro) Allergies Allergy/AdvReac Type Severity Reaction Status Date / Time lactose Allergy Verified 08/18/24 08:07 Review of Systems Status of ROS: Reports: 10 or more systems reviewed and unremarkable except as noted in History and below [facility] Medical History Severe tricuspid regurgitation ?I07.1 - Rheumatic tricuspid insufficiency (ICD-10) Neurocognitive deficits ?R29.818 - Other symptoms and signs involving the nervous system (ICD-10) ?R41.89 - Other symptoms and signs involving cognitive functions and awareness (ICD-10) Paroxysmal supraventricular tachycardia ?I47.10 - Supraventricular tachycardia, unspecified (ICD-10) JESUSITA (obstructive sleep apnea) ?G47.33 - Obstructive sleep apnea (adult) (pediatric) (ICD-10) Atherosclerotic heart disease of [place] coronary artery with other forms of angina pectoris ?I25.118 - Atherosclerotic heart disease of [place] coronary artery with other forms of angina pectoris (ICD-10) Type 2 diabetes mellitus with polyneuropathy ?E11.42 - Type 2 diabetes mellitus with diabetic polyneuropathy (ICD-10) Controlled substance agreement signed ?Z79.899 - Other half-way (current) drug therapy (ICD-10) Alcohol use disorder, moderate, in sustained remission ?F10.21 - Alcohol dependence, in remission (ICD-10) Heart failure, unspecified ?I50.9 - Heart failure, unspecified (ICD-10) Exertional angina ?I20.89 - Other forms of angina pectoris (ICD-10) Hypoglycemia ?E16.2 - Hypoglycemia, unspecified (ICD-10) History of alcohol abuse ?F10.11 - Alcohol abuse, in remission (ICD-10) Social anxiety disorder ?F40.10 - Social phobia, unspecified (ICD-10) Mood disorder ?F39 - Unspecified mood [affective] disorder (ICD-10) Vitamin D deficiency, unspecified ?E55.9 - Vitamin D deficiency, unspecified (ICD-10) Abnormal kidney function ?N28.9 - Disorder of kidney and ureter, unspecified (ICD-10) Psoriasis ?L40.9 - Psoriasis, unspecified (ICD-10) Patient nonadherence ?Z91.199 - Patient's noncompliance with other medical treatment and regimen due to unspecified reason (ICD-10) Alcohol use disorder, mild, in early remission ?F10.11 - Alcohol abuse, in remission (ICD-10) Nicotine use disorder ?F17.200 - Nicotine dependence, unspecified, uncomplicated (ICD-10) Coronary artery disease ?I25.10 - Atherosclerotic heart disease of [place] coronary artery without angina pectoris (ICD-10) Severe major depression without psychotic features ?F32.2 - Major depressive disorder, single episode, severe without psychotic features (ICD-10) Bipolar 1 disorder, depressed, severe ?F31.4 - Bipolar disorder, current episode depressed, severe, without psychotic features (ICD-10) RLS (restless legs syndrome) ?G25.81 - Restless legs syndrome (ICD-10) Chronic depression ?F32.A - Depression, unspecified (ICD-10) History of [place] (myocardial infarction) ?I25.2 - Old myocardial infarction (ICD-10) Primary hypertension ?I10 - Essential (primary) hypertension (ICD-10) Hyperlipidemia ?E78.5 - Hyperlipidemia, unspecified (ICD-10) Type 2 diabetes mellitus, without long-term current use of insulin ?E11.9 - Type 2 diabetes mellitus without complications (ICD-10) Suicidal intent ?R45.851 - Suicidal ideations (ICD-10) Drug overdose ?T50.901A - Poisoning by unspecified drugs, medicaments and biological substances, accidental (unintentional), initial encounter (ICD-10) Hip pain ?M25.559 - Pain in unspecified hip (ICD-10) Chronic back pain ?M54.9 - Dorsalgia, unspecified (ICD-10) ?G89.29 - Other chronic pain (ICD-10) COPD (chronic obstructive pulmonary disease) ?J44.9 - Chronic obstructive pulmonary disease, unspecified (ICD-10) Osteoporosis ?M81.0 - Age-related osteoporosis without current pathological fracture (ICD-10) GERD (gastroesophageal reflux disease) ?K21.9 - Gastro-esophageal reflux disease without esophagitis (ICD-10) Rheumatoid arthritis ?M06.9 - Rheumatoid arthritis, unspecified (ICD-10) Surgical History History of bone marrow biopsy ?Z98.890 - Other specified postprocedural states (ICD-10) H/O knee surgery ?Z98.890 - Other specified postprocedural states (ICD-10) Hx of tubal ligation ?Z98.51 - Tubal ligation status (ICD-10) Hx of tonsillectomy ?Z90.89 - Acquired absence of other organs (ICD-10) Status post carpal tunnel release (07/13/22) ?Z98.890 - Other specified postprocedural states (ICD-10) History of carpal tunnel surgery of right wrist (03/10/22) ?Z98.890 - Other specified postprocedural states (ICD-10) Hx of heart bypass surgery ?Z95.1 - Presence of aortocoronary bypass graft (ICD-10) Hx of total knee arthroplasty ?Z96.659 - Presence of unspecified artificial knee joint (ICD-10) Social History Narrative: Single, assisted living, smoker, PCP [facility] Smoking Status: Current every day smoker What tobacco products do you use: cigarettes Do you use any of these nicotine containing products: None Second hand tobacco smoke exposure: No How often do you have a drink containing alcohol: monthly or less How often do you have six or more drinks on one occasion: Never AUDIT-C Alcohol total score: 1 Non-prescribed substance use: denies use Caffeine: Yes Are you using contraception or practicing any form of control: No service: No Exam Narrative: Exam Narrative: Well-nourished well-developed patient in no acute distress. Alert and oriented. Answers questions appropriately. Mood and affect are appropriate. Thoughts are goal oriented and rational. No tangential or magical thinking noted. Patient speaks in full sentences without needing to catch her breath. HEENT: Normocephalic atraumatic. Extraocular muscles are intact. Conjunctivae are moist without any icterus noted. Moist mucous membranes. 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 She has surrounding erythema and heat. No purulent drainage coming from the wound. Const: Vital Signs, click to edit/add: Vital Signs - 24 hr 10/16/24 20:55 Temperature 98 F Pulse Rate [Pulse Oximeter] 105 H Respiratory Rate 18 Blood Pressure [Ri ght Upper Arm] 143/89 H Pulse Oximetry 97 Oxygen Delivery Me thod Room Air Course Course ED Course: Got a hold of Dr. Cosby - he is quite concerned about the progression of her wound. He states that he saw pictures of it earlier and is still concerned about the amount of erythema that he saw. He would like to take patient to the OR 1st thing in the morning and likely get a wound VAC in place. He is requesting IV vancomycin and Zosyn in the meantime. Vital Signs Vital signs: Initial Vital Signs Temperature 98 F 10/16/24 20:55 Temperature Source Temporal Artery Scan 10/16/24 20:55 Pulse Rate 105 H 10/16/24 20:55 Respiratory Rate 18 10/16/24 20:55 Blood Pressure 143/89 H 10/16/24 20:55 Blood Pressure Mean 107 H 10/16/24 20:55 Blood Pressure Position Sitting 10/16/24 20:55 Pulse Oximetry 97 10/16/24 20:55 Oxygen Delivery Method Room Air 10/16/24 20:55 Vital Signs Temperature 98 F 10/16/24 20:55 Pulse Rate 105 H 10/16/24 20:55 Respiratory Rate 18 10/16/24 20:55 Blood Pressure 143/89 H 10/16/24 20:55 Pulse Oximetry 97 10/16/24 20:55 Oxygen Delivery Method Room Air 10/16/24 20:55 Temperature 98 F 10/16/24 20:55 Pulse Rate 105 H 10/16/24 20:55 Respiratory Rate 18 10/16/24 20:55 Blood Pressure 143/89 H 10/16/24 20:55 Pulse Oximetry 97 10/16/24 20:55 Oxygen Delivery Method Room Air 10/16/24 20:55 Medical Decision Making MDM Narrative Medical decision making narrative: 64-year-old female with infected chronic wound. Will start vanc and Zosyn. Patient will be admitted for further management at this time. Medical Records Medical records reviewed: Yes I reviewed the patient's medical records Discharge Plan Discharge Clinical Impression: Complicated wound infection Patient Disposition: Admitted As Observation Condition: Stable
[2024-10-16 21:39] LABS: Chloride* 102 mmol/L (96-114); Sodium* 138 mmol/L (135-149)
[2024-10-16 21:40] LABS: Potassium* 4.2 mmol/L (3.6-5.1)
--- OUTSIDE RECORDS SUMMARY | 2024-10-16 21:40 | XMS_ITS | Clinical Summary ---
Author Organization [facility] Address [address] , [address] [place] [address] Phone Care Team Providers Care Physiognomist Name Role Phone Shani Guzman Conditions or Problems Problem Name Problem Code Onset Date Status Entry Date Provider Comment Standard Description Annotate Peripheral neuropathy 689170735 (SNOMED CT) 04/11 Active 04/11 Wilber Browning MD Peripheral nerve disease Carpal tunnel syndrome, bilateral upper limbs [id number] 1 (SNOMED CT) 04/11 Active 04/11 Wilber [...] Procedures Code Procedure Name Date Entry Date [id number]-35868 Nerve Conduction 13 or more studies 02/08 CPT-80394 EMG with NCS (5+ muscles) - 2 limbs 02/08 Vital Signs No information available. Immunizations No information available. Advance Directives No information available.
[2024-10-16 21:43] LABS: Anion Gap 10 mEq/L (7-15); Blood Urea Nitrogen* 25 mg/dL (7-30); Calcium* 9.2 mg/dL (8.4-10.6); Carbon Dioxide* 26 mmol/L (20-32); Creatinine* 1.5 mg/dL (0.5-1.5); Est. Creatinine Clearance* 31.86; Estimated Glomerular Filt Rate 38 ml/min; Glucose* 114 mg/dL (60-115); Hematocrit* 35.8 % (33.0-51.0); Hemoglobin* 11.5 gm/dL (12.0-16.0); Mean Corpuscular HGB Conc 32 gm/dL (32-36); Mean Corpuscular Hemoglobin 32 pg (26-34); Mean Corpuscular Volume 99 fL (80-100); RDW Coefficient of Variation % 14.1 % (11.5-15.5); Red Blood Count* 3.62 m/uL (4.00-5.20); White Blood Count* 11.64 K/uL (4.50-11.00)
[2024-10-16 21:44] LABS: Immature Granulocytes Pct Auto 0.2 %
--- OUTSIDE RECORDS SUMMARY | 2024-10-16 21:45 | XMS_ITS | CCD ---
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
[2024-10-16] MEDS: PIPERACILLIN/TAZOBACTAM 3.375 GM in 0.9 % SODIUM CHLORIDE Mini-bag 100 ML IVPB (21:46)
[2024-10-16] MEDS: VANCOMYCIN 1.5 GM/300 ML 1.5 GM/300 ML PIGGYBACK IVPB (21:46)
[2024-10-16 22:00] LABS: Procalcitonin* 0.07 ng/mL (<0.50)
[2024-10-16 22:02] LABS: Immature Granulocytes Abs Auto 0.00 K/uL (0.00-0.30); Lymphocytes Absolute Auto 3.30 K/uL (0.90-2.90); Slide Review Reflex No
[2024-10-16 22:10] VITALS: BP 127/80; PULSE 97; RESP 18; TEMP 37.1; O2SAT 97; BMI 32.0
--- NOTE | 2024-10-16 22:18 | PM.IMHP1 ---
Assessment and Plan Assessment and plan (1) Cellulitis of left foot: Problem comment: - cellulitis involves her left foot and is extended up to 15 cm above her ankle - patient has an ulcer/ Wound at the back of the heel of her left foot that Dr Jerez is concerned that the wound is infected -it is a post surgical wound, status post secondary repair of her Achilles tendon tear with allograft on 08/18/24. - start on vanc and Zosyn. - ordered MRSA screen - patient will have debridement tomorrow. Will get deep tissue sample for microbiology and then will follow the antibiotic sensitivities. - foot x-ray report is still pending. - if there is a concern for osteomyelitis, we will order an MRI. Will add ESR test. Status: Acute (2) Wound infection: Problem comment: As above Status: Acute (3) Coronary artery disease: Problem comment: - currently patient denies chest pain or shortness of breath - CT 1993 - CAB x 15 Jan 2014 at [place]: IRVIN - LAD, sequential SVG - PDA - PL; SVG - Intermediate - 11/17/2020 NM Stress Test 1. There is a small area of mild ischemia in the base and mid anterolateral wall. 2. Normal left ventricular ejection fraction of 59 percent. - 12/14/2020 angiogram Status: Acute (4) COPD (chronic obstructive pulmonary disease): Problem comment: No recent exacerbations Status: Acute (5) Type 2 diabetes mellitus, without long-term current use of insulin: Problem comment: Patient is on metformin 2000 daily and Jitendra Will start patient on insulin sliding scale at hospital Status: Acute (6) Tobacco use: Problem comment: 2 cigarettes a day and nicotine patches. Status: Acute (7) Chronic depression: Problem comment: Resume meds Status: Acute (8) Diabetic peripheral neuropathy: Status: Acute Total Time Spent Total Time Spent: Time spent: Today I spent 75 minutes seeing the patient, discussing the patient with ER staff, reviewing Expanse and EPIC notes/diagnostics, discussing the care plan with our care time that includes social work, PT/OT, pharmacy, RT, detention and documenting my impressions and plan in the medical record. Hospitalist- H&P: HPI History of Present Illness Date Seen: 10/16/24 Chief complaint: L foot infection Narrative: Angeles Guerrier is a 64 year old female With past medical history of hypertension, hyperlipidemia, type 2 diabetes, CAD S/P CABG (2013), Severe tricuspid regurgitation, Paroxysmal SVT (supraventricular tachycardia), COPD, JESUSITA, Bipolar affective disorder, w/ severe depression, Tobacco use disorder and history of alcohol use disorder who presented to the ED to be admitted by our dental hygiene instructor for wound debridement tomorrow. patient has an ulcer/ Wound at the back of the heel of her left foot that Dr Jerez is concerned that the wound is infected and recommends starting the patient on vanc and Zosyn. it is a post surgical wound, status post secondary repair of her Achilles tendon tear with allograft on 08/18/24. patient denies chest pain or shortness of breath. She states that she can walk 2 miles every day but she needs to catch her breath every now and then though it would not stop her. Patient states that she has COPD/emphysema and has a chronic cough specially at night. No recent or frequent exacerbation of her COPD. at the ED, patient was hemodynamically stable. Mildly tachycardic, O2 sat 97% on RA. Afebrile. Review of Systems Status of ROS: Reports: 6 or more systems reviewed and unremarkable except as noted in History and below [facility] Medical History (Updated 10/16/24 @ 22:46 by Claire Aden MD) Severe tricuspid regurgitation ?I07.1 - Rheumatic tricuspid insufficiency (ICD-10) Neurocognitive deficits ?R29.818 - Other symptoms and signs involving the nervous system (ICD-10) ?R41.89 - Other symptoms and signs involving cognitive functions and awareness (ICD-10) Paroxysmal supraventricular tachycardia ?I47.10 - Supraventricular tachycardia, unspecified (ICD-10) JESUSITA (obstructive sleep apnea) ?G47.33 - Obstructive sleep apnea (adult) (pediatric) (ICD-10) Atherosclerotic heart disease of [place] coronary artery with other forms of angina pectoris ?I25.118 - Atherosclerotic heart disease of [place] coronary artery with other forms of angina pectoris (ICD-10) Type 2 diabetes mellitus with polyneuropathy ?E11.42 - Type 2 diabetes mellitus with diabetic polyneuropathy (ICD-10) Controlled substance agreement signed ?Z79.899 - Other vermin exterminator (current) drug therapy (ICD-10) Alcohol use disorder, moderate, in sustained remission ?F10.21 - Alcohol dependence, in remission (ICD-10) Heart failure, unspecified ?I50.9 - Heart failure, unspecified (ICD-10) Exertional angina ?I20.89 - Other forms of angina pectoris (ICD-10) Hypoglycemia ?E16.2 - Hypoglycemia, unspecified (ICD-10) History of alcohol abuse ?F10.11 - Alcohol abuse, in remission (ICD-10) Social anxiety disorder ?F40.10 - Social phobia, unspecified (ICD-10) Mood disorder ?F39 - Unspecified mood [affective] disorder (ICD-10) Vitamin D deficiency, unspecified ?E55.9 - Vitamin D deficiency, unspecified (ICD-10) Abnormal kidney function ?N28.9 - Disorder of kidney and ureter, unspecified (ICD-10) Psoriasis ?L40.9 - Psoriasis, unspecified (ICD-10) Patient nonadherence ?Z91.199 - Patient's noncompliance with other medical treatment and regimen due to unspecified reason (ICD-10) Alcohol use disorder, mild, in early remission ?F10.11 - Alcohol abuse, in remission (ICD-10) Nicotine use disorder ?F17.200 - Nicotine dependence, unspecified, uncomplicated (ICD-10) Coronary artery disease ?I25.10 - Atherosclerotic heart disease of [place] coronary artery without angina pectoris (ICD-10) Severe major depression without psychotic features ?F32.2 - Major depressive disorder, single episode, severe without psychotic features (ICD-10) Bipolar 1 disorder, depressed, severe ?F31.4 - Bipolar disorder, current episode depressed, severe, without psychotic features (ICD-10) RLS (restless legs syndrome) ?G25.81 - Restless legs syndrome (ICD-10) Chronic depression ?F32.A - Depression, unspecified (ICD-10) History of CT (myocardial infarction) ?I25.2 - Old myocardial infarction (ICD-10) Primary hypertension ?I10 - Essential (primary) hypertension (ICD-10) Hyperlipidemia ?E78.5 - Hyperlipidemia, unspecified (ICD-10) Type 2 diabetes mellitus, without long-term current use of insulin ?E11.9 - Type 2 diabetes mellitus without complications (ICD-10) Suicidal intent ?R45.851 - Suicidal ideations (ICD-10) Drug overdose ?T50.901A - Poisoning by unspecified drugs, medicaments and biological substances, accidental (unintentional), initial encounter (ICD-10) Hip pain ?M25.559 - Pain in unspecified hip (ICD-10) Chronic back pain ?M54.9 - Dorsalgia, unspecified (ICD-10) ?G89.29 - Other chronic pain (ICD-10) COPD (chronic obstructive pulmonary disease) ?J44.9 - Chronic obstructive pulmonary disease, unspecified (ICD-10) Osteoporosis ?M81.0 - Age-related osteoporosis without current pathological fracture (ICD-10) GERD (gastroesophageal reflux disease) ?K21.9 - Gastro-esophageal reflux disease without esophagitis (ICD-10) Rheumatoid arthritis ?M06.9 - Rheumatoid arthritis, unspecified (ICD-10) Surgical History History of bone marrow biopsy ?Z98.890 - Other specified postprocedural states (ICD-10) H/O knee surgery ?Z98.890 - Other specified postprocedural states (ICD-10) Hx of tubal ligation ?Z98.51 - Tubal ligation status (ICD-10) Hx of tonsillectomy ?Z90.89 - Acquired absence of other organs (ICD-10) Status post carpal tunnel release (07/13/22) ?Z98.890 - Other specified postprocedural states (ICD-10) History of carpal tunnel surgery of right wrist (03/10/22) ?Z98.890 - Other specified postprocedural states (ICD-10) Hx of heart bypass surgery ?Z95.1 - Presence of aortocoronary bypass graft (ICD-10) Hx of total knee arthroplasty ?Z96.659 - Presence of unspecified artificial knee joint (ICD-10) Social History Narrative: Single, assisted living, smoker, PCP Mark Anthony Smoking Status: Current every day smoker What tobacco products do you use: cigarettes Do you use any of these nicotine containing products: None Second hand tobacco smoke exposure: No How often do you have a drink containing alcohol: monthly or less How often do you have six or more drinks on one occasion: Never AUDIT-C Alcohol total score: 1 Non-prescribed substance use: denies use Caffeine: Yes Are you using contraception or practicing any form of control: No service: No Meds Home Medications and Allergies Home Medications ?Medication ?Instructions ?Recorded ?Confirmed ?Type albuterol sulfate 90 mcg/actuation 1 puff inhalation Q8H PRN 09/23/21 08/18/24 History aerosol inhaler aspirin 81 mg tablet,delayed 81 mg PO DAILY 09/23/21 08/18/24 History release atorvastatin 20 mg tablet 40 mg PO .bedtime 09/23/21 08/18/24 History blood sugar diagnostic (Accu-Chek 09/23/21 08/05/24 History Guide test strips) blood-glucose meter (Accu-Chek 09/23/21 08/05/24 History Guide Me Glucose Meter) bupropion HCl 300 mg 24 hr tablet, 300 mg PO DAILY 09/23/21 08/18/24 History extended release cholecalciferol (vitamin D3) 125 125 mcg PO DAILY 09/23/21 08/18/24 History mcg (5,000 unit) capsule diclofenac sodium 1 % topical gel topical 09/23/21 08/05/24 History docusate sodium 100 mg capsule 100 mg PO DAILY 09/23/21 08/18/24 History fluocinolone 0.01 % topical topical 09/23/21 08/05/24 History solution hydrocortisone 1 % topical cream applic 09/23/21 08/05/24 History hydroxyzine pamoate 25 mg capsule 25 mg PO Q8H PRN 09/23/21 08/13/24 History incontinence pad, liner, disp 09/23/21 08/05/24 History (Poise Pads) lancets (Accu-Chek Softclix 09/23/21 08/05/24 History Lancets) metformin 1,000 mg tablet 1,000 mg PO .q12 09/23/21 08/18/24 History multivitamin with folic acid 400 1 tab PO DAILY 09/23/21 08/18/24 History mcg tablet (Tab-A-Mars) sertraline 100 mg tablet 100 mg PO Q24H 09/23/21 08/18/24 History cyanocobalamin (vitamin B-12) 1,000 mcg PO DAILY 07/26/22 08/18/24 History 1,000 mcg tablet cyclobenzaprine 10 mg tablet 10 mg PO 3XD 07/26/22 08/18/24 History melatonin 5 mg tablet 5 mg PO QPM 07/26/22 08/18/24 History nitroglycerin 0.4 mg sublingual mg sublingual 07/26/22 08/05/24 History tablet fluticasone fur. 100 mcg-umeclid 1 inh inhalation Q24H 06/20/23 08/18/24 History 62.5 mcg-vilant 25 mcg inhalat.powder (Trelegy Ellipta) oxycodone 5 mg tablet 5 mg PO 3XD PRN 06/20/23 08/18/24 History pregabalin 150 mg capsule 150 mg PO BID 06/20/23 08/18/24 History ropinirole 4 mg tablet 4 mg PO QPM 06/20/23 08/18/24 History calcium citrate 500 mg PO DAILY 08/13/24 08/13/24 History empagliflozin 10 mg tablet 10 mg PO DAILY 08/13/24 08/13/24 History (Jardiance) fluticasone propionate 50 2 spray intranasal DAILY PRN 08/13/24 08/13/24 History mcg/actuation nasal spray,suspension furosemide 20 mg tablet 20 mg PO BID 08/13/24 08/13/24 History naloxone 4 mg/actuation nasal 1 spray intranasal Q2-3M PRN 08/13/24 08/13/24 History spray (Narcan) tirzepatide 10 mg/0.5 mL 10 mg subcut QWEEK 08/13/24 08/13/24 History subcutaneous pen injector (Mounjaro) Allergies Allergy/AdvReac Type Severity Reaction Status Date / Time lactose Allergy Verified 08/18/24 08:07 Exam Narrative: Exam Narrative: Physical exam GENERAL: Pleasant. Comfortable, no acute distress. Restless leg syndrome. HEAD AND NECK: Atraumatic, normocephalic CARDIOVASCULAR: RRR. Normal S1, S2. No murmurs. Old sternal scar (s/p CABG). RESPIRATORY: Clear to auscultation B/L. Good air entry B/L. No wheezes or rhonchi. NEUROLOGY: Alert, awake, oriented X 3. Normal speech. MSK: Lt heel wound + Swelling, redness and warmth of the left foot up to about 15 cm above her left ankle. PSYCH: Normal mood, normal affect. Const: Vital Signs, click to edit/add: Vital Signs - 24 hr 10/16/24 20:55 Temperature 98 F Pulse Rate [Pulse Oximeter] 105 H Respiratory Rate 18 Blood Pressure [Ri ght Upper Arm] 143/89 H Pulse Oximetry 97 Oxygen Delivery Me thod Room Air Hospitalist - H&P: Result Labs Labs: Short CBC 10/16/24 Range/Units 21:18 WBC 11.64 H (4.50-11.00) K/uL Hgb 11.5 L (12.0-16.0) gm/dL Hct 35.8 (33.0-51.0) % Plt Count 298 (140-440) K/uL BMP 10/16/24 21:18 Sodium 138 Potassium 4.2 Chloride 102 Carbon Dioxide 26 BUN 25 Creatinine 1.5 Glucose 114 Calcium 9.2
[2024-10-16 22:38] VITALS: PULSE 96
--- OUTSIDE RECORDS SUMMARY | 2024-10-16 22:40 | XMS_ITS | CCD ---
Author Organization Unknown Care Team Providers Care Tennis Coach Name Role Phone Sheet [place], [place] Primary Care Provider Unava ilable Unavailable Chronic Care Management Unavaila ble Summary Purpose DataExchange Insurance Providers Payer name Policy type / Coverage type Covered democrat ID Effective Begin Date Effective End Date are Commercial Insurance [id number] Unkn own [facility] Commercial Insurance [id number] Unkn own Family History Family History data not found Medication Administered No Medication Administered data Reason For Visit No Reason For Visit data
--- OUTSIDE RECORDS SUMMARY | 2024-10-16 22:40 | XMS_ITS | CCD ---
Author Organization Unknown Care Team Providers Care Barge Engineer Name Role Phone [place], [place] Primary Care Provider Unava ilable Unavailable Chronic Care Management Unavaila ble Summary Purpose DataExchange Insurance Providers Payer name Policy type / Coverage type Covered green party ID Effective Begin Date Effective End Date are Commercial Insurance [id number] Unkn own [facility] Commercial Insurance [id number] Unkn own Family History Family History data not found Medication Administered No Medication Administered data Reason For Visit No Reason For Visit data
[2024-10-16] MEDS: ATORVASTATIN CALCIUM 10 MG TABLET 40 MG PO (22:42)
[2024-10-16] MEDS: CYCLOBENZAPRINE HCL 10 MG TABLET PO (22:43)
[2024-10-16] MEDS: MELATONIN 3 MG TABLET 6 MG PO (22:44)
[2024-10-16 22:54] LABS: Ethanol* < 0.01 % (0.01-0.03)
[2024-10-16 23:00] VITALS: BP 127/80; PULSE 97; RESP 18; TEMP 37.1; O2SAT 97
[2024-10-17] VITALS (23 sets, daily range): BP systolic 90–141; BP diastolic 51–103; PULSE 76–90; RESP 14–20; TEMP 36.4–37.1; O2SAT 91–98
[2024-10-17 00:32] LABS: Cannabinoid Screen Urine Negative (Negative); Methamphetamines Screen Urine Negative (Negative); Tricyclic Antidepressant Urine Negative (Negative)
[2024-10-17 00:41] LABS: Erythrocyte SedimentationRate* 33 mm/hr (2-20)
[2024-10-17] MEDS: PIPERACILLIN/TAZOBACTAM 3.375 GM in 0.9 % SODIUM CHLORIDE Mini-bag 100 ML IVPB ×4 (03:05→21:29)
--- NOTE | 2024-10-17 05:59 | PM.PODCN1 ---
HPI - Podiatry Data of Consult Time Seen by Provider: 05:45 Date Seen: 10/17/24 Patient: Nacho Patient Consult date: 10/17/24 Requesting physician: Claire Aden MD Primary care provider: Becky Hopson DO Consult Narrative Reason for consult: Left Achilles wound dehiscence with cellulitis Narrative: Angeles Guerrier is a 64 year old female admitted to the hospital for left Achilles wound dehiscence and cellulitis. She had Achilles tendon surgery with allograft and tendon transfer and subsequent incision dehiscence. Wound has worsened over time and has become infected. She was seen in clinic on Sunday and given an injection of Rocephin and started on doxycycline. She relates slight improvement. She was seen by wound care nurse yesterday and images showed a mostly unchanged wound. It was recommended she go to the hospital for admission. She denies any fever chills nausea or vomiting. She does have pain in the area. cc:: CC: Claire Aden MD Review of Systems Status of ROS: Reports: 10 or more systems reviewed and unremarkable except as noted in History and below [facility] Medical History (Updated 10/16/24 @ 22:46 by Claire Aden MD) Severe tricuspid regurgitation ?I07.1 - Rheumatic tricuspid insufficiency (ICD-10) Neurocognitive deficits ?R29.818 - Other symptoms and signs involving the nervous system (ICD-10) ?R41.89 - Other symptoms and signs involving cognitive functions and awareness (ICD-10) Paroxysmal supraventricular tachycardia ?I47.10 - Supraventricular tachycardia, unspecified (ICD-10) JESUSITA (obstructive sleep apnea) ?G47.33 - Obstructive sleep apnea (adult) (pediatric) (ICD-10) Atherosclerotic heart disease of [place] coronary artery with other forms of angina pectoris ?I25.118 - Atherosclerotic heart disease of [place] coronary artery with other forms of angina pectoris (ICD-10) Type 2 diabetes mellitus with polyneuropathy ?E11.42 - Type 2 diabetes mellitus with diabetic polyneuropathy (ICD-10) Controlled substance agreement signed ?Z79.899 - Other termite exterminator (current) drug therapy (ICD-10) Alcohol use disorder, moderate, in sustained remission ?F10.21 - Alcohol dependence, in remission (ICD-10) Heart failure, unspecified ?I50.9 - Heart failure, unspecified (ICD-10) Exertional angina ?I20.89 - Other forms of angina pectoris (ICD-10) Hypoglycemia ?E16.2 - Hypoglycemia, unspecified (ICD-10) History of alcohol abuse ?F10.11 - Alcohol abuse, in remission (ICD-10) Social anxiety disorder ?F40.10 - Social phobia, unspecified (ICD-10) Mood disorder ?F39 - Unspecified mood [affective] disorder (ICD-10) Vitamin D deficiency, unspecified ?E55.9 - Vitamin D deficiency, unspecified (ICD-10) Abnormal kidney function ?N28.9 - Disorder of kidney and ureter, unspecified (ICD-10) Psoriasis ?L40.9 - Psoriasis, unspecified (ICD-10) Patient nonadherence ?Z91.199 - Patient's noncompliance with other medical treatment and regimen due to unspecified reason (ICD-10) Alcohol use disorder, mild, in early remission ?F10.11 - Alcohol abuse, in remission (ICD-10) Nicotine use disorder ?F17.200 - Nicotine dependence, unspecified, uncomplicated (ICD-10) Coronary artery disease ?I25.10 - Atherosclerotic heart disease of [place] coronary artery without angina pectoris (ICD-10) Severe major depression without psychotic features ?F32.2 - Major depressive disorder, single episode, severe without psychotic features (ICD-10) Bipolar 1 disorder, depressed, severe ?F31.4 - Bipolar disorder, current episode depressed, severe, without psychotic features (ICD-10) RLS (restless legs syndrome) ?G25.81 - Restless legs syndrome (ICD-10) Chronic depression ?F32.A - Depression, unspecified (ICD-10) History of IA (myocardial infarction) ?I25.2 - Old myocardial infarction (ICD-10) Primary hypertension ?I10 - Essential (primary) hypertension (ICD-10) Hyperlipidemia ?E78.5 - Hyperlipidemia, unspecified (ICD-10) Type 2 diabetes mellitus, without long-term current use of insulin ?E11.9 - Type 2 diabetes mellitus without complications (ICD-10) Suicidal intent ?R45.851 - Suicidal ideations (ICD-10) Drug overdose ?T50.901A - Poisoning by unspecified drugs, medicaments and biological substances, accidental (unintentional), initial encounter (ICD-10) Hip pain ?M25.559 - Pain in unspecified hip (ICD-10) Chronic back pain ?M54.9 - Dorsalgia, unspecified (ICD-10) ?G89.29 - Other chronic pain (ICD-10) COPD (chronic obstructive pulmonary disease) ?J44.9 - Chronic obstructive pulmonary disease, unspecified (ICD-10) Osteoporosis ?M81.0 - Age-related osteoporosis without current pathological fracture (ICD-10) GERD (gastroesophageal reflux disease) ?K21.9 - Gastro-esophageal reflux disease without esophagitis (ICD-10) Rheumatoid arthritis ?M06.9 - Rheumatoid arthritis, unspecified (ICD-10) Surgical History History of bone marrow biopsy ?Z98.890 - Other specified postprocedural states (ICD-10) H/O knee surgery ?Z98.890 - Other specified postprocedural states (ICD-10) Hx of tubal ligation ?Z98.51 - Tubal ligation status (ICD-10) Hx of tonsillectomy ?Z90.89 - Acquired absence of other organs (ICD-10) Status post carpal tunnel release (07/13/22) ?Z98.890 - Other specified postprocedural states (ICD-10) History of carpal tunnel surgery of right wrist (03/10/22) ?Z98.890 - Other specified postprocedural states (ICD-10) Hx of heart bypass surgery ?Z95.1 - Presence of aortocoronary bypass graft (ICD-10) Hx of total knee arthroplasty ?Z96.659 - Presence of unspecified artificial knee joint (ICD-10) Social History Narrative: Single, assisted living, smoker, PCP Mark Anthony What is your current living situation?: I presently have a place to live Problems where you live: no known problems In the past 12 months, utilities in danger of being shut off: no In past 12 months, lack of transportation kept you from medical appts, meetings, work, or getting things needed for daily living: no In the past 12 mos, have been you worried that your food would run out before you had money to buy more?: never true In the past 12 mos, the food you bought just didn't last and you didn't have money to buy more?: never true Highest level of school completed/degree received: Associate degree: occupational, technical, vocational program Smoking Status: Current every day smoker What tobacco products do you use: cigarettes Do you use any of these nicotine containing products: None Second hand tobacco smoke exposure: No How often do you have a drink containing alcohol: 2-4 times a month Alcohol type: wine How many standard drinks containing alcohol do you have on a typical day: 1 or 2 How often do you have six or more drinks on one occasion: Never AUDIT-C Alcohol total score: 2 Non-prescribed substance use: marijuana (any form) Non-prescribed substance use details: occasional Caffeine: Yes How often does anyone, including family, friends and others, physically hurt you: never How often does anyone, including family, friends and others, insult or talk down to you: never How often does anyone, including family, friends and others, threaten you with harm: never How often does anyone, including family, friends and others, scream or curse at you: never Are you using contraception or practicing any form of control: No service: No Exam Narrative: Exam Narrative: General: No distress Vascular: Palpable pedal pulses. Neuro: Sensate to light touch. Muscle skeletal: Muscle strength remains 5/5 all quadrants. No gross deformity. Derm: Left lower leg: Large open wound overlying the Achilles tendon proximal to the insertion. There is exposed tendon but no exposed bone. No purulence. Necrotic tissue to the wound periphery. There is erythema surrounding the area. Significant edema to the left lower extremity. Wound dehiscence measures 2.5 cm x 2.5 cm. Labs: WBC 11.64, neutrophils 7.10, ESR 33, CRP 2.4 Wound culture from the [facility] clinic: Gram-positive cocci and Gram-negative bacilli Assessment: Wound dehiscence left Achilles with cellulitis Plan: I reviewed the findings with Angeles and recommend surgical intervention today. Plan is for extensive wound debridement in the operating room today and application of wound VAC. continue IV antibiotics. I reviewed the procedure, recovery, expectations and potential complications of surgery. This is likely be a staged procedure. She is understanding and consents to surgery. Const: Vital Signs, click to edit/add: Vital Signs - 24 hr 10/16/24 20:55 10/16/24 22:10 10/16/24 22:10 Temperature 98 F 98.7 F Pulse Rate Pulse Rate [Pulse Oximeter] 105 H 97 Respiratory Rate 18 18 18 Blood Pressure [Ri ght Arm] 127/80 Blood Pressure [Ri ght Upper Arm] 143/89 H Pulse Oximetry 97 97 97 Oxygen Delivery Me thod Room Air Room Air Room Air 10/16/24 22:38 10/16/24 23:00 10/16/24 23:00 Temperature 98.7 F Pulse Rate 96 Pulse Rate [Pulse Oximeter] 97 97 Respiratory Rate 18 18 Blood Pressure [Ri ght Arm] 127/80 Blood Pressure [Ri ght Upper Arm] Pulse Oximetry 97 Oxygen Delivery Me thod Room Air 10/17/24 03:39 Temperature 98.1 F Pulse Rate Pulse Rate [Pulse Oximeter] 90 Respiratory Rate 14 Blood Pressure [Ri ght Arm] 115/81 Blood Pressure [Ri ght Upper Arm] Pulse Oximetry 93 Oxygen Delivery Me thod Room Air Documenting provider has reviewed patient's vital signs: yes Nail Debridement Qualifies If: Qualifiers If:: A patient qualifies for nail debridement if they have: 1 class A finding (Q7) 2 class B findings (Q8) OR 1 class B & 2 class C findings in addition to a primary condition (Q9)
--- NOTE | 2024-10-17 06:30 | PC.NURSE ---
end of shift: PT AOx4. Pt VSS. Afebrile. Redness and swelling in LLE. Pt moves SBA, GB & walker. Dressing on L heel C/D/I. Pt denies N/V, SOB. Pt AMB hallways. Pt. slept majority of the night, restful btw cares.
[2024-10-17] MEDS: EMPAGLIFLOZIN 10 MG TABLET PO (09:49)
[2024-10-17] MEDS: SERTRALINE 100 MG TABLET PO (09:49)
[2024-10-17] MEDS: PREGABALIN 75 MG CAPSULE 150 MG PO ×2 (09:50→21:38)
[2024-10-17] MEDS: ACETAMINOPHEN 325 MG TABLET 650 MG PO (09:50)
[2024-10-17] MEDS: SODIUM CHLORIDE 0.9 % (FLUSH) 10 ML SYRINGE 5 ML IVF ×2 (09:58→21:30)
--- NOTE | 2024-10-17 10:29 | PC.SOCIAL ---
Addendum entered by MENDEZ Farris 10/17/24 12:34: Discharge planning: Spoke to CHELY Canchola from [facility] #[phone]. Jesika confirmed they can continue seeing the pt for custodial and PT/OT. Jesika did say that Nacho would need new home care orders faxed over when the pt discharges including the face sheet, home care orders, history and physical and discharge summary. Pt is actually due for recertification with them and these documents will get her recertified. The documents can be faxed to [facility]/Attn: Intake at fax number #[phone] this weekend after the pt discharges from the hospital. [facility] plans to see the pt on Sunday for a wound vac dressing change. [facility] will call the pt to schedule the time. Next week/ of October 20, 2024: [facility] will plan to see the pt on Sunday, Sunday and Sunday for wound vac dressing changes. On the week of October 27: [facility] will see the pt on Sunday and Sunday for wound vac dressing changes and then the pt [facility] the for a wound check and wound vac dressing change. Social work to follow-up as needed. Addendum entered by MENDEZ Farris 10/17/24 11:33: Discharge planning: paint factory worker left a message with [facility] #[phone] asking for a call back from the charge nurse about pt's services. paint factory worker did hear from the intake staff at [facility] that the pt is on their service for custodial, PT/OT and social science analyst. Sp[facility] to [facility] who states they typically see the pt on Fridays on weeks that she only has home care dressing changes on Sunday and Wednesdays and then on the opposite week [facility] see the pt for dressing changes Sunday, Sunday and Fridays. Social work to follow-up as needed. Original Note: Discharge planning: paint factory worker met with the pt this morning in her room. Pt states that she lives on the [facility] campus in the independent [facility] apartments where there are no services. Pt states that she does get [employer] meals delivered to her apartment. Pt states that she does have [facility] custodial for wound dressing changes. Pt states she did have PT through [facility], as well, but that had recently ended due to her graduating from PT. Pt will be having a wound vac placed later today after she has the wound debrided in surgery with Dr. Jerez. paint factory worker will follow-up with [facility] to see if they are able to do wound care dressing changes 3x a week for the pt(after this worker talked to the charge nurse on duty it was noted that the pt will most likely need wound vac dressing changes 3x a week). Social work to follow-up as needed.
--- NOTE | 2024-10-17 11:39 | NUTR.NU ---
Nutrition: Nursing referral for skin risk r/t wound. Patient admit with cellulitis of left foot and wound post-surgery 08/18/24. 64 y/o female. Height 5' 4, Weight 186.6 lbs, BMI 32. Patient reports a 6 to 10 pound desired weight loss in the past few months after starting Mounjaro. Diagnosis history includes Type 2 Diabetes. Patient reports she is eating 3 meals a day. She has been eating Mom's meals including breakfast which is generally an omelette. She also reports liking to cook. Provided patient education on adequate protein and fluids, encouraging protein with each intake and the use of snacks and supplements as needed to meet estimated nutrition needs of at least 80 grams of protein and 9 cups of fluid a day. Patient is currently NPO for surgery this afternoon. Patient lives in apartment on own at [facility]. I asked her if she would like me to contact her designated caregiver. She declined reporting handling own meals and expressed appreciation for information provided today. Handout: High Protein Food List (NCM) including patient protein and fluid needs. Monitor diet advancement, tolerance and intake. Follow up prn.
[2024-10-17] MEDS: BUPIVACAINE 0.25% 30 ML INJECTION (12:19)
[2024-10-17] MEDS: LACTATED RINGERS 1000 ML 1,000 ML 125 ML IV (12:20)
--- NOTE | 2024-10-17 13:27 | P.ANES_ITS ---
Anesthesia Charges Start Date/Time Anesthesia Start Date: 10/17/24 Anesthesia Start Time: 12:17 Stop Date/Time Anesthesia Stop Date: 10/17/24 Anesthesia Stop Time: 13:25 Coding CPT Codes CPT Codes: ANESTH LOWER LEG SURGERY - 25485 ([id number]) P4 - PT W/SEV SYS DIS THREAT LIFE, QK - INTERNET RETAILER 2-4 CNCRNT ANES PROC, QX - CRIME LABORATORY ANALYST SVC W/ MD MED DIRECTION
--- NOTE | 2024-10-17 13:27 | W.ANESCHARGE ---
Anesthesia Charges Start Date/Time Anesthesia Start Date: 10/17/24 Anesthesia Start Time: 12:17 Stop Date/Time Anesthesia Stop Date: 10/17/24 Anesthesia Stop Time: 13:25 Coding CPT Codes CPT Codes: ANESTH LOWER LEG SURGERY - 60031 ([id number]) P4 - PT W/SEV SYS DIS THREAT LIFE, QK - POSTAL SUPPORT EMPLOYEE 2-4 CNCRNT ANES PROC, QX - CEO & BOARD DIRECTOR SVC W/ MD MED DIRECTION
--- NOTE | 2024-10-17 13:28 | P.ANES_ITS ---
Anesthesia Charges Start Date/Time Anesthesia Start Date: 10/17/24 Anesthesia Start Time: 12:17 Stop Date/Time Anesthesia Stop Date: 10/17/24 Anesthesia Stop Time: 13:25 Coding CPT Codes CPT Codes: ANESTH LOWER LEG SURGERY - 51734 ([id number]) QK - PHOTOGRAPHIC PROCESS ATTENDANT 2-4 CNCRNT ANES PROC, QX - NAIL ARTIST SVC W/ MD MED DIRECTION, P4 - PT W/SEV SYS DIS THREAT LIFE
--- NOTE | 2024-10-17 13:28 | W.ANESCHARGE ---
Anesthesia Charges Start Date/Time Anesthesia Start Date: 10/17/24 Anesthesia Start Time: 12:17 Stop Date/Time Anesthesia Stop Date: 10/17/24 Anesthesia Stop Time: 13:25 Coding CPT Codes CPT Codes: ANESTH LOWER LEG SURGERY - 38193 ([id number]) QK - INSPECTOR PUBLICATIONS 2-4 CNCRNT ANES PROC, QX - REED FIXER SVC W/ MD MED DIRECTION, P4 - PT W/SEV SYS DIS THREAT LIFE
--- NOTE | 2024-10-17 13:52 | SUR.PHASEI ---
Patient talkative and eating ice chips, Patient meets discharge criteria from PACU.
--- NOTE | 2024-10-17 15:44 | P.IMPN_ITS ---
Assessment and Plan Assessment and plan (1) Coronary artery disease: Problem comment: - currently patient denies chest pain or shortness of breath - [place] 1993 - CAB x 15 Jan 2014 at [place]: IRVIN - LAD, sequential SVG - PDA - PL; SVG - Intermediate - 11/17/2020 NM Stress Test 1. There is a small area of mild ischemia in the base and mid anterolateral wall. 2. Normal left ventricular ejection fraction of 59 percent. - 12/14/2020 angiogram Status: Acute (2) Cellulitis of left foot: Problem comment: - cellulitis involves her left foot and is extended up to 15 cm above her ankle - patient has an ulcer/ Wound at the back of the heel of her left foot that Dr Jerez is concerned that the wound is infected -it is a post surgical wound, status post secondary repair of her Achilles tendon tear with allograft on 08/18/24. - start on vanc and Zosyn. - ordered MRSA screen - patient will have debridement tomorrow. Will get deep tissue sample for microbiology and then will follow the antibiotic sensitivities. - foot x-ray report is still pending. - if there is a concern for osteomyelitis, we will order an MRI. Will add ESR test. Status: Acute (3) Diabetic peripheral neuropathy: Status: Acute (4) Tobacco use: Problem comment: 2 cigarettes a day and nicotine patches. Currently on nicotine patch. Will add nicotine lozenges as needed Status: Acute (5) Chronic pain: Problem comment: Outpatient takes oxycodone approximately 5 mg twice a day or 60 tablets a month. Change to oxycodone 2.5 q.4 hours p.r.n. caution with polypharmacy Status: Acute (6) Type 2 diabetes mellitus, without long-term current use of insulin: Problem comment: Patient is on metformin 2000 daily and Jitendra Will start patient on insulin sliding scale at hospital Status: Acute Plan Patient is admitted for management of her heel infection pending cultures from clinic and surgery today. Continue broad-spectrum IV antibiotics pending cultures. Ongoing wound care and coordination with Dr. Jerez for transition to outpatient management. Continue to monitor and manage chronic medical problems and chronic pain Total Time Spent Total Time Spent: Total time spent today is 60 minutes in reviewing outside records, coordination of care, discussion with patient and other providers ongoing management of heel ulcer, diabetes, chronic pain Subjective Date Seen: 10/17/24 Interval history: Admission HPI: Angeles Guerrier is a 64 year old female With past medical history of hypertension, hyperlipidemia, type 2 diabetes, CAD S/P CABG (2013), Severe tricuspid regurgitation, Paroxysmal SVT (supraventricular tachycardia), COPD, JESUSITA, Bipolar affective disorder, w/ severe depression, Tobacco use disorder and history of alcohol use disorder who presented to the ED to be admitted by our cavalry officer for wound debridement tomorrow. patient has an ulcer/ Wound at the back of the heel of her left foot that Dr Jerez is concerned that the wound is infected and recommends starting the patient on vanc and Zosyn. it is a post surgical wound, status post secondary repair of her Achilles tendon tear with allograft on 08/18/24. patient denies chest pain or shortness of breath. She states that she can walk 2 miles every day but she needs to catch her breath every now and then though it would not stop her. Patient states that she has COPD/emphysema and has a chronic cough specially at night. No recent or frequent exacerbation of her COPD. Additional history: Patient did well with her surgery and had dehiscence of the wound about a month ago. Since then the wound has been getting larger and now in the last couple days has appeared infected. She is admitted for wound debridement antibiotic therapy. 10/17/2024: She was taken to the OR today. Dr. Jerez debrided the wound over her Achilles and placed a wound VAC. he noted that the infection did not appear to involve the calcaneus or the staple/hardware used to anchor her Achilles. She reports 2 concerns today. She reports needing more pain medication and more medication to help with nicotine withdrawal. Exam Narrative: Exam Narrative: She is alert and appears in no distress. Respirations are clear to auscultation without wheezing rales or rhonchi. Cardiovascular: S1, S2, regular rate and rhythm. 1/6 systolic murmur. Abdomen is soft without tenderness or mass. Bowel sounds are present. Lower extremities with bilateral diminished pulses and sensation. No significant edema. No lesions on the right lower extremity. Left heel is examined. She has a fairly deep 2 cm x 1 and 0.5 cm ulcer over the distal Achilles draining purulent material with surrounding erythema Const: Vital Signs, click to edit/add: Vital Signs - 24 hr 10/16/24 20:55 10/16/24 22:10 10/16/24 22:10 Temperature 98 F 98.7 F Pulse Rate Pulse Rate [Pulse Oximeter] 105 H 97 Respiratory Rate 18 18 18 Blood Pressure Blood Pressure [Ri ght Arm] 127/80 Blood Pressure [Ri ght Upper Arm] 143/89 H Pulse Oximetry 97 97 97 Oxygen Delivery Me thod Room Air Room Air Room Air 10/16/24 22:38 10/16/24 23:00 10/16/24 23:00 Temperature 98.7 F Pulse Rate 96 Pulse Rate [Pulse Oximeter] 97 97 Respiratory Rate 18 18 Blood Pressure Blood Pressure [Ri ght Arm] 127/80 Blood Pressure [Ri ght Upper Arm] Pulse Oximetry 97 Oxygen Delivery Me thod Room Air 10/17/24 03:39 10/17/24 07:57 10/17/24 08:55 Temperature 98.1 F 98.4 F Pulse Rate 77 Pulse Rate [Pulse Oximeter] 90 84 Respiratory Rate 14 16 Blood Pressure Blood Pressure [Ri ght Arm] 115/81 116/72 Blood Pressure [Ri ght Upper Arm] Pulse Oximetry 93 95 Oxygen Delivery Me thod Room Air Room Air 10/17/24 11:39 10/17/24 13:20 10/17/24 13:25 Temperature 98.7 F 97.5 F L Pulse Rate 84 82 Pulse Rate [Pulse Oximeter] 76 Respiratory Rate 17 14 14 Blood Pressure 134/103 H 141/74 H Blood Pressure [Ri ght Arm] 113/70 Blood Pressure [Ri ght Upper Arm] Pulse Oximetry 96 92 91 Oxygen Delivery Me thod Room Air Room Air 10/17/24 13:30 10/17/24 13:35 10/17/24 13:40 Temperature Pulse Rate 80 81 82 Pulse Rate [Pulse Oximeter] Respiratory Rate 14 14 16 Blood Pressure 132/66 113/74 90/51 L Blood Pressure [Ri ght Arm] Blood Pressure [Ri ght Upper Arm] Pulse Oximetry 92 92 91 Oxygen Delivery Me thod Room Air 10/17/24 13:45 10/17/24 13:50 10/17/24 15:00 Temperature 97.5 F L Pulse Rate 83 85 Pulse Rate [Pulse Oximeter] 81 Respiratory Rate 20 16 17 Blood Pressure 105/70 103/77 Blood Pressure [Ri ght Arm] 123/71 Blood Pressure [Ri ght Upper Arm] Pulse Oximetry 93 96 96 Oxygen Delivery Me thod Room Air Room Air Documenting provider has reviewed patient's vital signs: yes Labs Labs: Laboratory Results - last 24 hr 10/16/24 10/16/24 10/16/24 00:00 21:18 21:33 WBC 11.64 H RBC 3.62 L Hgb 11.5 L Hct 35.8 MCV 99 MCH 32 MCHC 32 RDW Coeff of Sylvester 14.1 Plt Count 298 Neut % (Auto) 61.2 Lymph % (Auto) 28.0 Florence % (Auto) 6.6 Eos % (Auto) 3.4 Baso % (Auto) 0.6 Neut # (Auto) 7.10 H Lymph # (Auto) 3.30 H Florence # (Auto) 0.80 Eos # (Auto) 0.40 Baso # (Auto) 0.10 Abs Immat Gran (auto) 0.00 Imm/Tot Granulo (auto) 0.2 ESR 33 H Sodium 138 Potassium 4.2 Chloride 102 Carbon Dioxide 26 Anion Gap 10 BUN 25 Creatinine 1.5 Estimated Creat Clear 31.86 Estimated GFR 38 Glucose 114 Calcium 9.2 C-Reactive Protein 2.4 H Procalcitonin 0.07 Urine Opiates Screen Negative Ur Buprenorphine Scrn Negative Ur Oxycodone Screen POSITIVE A Urine Methadone Screen Negative Ur Barbiturates Screen Negative U Tricyclic Antidepress Negative Ur Phencyclidine Scrn Negative Ur Amphetamines Screen Negative U Methamphetamines Scrn Negative U Benzodiazepines Scrn Negative Urine Cocaine Screen Negative U Marijuana (THC) Screen Negative Ur Drug Screen Comment See Note Ethyl Alcohol < 0.01 Lab Acknowledgement Test Added 10/16/24 22:46 WBC RBC Hgb Hct MCV MCH MCHC RDW Coeff of Sylvester Plt Count Neut % (Auto) Lymph % (Auto) Florence % (Auto) Eos % (Auto) Baso % (Auto) Neut # (Auto) Lymph # (Auto) Florence # (Auto) Eos # (Auto) Baso # (Auto) Abs Immat Gran (auto) Imm/Tot Granulo (auto) ESR Sodium Potassium Chloride Carbon Dioxide Anion Gap BUN Creatinine Estimated Creat Clear Estimated GFR Glucose Calcium C-Reactive Protein Procalcitonin Urine Opiates Screen Ur Buprenorphine Scrn Ur Oxycodone Screen Urine Methadone Screen Ur Barbiturates Screen U Tricyclic Antidepress Ur Phencyclidine Scrn Ur Amphetamines Screen U Methamphetamines Scrn U Benzodiazepines Scrn Urine Cocaine Screen U Marijuana (THC) Screen Ur Drug Screen Comment Ethyl Alcohol Lab Acknowledgement Test Added
[2024-10-17] MEDS: INSULIN ASPART 100 UNIT/ML SUBCUT (17:24)
--- NOTE | 2024-10-17 19:01 | PC.NURSE ---
Pt is alert and oriented. Pt drowsy during the morning hours. Form Press Operator needed to call pt name 3-4x for pt response and pt falling asleep mid conversation. Staff asked pt if she was taking medications brought from?home, pt denies. Wound debridement done in surgery. Wound vac on left heel. Pt denies pain. Upgraded to regular diet, tolerates well. Pt c/o restless legs, tolerates with ropinirole and movement. Pt is standby assist.
[2024-10-17] MEDS: MELATONIN 3 MG TABLET 6 MG PO (21:30)
[2024-10-17] MEDS: ATORVASTATIN CALCIUM 10 MG TABLET 40 MG PO (21:30)
[2024-10-17] MEDS: VANCOMYCIN 1.25 GM/250 ML 1.25 GM/250 ML PIGGYBACK IVPB (22:02)
[2024-10-18] VITALS (10 sets, daily range): BP systolic 107–144; BP diastolic 68–89; PULSE 70–89; RESP 18; TEMP 36.7–37.1; O2SAT 94–96
[2024-10-18] MEDS: ACETAMINOPHEN 325 MG TABLET 650 MG PO ×2 (03:25→11:46)
[2024-10-18] MEDS: PIPERACILLIN/TAZOBACTAM 3.375 GM in 0.9 % SODIUM CHLORIDE Mini-bag 100 ML IVPB ×4 (03:25→20:56)
--- NOTE | 2024-10-18 06:15 | PC.NURSE ---
End of shift [id number]: Pt AxOx3, cooperative, and pleasant with cares. Continent of bladder. Passing flatus. Pt reports pain to the L foot that is managed with repositioning, elevation, and PRN Tylenol. SBA GB W to the bathroom. BG at 2100 of 150 reported to MD Aden, no further intervention needed. Pt refused scheduled Furosemide @ 2100 due to typically taking it at 1600 at home. Retimed for 10/18. Pt in bed with call light in reach. ?
[2024-10-18] MEDS: THIAMINE 100 MG TABLET PO (08:33)
[2024-10-18] MEDS: SERTRALINE 100 MG TABLET PO (08:33)
[2024-10-18] MEDS: EMPAGLIFLOZIN 10 MG TABLET PO (08:33)
[2024-10-18] MEDS: FOLIC ACID 1 MG TABLET PO (08:34)
[2024-10-18] MEDS: ASPIRIN 81 MG TABLET EC PO (08:34)
[2024-10-18] MEDS: FUROSEMIDE 20 MG TABLET PO ×2 (08:34→15:27)
[2024-10-18] MEDS: PREGABALIN 75 MG CAPSULE 150 MG PO (08:35)
[2024-10-18] MEDS: SODIUM CHLORIDE 0.9 % (FLUSH) 10 ML SYRINGE 5 ML IVF (08:58)
[2024-10-18] MEDS: INSULIN ASPART 100 UNIT/ML SUBCUT (09:09)
--- NOTE | 2024-10-18 11:02 | P.IMPN_ITS ---
Assessment and Plan Assessment and plan (1) Cellulitis of left foot: Problem comment: - cellulitis involves her left foot and is extended up to 15 cm above her ankle - patient has an ulcer/ Wound at the back of the heel of her left foot that Dr Jerez is concerned that the wound is infected -it is a post surgical wound, status post secondary repair of her Achilles tendon tear with allograft on 08/18/24. - start on vanc and Zosyn. - ordered MRSA screen - patient will have debridement tomorrow. Will get deep tissue sample for microbiology and then will follow the antibiotic sensitivities. - foot x-ray report is still pending. - if there is a concern for osteomyelitis, we will order an MRI. Will add ESR test. Status: Acute (2) Diabetic peripheral neuropathy: Status: Acute (3) Coronary artery disease: Problem comment: - currently patient denies chest pain or shortness of breath - [place] 1993 - CAB x 15 Jan 2014 at [place]: IRVIN - LAD, sequential SVG - PDA - PL; SVG - Intermediate - 11/17/2020 NM Stress Test 1. There is a small area of mild ischemia in the base and mid anterolateral wall. 2. Normal left ventricular ejection fraction of 59 percent. - 12/14/2020 angiogram Status: Acute (4) Tobacco use: Problem comment: 2 cigarettes a day and nicotine patches. Currently on nicotine patch. Will add nicotine lozenges as needed. Emphasized importance of smoking cessation for wound healing Status: Acute (5) Chronic pain: Problem comment: Outpatient takes oxycodone approximately 5 mg twice a day or 60 tablets a month. Change to oxycodone 2.5 q.4 hours p.r.n. caution with polypharmacy Status: Acute (6) Type 2 diabetes mellitus, without long-term current use of insulin: Problem comment: Patient is on metformin 2000 daily and Carlitos Will start patient on insulin sliding scale at hospital Status: Acute (7) Obesity (BMI 30.0-34.9): Problem comment: On Carlitos. Discussed good nutrition including need for protein with wound healing. Status: Acute Plan Continue in hospital for IV antibiotics and wound care pending cultures and clinical course. Continue to optimize management of diabetes and vascular disease to enhance wound healing. Total Time Spent Total Time Spent: Total time spent today is 40 minutes in coordination of care discussing management of medical problems to optimize wound healing Subjective Date Seen: 10/18/24 Interval history: Admission HPI: Angeles Guerrier is a 64 year old female With past medical history of hypertension, hyperlipidemia, type 2 diabetes, CAD S/P CABG (2013), Severe tricuspid regurgitation, Paroxysmal SVT (supraventricular tachycardia), COPD, JESUSITA, Bipolar affective disorder, w/ severe depression, Tobacco use disorder and history of alcohol use disorder who presented to the ED to be admitted by our vacuum tank tender for wound debridement tomorrow. patient has an ulcer/ Wound at the back of the heel of her left foot that Dr Jerez is concerned that the wound is infected and recommends starting the patient on vanc and Zosyn. it is a post surgical wound, status post secondary repair of her Achilles tendon tear with allograft on 08/18/24. patient denies chest pain or shortness of breath. She states that she can walk 2 miles every day but she needs to catch her breath every now and then though it would not stop her. Patient states that she has COPD/emphysema and has a chronic cough specially at night. No recent or frequent exacerbation of her COPD. Additional history: Patient did well with her surgery and had dehiscence of the wound about a month ago. Since then the wound has been getting larger and now in the last couple days has appeared infected. She is admitted for wound debridement antibiotic therapy. 10/17/2024: She was taken to the OR today. Dr. Jerez debrided the wound over her Achilles and placed a wound VAC. he noted that the infection did not appear to involve the calcaneus or the staple/hardware used to anchor her Achilles. She reports 2 concerns today. She reports needing more pain medication and more medication to help with nicotine withdrawal. 10/18/2024: She reports generally doing well today. She has a number of questions about weight loss and nutrition that we discuss. Cultures from 3 days ago in clinic and yesterday show Gram-positive cocci and Gram-negative rods without ID and sensitivity. Exam Narrative: Exam Narrative: She is alert appears in no distress. Speech is normal. Breathing is unlabored. Mood and affect are bright. Lower extremities with trace edema. Wound with wound VAC dressing is not removed or examined today Const: Vital Signs, click to edit/add: Vital Signs - 24 hr 10/17/24 11:39 10/17/24 13:20 10/17/24 13:25 Temperature 98.7 F 97.5 F L Pulse Rate 84 82 Pulse Rate [Pulse Oximeter] 76 Respiratory Rate 17 14 14 Blood Pressure 134/103 H 141/74 H Blood Pressure [Ri ght Arm] 113/70 Pulse Oximetry 96 92 91 Oxygen Delivery Me thod Room Air Room Air 10/17/24 13:30 10/17/24 13:35 10/17/24 13:40 Temperature Pulse Rate 80 81 82 Pulse Rate [Pulse Oximeter] Respiratory Rate 14 14 16 Blood Pressure 132/66 113/74 90/51 L Blood Pressure [Ri ght Arm] Pulse Oximetry 92 92 91 Oxygen Delivery Me thod Room Air 10/17/24 13:45 10/17/24 13:50 10/17/24 14:10 Temperature 97.5 F L 97.5 F L Pulse Rate 83 85 Pulse Rate [Pulse Oximeter] 85 Respiratory Rate 20 16 18 Blood Pressure 105/70 103/77 Blood Pressure [Ri ght Arm] 130/79 Pulse Oximetry 93 96 98 Oxygen Delivery Me thod Room Air Room Air 10/17/24 14:30 10/17/24 14:45 10/17/24 15:00 Temperature Pulse Rate Pulse Rate [Pulse Oximeter] 81 85 81 Respiratory Rate 17 17 17 Blood Pressure Blood Pressure [Ri ght Arm] 126/72 123/71 123/71 Pulse Oximetry 98 96 96 Oxygen Delivery Me thod Room Air Room Air Room Air 10/17/24 15:00 10/17/24 15:30 10/17/24 16:00 Temperature Pulse Rate 77 Pulse Rate [Pulse Oximeter] 81 83 Respiratory Rate 18 18 Blood Pressure Blood Pressure [Ri ght Arm] 105/74 119/79 Pulse Oximetry 98 94 Oxygen Delivery Me thod Room Air Room Air 10/17/24 17:00 10/17/24 18:00 10/17/24 19:00 Temperature Pulse Rate Pulse Rate [Pulse Oximeter] 87 87 82 Respiratory Rate 18 17 18 Blood Pressure Blood Pressure [Ri ght Arm] 129/71 127/70 127/70 Pulse Oximetry 96 96 95 Oxygen Delivery Me thod Room Air Room Air Room Air 10/17/24 20:00 10/17/24 22:07 10/17/24 22:45 Temperature 98.4 F 98.6 F Pulse Rate 87 Pulse Rate [Pulse Oximeter] 82 86 Respiratory Rate 18 18 Blood Pressure Blood Pressure [Ri ght Arm] 123/70 127/67 Pulse Oximetry 95 92 Oxygen Delivery Me thod Room Air Room Air 10/18/24 02:26 10/18/24 08:40 Temperature 98.4 F 98.2 F Pulse Rate Pulse Rate [Pulse Oximeter] 89 83 Respiratory Rate 18 18 Blood Pressure Blood Pressure [Ri ght Arm] 141/71 H 126/89 Pulse Oximetry 95 96 Oxygen Delivery Me thod Room Air Room Air Documenting provider has reviewed patient's vital signs: yes
--- NOTE | 2024-10-18 18:59 | PC.NURSE ---
Pt is alert and oriented. c/o left heel pain, managed with PRN oxycodone and hydroxyzine. Wound vac on L heel, intact, running at -125. Pt c/o of restless legs, tolerates with ropinirole and movement. IV in R AC failed, removed with tip intact.? L forearm IV placed, IV patent. VSS. Pt is standby assist with walker.
[2024-10-18] MEDS: MELATONIN 3 MG TABLET 6 MG PO (20:55)
[2024-10-18] MEDS: ATORVASTATIN CALCIUM 10 MG TABLET 40 MG PO (20:55)
[2024-10-18] MEDS: MIRTAZAPINE 15 MG TABLET 7.5 MG PO (20:56)
[2024-10-18] MEDS: VANCOMYCIN 1.25 GM/250 ML 1.25 GM/250 ML PIGGYBACK IVPB (23:26)
[2024-10-19 03:00] VITALS: BP 123/86; PULSE 74; RESP 18; TEMP 36.7; O2SAT 96
[2024-10-19] MEDS: PIPERACILLIN/TAZOBACTAM 3.375 GM in 0.9 % SODIUM CHLORIDE Mini-bag 100 ML IVPB (03:01)
[2024-10-19 07:00] VITALS: BP 138/83; PULSE 75; RESP 18; TEMP 36.6; O2SAT 99
[2024-10-19] MEDS: ACETAMINOPHEN 325 MG TABLET 650 MG PO ×2 (07:28→14:46)
[2024-10-19 08:40] VITALS: PULSE 76
[2024-10-19] MEDS: DOCUSATE SODIUM 100 MG CAPSULE PO (09:20)
[2024-10-19] MEDS: SULFA/TRIMETHOPRIM 800/160 1 TAB PO (09:20)
--- NOTE | 2024-10-19 09:20 | W.PM.PODPROC ---
Date of Procedure: 10/17/24 Surgeon: Joe Jerez DPM Pre-op Diagnosis: 1. Surgical wound dehiscence with infection left Achilles tendon Post-op Diagnosis: 1. Surgical wound dehiscence with infection left Achilles tendon Type of Procedure: 1. I and D with wide debridement left lower leg wound 2. Wound VAC application left lower leg Indications: Patient has extensive surgical incision dehiscence with infection to the Achilles tendon left lower extremity. The wound has significantly worsened with more diffuse infection including necrotic Achilles tendon and surrounding subcutaneous tissues. There is currently no exposed bone. She is in need of surgical intervention for wide debridement to resolve the infection and application of wound VAC to assist with healing. She has at risk of limb loss without the wound VAC. I reviewed the procedure, recovery, expectation and potential complications. These include: Continued infection, potential need for future surgery, limb loss, loss of life, deep venous thrombosis, pulmonary embolism. She understands risks written consent was obtained. Site was marked. Procedure Description: Patient's from the operating room and placed under general anesthesia. She was then rolled into a prone position on the operating table and properly padded. 0.25% Marcaine plain was injected in V block proximal to the infected area. She was prepped and draped in sterile fashion. Standard time-out protocol followed. Using a Versajet Wand the exposed Achilles tendon was debrided back to healthy tendinous tissue. The surrounding subcutaneous tissue was debrided back to healthy bleeding margins. There was a sinus tract coursing anterior which was opened. There was no purulent drainage. Deep space culture for aerobe and anaerobic obtained and sent for sensitivities. The flexor hallucis longus tendon transfer is intact. With the tendon appearing normal. There is additional tracking undermining proximal without purulence. Following debridement the wound was approximately 3 cm by 3 cm in with. It was approximately 2 cm in depth. There is no exposed bone or hardware. Small amount of the lateral Achilles tendon was intact but the majority of the medial Achilles tendon was lost. Proximally 30% of the tendon remains. Wound was then irrigated with 2 L normal sterile saline. Wound VAC dressing was then applied. She tolerated anesthesia and procedure well. She was extubated and transferred to the PACU with vital signs stable vascular status intact. She will continue with IV antibiotics and planned wound VAC change in 2 days. Anesthesia: GETA and local Estimated blood loss (mL): 5 Implants: Wound VAC dressing Specimens: other (Wound culture for aerobic and aerobic sent) Disposition: PACU
[2024-10-19] MEDS: PREGABALIN 75 MG CAPSULE 150 MG PO (09:21)
[2024-10-19] MEDS: FUROSEMIDE 20 MG TABLET PO (09:21)
[2024-10-19] MEDS: FOLIC ACID 1 MG TABLET PO (09:21)
[2024-10-19] MEDS: ASPIRIN 81 MG TABLET EC PO (09:21)
[2024-10-19] MEDS: THIAMINE 100 MG TABLET PO (09:21)
[2024-10-19] MEDS: SERTRALINE 100 MG TABLET PO (09:21)
[2024-10-19] MEDS: EMPAGLIFLOZIN 10 MG TABLET PO (09:21)
[2024-10-19] MEDS: SODIUM CHLORIDE 0.9 % (FLUSH) 10 ML SYRINGE 5 ML IVF (09:22)
--- NOTE | 2024-10-19 09:30 | W.PM.PODPN ---
Podiatry-PN: Subj Subjective Time Seen by Provider: 09:00 Date Seen: 10/19/24 Interval history: Patient seen bedside today. She is in good spirits. She is not having significant pain. She denies fever chills nausea vomiting. Exam Narrative: Exam Narrative: General: No distress Vascular: Palpable pedal pulses. Neuro: Sensate to light touch. Musculoskeletal: No gross deformity. Derm: Wound VAC removed and open wound has much improved. Measures 2 cm x 2.3 cm. Wound depth is 1.5 cm. Erythema is improved edema is improved. There is no purulence. Very early increased granulation tissue to the Wound deapth. Continued exposed Achilles tendon. A: S/p I & D left Achilles tendon with wound VAC application, diabetic leg infection left P: Wound VAC removed and new wound VAC dressing applied. Based on cultures planning outpatient Bactrim. She is weight-bearing as tolerated. She should wear the multi Podus boot when in bed. She should use a walker for ambulation. Plan for follow up on Sunday with myself and her primary care physician. Wound VAC does not need to be changed until then. Will hold on home health care this week as she will see the wound care center on Sunday. She will need home health care for the following Sunday and Sunday. Const: Vital Signs, click to edit/add: Vital Signs - 24 hr 10/18/24 11:00 10/18/24 15:00 10/18/24 16:20 Temperature 98.7 F Pulse Rate 74 Pulse Rate [Pulse Oximeter] 80 85 Respiratory Rate 18 18 Blood Pressure [Le ft Arm] 107/68 Blood Pressure [Ri ght Arm] 144/78 H Pulse Oximetry 96 95 Oxygen Delivery Me thod Room Air Room Air 10/18/24 19:00 10/18/24 23:33 10/18/24 23:35 Temperature 98.7 F 98.1 F Pulse Rate Pulse Rate [Pulse Oximeter] 78 70 70 Respiratory Rate 18 18 18 Blood Pressure [Le ft Arm] 123/78 119/75 Blood Pressure [Ri ght Arm] Pulse Oximetry 94 96 Oxygen Delivery Me thod Room Air Room Air 10/18/24 23:36 10/19/24 03:00 10/19/24 07:00 Temperature 98.1 F 97.8 F Pulse Rate 73 Pulse Rate [Pulse Oximeter] 74 75 Respiratory Rate 18 18 Blood Pressure [Le ft Arm] 123/86 Blood Pressure [Ri ght Arm] 138/83 Pulse Oximetry 96 99 Oxygen Delivery Me thod Room Air Room Air Documenting provider has reviewed patient's vital signs: yes
[2024-10-19 11:14] VITALS: BP 122/90; PULSE 84; RESP 18; TEMP 37.3; O2SAT 99
--- NOTE | 2024-10-19 13:27 | P.DS_ITS ---
DS: Providers Provider Date Seen: 10/19/24 Date of admission: 10/16/24 22:30 Primary care physician: Becky Hopson DO Admitting Clinician: Claire Aden MD Attending Physician on discharge: Claire Aden MD DS: Diagnosis Discharge Diagnosis (1) Wound infection: Status: Acute Problem details: Cultures from clinic on October 15 show: Culture RESULT Abnormal 4+ Leclercia adecarboxylata 4+ Stenotrophomonas maltophilia 4+ Staphylococcus lugdunensis 2+ Mixed gurdeep present Mixed gurdeep, No Staphylococcus aureus, beta- Streptococcus, Streptococcus pneumoniae, or Pseudomonas aeruginosa. GRAM STAIN No PMNs No RBCs 1+ Epithelial cells 3+ Gram Positive Cocci 2+ Gram Negative Bacilli Resulting Agency: [facility] Susceptibility Leclercia adecarboxylataStenotrophomonas maltophiliaStaphylococcus lugdunensis Method Not SpecifiedMethod Not SpecifiedMethod Not Specified AMPICILLIN<=2S AMPICILLIN/SULBACTAM<=2S [id number] CEFEPIME<=0.12S CEFTAZIDIME<=0.5S CEFTRIAXONE<=0.25S CIPROFLOXACIN<=0.06S CLINDAMYCIN<=0.12S DOXYCYCLINE<=0.5S GENTAMICIN<=1S LEVOFLOXACIN<=0.12SS MEROPENEM<=0.25S MINOCYCLINES [id number] 1 PIPERACILLIN/TAZO<=4S TRIMETHOPRIM/SULF<=1/19SS<=0.5/9.5S Deep cultures from surgery on October 17 are still pending. The following bacteria are all sensitive to Bactrim. She will be prescribed Bactrim DS though if her creatinine and potassium are going up she will need to have the dose reduced or antibiotic changed. Ideally she could stay on Bactrim as it is the optimal antibiotic for this group of potential pathogens. 4+ Leclercia adecarboxylata 4+ Stenotrophomonas maltophilia 4+ Staphylococcus lugdunensis (2) Cellulitis of left foot: Status: Acute Problem details: Cellulitis and ulcer over the Achilles. Failing outpatient management. Admitted for broad-spectrum antibiotics with vancomycin and Zosyn. Surgical debridement done by Dr. Jerez on October 17. (3) Obesity (BMI 30.0-34.9): Status: Acute Problem details: On . Discussed good nutrition including need for protein with wound healing. (4) Chronic pain: Status: Acute Problem details: Outpatient takes oxycodone approximately 5 mg twice a day or 60 tablets a month. Change to oxycodone 2.5 q.4 hours p.r.n. caution with polypharmacy (5) Coronary artery disease: Status: Acute Problem details: - currently patient denies chest pain or shortness of breath - ID [id number] - CAB x 15 Jan 2014 at [facility]: IRVIN - LAD, sequential SVG - PDA - PL; SVG - Intermediate - 11/17/2020 NM Stress Test 1. There is a small area of mild ischemia in the base and mid anterolateral wall. 2. Normal left ventricular ejection fraction of 59 percent. - 12/14/2020 angiogram (6) Tobacco use: Status: Acute Problem details: 2 cigarettes a day and nicotine patches. Currently on nicotine patch. Will add nicotine lozenges as needed. Emphasized importance of smoking cessation for wound healing (7) Diabetic peripheral neuropathy: Status: Acute (8) COPD (chronic obstructive pulmonary disease): Status: Acute Problem details: No recent exacerbations (9) Type 2 diabetes mellitus, without long-term current use of insulin: Status: Acute Problem details: Patient is on metformin 2000 daily and Carlitos Will start patient on insulin sliding scale at hospital (10) Chronic kidney disease (CKD) stage G3b/A1, moderately decreased glomerular filtration rate (GFR) between 30-44 mL/min/1.73 square meter and albuminuria creatinine ratio less than 30 mg/g: Status: Acute Problem details: Use Bactrim with caution. Check creatinine and potassium in 3 days and 8 days. Reduced dose if creatinine and potassium are increasing significantly. DS: Summary Hospital Course Hospital Course: Admission HPI: Angeles Guerrier is a 64 year old female With past medical history of hypertension, hyperlipidemia, type 2 diabetes, CAD S/P CABG (2013), Severe tricuspid regurgitation, Paroxysmal SVT (supraventricular tachycardia), COPD, JESUSITA, Bipolar affective disorder, w/ severe depression, Tobacco use disorder and history of alcohol use disorder who presented to the ED to be admitted by our ip litigation associate for wound debridement tomorrow. patient has an ulcer/ Wound at the back of the heel of her left foot that Dr Jerez is concerned that the wound is infected and recommends starting the patient on vanc and Zosyn. it is a post surgical wound, status post secondary repair of her Achilles tendon tear with allograft on 08/18/24. patient denies chest pain or shortness of breath. She states that she can walk 2 miles every day but she needs to catch her breath every now and then though it would not stop her. Patient states that she has COPD/emphysema and has a chronic cough specially at night. No recent or frequent exacerbation of her COPD. Additional history: Patient did well with her surgery and had dehiscence of the wound about a month ago. Since then the wound has been getting larger and now in the last couple days has appeared infected. She is admitted for wound debridement antibiotic therapy. 10/17/2024: She was taken to the OR today. Dr. Jerez debrided the wound over her Achilles and placed a wound VAC. he noted that the infection did not appear to involve the calcaneus or the staple/hardware used to anchor her Achilles. She reports 2 concerns today. She reports needing more pain medication and more medication to help with nicotine withdrawal. 10/18/2024: She reports generally doing well today. She has a number of questions about weight loss and nutrition that we discuss. Cultures from 3 days ago in clinic and yesterday show Gram-positive cocci and Gram-negative rods without ID and sensitivity. 10/19/2024: She reports doing well. Wound VAC is changed today by Dr. Dinorah carlin. Minimal erythema. Antibiotic changed to Bactrim DS with very close follow-up to monitor renal function and potassium. Potassium on admission was 4.2 and creatinine is 1.5. Reduce dose of Bactrim if potassium or creatinine are significantly increasing Status at Discharge Functional status at discharge: uses cane/walker Overall status at discharge: patient is progressing back to baseline Time Spent with Patient Time attestation: Total time spent providing and/or coordinating discharge services: 45 minutes Exam Narrative: Exam Narrative: Left foot and ankle examined. Minimal erythema. Ulceration over the distal Achilles inspected as wound VAC is changed. This is about 2 x 2.2 cm and moderately deep. Const: Vital Signs, click to edit/add: Vital Signs - 24 hr 10/18/24 15:00 10/18/24 16:20 10/18/24 19:00 Temperature 98.7 F Pulse Rate 74 Pulse Rate [Pulse Oximeter] 85 78 Respiratory Rate 18 18 Blood Pressure [Le ft Arm] 123/78 Blood Pressure [Ri ght Arm] 144/78 H Pulse Oximetry 95 94 Oxygen Delivery Me thod Room Air Room Air 10/18/24 23:33 10/18/24 23:35 10/18/24 23:36 Temperature 98.1 F Pulse Rate 73 Pulse Rate [Pulse Oximeter] 70 70 Respiratory Rate 18 18 Blood Pressure [Le ft Arm] 119/75 Blood Pressure [Ri ght Arm] Pulse Oximetry 96 Oxygen Delivery Me thod Room Air 10/19/24 03:00 10/19/24 07:00 10/19/24 08:40 Temperature 98.1 F 97.8 F Pulse Rate 76 Pulse Rate [Pulse Oximeter] 74 75 Respiratory Rate 18 18 Blood Pressure [Le ft Arm] 123/86 Blood Pressure [Ri ght Arm] 138/83 Pulse Oximetry 96 99 Oxygen Delivery Me thod Room Air Room Air 10/19/24 11:14 Temperature 99.1 F Pulse Rate Pulse Rate [Pulse Oximeter] 84 Respiratory Rate 18 Blood Pressure [Le ft Arm] Blood Pressure [Ri ght Arm] 122/90 H Pulse Oximetry 99 Oxygen Delivery Me thod Room Air Documenting provider has reviewed patient's vital signs: yes DS: Data Data Completed and Pending Labs on day of discharge: Preliminary micro results at discharge 10/17/24 12:46 Aerobic Culture - Preliminary Leg Left Gram positive cocci Gram negative kaylee Discharge Plan Discharge Disposition: Home, Self-Care Date of Admission: 10/16/24 22:30 Primary Care Provider: Becky Hopson Condition: Stable Anticipated Discharge Date/Time: 10/19/24 08:34 Discharge Medications: New nicotine 14 mg/24 hr Patch 24 Hour 1 patch transdermal Q24H Qty: 28 0RF sulfamethoxazole-trimethoprim 800-160 mg Tablet 1 tab PO BID Qty: 20 0RF Continued nitroglycerin 0.4 mg tablet, sublingual 0.4 mg sublingual Q5M PRN cyclobenzaprine 10 mg tablet 10 mg PO TID PRN melatonin 5 mg tablet 5 mg PO HS cyanocobalamin (vitamin B-12) 1,000 mcg tablet 1,000 mcg PO DAILY furosemide 20 mg tablet 20 mg PO BID Jardiance 10 mg tablet 10 mg PO DAILY naloxone [Narcan] 4 mg/actuation spray,non-aerosol 1 spray intranasal Q2-3M PRN Rx Instructions: spray 1 dose into ONE nostril; alternate nostrils w each dose until help arrives sertraline 100 mg tablet 200 mg PO HS aspirin 81 mg tablet,delayed release (DR/EC) 81 mg PO DAILY metformin 1,000 mg tablet 1,000 mg PO BID albuterol sulfate 90 mcg/actuation HFA aerosol inhaler 1 puff INHALATION Q8H PRN hydroxyzine pamoate 25 mg capsule 25 mg PO Q8H PRN bupropion HCl 300 mg tablet extended release 24 hr 300 mg PO DAILY ropinirole 4 mg tablet 4 mg PO QPM pregabalin 150 mg capsule 150 mg PO BID@18,22 Trelegy Ellipta 100-62.5-25 mcg blister with device 1 inh inhalation Q24H oxycodone 5 mg tablet 5 mg PO BID PRN atorvastatin 40 mg tablet 40 mg PO HS mirtazapine 7.5 mg tablet 7.5 mg PO HS cholecalciferol (vitamin D3) 50 mcg (2,000 unit) capsule 50 mcg PO DAILY Mounjaro 15 mg/0.5 mL pen injector 15 mg SUBCUT Q7D Patient Comments: INJECT 0.5ML (15MG) SUBCUTANEOUSLY ONCE WEEKLY. Rx Instructions: TAKES ON SUNDAY acetaminophen [Tylenol Extra Strength] 500 mg tablet 500 mg PO Q6H PRN magnesium 250 mg tablet 250 mg PO DAILY pyridoxine (vitamin B6) 25 mg tablet 25 mg PO DAILY turmeric 400 mg capsule 400 mg PO DAILY Discontinued doxycycline monohydrate 100 mg capsule 100 mg PO BID Discharge Orders: Discharge Order (Routine); Ordered 10/19/24 Ordered By: Wilber Waldron Patient Education: Sulfamethoxazole/Trimethoprim (By mouth), Nicotine (Absorbed through the skin), Deep Sedation (DC), Negative Pressure Wound Therapy (DC), Incision and Drainage (DC), Home Wound Vac How-To Activity Level: No Restrictions, Light activity and Use Walker Activity Detail: wear multipodas boot when in bed. Discharge Diet: Heart Healthy (2 gm sodium, low fat) Follow Up Appointments: Lolis Fernandes MD [Staff Physician, Family Practice] - 10/22/24 1:00 pm Referral Note: [facility] for hospital follow-up. Primary wasn't available. Have basic metabolic panel done at this appointment. Becky Hopson DO [Primary Care Provider, Family Practice] Referral Note: 3 days. check basic metabolic panel in 3 days Joe Jerez DPM [Staff Physician, Podiatry] - 10/22/24 1:30 pm Referral Note: [facility] for follow-up. Forms: [facility] Inst[facility]
--- NOTE | 2024-10-19 17:38 | PC.NURSE ---
Discharge-- Pleasant and cooperative, alert and oriented patient discharged to home with niece via wheelchair. VSS and pt is afebrile. SPO2 maintained >90% on RA. Pain appeared well managed with Oxycodone and Tylenol PRN. Wound vac dressing change was completed by Dr. Jerez this morning and is C/D/I. Home wound vac was placed prior to discharge and paperwork was completed by charge nurse Joann, clinical coordinator Maricruz and this nurse. Proof of delivery was signed and faxed to [facility], received at 1445. Pt showered this afternoon with SBA and tolerated it well. Telemetry showed NSR. SL was removed with tip intact. Discharge information was provided including diagnosis info, medications, symptoms to report, wound vac instructions and follow up plan. No further questions asked.
--- NOTE | 2024-10-20 11:17 | PC.SOCIAL ---
TAINA received a call from CHELY Canchola, at [facility] stating that she never received the orders, discharge summary, and H&P after patient discharged this weekend. TAINA informed she would talk with provider to get these orders and fax them. TAINA spoke with provider who completed Home Care orders. TAINA faxed this to [facility] and called Jesika informing her this has been completed.
== END 2024-10-19 16:21 | disposition home or self-care (01) | DRG 857 ==
LOC: ED 21:38 → MEDSURG 21:51
PROVIDERS: Podiatrist; Admitting Provider Student in an Organized Health Care Education/Training Program; Emergency Provider Family Medicine; PCP Family Medicine; Visit Provider Student in an Organized Health Care Education/Training Program
PROC: 0LDT0ZZ Extraction of Left Ankle Tendon, Open Approach (ICD-10-PCS; principal; 2024-10-17 12:30)
DX: T81.42XA Infection following a procedure, deep incisional surgical site, initial encounter (principal); E11.52 Type 2 diabetes mellitus with diabetic peripheral angiopathy with gangrene; T81.31XA Disruption of external operation (surgical) wound, not elsewhere classified, initial encounter; L03.116 Cellulitis of left lower limb; F17.213 Nicotine dependence, cigarettes, with withdrawal; F31.4 Bipolar disorder, current episode depressed, severe, without psychotic features; I96 Gangrene, not elsewhere classified; L97.422 Non-pressure chronic ulcer of left heel and midfoot with fat layer exposed; B95.7 Other staphylococcus as the cause of diseases classified elsewhere; B96.89 Other specified bacterial agents as the cause of diseases classified elsewhere; E11.42 Type 2 diabetes mellitus with diabetic polyneuropathy; I12.9 Hypertensive chronic kidney disease with stage 1 through stage 4 chronic kidney disease, or unspecified chronic kidney disease; E11.22 Type 2 diabetes mellitus with diabetic chronic kidney disease; N18.32 Chronic kidney disease, stage 3b; G47.33 Obstructive sleep apnea (adult) (pediatric); J44.9 Chronic obstructive pulmonary disease, unspecified; I25.10 Atherosclerotic heart disease of native coronary artery without angina pectoris; Z79.84 Long term (current) use of oral hypoglycemic drugs; F10.21 Alcohol dependence, in remission; Z79.82 Long term (current) use of aspirin; Z79.85 Long-term (current) use of injectable non-insulin antidiabetic drugs; I07.1 Rheumatic tricuspid insufficiency; G89.29 Other chronic pain; M06.9 Rheumatoid arthritis, unspecified; E66.9 Obesity, unspecified; Z68.31 Body mass index [BMI] 31.0-31.9, adult; Z95.1 Presence of aortocoronary bypass graft; E78.5 Hyperlipidemia, unspecified
CPT/HCPCS: 01470; 36415; 80048; 80306; 82077; 82962; 84145; 85025; 85651; 86140; 87070; 87075; 87081; 87186; 87205; 93005; 99284; 99285; A9270; J0330; J0665; J1100; J2405; J2543; J2704; J3010; J3375; J3490; J7050; J7120; S4990

== ENCOUNTER 2024-10-24 11:11 | Outpatient (CLI) | payer MEDICARE, MEDICAID, SELFPAY | END 2024-10-24 11:12 | disposition home or self-care (01) | LOC: WOUND 11:11 | PROVIDERS: PCP Family Medicine; Visit Provider Nurse Practitioner Family | DX: E11.622 Type 2 diabetes mellitus with other skin ulcer (principal); E11.42 Type 2 diabetes mellitus with diabetic polyneuropathy; L97.328 Non-pressure chronic ulcer of left ankle with other specified severity; I25.118 Atherosclerotic heart disease of native coronary artery with other forms of angina pectoris; Z79.84 Long term (current) use of oral hypoglycemic drugs | CPT/HCPCS: 11043; 97605 ==

== ENCOUNTER 2024-10-31 10:01 | Outpatient (CLI) | payer MEDICARE, MEDICAID, SELFPAY | END 2024-10-31 10:02 | disposition home or self-care (01) | LOC: WOUND 10:03 | PROVIDERS: PCP Family Medicine; Visit Provider Nurse Practitioner Family | DX: E11.622 Type 2 diabetes mellitus with other skin ulcer (principal); E11.42 Type 2 diabetes mellitus with diabetic polyneuropathy; L97.328 Non-pressure chronic ulcer of left ankle with other specified severity; I25.118 Atherosclerotic heart disease of native coronary artery with other forms of angina pectoris; Z79.84 Long term (current) use of oral hypoglycemic drugs; Z72.0 Tobacco use | CPT/HCPCS: 11042; 97605 ==

== ENCOUNTER 2024-11-07 10:07 | Outpatient (CLI) | payer MEDICARE, MEDICAID, SELFPAY | END 2024-11-07 10:08 | disposition home or self-care (01) | LOC: WOUND 10:07 | PROVIDERS: PCP Family Medicine; Visit Provider Nurse Practitioner Family | DX: E11.622 Type 2 diabetes mellitus with other skin ulcer (principal); E11.42 Type 2 diabetes mellitus with diabetic polyneuropathy; L97.828 Non-pressure chronic ulcer of other part of left lower leg with other specified severity; I25.118 Atherosclerotic heart disease of native coronary artery with other forms of angina pectoris; Z79.84 Long term (current) use of oral hypoglycemic drugs | CPT/HCPCS: 11043; 97605 ==

== ENCOUNTER 2024-11-14 10:04 | Outpatient (CLI) | payer MEDICARE, MEDICAID, SELFPAY | END 2024-11-14 10:05 | disposition home or self-care (01) | LOC: WOUND 10:04 | PROVIDERS: PCP Family Medicine; Visit Provider Family Medicine | DX: E11.622 Type 2 diabetes mellitus with other skin ulcer (principal); E11.42 Type 2 diabetes mellitus with diabetic polyneuropathy; L97.328 Non-pressure chronic ulcer of left ankle with other specified severity; Z79.84 Long term (current) use of oral hypoglycemic drugs | CPT/HCPCS: 11042; 97605 ==

== ENCOUNTER 2024-11-21 07:56 | Outpatient (CLI) | payer MEDICARE, MEDICAID, SELFPAY ==
[2024-11-21 09:29] LABS: Hematocrit* 38.2 % (33.0-51.0); Hemoglobin* 12.1 gm/dL (12.0-16.0); Immature Granulocytes Abs Auto 0.01 K/uL (0.00-0.30); Immature Granulocytes Pct Auto 0.1 %; Lymphocytes Absolute Auto 2.19 K/uL (0.90-2.90); Mean Corpuscular HGB Conc 32 gm/dL (32-36); Mean Corpuscular Hemoglobin 31 pg (26-34); Mean Corpuscular Volume 99 fL (80-100); RDW Coefficient of Variation % 14.4 % (11.5-15.5); Red Blood Count* 3.88 m/uL (4.00-5.20); White Blood Count* 8.17 K/uL (4.50-11.00)
[2024-11-21 09:32] LABS: Slide Review Reflex No
== END 2024-11-21 07:57 | disposition home or self-care (01) ==
LOC: WOUND 07:56
PROVIDERS: PCP Family Medicine; Visit Provider Nurse Practitioner Family
DX: E11.622 Type 2 diabetes mellitus with other skin ulcer (principal); L97.328 Non-pressure chronic ulcer of left ankle with other specified severity; Z79.84 Long term (current) use of oral hypoglycemic drugs; E11.42 Type 2 diabetes mellitus with diabetic polyneuropathy
CPT/HCPCS: 36415; 85025; 86140; G0463

== ENCOUNTER 2024-11-28 09:57 | Outpatient (CLI) | payer MEDICARE, MEDICAID, SELFPAY | END 2024-11-28 09:58 | disposition home or self-care (01) | LOC: WOUND 09:57 | PROVIDERS: PCP Family Medicine; Visit Provider Nurse Practitioner Family | DX: E11.622 Type 2 diabetes mellitus with other skin ulcer (principal); L97.328 Non-pressure chronic ulcer of left ankle with other specified severity; E11.42 Type 2 diabetes mellitus with diabetic polyneuropathy; Z79.84 Long term (current) use of oral hypoglycemic drugs | CPT/HCPCS: 11043 ==

== ENCOUNTER 2024-12-05 09:59 | Outpatient (CLI) | payer MEDICARE, MEDICAID, SELFPAY | END 2024-12-05 10:00 | disposition home or self-care (01) | LOC: WOUND 09:59 | PROVIDERS: PCP Family Medicine; Visit Provider Nurse Practitioner Family | DX: E11.622 Type 2 diabetes mellitus with other skin ulcer (principal); L97.328 Non-pressure chronic ulcer of left ankle with other specified severity; E11.42 Type 2 diabetes mellitus with diabetic polyneuropathy; Z79.84 Long term (current) use of oral hypoglycemic drugs | CPT/HCPCS: 11043; 97605 ==

== ENCOUNTER 2024-12-08 19:43 | Outpatient (CLI) | payer MEDICARE, MEDICAID, SELFPAY | END 2024-12-08 19:44 | disposition home or self-care (01) | PROVIDERS: PCP Family Medicine; Visit Provider Family Medicine | DX: G47.33 Obstructive sleep apnea (adult) (pediatric) (principal); G47.31 Primary central sleep apnea | CPT/HCPCS: 95811 ==

== ENCOUNTER 2024-12-12 10:00 | Outpatient (CLI) | payer MEDICARE, MEDICAID, SELFPAY | END 2024-12-12 10:01 | disposition home or self-care (01) | LOC: WOUND 10:01 | PROVIDERS: PCP Family Medicine; Visit Provider Nurse Practitioner Family | DX: E11.622 Type 2 diabetes mellitus with other skin ulcer (principal); L97.322 Non-pressure chronic ulcer of left ankle with fat layer exposed; E11.42 Type 2 diabetes mellitus with diabetic polyneuropathy; Z79.84 Long term (current) use of oral hypoglycemic drugs | CPT/HCPCS: 97597 ==

== ENCOUNTER 2024-12-16 07:59 | Outpatient (CLI) | payer MEDICARE, MEDICAID, SELFPAY | END 2024-12-16 08:00 | disposition home or self-care (01) | LOC: WOUND 07:59 | PROVIDERS: PCP Family Medicine; Visit Provider Nurse Practitioner Family | DX: E11.622 Type 2 diabetes mellitus with other skin ulcer (principal); L97.322 Non-pressure chronic ulcer of left ankle with fat layer exposed; E11.42 Type 2 diabetes mellitus with diabetic polyneuropathy | CPT/HCPCS: 87070; 87186; G0463 ==

== ENCOUNTER 2024-12-16 18:20 | Emergency (ER) | payer MEDICARE, MEDICAID, SELFPAY ==
--- OUTSIDE RECORDS SUMMARY | 2024-12-16 18:22 | XMS_ITS | CCD ---
Author Organization Unknown Care Team Providers Care Supervisor Lens Generating Name Role Phone Payroll Examiner, [place] Primary Care Provider Unava ilable Unavailable Chronic Care Management Unavaila ble Summary Purpose DataExchange Insurance Providers Payer name Policy type / Coverage type Covered green party ID Effective Begin Date Effective End Date are Commercial Insurance [id number] Unkn own [facility] Commercial Insurance [id number] Unkn own Family History Family History data not found Medication Administered No Medication Administered data Medical Equipment No Medical Equipment data Assessments No Assessment data Reason For Visit No Reason For Visit data Review of Systems No Review of Systems data Physical Exam No Physical Exam data History of Present Illness No History of Present Illness data Advance Directives No Advance Directive data
--- OUTSIDE RECORDS SUMMARY | 2024-12-16 18:23 | XMS_ITS | Clinical Summary ---
Author Organization [facility] Address [address] [place] [address] Care Team Providers Care Manager Of Application Development Name Role Phone Unavailable Primary Care Provider [...] for each transition of care or referral. [facility] Allergies No known active allergies Medications ASPIRIN [...] NICOTINE MINI 2 MG lozenge 11/16/2020 Active [id number] ARLENE (AKA GOLYTELY) 236 g SOLR 4 [...] PCV) 01/14/2015 01/14/2014 COVID-19 Vaccine (3 - 2024- season) 2024 07/15/2020, 06/17/2020 Influenza Vaccine (#1) 2024 , [...]
--- OUTSIDE RECORDS SUMMARY | 2024-12-16 18:23 | XMS_ITS | Clinical Summary ---
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 Dispense meter, test strips, lancets covered by pt ins. E11.65 NIDDM type II, uncontrolled - Test 3 times/day, Reason: High A1C 1 Each 03/13/19 24 Active nitroglycerin (NITROSTAT) 0.4 mg sublingual tabletIndications: Coronary artery disease, unspecified vessel or lesion type, unspecified whether angina present, unspecified whether manzanita or transplanted heart Place 1 Tablet (0.4 mg) under the tongue every 5 minutes if needed for Chest Pain. 25 Tablet 6 07/31/19 24 Active melatonin 5 mg tab tabletIndications: Insomnia, idiopathic Take 1 Tablet (5 mg) by mouth at bedtime. 90 Tablet 1 09/21/19 24 Active naloxone (NARCAN) 4 mg/actuation nasal sprayIndications:M usculoskeletal back pain Inhale 1 Bahama into affected nostril(s) each time if needed for Patient Diff To Arouse or Resp Rate < 8 / min. Additional doses may be given every 2 to 3 minutes until emergency medical assistance arrives. 2 Each 09/26/19 Active furosemide 20 mg tabletIndications: Bilateral lower extremity edema,Severe tricuspid regurgitation Take 1 Tablet (20 mg) by mouth two times daily. 180 Tablet 3 04/30/19 Active tirzepatide (Mounjaro) 15 mg/0.5 mL penIndications:Typ e 2 diabetes mellitus with polyneuropathy (HC) Inject 15 mg subcutaneous once weekly. 6 mL 3 09/17/19 Active aspirin 81 mg enteric coated tabletIndications: Coronary artery disease, unspecified vessel or lesion type, unspecified whether angina present, unspecified whether manzanita or transplanted heart TAKE ONE TABLET BY MOUTH DAILY 90 Tablet 3 06/17/19 Active albuterol HFA 90 mcg/actuation inhalerIndications :COPD mixed type (HC) Inhale 1-2 Puffs by mouth 4 times daily if needed for Shortness of Breath 1st choice or Wheezing 1st choice. 1 Each 06/18/19 Active CPAPIndications:OS A (obstructive sleep apnea) RESMED CPAP (E0601) machine for home use at pressure: 9 cmw, Choice of mask (A7030 or A7034) w/full face cushion (A7031) x1/mo, nasal cushion (A7032) x2/mo, or nasal pillows (A7033) x 2/mo; Length of Need: 99 months; Frequency of use: Daily 1 Each 07/01/19 Active Additional Information Patient not taking.Reported on 12/01/2024 rOPINIRole 4 mg tabletIndications: Restless leg syndrome TAKE ONE TABLET BY MOUTH 2-3 HOURS BEFORE BEDTIME 90 Tablet 2 07/17/19 25 Active metFORMIN 1,000 mg tabletIndications: Type 2 diabetes mellitus with hyperglycemia, without long-term current use of insulin (HC) TAKE ONE TABLET BY MOUTH TWICE A DAY WITH MEALS 180 Tablet 2 07/17/19 25 Active pregabalin 150 mg capsuleIndications :Restless legs syndrome (RLS) Take 1 pill orally at supper time and again before bed 60 Capsule 07/16/19 25 Active TURMERIC ORAL Take 500 mg by mouth once daily. Active pyridoxine HCl (vitamin B6) (VITAMIN B-6 ORAL) Take 1 Tablet by mouth once daily. Take 1 tablet by mouth daily. Active acetaminophen (TYLENOL EXTRA STRGTH) 500 mg tabletIndications: pain Take 500 mg by mouth every 6 hours if needed for Pain. Take 1-2 tabs by mouth every 6 hours as needed for pain Indications: pain 08/13/19 25 Active cyclobenzaprine (FLEXERIL) 10 mg tablet Take 10 mg by mouth once daily. Take 1 tab by mouth daily; may take 1-2 tablets as needed for muscle spasms Active mirtazapine (REMERON) 7.5 mg tabletIndications: Chronic insomnia Take 1 Tablet (7.5 mg) by mouth at bedtime. Take 10 hours before planning on waking up 30 Tablet 3 09/02/19 25 Active durable medical equipment (DME)Indications:F ollow-up examination after orthopedic surgery,Rupture of Achilles tendon, unspecified laterality, initial encounter ACHILLES WEDGE, REF: [id number] 1 Each 09/10/19 25 Active vitamin D3-vitamin K2 (MK4) (K2 + D3) 1,000-100 unit-mcg tab tablet Take 1 Tablet by mouth once daily. Take 1 daily by mouth Active buPROPion (WELLBUTRIN XL) 300 mg Extended-Release tabletIndications: Severe major depression without psychotic features (HC) Take 1 Tablet (300 mg) by mouth once daily. 90 Tablet 2 09/18/19 25 Active atorvastatin (LIPITOR) 40 mg tabletIndications: Hyperlipidemia, unspecified hyperlipidemia type Take 1 Tablet (40 mg) by mouth at bedtime. 90 Tablet 3 09/18/19 25 Active sertraline (ZOLOFT) 100 mg tabletIndications: Severe major depression without psychotic features (HC),Mood disorder Take 2 Tablets (200 mg) by mouth once daily. 180 Tablet 2 09/18/19 25 Active fluticasone xeg-fwsrdaowrdiv-p ilanterol (Trelegy Ellipta) 100-62.5-25 mcg inhalerIndications :COPD with chronic bronchitis (HC) Inhale 1 Puff by mouth once daily. 180 Each 3 09/18/19 25 Active empagliflozin (Jardiance) 10 mg tabletIndications: Type 2 diabetes mellitus with polyneuropathy (HC),Coronary artery disease, unspecified vessel or lesion type, unspecified whether angina present, unspecified whether manzanita or transplanted heart Take 1 Tablet (10 mg) by mouth once daily. 90 Tablet 3 09/18/19 25 Active Walker - 4 wheelsIndications: Chronic bilateral low back pain with left-sided sciatica,Chronic pain of right hip For home use. Length of need: 99 months 1 Each 10/02/19 Active durable medical equipment (DME)Indications:W ound dehiscence, surgical, initial encounter PODOUS BOOT, REGULAR, UNIVERSAL, REF: [id number] 1 Each 10/16/19 Active durable medical equipment (DME)Indications:S /P Achilles tendon repair Multipodus boot with a tread for her left foot for pressure relief and improved healing. Size 9. 1 Each 10/16/19 Active miscellaneous medical supply miscIndications:S/ P Achilles tendon repair,Chronic bilateral low back pain, unspecified whether sciatica present Electric lift chair/recliner 1 Each 10/17/19 Active lancetsIndications :Type 2 diabetes mellitus with polyneuropathy (HC) As directed. Test 3 times per day. 300 Each 3 11/04/19 25 Active benzonatate (TESSALON) 100 mg capsuleIndications :Acute cough,Viral URI,COPD exacerbation (HC),COPD with chronic bronchitis (HC) Take 1 Capsule (100 mg) by mouth 3 times daily if needed for Cough. 60 Capsule 2 11/26/19 25 Active nicotine 7 mg/24 hr (NICODERM; HABITROL) 7 mg/24 hr patchIndications:T obacco use disorder Apply 1 Patch on dry, clean, hairless skin once daily. 14 Patch 3 12/02/19 25 Active oxyCODONE (ROXICODONE) 5 mg immediate release tabletIndications: Chronic bilateral low back pain with left-sided sciatica Take 1 Tablet (5 mg) by mouth 2 times daily if needed for Pain. 60 Tablet 12/17/19 25 Active Incontinence Pad, Liner, Disp padsIndications:Mi xed stress and urge urinary incontinence Use the pads 3 times a day as needed. 96 Each 07/24/19 24 025 Discontin ued(*Med complete/ Regimen complete/ Level of care change) durable medical equipment (DME)Indications:C alcific Achilles tendonitis AIR SELECT, STANDARD, SMALL, REF: [id number] 1 Each 12/19/19 24 025 Discontin ued(*Med complete/ Regimen complete/ Level of care change) blood sugar diagnostic (KiraxTouch Verio test strips) stripIndications:T ype 2 diabetes mellitus, without long-term current use of insulin (HC) USE TO TEST THREE TIMES DAILY 300 Each 3 12/21/19 24 025 Discontin ued(*Med complete/ Regimen complete/ Level of care change) benzonatate 100 mg capsuleIndications :Acute cough,Viral URI,COPD exacerbation (HC),COPD with chronic bronchitis (HC) Take 1 Capsule (100 mg) by mouth 3 times daily if needed for Cough. 60 Capsule 2 05/22/19 25 025 Discontin ued(Reord er (E-cancel not sent)) hydrOXYzine pamoate (VistariL) 25 mg capsuleIndications :Lumbar disc herniation with radiculopathy Take 1 Capsule (25 mg) by mouth every 8 hours if needed (for possible withdrawal symptoms). 30 Capsule 1 06/12/19 25 025 Discontin ued(*Med complete/ Regimen complete/ Level of care change) diclofenac topical 1 % gelIndications:Acu te pain of right knee Apply 2 g topically to affected area(s) four times daily. 100 g 1 07/24/19 25 025 Discontin ued(*Med complete/ Regimen complete/ Level of care change) sennosides (SENNA) 8.6 mg tabletIndications: constipation Take 8.6 mg by mouth once daily if needed for Constipation. take 2 tabs by mouth daily as needed for constipation Indications: constipation 025 Discontin ued(*Med complete/ Regimen complete/ Level of care change) traZODone (DESYREL) 50 mg tablet Take 50 mg by mouth at bedtime if needed for Sleep. Take 1-2 tabs by mouth at bedtime as needed for sleep 025 Discontin ued(*Med complete/ Regimen complete/ Level of care change) durable medical equipment (DME)Indications:F ollow-up examination after orthopedic surgery,Rupture of Achilles tendon, unspecified laterality, initial encounter AIR SELECT STANDARD, MEDIUM, REF: [id number] 1 Each 09/10/19 25 025 Discontin ued(*Med complete/ Regimen complete/ Level of care change) medication order composerIndication s:Follow-up examination after orthopedic surgery,Rupture of Achilles tendon, unspecified laterality, initial encounter,Wound dehiscence, surgical, initial encounter Even up shoe service parts coordinator. Shoe size 9 1 Each 10/02/19 25 025 Discontin ued(*Med complete/ Regimen complete/ Level of care change) trimethoprim-sulfa methoxazole (Bactrim DS) 160-800 mg tab Take 1 Tablet by mouth two times daily. Take 1 tablet by mouth twice a day for 10 days 025 Discontin ued(*Med complete/ Regimen complete/ Level of care change) oxyCODONE (ROXICODONE) 5 mg immediate release tabletIndications: Chronic bilateral low back pain with left-sided sciatica TAKE 1 TABLET (5 MG) BY MOUTH 2 TIMES DAILY IF NEEDED FOR PAIN. 60 Tablet 11/01/19 25 025 Discontin ued(Reord er (E-cancel not sent)) oxyCODONE (ROXICODONE) 5 mg immediate release tabletIndications: Chronic bilateral low back pain with left-sided sciatica Take 1 Tablet (5 mg) by mouth 2 times daily if needed for Pain. 60 Tablet 12/04/19 25 025 Discontin ued(Reord er (E-cancel not sent)) Hospital, Clinic, or Other Facility Administered Medication Ordered Dose Route Frequency Start Date End Date Status ferumoxytoL (FERAHEME) 510 mg/17 mL (30 mg/mL) injection 510 mgIndications:Low iron stores,Restless leg syndrome 510 mg IV ONE TIME PRN 12/22/2024 12/26/2024 Active ferumoxytoL (FERAHEME) 510 mg/17 mL (30 mg/mL) injection 510 mgIndications:Low iron stores 510 mg IV ONE TIME 12/02/2024 12/03/2024 Ended Active Problems Problem Noted Date Diagnosed Date S/P Achilles tendon repair 10/16/2024 Paroxysmal tachycardia 09/17/2024 Severe tricuspid regurgitation 01/14/2024 Neurocognitive deficits 09/24/2023 Restless leg syndrome 07/23/2023 Controlled substance agreement signed 07/05/2023 Overview (07/05/2023): [facility] Marta Bateman CMA 9:12 AM 07/05/23 Paroxysmal SVT (supraventricular tachycardia) Chronic obstructive pulmonar y disease, unspecified COPD type 03/13/2023 JESUSITA 02/22/2023 AHI- 27 03/13/2023 Atherosclerotic heart diseas e of manzanita coronary artery with other forms of angina pectoris 01/18/2023 Type 2 diabetes mellitus with polyneuropathy 01/2023 Controlled substance agreement signed 07/03/2022 Overview (07/03/2022): [facility] Marta Bateman CMA 8:37 AM 07/03/22 COPD [...] (03/27/2021): [facility] on tylenol [facility] 01/2016 [facility] 2009-ECT, last ECT was 2011 [facility] Hospitalized 8-9 times Coronary artery disease 02/03/2016 Overview (12/14/2020): - [place] 1993 - CAB x 15 Jan 2014 at [place]: IRVIN - LAD, sequential SVG - PDA [...] severe Overview (03/27/2021): Follows with psychiatry at [facility]. Resolved Problems Problem Noted Date Diagnosed Date [...] Encounters Date Type Department Care Team Description 12/16/2024 Nurse Triage [facility] [address] [place] [address] Becky Hopson, DO Home Care (FYI- Patient was triaged by another [facility] Triage department and was advised to go to ED. ) 12/16/2024 Nurse Triage [facility] [address] [place] [address] Joe Jerez DPM wound (On foot) 12/16/2024 Telephone [facility] [address] [place] [address] Alejandro Delatorre MD Questions (Pt looking to speak with Provider/Provider;s team) 12/15/2024 10:00 AM STEREOPTICIAN Home Care Visit [facility] [address] [place] [phone] Alka Roberson, CHELY SN - OASIS RECERTIFICATION 12/15/2024 Nurse Triage [place] [place] [address] Altonqra Becky Opal, DO Home Care (wound vac concern) 12/12/2024 Telephone [facility] [address] [place] [address] Joe Jerez DPM Abstract (Care Coordination ) 12/12/2024 Home Care Visit [facility] [address] [place] [phone] Loli Gomez, CHELY CARE COORDINATION 12/12/2024 Nurse Triage [facility] [phone] Mark Anthony Ebcky Opal, DO Home Care 12/10/2024 9:30 AM CDT Home Care Visit [facility] [address] [place] [phone] Alka Roberson, CHELY SN - WOUND HOME VISIT 12/08/2024 10:00 AM CDT Home Care Visit [facility] [address] [place] [phone] Trixie Sommers LPN ATOMIC WELDER - HOME VISIT 12/08/2024 Telephone [facility] [address] [place] [address] Alejandro Delatorre MD Questions 12/08/2024 Nurse Triage [address] [place] [address] Mark Anthony Becky Opal, DO Error-please disregard 12/07/2024 Home Care Visit [facility] [address] [place] [phone] Loli Gomez, CHELY SN - AFTER HOURS HOME VISIT 12/07/2024 Nurse Triage [facility] [address] [place] [address] Mark Anthony Becky Opal, DO Dressing Change (Wound vac issues) 12/07/2024 Nurse Triage [facility] [address] [place] [address] Sir Hopsoni Opal, DO Questions (Wanting [facility] triage) 12/07/2024 Home Care Visit [facility] [address] [place] [phone] Sophia Barnes, CHELY SN - AFTER HOURS HOME VISIT 12/07/2024 Nurse Triage [address] [address] Sir Hopsoni Opal, DO Wound Check 12/03/2024 3:15 PM CDT Home Care Visit [place] [place] [phone] Beryl Alcantara RN SN - WOUND/OSTOMY DC CONSULT 12/03/2024 9:45 AM CDT Office Visit [facility] [address] [place] [address] Joe Jerez DPM Foot Problem (Postop, Left foot, not good ) 12/03/2024 Telephone [facility] [address] [place] [address] Joe Jerez DPM Questions (Questions) 12/03/[address] [address] Joe Jerez DPM Home Care (Wound Orders) 12/03/2024 Travel 12/03/2024 Telephone [facility] [address] [place] [address] Alejandro Delatorre MD Medication Management (Feraheme x's [address] Delatorre) 12/02/2024 Orders Only [facility] [address] [place] [address] Alejandro Delatorre MD <No scans attached> 12/01/2024 3:00 PM CDT Office Visit [facility] [address] [place] [address] Alejandro Delatorre MD Sleep Follow-up 12/01/2024 10:00 AM CDT Home Care Visit [facility] [address] [place] [phone] Alka Roberson, CHELY SN - WOUND HOME VISIT 12/01/2024 Telephone [facility] [address] [place] [address] Alejandro Delatorre MD Questions 12/01/2024 Travel 11/29/2024 Home Care Visit [facility] [address] [place] [phone] Alka Roberson, CHELY CARE COORDINATION 11/29/2024 Nurse Triage [address] [address] Shaqra, Becky Opal, DO Concerns (wound) 11/28/2024 Refill [facility] [address] [place] [address] Shaqra Becky Opal, DO Medication Management; Refill Request 11/28/2024 Nurse Triage [address] [address] Shaqra, Becky Opal, DO Home Care (Update ) 11/27/2024 Travel 11/26/2024 9:00 AM CDT Home Care Visit [facility] [address] [place] [phone] Glory Rivera, CHELY SN - HOME VISIT 11/26/2024 Telephone [facility] [address] [place] [address] Joe Jerez DPM Questions (Questions) 11/25/2024 1:30 PM CDT Home Care Visit [facility] [address] [place] [phone] Trixie Sommers LPN ATOMIC WELDER - HOME VISIT 11/25/2024 8:05 AM CDT Home Care Visit [facility] [address] [place] [phone] Kylah Stockton CUSTOMER SUPPORT TECHNICIAN - HOME VISIT 11/25/2024 Telephone [facility] [address] [place] [address] Mark Anthony Becky Opal, DO Medication Management 11/25/2024 Refill [facility] [address] [place] [address] Sir Hopsoni Opal, DO Refill Request (benzonatate 100 mg capsule) 11/25/2024 Home Care Visit [place] [place] [phone] Alka Roberson, RN CARE COORDINATION 11/25/2024 Nurse Triage [address] [address] Sir Hopsoni Opal, DO Home Care (Request for wound care measurements) 11/25/2024 Nurse Triage [address] [address] Sir Hopsoni Opal, DO Dressing Change 11/25/2024 Nurse Triage [facility] [address] [place] [address] Joe Jerez, CARLM Concerns 11/24/2024 10:00 AM CDT Home Care Visit [place] [address] [place] [phone] Alka Roberson RN SN - HOME VISIT 11/24/2024 Home Care Visit [address] [phone] Beryl Alcantara RN SN - WOUND/OSTOMY CHART CONSULT 11/19/2024 2:00 PM CDT Home Care Visit [facility] [address] [place] [phone] Alka Roberson RN SN - WOUND HOME VISIT 11/19/2024 10:30 AM CDT Office Visit [facility] [address] [place] [address] Joe Jerez DPM Follow Up (Left achilles wound) 11/19/2024 Travel 11/18/2024 8:05 AM CDT Home Care Visit [facility] [address] [place] [address] Kylah Stockton CUSTOMER SUPPORT TECHNICIAN - HOME VISIT 11/18/2024 Medical Messaging [facility] [address] [place] [address] Becky Hopson Opal, DO Referral 11/17/2024 9:00 AM CDT Home Care Visit [facility] [address] [place] [phone] Alka Roberson, CHELY SN - WOUND LONG VISIT (>90 MINUTES) 11/17/2024 Home Care Visit [facility] [address] [place] [phone] Rekha Botello MSW CARE COORDINATION 11/15/2024 Home Care Visit [facility] [address] [place] [phone] Sophia Barnes RN SN - PRN HOME VISIT 11/15/2024 Travel 11/15/2024 Nurse Triage [facility] [address] [place] [address] Becky Hopson Opal, DO Wound Check 11/12/2024 3:30 PM CDT Home Care Visit [facility] [address] [place] [phone] Alka Roberson, CHELY SN - WOUND LONG VISIT (>90 MINUTES) 11/12/2024 1:15 PM CDT Office Visit [facility] [address] [place] [address] Joe Jerez DPM Post-op (Left achilles, DOS 10/17/24, 4 weeks post op) 11/12/2024 Travel 11/11/2024 1:30 PM CDT Home Care Visit [facility] [address] [place] [phone] Beryl Alcantara RN SN - WOUND/OSTOMY CHART CONSULT 11/11/2024 8:05 AM CDT Home Care Visit [facility] [address] [place] [phone] Kylah Stockton CUSTOMER SUPPORT TECHNICIAN - HOME VISIT 11/11/2024 Telephone [facility] [address] [place] [address] Joe Jerez DPM Home Care (Wound Update) 11/10/2024 11:30 AM CDT Home Care Visit [facility] [address] [place] [phone] Trixie Sommers LPN ATOMIC WELDER - LONG VISIT (>90 MINUTES) 11/10/[address] [address] Joe Jerez DPM Wound Check (Wound vac) 11/08/2024 11:45 AM CDT Home Care Visit [place] [address] [place] [phone] Yesy Torres RN SN - HOME VISIT 11/07/2024 3:30 PM CDT Home Care Visit [address] [phone] Chavo Roa, PT PT - DISCIPLINE DISCHARGE 11/07/2024 3:00 PM CDT Home Care Visit [address] [phone] Loli Brady RN SN - HOME VISIT 11/07/2024 8:05 AM CDT Home Care Visit [address] [phone] Kylah Stockton CUSTOMER SUPPORT TECHNICIAN - HOME VISIT 11/07/2024 Home Care Visit [address] [phone] Rosalva Gu OT OT - DISCIPLINE DISCHARGE 11/07/2024 Nurse Triage [facility] [address] [place] [address] Becky Hopson, DO Concerns (Wound vac concern) 11/05/2024 10:00 AM CDT Home Care Visit [facility] [address] [place] [address] Trixie Sommers LPN ATOMIC WELDER - LONG VISIT (>90 MINUTES) 11/05/2024 9:15 AM CDT Office Visit [facility] [address] [place] [address] Joe Jerez, DPM Post-op (Left achilles, DOS 10/17/24, 3 weeks post op) 11/05/2024 Home Care Visit [facility] [address] [place] [address] Rosalva Gu, OT CARE COORDINATION 11/05/2024 Travel 11/04/2024 4:00 PM CDT Home Care Visit [facility] [address] [place] [phone] Lydia Duran COTA OT - HOME VISIT 11/04/2024 8:05 AM CDT Home Care Visit [facility] [address] [place] [phone] Kylah Stockton CUSTOMER SUPPORT TECHNICIAN - HOME VISIT 11/04/2024 Home Care Visit [facility] [address] [place] [phone] Rosalva Gu, OT CARE COORDINATION 11/03/2024 11:30 AM CDT Home Care Visit [facility] [address] [place] [phone] Alka Roberson, CHELY SN - WOUND LONG VISIT (>90 MINUTES) 11/01/2024 Nurse Triage [facility] [address] [place], [place] [phone] Becky Hopson, DO DME Supply 10/31/2024 7:00 AM CDT Home Care Visit [facility] [address] [place] [phone] Kylah Stockton CUSTOMER SUPPORT TECHNICIAN - HOME VISIT 10/31/2024 Refill [facility] [address] [place] [address] Sir Hopsoni Opal, DO Refill Request (Oxycodone) 10/29/2024 10:30 AM CDT Home Care Visit [facility] [address] [place] [phone] Jessica Vazquez, CHELY SN - WOUND LONG VISIT (>90 MINUTES) 10/28/2024 3:15 PM CDT Home Care Visit [facility] [address] [place] [phone] Chavo Roa, PT PT - INITIAL ASSESSMENT 10/28/2024 11:45 AM CDT Home Care Visit [address] [phone] Kylah Stockton CUSTOMER SUPPORT TECHNICIAN - HOME VISIT 10/28/2024 Home Care Visit [address] [phone] Rosalva Gu, OT OT - INITIAL ASSESSMENT 10/27/2024 10:30 AM CDT Home Care Visit [address] [phone] Alka Roberson RN SN - WOUND LONG VISIT (>90 MINUTES) 10/25/2024 12:00 PM CDT Home Care Visit [address] [phone] Trixie Sommers LPN ATOMIC WELDER - HOME VISIT 10/25/2024 Nurse Triage [address] [address] Sir Hopsoni Opal, DO Dressing Change 10/23/2024 10:15 AM CDT Orders Only [facility] [address] [place] [address] [place] <No scans attached> 10/23/2024 Orders Only [facility] Scanner 1 scan: (1-Ord) [facility], 10/23/2024 10/22/2024 2:30 PM CDT Home Care Visit [facility] [address] [place] [address] Beryl Alcantara, CHELY SN - WOUND/OSTOMY CHART CONSULT 10/22/2024 1:30 PM CDT Office Visit [facility] [address] [place] [id number] Joe Jerez, DPM Post-op (Left achilles, DOS 10/17/24, initial post op) 10/22/2024 1:00 PM CDT Office Visit [facility] [address] [place] [address] Lolis Fernandes MD Hospital F/U (10/19, Cleaning out wound/) 10/22/2024 9:30 AM CDT Home Care Visit [facility] [address] [place] [address] Alka Roberson RN SN - HOME VISIT 10/22/2024 Travel 10/22/2024 Orders Only [facility] [address] [place] [address] Becky Hopson Opal, DO <No scans attached> 10/22/2024 Telephone [facility] [address] [place] [address] Jessica Vazquez, manager bilingual (SOC) 10/21/2024 Home Care Visit [facility] [address] [place] [address] Kylah Stockton CUSTOMER SUPPORT TECHNICIAN - HOME VISIT 10/20/2024 1:00 PM CDT Home Care Visit [facility] [address] [place] [phone] Jessica Vazquez, CHELY SN - OASIS START OF CARE 10/20/2024 Plan of Care Documentation [facility] [address] [place] [phone] 10/20/2024 Transcribe Orders [place] [id number] [place] [phone] Claire Aden MD 10/20/2024 Home Care Visit [facility] [address] [facility] [place] [address] Alka Roberson, CHELY EPISODE DISCHARGE 10/17/2024 Orders Only [facility] Scanner 1 scan: (1-Ord) [facility], AEROBIC CULTURE, 10/17/2024 10/17/2024 Orders Only [facility] Scanner 1 scan: (1-Ord) [facility] [place], MULTIPLE LAB RESULTS, 10/17/2024 10/17/2024 Orders Only [facility] Scanner 1 scan: (1-Ord) [facility] [place], GRAM STAIN/ AEROBIC CULTURE, 10/17/2024 10/17/2024 Orders Only [facility] Scanner 1 scan: (1-Ord) [facility], MULTIPLE RESULTS , 10/17/2024 10/17/2024 Orders Only [facility] Scanner 1 scan: (1-Ord) [facility], I AND D WITH WIDE DEBRIDEMENT LT LOWER LEG WOUND, 10/17/2024 10/17/2024 Orders Only [facility] Scanner 1 scan: (1-Ord) [facility], MULTIPLE RESULTS , 10/17/2024 10/16/2024 3:30 PM CDT Home Care Visit [facility] [address] [facility] [place] [address] Alka Roberson, RN SN - OASIS RECERTIFICATION 10/16/2024 Plan of Care Documentation [facility] [address] [place] [address], [place] [phone] 10/16/2024 Home Care Visit [facility] [address] [place] [address], [place] [phone] Chavo Roa, PT CARE TRANSITION NOTE 10/16/2024 Home Care Visit [place] [id number] [place] [address], [place] [phone] Romana Joel, CHELY CARE COORDINATION 10/16/2024 Telephone [facility] [address] [place] [address] Shaqra, Becky Opal, DO Outside Order (Lift chair) 10/16/2024 Telephone [facility] [address] [place] [address] Joe Jerez DPM Questions (Wound Care Concerns) 10/16/2024 Nurse Triage [facility] [address] [place] [address] AltonascencionSir spannairam Joseph, DO Concerns 10/15/2024 2:15 PM CDT Office Visit [facility] [address] [place] [address] Joe Jerez DPM Follow Up (Surgical wound dehiscence) 10/15/2024 1:40 PM CDT Ancillary Procedure [facility] [address] [place] [address] 10/15/2024 9:00 AM CDT Home Care Visit [facility] [address] [place] [address] Rosalva Gu OT OT - REASSESSMENT 10/15/2024 Home Care Visit [facility] [address] [place] [address] Kristen Olson LISW PRETZEL TWISTING MACHINE OPERATOR - TELEHEALTH VISIT 10/15/2024 Home Care Visit [facility] [address] [place] [address] Romana Joel, RN CARE COORDINATION 10/15/2024 Home Care Visit [facility] [address] [place] [address] Romana Joel, RN CARE COORDINATION 10/15/2024 Telephone [facility] [address] [place] [address] Kristen Olson LISW Home Care 10/15/2024 Telephone [facility] [address] [place] [address] Alejandro Delatorre MD Appointment Request 10/15/2024 Travel 10/15/2024 Telephone [facility] [address] [place] [address] Becky Hopson, DO Home Care 10/14/2024 Home Care Visit [facility] [address] [place] [phone] Lambert Fabian, VALIDATION TECHNICIAN VALIDATION TECHNICIAN - HOME VISIT 10/13/2024 10:00 AM CDT Home Care Visit [facility] [address] [place] [phone] Mandy Hills, RN SN - HOME VISIT 10/12/2024 10:30 AM CDT Home Care Visit [facility] [address] [place] [phone] Jessica Vazquez, CHELY SN - PRN HOME VISIT 10/11/2024 Nurse Triage [facility] [address] [place] [address] Becky Hopson Opal, DO Dressing Change (Patient wound on left foot on her heal/Ankle is completely saturated with blood ) 10/10/2024 4:00 PM CDT Home Care Visit [facility] [address] [place] [phone] Chavo Roa, PT PT - HOME VISIT 10/10/2024 1:00 PM CDT Home Care Visit [facility] [address] [place] [phone] Trixie Sommers, ATOMIC WELDER ATOMIC WELDER - HOME VISIT 10/10/2024 Home Care Visit [facility] [address] [place] [phone] Kristen Olson LISW PRETZEL TWISTING MACHINE OPERATOR - TELEHEALTH VISIT 10/09/2024 10:15 AM CDT Home Care Visit [facility] [address] [place] [phone] Lambert Fabian, VALIDATION TECHNICIAN VALIDATION TECHNICIAN - HOME VISIT 10/09/2024 5:30 AM CDT Home Care Visit [facility] [address] [place] [phone] Chavo Tsang, RN SN - WOUND/OSTOMY CHART CONSULT 10/09/[address] [address] Chavo Tsang, manager bilingual 10/09/2024 Home Care Visit [facility] [address] [place] [phone] Loli Gomez RN SN - AFTER HOURS HOME VISIT 10/09/2024 Nurse Triage [address] [address] Mark Anthony Becky Opal, DO Home Care (wound care/dressing change) 10/08/2024 12:00 PM CDT Home Care Visit [address] [phone] Lydia Duran COTA OT - HOME VISIT 10/08/2024 10:00 AM CDT Home Care Visit [place] [address] [place] [phone] Trixie Sommers LPN ATOMIC WELDER - HOME VISIT 10/06/2024 12:00 PM CDT Home Care Visit [address] [phone] Trixie Sommers LPN ATOMIC WELDER - HOME VISIT 10/06/[address] [phone] Alejandro Delatorre MD Concerns (appointment concern) 10/06/2024 Nurse Triage [address] [address] Mark Anthony Becky Opal, DO Dressing Change; Home Care 10/03/2024 3:45 PM CDT Home Care Visit [address] [phone] Chavo Roa, PT PT - HOME VISIT 10/03/2024 Home Care Visit [address] [phone] Kristen Olson LISW PRETZEL TWISTING MACHINE OPERATOR - CASE COMMUNICATION 10/02/2024 4:00 PM CDT Home Care Visit [facility] [address] [place] [address] Lydia Duran CAMPOS OT - HOME VISIT 10/02/2024 11:15 AM CDT Home Care Visit [facility] [address] [place] [address] Lambert Fabian, VALIDATION TECHNICIAN VALIDATION TECHNICIAN - HOME VISIT 10/02/2024 10:15 AM CDT Home Care Visit [facility] [address] [place] [address] Kylah Stockton CUSTOMER SUPPORT TECHNICIAN - HOME VISIT 10/02/2024 Home Care Visit [facility] [address] [place] [address] Kristen Olson LISW PRETZEL TWISTING MACHINE OPERATOR - CASE COMMUNICATION 10/01/2024 2:30 PM CDT Ancillary Procedure [facility] [address] [place] [address] 10/01/2024 2:15 PM CDT Office Visit [facility] [address] [place] [address] Joe Jerez, DPM Post-op (Left achilles, DOS 08/18/24, 6 week post op) 10/01/2024 Travel 09/29/2024 11:15 AM CDT Home Care Visit [facility] [address] [place] [address] Kylah Stockton CUSTOMER SUPPORT TECHNICIAN - HOME VISIT 09/29/2024 10:00 AM CDT Home Care Visit [facility] [address] [place] [phone] Alka Roberson RN SN - HOME VISIT 09/29/2024 Home Care Visit [facility] [address] [place] [address] Kristen Olson LISW CARE COORDINATION 09/26/2024 11:00 AM CDT Home Care Visit [facility] [address] [place] [address] Jessica Vazquez RN SN - HOME VISIT 09/25/2024 11:15 AM CDT Home Care Visit [facility] [address] [place] [phone] Lambert Fabian, VALIDATION TECHNICIAN VALIDATION TECHNICIAN - INITIAL ASSESSMENT 09/25/2024 10:15 AM CDT Home Care Visit [facility] [address] [place] [phone] Kylah Stockton CUSTOMER SUPPORT TECHNICIAN - HOME VISIT 09/25/2024 Telephone [facility] [address] [place] [address] Becky Hopson, DO Questions (F/u walker orders) 09/24/2024 9:00 AM CDT Home Care Visit [facility] [address] [place] [phone] Alka Roberson RN SN - HOME VISIT 09/23/2024 1:15 PM CDT Office Visit [facility] [address] [place] [address] Joe Jerez, DPM Post-op (Left achilles, DOS 08/18/24, 5 weeks post op, wound dehiscence ) 09/23/2024 Travel 09/22/2024 11:15 AM CDT Home Care Visit [facility] [address] [place] [phone] Kylah Stockton CUSTOMER SUPPORT TECHNICIAN - HOME VISIT 09/22/2024 10:30 AM CDT Home Care Visit [facility] [address] [place] [phone] Alka Roberson RN SN - HOME VISIT 09/19/2024 11:00 AM CDT Home Care Visit [facility] [address] [place] [phone] Alka Roberson RN SN - HOME VISIT 09/19/2024 Nurse Triage [address] [place] [address] Becky Hopson DO Post-op Infection 09/19/2024 Nurse Triage [facility] [address] [place] [address] Joe Jerez DPM Error-please disregard 09/18/2024 2:45 PM CDT Home Care Visit [facility] [address] [place] [phone] Deirdre Mcmullen, PT PT - HOME VISIT 09/18/2024 11:15 AM CDT Home Care Visit [facility] [address] [place] [phone] Rosalva Gu, OT OT - REASSESSMENT 09/18/2024 10:15 AM CDT Home Care Visit [facility] [address] [place] [phone] Kylah Stockton CUSTOMER SUPPORT TECHNICIAN - HOME VISIT 09/17/2024 1:45 PM CDT Office Visit [facility] [address] [place] [address] Becky Hopson DO Medicare ANNUAL (subsequent) Visit (64 year old female); Diabetes (3 month check); Pain (Pain management) 09/17/2024 9:00 AM CDT Home Care Visit [facility] [address] [place] [phone] Alka Roberson RN SN - HOME VISIT 09/17/2024 Travel 09/15/2024 12:15 PM CDT Home Care Visit [facility] [address] [place] [phone] Yesy Torres, CHELY SN - HOME VISIT 09/15/2024 11:15 AM CDT Home Care Visit [facility] [address] [place] [phone] Kylah Stockton CUSTOMER SUPPORT TECHNICIAN - HOME VISIT 09/15/2024 7:00 AM CDT Home Care Visit [facility] [address] [place] [address] Beryl Alcantara RN SN - WOUND/OSTOMY CHART CONSULT 09/15/2024 Telephone [facility] [address] [place] [address] Joe Jerez, DPM Home Care (Wound Orders) from Last 3 Months Immunizations Immunization Administration [...] Date Smoking Tobacco: Every Day Cigarettes 0.3 32.8 Started: 05/18/1990; Last attempted to quit: 05/18/2020 [...] on file Legal Sex Female 6:59 AM STEREOPTICIAN Gender Identity Not on file Sexual Orientation Not on file 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 Not 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 Not on file Not on file Obstetrics History Last Filed Vital Signs Vital Sign Reading Time Taken Comments Blood Pressure 131/80 12/15/2024 10:25 AM STEREOPTICIAN Pulse 71 12/15/2024 10:21 AM STEREOPTICIAN Temperature 36.7 C (98.1 F) 12/15/2024 10:21 AM STEREOPTICIAN Respiratory Rate 18 12/15/2024 10:21 AM STEREOPTICIAN Oxygen Saturation 91% 12/15/2024 10:21 AM STEREOPTICIAN RA Inhaled Oxygen Concentration - - Weight 81.3 kg (179 lb 3.2 oz) 12/15/2024 10:25 AM STEREOPTICIAN Height 157.5 cm (5' 2.01) 12/01/2024 3:08 PM CD T Body Mass Index 32.77 12/01/2024 3:08 PM CDT Plan of Treatment Upcoming Encounters Date Type Department Care Team (Late st Contact Info) Description 12/15/2024 Plan of Care Documentation [address] [phone] 12/17/2024 10:00 AM STEREOPTICIAN Appointment [address] [phone] Trixie Sommers LPN 12/18/2024 1:15 PM STEREOPTICIAN Office Visit [facility] [address] [place], [place] [phone] Robert Wilkinson, DO [address] [address] 12/19/2024 1:20 PM STEREOPTICIAN Office Visit [facility] [address] [place] [address] Becky Hopson, DO [address] [place] [address] 12/23/2024 10:00 AM STEREOPTICIAN Nurse/Clinic Staff Only [facility] [address] [place] [address] 12/24/2024 4:00 AM STEREOPTICIAN Appointment [address] [phone] Beryl Alcantara, RN [address] [place] [address] 12/24/2024 3:00 PM STEREOPTICIAN Office Visit [facility] [address] [place] [address] Joe Jerez, DPM [address] [place] [address] 01/14/2025 2:00 PM STEREOPTICIAN Ancillary Procedure [facility] [address] [place] [phone] 01/21/2025 2:00 PM STEREOPTICIAN Office Visit [facility] [address] [place] [address] Sathish Contreras MD [address] [address] Health Maintenance Due Date Last Done Comments Hepatitis B series for 19+ ( 3 of 3 - 19+ 3-dose series) 08/06/2017 06/11/2017, 02/26/2001, 02/26/2001 Depression screening for age 12+ 06/28/2024 06/29/2023, 06/28/2023, 06/27/2023, Additional history exists Influenza Vaccine (#1) 2024 , 11/19/2023, 11/27/2022, Additional history exists Low Dose CT (for lung CA) ag e 50-80 07/02/2025 07/02/2024, 04/17/2023, 04/12/2022 Medicare Wellness for age 65+ 09/18/2025, 06/27/2023, 09/22/2020 Mammogram for age 45-75 10/15/2025 10/16/19, 07/17/2023, 04/03/2022, Additional history exists BMI (ht and wt on same day) for age 18+ 12/01/2025 12/01/2024, 09/17/2024, 07/23/2024, Additional history exists Lipids for age 45-75 [...] Procedure Name Priority Date/Time Associated Diagnosis Comments IRON PLUS IRON BINDING CAP Routine 12/01/2024 4:05 PM CDT Low iron CREATININE Routine 12/01/2024 4:05 PM CDT Abnormal kidney function SCAN-EYE EXAM 10/23/2024 12:00 AM CDT CLOSTRIDIOIDES DIFFICILE TOXIN PCR Routine 10/22/2024 10:25 PM CDT Watery diarrhea BASIC METABOLIC PANEL Routine 10/22/2024 2:41 PM CDT S/P Achilles tendon repair Wound cellulitis after surgery SCAN-PATHOLOGY REPORT 10/17/2024 12:00 AM CDT SCAN-PATHOLOGY REPORT 10/17/2024 12:00 AM CDT SCAN-PATHOLOGY REPORT 10/17/2024 12:00 AM CDT SCAN-PATHOLOGY REPORT 10/17/2024 12:00 AM CDT SCAN-PATHOLOGY REPORT 10/17/2024 12:00 AM CDT SCAN-OPERATIVE/PROCEDU RE REPORT 10/17/2024 12:00 AM CDT AEROBIC BACTERIAL CULTURE, STAIN Routine 10/15/2024 3:00 [...] Type 2 diabetes mellitus with polyneuropathy (HC) CT CHEST SCREENING LOW DOSE WO CONTRAST Routine 07/02/2024 12:57 PM CDT COPD with chronic bronchitis (HC) Current nicotine use Personal history of nicotine dependence LIPID PANEL W REFLEX MEASURED LDL Routine 06/17/2024 4:13 PM CDT Coronary artery disease involving coronary bypass graft of manzan[place] heart, unspecified whether angina present XR DXA BONE DENSITY 2 SITES AXIAL Routine 10/22/2023 1:51 PM CDT Postmenopausal SC COLONOSCOPY W/BIOPSY SINGLE/MULTIPLE Routine 05/30/2021 12:00 AM CDT Screen for colon cancer Polyp of colon, unspecified part of colon, unspecified type ANTI HCV Routine 08/18/2020 11:10 AM CDT Need for hepatitis C screening test from Last 3 Months or Most Recently Relevant to Health Maintenance Results * (ABNORMAL) IRON PLUS IRON BINDING CAP (12/01/2024 4:05 PM CDT) IRON, TOTAL 36(L) 45 - 160 mcg/dL 12/02/2024 4:19 AM CDT [facility] IRON BINDING CAPACITY 295 250 - 450 mcg/dL (calc) 12/02/2024 4:19 AM CDT [facility] % SATURATION 12(L) 16 - 45 % (calc) 12/02/2024 4:19 AM CDT [facility] Blood BLOOD SPECIMEN / Unknown [facility] / Unknown 12/01/2024 4:05 PM CDT 12/01/2024 4:06 PM CDT Alejandro Delatorre MD CHEMISTRY Final Result Performing Organization Address [facility] Co de Phone Number [facility] [address] [address], * (ABNORMAL) CREATININE (12/01/2024 4:05 PM CDT) CREATININE 1.09(H) 0.50 - 1.05 mg/dL 12/02/2024 4:19 AM CDT [facility] EGFR 56(L) > OR = 60 mL/min/1.7 3m2 12/02/2024 4:19 AM CDT [facility] Blood BLOOD SPECIMEN / Unknown [facility] / Unknown 12/01/2024 4:05 PM CDT 12/01/2024 4:06 PM CDT Becky Hopson DO CHEMISTRY Final Result Performing Organization Address [facility]/ZIP Co de Phone Number [facility] [address] [phone], * SCAN-EYE EXAM (10/23/2024 12:00 AM CDT) Scanner OTHER Final Result * CLOSTRIDIOIDES DIFFICILE TOXIN PCR (10/22/2024 10:25 PM CDT) CLOSTRIDIUM DIFFICILE TOXIN/GDH W/REFL TO PCR SEE NOTE 10/24/2024 4:12 PM CDT [facility] Comment: CLOSTRIDIUM DIFFICILE TOXIN/GDH W/REFL TO PCR Micro Number: [id number] Test Status: Final Specimen Source: Stool Specimen Quality: Adequate GDH Antigen: Not Detected Toxin A and B: Not Detected COMMENT: No toxigenic C. difficile detected For additional information, please refer to http://education.Project WBS/faq/[email or web address] (This link is being provided for informational/educational purposes only.) Stool STOOL SPECIMEN / Unknown Non-Blood / Unknown 10/22/2024 10:25 PM CDT 10/23/2024 10:19 AM CDT Lolis Fernandes MD MICROBIOLOGY [facility] Result [facility] [address] [address], * (ABNORMAL) BASIC METABOLIC PANEL (10/22/2024 2:41 PM CDT) SODIUM 139 135 - 146 mmol/L 10/23/2024 4:19 AM CDT [facility] POTASSIUM 3.9 3.5 - 5.3 mmol/L 10/23/2024 4:19 AM CDT [facility] CARBON DIOXIDE 27 20 - 32 mmol/L 10/23/2024 4:19 AM CDT [facility] GLUCOSE 122(H) 65 - 99 mg/dL 10/23/2024 4:19 AM CDT [facility] Comment: Fasting reference interval For someone without known diabetes, a glucose value between 100 and 125 mg/dL is consistent with prediabetes and should be confirmed with a follow-up test. CALCIUM 9.7 8.6 - 10.4 mg/dL 10/23/2024 4:19 AM CDT [facility] CREATININE 1.50(H) 0.50 - 1.05 mg/dL 10/23/2024 4:19 AM CDT [facility] BUN/CREATININE RATIO 13 6 - 22 (calc) 10/23/2024 4:19 AM CDT [facility] EGFR 38(L) > OR = 60 mL/min/1. 73m2 10/23/2024 4:19 AM CDT [facility] UREA NITROGEN (BUN) 20 7 - 25 mg/dL 10/23/2024 4:19 AM CDT [facility] ELECTROLYTE BALANCE 8 7 - 17 mmol/L (calc) 10/23/2024 4:19 AM CDT [facility] CHLORIDE 104 98 - 110 mmol/L 10/23/2024 4:19 AM CDT [facility] Blood BLOOD SPECIMEN / Unknown [facility] / Unknown 10/22/2024 2:41 PM CDT 10/22/2024 2:41 PM CDT us Lolis Fernandes MD CHEMISTRY Fi nal Result [facility] [address] [address], [place] [phone] * SCAN-OPERATIVE/PROCEDURE REPORT (10/17/2024 12:00 AM CDT) us Scanner OTHER Final Result * SCAN-PATHOLOGY REPORT (10/17/2024 12:00 AM CDT) Only the most recent of5 resultswithin the time period is included. us Scanner OTHER Final Result * (ABNORMAL) AEROBIC BACTERIAL CULTURE, STAIN (10/15/2024 3:00 PM CDT) CULTURE RESULT(A) 10/19/2024 10:18 AM CDT [facility] CULTURE 4+ Leclercia adecarboxylata 10/19/2024 10:18 AM CDT [facility] CULTURE 4+ Stenotrophomonas maltophilia 10/19/2024 10:18 AM CDT [facility] CULTURE 4+ Staphylococcus lugdunensis 10/19/2024 10:18 AM CDT [facility] CULTURE 2+ Mixed gurdeep present 10/19/2024 10:18 AM CDT [facility] GRAM STAIN No PMNs 10/19/2024 10:18 AM CDT [facility] GRAM STAIN No RBCs 10/19/2024 10:18 AM CDT [facility] GRAM STAIN 1+ Epithelial cells 10/19 10:18 AM CDT [facility] GRAM STAIN 3+ Gram Positive Cocci 10/19/2024 10:18 AM CDT [facility] GRAM STAIN 2+ Gram Negative Bacilli 10/19/2024 10:18 AM CDT [facility] Other (Other) Non-Blood / Unknown 10/15/2024 3:00 PM CDT 10/15/2024 3:07 PM CDT [facility] - 10/19/2024 10:18 AM CDT Mixed gurdeep, No Staphylococcus aureus, beta- Streptococcus, Streptococcus pneumoniae, or Pseudomonas aeruginosa. Organism Antibiotic Method Susceptibility Leclercia adecarboxylata TRIMETHOPRIM/SULF <=1/19: S Leclercia adecarboxylata AMPICILLIN <=2: S Leclercia adecarboxylata CEFAZOLIN 2: S Leclercia adecarboxylata GENTAMICIN <=1: S Leclercia adecarboxylata CEFTRIAXONE <=0.25: S Leclercia adecarboxylata CEFTAZIDIME <=0.5: S Leclercia adecarboxylata LEVOFLOXACIN <=0.12: S Leclercia adecarboxylata CIPROFLOXACIN <=0.06: S Leclercia adecarboxylata PIPERACILLIN/TAZO <=4: S Leclercia adecarboxylata AMPICILLIN/SULBACTAM <=2: S Leclercia adecarboxylata CEFEPIME <=0.12: S Leclercia adecarboxylata MEROPENEM <=0.25: S Stenotrophomonas maltophilia LEVOFLOXACIN S Stenotrophomonas maltophilia MINOCYCLINE S Stenotrophomonas maltophilia TRIMETHOPRIM/SULF S Staphylococcus lugdunensis OXACILLIN 2: S Comment:Oxacillin gooden sceptible should not be interpreted as penicillin or amoxicillin susceptible. Staphylococcus lugdunensis CLINDAMYCIN <=0.12: S Staphylococcus lugdunensis DOXYCYCLINE <=0.5: S Staphylococcus lugdunensis CEFAZOLIN S Staphylococcus lugdunensis TRIMETHOPRIM/SULF <=0.5/9.5: S Joe Jerez DPM MICROBIOLOGY Final Res ult [facility] [address] [place] [address], [place] * XR MAMMO CASSY BILAT SCREEN (10/15/2024 [...] care provider. XR MAMMO CASSY BILAT SCREEN [[id number]] CLINICAL HISTORY: This is an asymptomatic 64 y.o. patient. INDICATION FOR EXAM: Mammogram Screening. TECHNIQUE: CC and MLO views were obtained. This study was evaluated with the assistance of Computer-Aided Detection. Breast Tomosynthesis was used in interpretation. COMPARISON FILM: Yes 07/17/23 [facility] 04/03/22 [facility] FINDINGS: There are scattered areas of fibroglandular density. There are no dominant masses, suspicious micro calcifications or areas of architectural distortion. us Becky Opal Shaqra DO MAMMO Final Result * XR CALCANEUS 2 VIEWS LEFT (10/01/2024 2:40 PM CDT) Anatomical Region Laterality Modality CALCANEI, CALCANEUS L [...] 10/02/2024 10:44:18 (Electronically Signed) us Joe Jerez DP GENERAL IMAGING Final Res ult * (ABNORMAL) COMPLIANCE DRUG ANALYSIS (09/17/2024 2:44 PM CDT) 6-MONOACETYL MORPHINE NEG NEG ng/mL 09/22/2024 12:42 PM [facility] AMPHETAMINE URINE NEG <=500 ng/mL 09/22/2024 12:42 PM [facility] BARBITURATE URINE NEG <=200 ng/mL 09/22/2024 12:42 PM [facility] [facility] BENZODIAZEPINE URINE NEG <=100 ng/mL 09/22/2024 12:42 PM [facility] BUPRENORPHRINE URINE NEG <=5 ng/mL 09/12 12:42 PM T [facility] COCAINE METAB URINE NEG <=300 ng/mL 09/22/2024 12:42 PM T [facility] ETHYLGLUCURONIDE URINE NEG <=250 ng/mL 09/22/2024 12:42 PM [facility] FENTANYL URINE NEG <=5 ng/mL 09/22/2024 12:42 PM [facility] METHADONE URINE NEG <=300 ng/mL 09/22/2024 12:42 PM [facility] OPIATES URINE NEG <=300 ng/mL 09/22/2024 12:42 PM [facility] OXYCODONE URINE POS(A) <=100 ng/mL 09/22/2024 12:42 PM [facility] PROPOXYPHENE URINE NEG <=300 ng/mL 09/22/2024 12:42 PM [facility] THC 50 URINE NEG <=50 ng/mL 09/22/2024 12:42 PM [facility] TRAMADOL NEG <=200 ng/mL 09/22/2024 12:42 PM [facility] PH URINE 5.4 5.0 - 7.0 09/22/2024 12:42 PM [facility] CREAT UR 11(L) >=20 mg/dL 09/22/2024 12:42 PM [facility] MASS SPECTROMETRY See Below 025 12:42 PM [facility] Comment:Furosemide, Mirtazap ine, Oxycodone, and Oxycodone metabolite present. Urine URINE SPECIMEN / Unknown Non-Blood / Unknown 09/17/2024 2:44 PM CDT 09/17/2024 3:01 PM CDT [facility] - 09/22/2024 12:42 PM T Current Outpatient Medications: acetaminophen (TYLENOL EXTRA STRGTH) [...] if needed for Cough. blood sugar diagnostic (KiraxTouch Verio test strips) strip, USE TO TEST [...] equipment (DME), [employer] STANDARD, MEDIUM, REF: [id number] durable medical equipment (DME), [employer], REF: [phone] durable medical equipment (DME), [employer] SELECT, STANDARD, SMALL, REF: EF-S empagliflozin (Jardiance) 10 mg tablet, Take 1 Tablet (10 mg) by mouth once daily. fluticasone dnq-jyjsafvbhrna-uwakmnqjyc (Trelegy Ellipta) 100-62.5-25 mcg inhaler, Inhale 1 [...] (NARCAN) 4 mg/actuation nasal spray, Inhale 1 Bahama into affected nostril(s) each time if needed [...] FIND ANOTHER PAIN CLINIC [place] .[place] [facility] [phone] for any further needs (prescriptions/ or other problems) during transitioning to another pain clinic even after [facility] [place] pregabalin 150 mg capsule, Take 1 [...] visit. As of 09/17/2024 Release to patient->Immediate Becky Opal Shaqra DO URINE Final Result Performing Organization Address [facility]/ZIP Co de Phone Number [facility] [address] [place] [address], [place] * URINE ALBUMIN TO CREATININE RATIO, RANDOM (09/17/2024 2:44 PM CDT) ALB RAND URINE <12.0 mg/L 09/17/2024 11:46 PM CDT [facility] CREATININE,URINE 0.22 g/L 09/18/19 25 11:46 PM CDT [facility] ALBUMIN TO CREATININE RATIO,RAND UR 09/17/2024 11:46 PM CDT [facility] Comment:Urine Albumin below measurement range, unable to calculate. Urine URINE SPECIMEN / Unknown Non-Blood / Unknown 09/17/2024 2:44 PM CDT 09/17/2024 3:01 PM CDT Narrative [facility] - 09/17/2024 11:46 PM CDT If Albumin to Creatinine Ratio is elevated, consider the following: Elevations seen with incipient nephropathy associated with diabetes mellitus or hypertension. Stress, exercise,hematuria, and urinary tract infection may also produce elevated results. If clinically indicated, confirm with 24 Hour Albumin to Creatinine Ratio. [employer] URINE Final Result Performing Organization Address [facility] de Phone Number [facility] [address] [place] [address], [place] * (ABNORMAL) HEMOGLOBIN A1C MONITORING (POCT) (09/17/2024 1:35 PM CDT) POC HEMOGLOBIN A1C 6.7(H) <6.0 % OF TOTAL HGB [facility] Comment: Any point of care results exhibiting inconsistency with the patient's clinical status should be repeated using a different testing method. Blood BLOOD SPECIMEN / Unknown 09/17/2024 1:35 PM CDT 09/17/2024 1:36 PM CDT [employer] DO CHEMISTRY Final Result [facility] [address] [facility] [place] [place] [address], [place] [phone] [facility] [address] [address] * CT CHEST SCREENING LOW DOSE WO [...] by: Chavo Hernández MD @07/02/2024 3:46:57 PM CRL/heatherw Narrative 07/02/2024 4:00 PM CDT For Patients: [...] ABDOMEN: Unremarkable. MUSCULOSKELETAL: No fracture. us Becky Dangqra DO CT Final Result * (ABNORMAL) LIPID PANEL W REFLEX MEASURED LDL (06/17/2024 4:13 PM CDT) CHOLESTEROL,TOTAL 164 100 - 199 mg/dL 06/17/2024 10:55 PM CDT [facility] Comment: Cholesterol, Total Reference Ranges Desirable <200 mg/dL Borderline 200-239 mg/dL High >=240 mg/dL TRIGLYCERIDES 305(H) <150 mg/dL 06/17/2024 10:55 PM CDT [facility] HDL CHOLESTEROL 50 >40 mg/dL 10:55 PM CDT [facility] NON-HDL CHOLESTEROL 114 <145 mg/dl 06/17/2024 10:55 PM CDT [facility] CHOL/HDL RATIO 3.28 <4.50 06/17/2024 10:55 PM CDT [facility] LDL CHOLESTEROL 53 <=130 mg/dL 06/17/2024 10:55 PM CDT [facility] VLDL CHOLESTEROL 61(H) <=30 mg/dL 06/17/2024 10:55 PM CDT [facility] PROVIDER ORDERED STATUS RANDOM 06/17/2024 10:55 PM CDT [facility] Blood BLOOD SPECIMEN / Unknown [facility] / Unknown 06/17/2024 4:13 PM CDT 06/17/2024 4:13 PM CDT us Sathish Contreras MD CHEMISTRY Final R esult [facility] [address] [place] [phone], * (ABNORMAL) XR DXA BONE DENSITY 2 SITES AXIAL [73252.1] (10/22/2023 1:51 PM CDT) Anatomical Region Laterality [...] recommended in 3-5 years. Khushboo Banks PA-C [facility] 10/23/2023 Narrative 10/23/2023 12:40 PM CDT For Patients: Results are automatically released to your [facility] (frents) account once available, in compliance with federal regulations. This means that you may see your results before your provider has had a chance to review them. Please allow 2-3 business days for your provider to comment on the results. XR DXA Bone Mineral Density (BMD) EXAM LOCATION: [facility] [address] [facility] [address] PATIENT NAME: Angeles Guerrier DATE OF : [...] two scanners are made by the same supervisor color paste mixing. PROCEDURE: Dual-energy x-ray absorptiometry performed with routine [...] Becky Hopson DO DEXA Final Result * SC COLONOSCOPY W/BIOPSY SINGLE/MULTIPLE (05/30/2021 12:00 AM CDT) David Bianchi MD PB - DIGESTIVE SYSTEM SER VICES Final Result * ANTI HCV (08/18/2020 11:10 AM CDT) HEPATITIS C ANTIBODY Non-React matias Non-React matias 08/18/2020 5:49 PM CDT [facility] Comment:Antibodies to HCV no t detected; does not exclude the possibility of exposure to HCV. Blood BLOOD SPECIMEN / Unknown Venipuncture / Unknown 08/18/2020 11:10 AM CDT 08/18/2020 11:10 AM CDT Adriane CORONA SEND OUTS Final Result [facility] [address] [place] [address], from Last 3 Months or Most Recently Relevant to Health Maintenance Insurance [id number] [place] [id number] MEDICAID MEDICARE PART A HB ONLY [facility] [id number] [place] [id number] [facility] MEDICARE PDGM [facility] Advance Directives Documents on File Type Date Recorded Patient Breakdown Man Expl anation Healthcare Directive 09/08/2024 7:47 AM HC D 09.08.24 POLST 08/18/2020 12:00 AM * DNR (Latest [...] Comments Code Status Discussion: Discussed Care Teams Asbestos Handler Relationship Specialty Start Date End Date Becky Hopson [place] [address] PCP - General Family Practice 09/28/21 Damaris Summers PharmD [address] [place] [address] Pharmacist Medication Management Pharmacology 11/06/23 11/05/26 Epifanio Tanner PA [address] [place] [address] Pain Management Physician Senior Stereo Compiler Team Lead 11/28/23 [facility] [address] [place] [address] 11/27/24
[2024-12-16 18:32] VITALS: BP 109/75; PULSE 91; RESP 16; TEMP 36.4; O2SAT 95; BMI 31.8
--- NOTE | 2024-12-16 18:59 | ED.GENADULT ---
HPI - General Adult General Chief complaint: Skin/Abscess/Foreign Body Stated complaint: wants wound on left foot heel looked at Time Seen by Provider: 12/16/24 18:58 History of Present Illness HPI narrative: Seen by wound clinic this morning for foul order from chronic wound left heel. Draining?culture done at wound clinic. Wound care completed at 8am- leaking all day now. Home care supposed to come for dressing change tomorrow. Started on cipro today as well 64-year-old woman presenting to the emergency department has had a chronic left heel wound. Apparently had a bone spur removed and the central aspect of this did not completely heal. Has been seeing wound care as well as Podiatry. Was seen by the wound clinic this morning. Has been draining a foul odor. A culture is pending from the drainage collected today. Was initiated on ciprofloxacin. Upon my review of records, last culture from this area that was resulted was October of this year. Resulted staph and Leclercia with broad sensitivities; both were sensitive to ciprofloxacin. She does feel that there was more swelling and some redness since being seen this morning. Does have chronic pain here. Does have diabetes and peripheral neuropathy. She does not some numbness in her left foot which she thinks was not so present before. Expresses a good deal of frustration about this persistent wound. She does have it offloaded on a foam pad overnight. But with restless legs that often just comes off. She was relatively active today doing activities requiring standing and walking around the home. Related Data Home Medications ?Medication ?Instructions ?Recorded ?Confirmed albuterol sulfate 90 mcg/actuation 1 puff inhalation Q8H PRN 09/23/21 12/16/24 aerosol inhaler aspirin 81 mg tablet,delayed 81 mg PO DAILY 09/23/21 12/16/24 release bupropion HCl 300 mg 24 hr tablet, 300 mg PO DAILY 09/23/21 12/16/24 extended release metformin 1,000 mg tablet 1,000 mg PO BID 09/23/21 12/16/24 sertraline 100 mg tablet 200 mg PO HS 09/23/21 12/16/24 cyanocobalamin (vitamin B-12) 1,000 mcg PO DAILY 07/26/22 12/16/24 1,000 mcg tablet cyclobenzaprine 10 mg tablet 10 mg PO TID PRN 07/26/22 12/16/24 melatonin 5 mg tablet 5 mg PO HS 07/26/22 12/16/24 nitroglycerin 0.4 mg sublingual 0.4 mg sublingual Q5M PRN 07/26/22 12/16/24 tablet fluticasone fur. 100 mcg-umeclid 1 inh inhalation Q24H 06/20/23 12/16/24 62.5 mcg-vilant 25 mcg inhalat.powder (Trelegy Ellipta) oxycodone 5 mg tablet 5 mg PO BID PRN 06/20/23 12/16/24 pregabalin 150 mg capsule 150 mg PO BID@18,22 06/20/23 12/16/24 ropinirole 4 mg tablet 4 mg PO QPM 06/20/23 12/16/24 Held on 12/16/24. Instructions: per patient empagliflozin 10 mg tablet 10 mg PO DAILY 08/13/24 12/16/24 (Jardiance) furosemide 20 mg tablet 20 mg PO BID 08/13/24 12/16/24 naloxone 4 mg/actuation nasal 1 spray intranasal Q2-3M PRN 08/13/24 12/16/24 spray (Narcan) acetaminophen 500 mg tablet 500 mg PO Q6H PRN 10/17/24 12/16/24 (Tylenol Extra Strength) atorvastatin 40 mg tablet 40 mg PO HS 10/17/24 12/16/24 cholecalciferol (vitamin D3) 50 50 mcg PO DAILY 10/17/24 12/16/24 mcg (2,000 unit) capsule magnesium 250 mg tablet 250 mg PO DAILY 10/17/24 12/16/24 mirtazapine 7.5 mg tablet 7.5 mg PO HS 10/17/24 12/16/24 Held on 12/16/24. Instructions: per patient pyridoxine (vitamin B6) 25 mg 25 mg PO DAILY 10/17/24 12/16/24 tablet tirzepatide 15 mg/0.5 mL 15 mg subcut Q7D 10/17/24 12/16/24 subcutaneous pen injector (Mounjaro) turmeric 400 mg capsule 400 mg PO DAILY 10/17/24 12/16/24 Previous Rx's ?Medication ?Instructions ?Recorded nicotine 14 mg/24 hr daily 1 patch transdermal Q24H #28 ea 10/19/24 transdermal patch sulfamethoxazole 800 1 tab PO BID #20 tabs 10/19/24 mg-trimethoprim 160 mg tablet Allergies Allergy/AdvReac Type Severity Reaction Status Date / Time lactose Allergy Verified 12/16/24 18:42 Review of Systems Status of ROS: Reports: 6 or more systems reviewed and unremarkable except as noted in History and below [facility] Medical History Chronic kidney disease (CKD) stage G3b/A1, moderately decreased glomerular filtration rate (GFR) between 30-44 mL/min/1.73 square meter and albuminuria creatinine ratio less than 30 mg/g ?N18.32 - Chronic kidney disease, stage 3b (ICD-10) Obesity (BMI 30.0-34.9) ?E66.811 - Obesity, class 1 (ICD-10) Chronic pain ?G89.29 - Other chronic pain (ICD-10) Severe tricuspid regurgitation ?I07.1 - Rheumatic tricuspid insufficiency (ICD-10) Neurocognitive deficits ?R29.818 - Other symptoms and signs involving the nervous system (ICD-10) ?R41.89 - Other symptoms and signs involving cognitive functions and awareness (ICD-10) Paroxysmal supraventricular tachycardia ?I47.10 - Supraventricular tachycardia, unspecified (ICD-10) JESUSITA (obstructive sleep apnea) ?G47.33 - Obstructive sleep apnea (adult) (pediatric) (ICD-10) Atherosclerotic heart disease of [place] coronary artery with other forms of angina pectoris ?I25.118 - Atherosclerotic heart disease of [place] coronary artery with other forms of angina pectoris (ICD-10) Type 2 diabetes mellitus with polyneuropathy ?E11.42 - Type 2 diabetes mellitus with diabetic polyneuropathy (ICD-10) Controlled substance agreement signed ?Z79.899 - Other m[facility]p (current) drug therapy (ICD-10) Alcohol use disorder, moderate, in sustained remission ?F10.21 - Alcohol dependence, in remission (ICD-10) Heart failure, unspecified ?I50.9 - Heart failure, unspecified (ICD-10) Exertional angina ?I20.89 - Other forms of angina pectoris (ICD-10) Hypoglycemia ?E16.2 - Hypoglycemia, unspecified (ICD-10) History of alcohol abuse ?F10.11 - Alcohol abuse, in remission (ICD-10) Social anxiety disorder ?F40.10 - Social phobia, unspecified (ICD-10) Mood disorder ?F39 - Unspecified mood [affective] disorder (ICD-10) Vitamin D deficiency, unspecified ?E55.9 - Vitamin D deficiency, unspecified (ICD-10) Abnormal kidney function ?N28.9 - Disorder of kidney and ureter, unspecified (ICD-10) Psoriasis ?L40.9 - Psoriasis, unspecified (ICD-10) Patient nonadherence ?Z91.199 - Patient's noncompliance with other medical treatment and regimen due to unspecified reason (ICD-10) Alcohol use disorder, mild, in early remission ?F10.11 - Alcohol abuse, in remission (ICD-10) Nicotine use disorder ?F17.200 - Nicotine dependence, unspecified, uncomplicated (ICD-10) Coronary artery disease ?I25.10 - Atherosclerotic heart disease of [place] coronary artery without angina pectoris (ICD-10) Severe major depression without psychotic features ?F32.2 - Major depressive disorder, single episode, severe without psychotic features (ICD-10) Bipolar 1 disorder, depressed, severe ?F31.4 - Bipolar disorder, current episode depressed, severe, without psychotic features (ICD-10) RLS (restless legs syndrome) ?G25.81 - Restless legs syndrome (ICD-10) Chronic depression ?F32.A - Depression, unspecified (ICD-10) History of AR (myocardial infarction) ?I25.2 - Old myocardial infarction (ICD-10) Primary hypertension ?I10 - Essential (primary) hypertension (ICD-10) Hyperlipidemia ?E78.5 - Hyperlipidemia, unspecified (ICD-10) Type 2 diabetes mellitus, without long-term current use of insulin ?E11.9 - Type 2 diabetes mellitus without complications (ICD-10) Suicidal intent ?R45.851 - Suicidal ideations (ICD-10) Drug overdose ?T50.901A - Poisoning by unspecified drugs, medicaments and biological substances, accidental (unintentional), initial encounter (ICD-10) Hip pain ?M25.559 - Pain in unspecified hip (ICD-10) Chronic back pain ?M54.9 - Dorsalgia, unspecified (ICD-10) ?G89.29 - Other chronic pain (ICD-10) COPD (chronic obstructive pulmonary disease) ?J44.9 - Chronic obstructive pulmonary disease, unspecified (ICD-10) Osteoporosis ?M81.0 - Age-related osteoporosis without current pathological fracture (ICD-10) GERD (gastroesophageal reflux disease) ?K21.9 - Gastro-esophageal reflux disease without esophagitis (ICD-10) Rheumatoid arthritis ?M06.9 - Rheumatoid arthritis, unspecified (ICD-10) Surgical History History of bone marrow biopsy ?Z98.890 - Other specified postprocedural states (ICD-10) H/O knee surgery ?Z98.890 - Other specified postprocedural states (ICD-10) Hx of tubal ligation ?Z98.51 - Tubal ligation status (ICD-10) Hx of tonsillectomy ?Z90.89 - Acquired absence of other organs (ICD-10) Status post carpal tunnel release (07/13/22) ?Z98.890 - Other specified postprocedural states (ICD-10) History of carpal tunnel surgery of right wrist (03/10/22) ?Z98.890 - Other specified postprocedural states (ICD-10) Hx of heart bypass surgery ?Z95.1 - Presence of aortocoronary bypass graft (ICD-10) Hx of total knee arthroplasty ?Z96.659 - Presence of unspecified artificial knee joint (ICD-10) Social History Narrative: Single, assisted living, smoker, PCP Mark Anthony What is your current living situation?: I presently have a place to live Problems where you live: no known problems In the past 12 months, utilities in danger of being shut off: no In past 12 months, lack of transportation kept you from medical appts, meetings, work, or getting things needed for daily living: no In the past 12 mos, have been you worried that your food would run out before you had money to buy more?: never true In the past 12 mos, the food you bought just didn't last and you didn't have money to buy more?: never true Highest level of school completed/degree received: Associate degree: occupational, technical, vocational program Smoking Status: Current every day smoker What tobacco products do you use: cigarettes Do you use any of these nicotine containing products: None Second hand tobacco smoke exposure: No How often do you have a drink containing alcohol: 2-4 times a month Alcohol type: wine How many standard drinks containing alcohol do you have on a typical day: 1 or 2 How often do you have six or more drinks on one occasion: Never AUDIT-C Alcohol total score: 2 Non-prescribed substance use: marijuana (any form) Non-prescribed substance use details: occasional Caffeine: Yes How often does anyone, including family, friends and others, physically hurt you: never How often does anyone, including family, friends and others, insult or talk down to you: never How often does anyone, including family, friends and others, threaten you with harm: never How often does anyone, including family, friends and others, scream or curse at you: never Are you using contraception or practicing any form of control: No service: No Exam Narrative: Exam Narrative: Pleasant. NAD. Understandably appears little frustrated. Skin is warm and dry. Removing wraps, dressings from left foot I can appreciate some faint erythema generally in mild calor. A little puffy as well. The wound in question at the posterior aspect of the calcaneus looks to be clean along the margins. 1.5 cm in diameter approximately. There is a green wick in place. Sore generally to palpation here. Odor is noted. Const: Vital Signs, click to edit/add: Vital Signs - 24 hr 12/16/24 18:32 Temperature 97.5 F L Pulse Rate [Pulse Oximeter] 91 Respiratory Rate 16 Blood Pressure [Ri ght Upper Arm] 109/75 Pulse Oximetry 95 Oxygen Delivery Me thod Room Air Documenting provider has reviewed patient's vital signs: yes Course Vital Signs Vital signs: Initial Vital Signs Temperature 97.5 F L 12/16/24 18:32 Temperature Source Temporal Artery Scan 12/16/24 18:32 Pulse Rate 91 12/16/24 18:32 Respiratory Rate 16 12/16/24 18:32 Blood Pressure 109/75 12/16/24 18:32 Blood Pressure Mean 86 12/16/24 18:32 Blood Pressure Position Sitting 12/16/24 18:32 Pulse Oximetry 95 12/16/24 18:32 Oxygen Delivery Method Room Air 12/16/24 18:32 Vital Signs Temperature 97.5 F L 12/16/24 18:32 Pulse Rate 91 12/16/24 18:32 Respiratory Rate 16 12/16/24 18:32 Blood Pressure 109/75 12/16/24 18:32 Pulse Oximetry 95 12/16/24 18:32 Oxygen Delivery Method Room Air 12/16/24 18:32 Temperature 97.5 F L 12/16/24 18:32 Pulse Rate 75 12/16/24 21:25 Respiratory Rate 18 12/16/24 21:25 Blood Pressure 147/85 H 12/16/24 21:25 Pulse Oximetry 97 12/16/24 21:25 Oxygen Delivery Method Room Air 12/16/24 21:25 Medications Administered Medications: Discontinued Medications Generic Name Dose Route Start Last Admin Trade Name Freq PRN Reason Stop Dose Admin Oxycodone/Acetaminophen 2 tab 12/16/24 21:09 12/16/24 21:19 Oxycodone/Apap 5-325 Tablet PO 12/16/24 21:10 2 tab ONCE ONE Administration Medical Decision Making MDM Narrative Medical decision making narrative: She does have close relationship with wound care and podiatry. Is receiving regular follow-up. I see some mild erythematous and fullness but I do not know that this is a runaway cellulitis at this point. Furthermore would appear to be on appropriate antibiotic management. I did propose we check some labs though to maybe a prompt more aggressive action. Also x-ray of the heel/calcaneus looking for any evidence of osteomyelitis. I think some of the discomfort or changes we are seeing might be related to activity today. Labs are overall reassuring with mild elevation in CRP and a normal white count. Two-view x-ray of left heel independently reviewed by me showing postoperative changes. Bony cortex looks intact. Radiology over-read below INDICATION: Swelling. TECHNIQUE: Left calcaneus 2 views. COMPARISON: 10/02/2024. FINDINGS: Postsurgical changes of the calcaneus. Hardware appears intact and appropriately seated. No acute fracture or dislocation. No evidence of osseous erosions to suggest osteomyelitis. Plantar calcaneal spur. Posterior soft tissue swelling with superficial irregularity, which may represent a wound or laceration. IMPRESSION: 1. Posterior soft tissue swelling with wound or laceration. No osseous erosions to suggest osteomyelitis. 2. No acute fracture or dislocation. Dictated by Anival Vieira MD @ 12/16/2024 9:05:13 PM I offered reassurance at this point regarding antibiotic treatment and imaging. I sympathize with frustration and duration illness and degree of disability and discomfort. Continue with close follow-up. Culture pending. Recommend elevation See patient discharge plan for further discussion I am reassured by your white count. With review of last available cultures, I can confirm you are on the right antibiotic, pending results of your latest cultures. I think you have good follow-up. I understand a wound nurse will be out see you tomorrow. I think some of what happened today is that you were more active and caused more irritation. I would however watch this closely for marked increase redness, swelling, pain and of course fever. Medical Records Medical records reviewed: Yes I reviewed the patient's medical records Lab Data Lab results reviewed: Yes I reviewed the patient's lab results Labs: Lab Results 12/16/24 Range/Units 20:05 WBC 10.84 (4.50-11.00) K/uL RBC 3.68 L (4.00-5.20) m/uL Hgb 11.3 L (12.0-16.0) gm/dL Hct 35.5 (33.0-51.0) % MCV 97 (80-100) fL MCH 31 (26-34) pg MCHC 32 (32-36) gm/dL RDW Coeff of Sylvester 14.5 (11.5-15.5) % Plt Count 295 (140-440) K/uL Neut % (Auto) 61.9 (42.0-72.0) % Lymph % (Auto) 25.7 (20-44) % Saline % (Auto) 7.9 (0.0-11.0) % Eos % (Auto) 3.7 (0.0-7.0) % Baso % (Auto) 0.6 (0.0-3.0) % Neut # (Auto) 6.70 (1.7-7.0) K/uL Lymph # (Auto) 2.79 (0.90-2.90) K/uL Saline # (Auto) 0.90 (0.00-0.90) K/UL Eos # (Auto) 0.40 (0.00-0.50) K/uL Baso # (Auto) 0.07 (0.00-0.30) K/uL Abs Immat Gran (auto) 0.02 (0.00-0.30) K/uL Imm/Tot Granulo (auto) 0.2 % C-Reactive Protein 2.1 H (0.5-1.0) mg/dL Discharge Plan Discharge Clinical Impression: Wound infection, Chronic wound of extremity Patient Disposition: Home w/ Parent or Adult Condition: Stable Additional Instructions: I am reassured by your white count. With review of last available cultures, I can confirm you are on the right antibiotic, pending results of your latest cultures. I think you have good follow-up. I understand a wound nurse will be out see you tomorrow. I think some of what happened today is that you were more active and caused more irritation. I would however watch this closely for marked increase redness, swelling, pain and of course fever. Prescriptions: No Action nitroglycerin 0.4 mg tablet, sublingual 0.4 mg sublingual Q5M PRN cyclobenzaprine 10 mg tablet 10 mg PO TID PRN melatonin 5 mg tablet 5 mg PO HS cyanocobalamin (vitamin B-12) 1,000 mcg tablet 1,000 mcg PO DAILY furosemide 20 mg tablet 20 mg PO BID Jardiance 10 mg tablet 10 mg PO DAILY naloxone [Narcan] 4 mg/actuation spray,non-aerosol 1 spray intranasal Q2-3M PRN Rx Instructions: spray 1 dose into ONE nostril; alternate nostrils w each dose until help arrives sertraline 100 mg tablet 200 mg PO HS aspirin 81 mg tablet,delayed release (DR/EC) 81 mg PO DAILY metformin 1,000 mg tablet 1,000 mg PO BID albuterol sulfate 90 mcg/actuation HFA aerosol inhaler 1 puff INHALATION Q8H PRN bupropion HCl 300 mg tablet extended release 24 hr 300 mg PO DAILY ropinirole 4 mg tablet 4 mg PO QPM pregabalin 150 mg capsule 150 mg PO BID@18,22 Trelegy Ellipta 100-62.5-25 mcg blister with device 1 inh inhalation Q24H oxycodone 5 mg tablet 5 mg PO BID PRN atorvastatin 40 mg tablet 40 mg PO HS mirtazapine 7.5 mg tablet 7.5 mg PO HS cholecalciferol (vitamin D3) 50 mcg (2,000 unit) capsule 50 mcg PO DAILY Mounjaro 15 mg/0.5 mL pen injector 15 mg SUBCUT Q7D Patient Comments: INJECT 0.5ML (15MG) SUBCUTANEOUSLY ONCE WEEKLY. Rx Instructions: TAKES ON SUNDAY acetaminophen [Tylenol Extra Strength] 500 mg tablet 500 mg PO Q6H PRN magnesium 250 mg tablet 250 mg PO DAILY pyridoxine (vitamin B6) 25 mg tablet 25 mg PO DAILY turmeric 400 mg capsule 400 mg PO DAILY nicotine 14 mg/24 hr Patch 24 Hour 1 patch transdermal Q24H Qty: 28 0RF sulfamethoxazole-trimethoprim 800-160 mg Tablet 1 tab PO BID Qty: 20 0RF Follow Up/Referrals: Becky Hopson DO [Primary Care Provider, Family Practice] Stand Alone Forms: MyHealth Info Instructions
--- OUTSIDE RECORDS SUMMARY | 2024-12-16 19:18 | XMS_ITS | Clinical Summary ---
Author Organization [facility] Address [address] , [address] [place] [address] Phone Care Team Providers Care Faucets Assembler Name Role Phone Shani Guzman Conditions or Problems Problem Name Problem Code Onset Date Status Entry Date Provider Comment Standard Description Annotate Peripheral neuropathy [id number] (SNOMED CT) 04/11 Active 04/11 Wilber Browning MD Peripheral nerve disease Carpal tunnel syndrome, bilateral upper limbs [id number] 1 (SNOMED CT) 04/11 Active 04/11 Wilber [...] Procedures Code Procedure Name Date Entry Date CPT-94250 Nerve Conduction 13 or more studies 02/08 CPT-99226 EMG with NCS (5+ muscles) - 2 limbs 02/08 Vital Signs No information available. Immunizations No information available. Advance Directives No information available.
--- OUTSIDE RECORDS SUMMARY | 2024-12-16 19:18 | XMS_ITS | CCD ---
Author Organization Unknown Care Team Providers Care Cylinder Head Assembler Name Role Phone Patient Appointment Coordinator, [place] Primary Care Provider Unava ilable Unavailable Chronic Care Management Unavaila ble Summary Purpose DataExchange Insurance Providers Payer name Policy type / Coverage type Covered constitution party ID Effective Begin Date Effective End Date are Commercial Insurance [id number] Unkn own [facility] Commercial Insurance [id number] Unkn own Family History Family History data [...]
--- OUTSIDE RECORDS SUMMARY | 2024-12-16 19:18 | XMS_ITS | CCD ---
Author Organization Unknown Care Team Providers Care Legal Biller Name Role Phone Digital Forensics Investigator, [place] Primary Care Provider Unava ilable Unavailable Chronic Care Management Unavaila ble Summary Purpose DataExchange Insurance Providers Payer name Policy type / Coverage type Covered green party ID Effective Begin Date Effective End Date are Commercial Insurance [id number] Unkn own [facility] Commercial Insurance [id number] Unkn own Family History Family History data [...]
--- NOTE | 2024-12-16 19:49 | CRLHL7_ITS ---
For Patients: As a result of the Cures Act, medical imaging exams and procedure reports are released immediately into your electronic medical record. You may view this report before your referring provider. If you have questions, please contact your health care provider. INDICATION: Swelling. TECHNIQUE: Left calcaneus 2 views. COMPARISON: 10/02/2024. FINDINGS: Postsurgical changes of the calcaneus. Hardware appears intact and appropriately seated. No acute fracture or dislocation. No evidence of osseous erosions to suggest osteomyelitis. Plantar calcaneal spur. Posterior soft tissue swelling with superficial irregularity, which may represent a wound or laceration. IMPRESSION: 1. Posterior soft tissue swelling with wound or laceration. No osseous erosions to suggest osteomyelitis. 2. No acute fracture or dislocation. Dictated by Anival Vieira MD @ 12/16/2024 9:05:13 PM (Electronically Signed)
[2024-12-16 20:21] LABS: Hematocrit* 35.5 % (33.0-51.0); Hemoglobin* 11.3 gm/dL (12.0-16.0); Immature Granulocytes Abs Auto 0.02 K/uL (0.00-0.30); Immature Granulocytes Pct Auto 0.2 %; Lymphocytes Absolute Auto 2.79 K/uL (0.90-2.90); Mean Corpuscular HGB Conc 32 gm/dL (32-36); Mean Corpuscular Hemoglobin 31 pg (26-34); Mean Corpuscular Volume 97 fL (80-100); RDW Coefficient of Variation % 14.5 % (11.5-15.5); Red Blood Count* 3.68 m/uL (4.00-5.20); White Blood Count* 10.84 K/uL (4.50-11.00)
[2024-12-16 20:22] LABS: Slide Review Reflex No
[2024-12-16] MEDS: OxyCODONE/APAP 5-325 TABLET 2 TAB PO (21:19)
[2024-12-16 21:25] VITALS: BP 147/85; PULSE 75; RESP 18; O2SAT 97
== END 2024-12-16 22:39 | disposition home or self-care (01) ==
PROVIDERS: Emergency Provider Family Medicine; PCP Family Medicine
DX: L03.116 Cellulitis of left lower limb (principal)
CPT/HCPCS: 36415; 73650; 85025; 86140; 99284; A9270

== ENCOUNTER 2024-12-19 09:57 | Outpatient (CLI) | payer MEDICARE, MEDICAID, SELFPAY | END 2024-12-19 09:58 | disposition home or self-care (01) | LOC: WOUND 09:57 | PROVIDERS: PCP Family Medicine; Visit Provider Nurse Practitioner Family | DX: E11.622 Type 2 diabetes mellitus with other skin ulcer (principal); L97.322 Non-pressure chronic ulcer of left ankle with fat layer exposed; E11.42 Type 2 diabetes mellitus with diabetic polyneuropathy; Z79.84 Long term (current) use of oral hypoglycemic drugs | CPT/HCPCS: G0463 ==

== ENCOUNTER 2024-12-26 10:00 | Outpatient (CLI) | payer MEDICARE, MEDICAID, SELFPAY | END 2024-12-26 10:01 | disposition home or self-care (01) | LOC: WOUND 10:00 | PROVIDERS: PCP Family Medicine; Visit Provider Nurse Practitioner Family | DX: E11.622 Type 2 diabetes mellitus with other skin ulcer (principal); E11.42 Type 2 diabetes mellitus with diabetic polyneuropathy; L97.328 Non-pressure chronic ulcer of left ankle with other specified severity; G47.33 Obstructive sleep apnea (adult) (pediatric); I25.118 Atherosclerotic heart disease of native coronary artery with other forms of angina pectoris; Z79.84 Long term (current) use of oral hypoglycemic drugs | CPT/HCPCS: G0463 ==

== ENCOUNTER 2025-01-02 09:58 | Outpatient (CLI) | payer MEDICARE, MEDICAID, SELFPAY | END 2025-01-02 09:59 | disposition home or self-care (01) | LOC: WOUND 09:58 | PROVIDERS: PCP Family Medicine; Visit Provider Nurse Practitioner Family | DX: E11.621 Type 2 diabetes mellitus with foot ulcer (principal); E11.42 Type 2 diabetes mellitus with diabetic polyneuropathy; L97.328 Non-pressure chronic ulcer of left ankle with other specified severity; Z79.84 Long term (current) use of oral hypoglycemic drugs | CPT/HCPCS: 11043 ==

== ENCOUNTER 2025-01-09 09:59 | Outpatient (CLI) | payer MEDICARE, MEDICAID, SELFPAY | END 2025-01-09 10:00 | disposition home or self-care (01) | LOC: WOUND 10:00 | PROVIDERS: PCP Family Medicine; Visit Provider Physician Assistant | DX: E11.622 Type 2 diabetes mellitus with other skin ulcer (principal); E11.42 Type 2 diabetes mellitus with diabetic polyneuropathy; L97.828 Non-pressure chronic ulcer of other part of left lower leg with other specified severity; I25.118 Atherosclerotic heart disease of native coronary artery with other forms of angina pectoris; Z79.84 Long term (current) use of oral hypoglycemic drugs | CPT/HCPCS: 97597 ==